=== PATIENT | male | born 1950 ===

== ENCOUNTER → 2017-12-28 12:32 | Outpatient (CLI) | payer MEDICARE, OTHER, SELFPAY ==
--- NOTE | 2017-12-28 | DI.ECHO.S_ITS ---
[place] [facility]---------+ [facility] +---------+ : : [address] : [place] [address] : : : : [id number] : : : : Phone: [phone]+ Echocardiogram Report + + :Name: KWADWO AGUAYO Study Date: 12/28/2017 Height: 73 in : :[facility] Weight: 240 lb : : Gender: Male BSA: 2.3 m2 : :: 1950 Age: 67 yrs BP: 110/62 mmHg: :Reason For Study: SOB : : Performed By: Ericka Valentine : :Referring: CAROL LUCIO : + + Interpretation Summary The left ventricle is normal in size. The ejection fraction is estimated to be 60-65%. The right ventricle is grossly normal size. The right ventricular systolic function is normal. No significant valvular pathology seen. Procedure: A two-dimensional transthoracic echocardiogram with color flow and Doppler was performed. The study quality was technically adequate. There is no prior echocardiogram noted for this patient. The patient was in normal sinus rhythm during the exam. Left Ventricle: The left ventricle is normal in size. There is normal left ventricular wall thickness. There is no thrombus. The ejection fraction is estimated to be 60-65%. There are no obvious focal wall motion abnormalities noted but poor endocardial definition reduces the sensitivity for the detection of such. Assessment of diastolic parameters indicates normal left ventricular diastolic function and normal filling pressures. Right Ventricle: The right ventricle is grossly normal size. The right ventricular systolic function is normal. Atria: The left atrial size is normal. Right atrial size is normal. The interatrial septum is intact with no evidence for an atrial septal defect. Mitral Valve: The mitral valve is normal in structure and function. There is trace mitral regurgitation. Aortic Valve: The aortic valve is trileaflet. The aortic valve opens well. There is no aortic valve stenosis. No aortic regurgitation is present. Tricuspid Valve: The tricuspid valve is normal in structure and function. Right ventricular systolic pressure is estimated to be 23 mmHg plus the clinically estimated CVP which cannot be estimated on this exam. There is trace tricuspid regurgitation. Pulmonic Valve: The pulmonic valve is not well seen, but is grossly normal. There is trace pulmonic regurgitation. Great Vessels: The aortic root is normal size. The dimensions of the ascending aorta are normal. The inferior vena cava was not visualized. Pericardium/ Pleura There is no pericardial effusion. There is no pleural effusion. MMode/2D Measurements & Calculations LVIDd: 4.5 cm Ao root diam: 3.2 cm LVIDs: 2.7 cm Aortic Jxn: 2.7 cm FS: 41.1 % asc Aorta Diam: 2.9 cm EPSS: 0.60 cm Ao Arch Diam (Prox Trans): 3.1 cm IVSd: 0.95 cm LVPWd: 0.93 cm LV guaman. diameter/BSA (cm/m^2): 1.9 LV sys. diameter/BSA (cm/m^2): 1.1 LA dimension: 4.0 cm RA long axis: 5.4 cm LA A2 area: 18.1 cm2 RA area: 17.7 cm2 LA A4 area: 19.3 cm2 RA vol: 49.1 ml LA length (vol): 5.3 cm RA : 21.1 ml/m2 LA vol: 55.5 ml RVDd major: 6.3 cm LA vol index: 23.9 ml/m2 RVD1 (basal): 3.1 cm RVD2 (mid): 3.0 cm Doppler Measurements & Calculations Ao V2 max: 123.5 cm/sec MV E max chase: 88.2 cm/sec Ao V2 mean: 85.3 cm/sec MV A max chase: 70.6 cm/sec Ao max P.1 mmHg MV E/A: 1.2 Ao mean P.3 mmHg Med Peak E' Chase: 8.1 cm/sec Ao V2 VTI: 29.3 cm E/E' med: 10.8 Lat Peak E' Chase: 9.7 cm/sec E/E' lat: 9.1 E/e' average: 10.0 MV dec time: 0.21 sec MV P1/2t: 63.9 msec TR max chase: 239.8 cm/sec MV P1/2t max chase: 88.4 cm/sec TR max P.0 mmHg MVA(P1/2t): 3.4 cm2 PA V2 max: 71.3 cm/sec PA V2 mean: 52.4 cm/sec PA mean P.2 mmHg PA Accel Time: 0.16 sec Reading Physician:NELIDA
--- NOTE | 2017-12-29 16:52 | DI.NM.S_ITS ---
DATE OF SERVICE: 12/28/2017 PROCEDURE: Pharmacologic perfusion study. INDICATIONS: Shortness of breath with underlying insulin-dependent diabetes mellitus, hypertension, hyperlipidemia, and rheumatoid arthritis. RADIOPHARMACEUTICAL: 26.3 mCi of technetium-99m Myoview IV was injected at stress, and 24.6 mCi of technetium-99m Myoview IV was injected at rest. CARDIAC STRESS: The patient initially underwent exercise perfusion study. He walked on Thaddeus protocol for 7 minutes 50 seconds; however, he felt fatigue and achieved heart rate of 113 only. Hence, converted to Lexiscan. The patient received IV Lexiscan infusion as per standard protocol under the supervision of an attending staff. Blood pressure remained stable. The patient tolerated the Lexiscan infusion. There were no significant symptoms. Baseline EKG revealed sinus rhythm. During stress, there were a lot of artifacts. In recovery, there were some nonspecific ST changes. No significant sustained arrhythmias seen. RAW DATA: There appears to be increased subdiaphragmatic activity. The patient's weight is 239 pounds. GATED STUDY: Resting LV ejection fraction and stress LV ejection fraction 74%. I don't see any obvious wall motion abnormalities. No transient ischemic dilatation. TID ratio is 0.84, which is within normal limits. Resting end- diastolic volume 97 mL. Lung/heart ratio is 0.37, which is within normal limits. MYOCARDIAL PERFUSION SCAN: Stress supine, resting supine, and stress prone images were compared to each other. Stress supine and resting supine images revealed small- to moderate-sized, [id number] decreased perfusion of inferior wall and inferoapex which significantly improved during prone images; however, prone images remained to have moderately decreased perfusion of inferoapex. I don't see any obvious reversible ischemia. CONCLUSION: 1. No obvious reversible ischemia. 2. Supine images revealed small- to moderate-sized, [id number] decreased perfusion of inferior wall and inferoapex which significantly improved during prone images. Prone images remained to have moderately decreased perfusion of inferoapex. The patient has increased subdiaphragmatic activity. The patient's weight is 239 pounds. There is a possibility of diaphragmatic tissue attenuation artifact as well as some persistent tissue attenuation artifact. Normal wall motion goes against a diagnosis of previous transmural myocardial infarction; however, one cannot rule out the possibility of nontransmural infarction of inferoapex. Overall LV function is preserved. Hence, based on above-mentioned objective findings, overall this is a low risk myocardial perfusion scan. Neelam Vail - ERIBERTO/lamine/dhruv doc#: [id number]/job#: [id number] dd: 12/29/2017 12:35:00 dt: 12/29/2017 16:37:00 DICTATING MD/COPIES TO: King Humphreys MD COPIES MNE: REBECCA
== END ==
PROVIDERS: Visit Provider Internal Medicine Cardiovascular Disease
DX: R06.02 Shortness of breath (principal); E78.5 Hyperlipidemia, unspecified; E11.9 Type 2 diabetes mellitus without complications; Z79.4 Long term (current) use of insulin; I10 Essential (primary) hypertension; M06.9 Rheumatoid arthritis, unspecified
CPT/HCPCS: 78452; 93016; 93017; 93018; 93306; A9502; J2785

== ENCOUNTER 2020-01-30 16:20 | Emergency (ER) | payer MEDICARE, OTHER, SELFPAY ==
[2020-01-30 16:30] VITALS: BP 131/60; PULSE 87; RESP 15; TEMP 36.6; O2SAT 98; BMI 30.9
[2020-01-30 17:00] VITALS: BP 111/53; PULSE 76; O2SAT 100
--- NOTE | 2020-01-30 17:28 | ED_ITS ---
HPI - Nausea/Vomiting/Diarrhea General Chief complaint: Nausea/Vomiting/Diarrhea Stated complaint: KIDNEY HEAD PAIN Time Seen by Provider: 01/30/20 16:37 Source: patient Mode of arrival: Ambulatory Limitations: no limitations History of Present Illness HPI Narrative: Patient is a 69-year-old male with history of coronary artery disease posttraumatic stress disorder headache presenting from the PCP office for increasing creatinine and persistent headache ongoing for about the last 5 days. Use actually seen and evaluated at [facility] he was diagnosed with sinusitis started on prednisone and Augmentin. His headache got worse this morning he went into the PCP who sent him here to the ER after blood work returned with a creatinine of 1.8. His baseline creatinine appears to be 1.3. He is concerned because of his headache and persistent nausea, he actually vomited once or twice today. He has multiple allergies to medications and is hesitant to take any sort of medication. The PCP stopped his Augmentin that it might be in allergy. He denies any weakness numbness tingling MD complaint: nausea Onset (ago): day(s) Related Data Allergies Allergy/AdvReac Type Severity Reaction Status Date / Time No Known Drug Allergies Allergy Verified 01/30/20 16:37 Review of Systems Review of Systems ROS Unobtainable: All systems reviewed & are unremarkable except as noted in HPI and below Constitutional Constitutional: Denies chills, Denies fever(s), Reports headache(s), Denies lethargy and Denies weakness Eyes Eyes: Denies change in vision, Denies eye discharge, Denies irritation and Denies loss of vision ENT Ears, Nose, Mouth, and Throat: Denies change in voice, Reports headache(s), Denies neck pain and Denies sore throat Cardiovascular Cardiovascular: Denies chest pain, Denies irregular heart rhythm, Denies lightheadedness, Denies palpitations, Denies dyspnea, Denies dyspnea on exertion and Denies orthopnea Respiratory Respiratory: Denies cough, Denies dyspnea, Denies dyspnea on exertion and Denies wheezing Gastrointestinal Gastrointestinal: Reports nausea Musculoskeletal Musculoskeletal: Denies neck pain Integumentary/Breasts Skin/Breast: Denies pruritus, Denies erythema, Denies rash and Denies wounds Neurologic Neurologic: Reports as per HPI, Reports headache(s), Denies loss of vision and Denies weakness Endocrine Endocrine: Denies palpitations Allergic/Immunologic Allergic/Immunologic: Denies wheezing Patient History Medical History Coronary artery disease (Acute) Diabetes (Acute) Hyperlipidemia (Acute) Post-traumatic stress disorder, chronic (Acute) Social History Smoking Status: Never smoker Smoking Status: Never smoker alcohol intake frequency: holidays/special occasions only Substance Use Type: does not use Exam Initial Vital Signs Initial Vital Signs: Vital Signs Temperature 97.9 F 01/30/20 16:30 Pulse Rate 87 01/30/20 16:30 Respiratory Rate 15 01/30/20 16:30 Blood Pressure 131/60 01/30/20 16:30 Pulse Oximetry 98 01/30/20 16:30 GENERAL: Well-appearing, well-nourished and in no acute distress. HEENT: Head atraumatic,EOMI, pupils reactive, face symmetric, moist mucous membranes, mild tenderness across frontal sinuses CARDIOVASCULAR: Regular rate and rhythm without murmurs, rubs or gallops. RESPIRATORY: Breath sounds equal bilaterally, no wheezes rales or rhonchi. ABDOMEN: Soft, nontender. Normoactive bowel sounds all 4 quadrants. No guarding or rebound. EXTREMITIES: Normal range of motion, no clubbing or edema. Neurovascularly intact NEUROLOGICAL: Alert and oriented x4.Normal gait and speech. Cranial nerves II through XII grossly intact. [employer] strength equal bilaterally no focal deficits SKIN: Warm, dry, no laceration, no petechiae, no rashes or lesions. Course Orders Ordered: ED Orders 01/30/20 17:05 Basic Metabolic Panel Stat Complete Blood Count AUTO DIFF Stat 01/30/20 17:39 CT head/brain wo con Stat Sodium Chloride (Normal Saline 0.9%) 1,000 mls @ 1,000 mls/hr IV BOLUS ONE Stop: 01/30/20 18:38 Last Admin: 01/30/20 17:59 Dose: 1,000 mls/hr Documented by: SANIYA Vital Signs Vital signs: Vital Signs - 8 hr 01/30/20 16:30 01/30/20 17:00 01/30/20 17:30 Temperature 97.9 F Pulse Rate 87 76 72 Respiratory Rate 15 Blood Pressure 131/60 111/53 L 112/59 L Pulse Oximetry 98 100 96 MDM - Nausea/Vomiting/Diarrhea Lab Data Attestation: I reviewed the patient's lab results. Result diagrams: 01/30/20 17:05 01/30/20 17:05 Labs: Lab Results 01/30/20 01/30/20 Range/Units 17:05 17:05 WBC 8.3 (4.5-11.0) X10^3/uL RBC 4.36 L (4.5-5.9) X10^6/uL Hgb 14.3 (13.5-17.5) g/dL Hct 41.2 (41-53) % MCV 94.6 (80-100) fL MCH 32.9 (26-34) PG MCHC 34.8 (30-36) % RDW 12.9 (11.6-14.8) % Plt Count 184 (150-400) X10^3/uL Neut % (Auto) 72.5 (50-75) % Lymph % (Auto) 17.7 L (25-40) % Mcleod % (Auto) 8.9 (3-14) % Eos % (Auto) 0.7 L (2-4) % Baso % (Auto) 0.2 (0-2) % Neut # (Auto) 6000 (8935-2146) /uL Lymph # (Auto) 1500 (0232-1334) /uL Mcleod # (Auto) 700 (0-900) /uL Eos # (Auto) 100 (0-450) /uL Baso # (Auto) 0 (0-100) /uL Sodium 133 L (137-145) mmol/L Potassium 4.9 (3.4-5.1) mmol/L Chloride 98 (98-107) mmol/L Carbon Dioxide 27 (22-32) mmol/L BUN 38 H (9-20) mg/dL Creatinine 1.99 H (0.66-1.25) mg/dL Estimated GFR 33.5 L (>60) mL/min BUN/Creatinine Ratio 19.1 (6-22) Glucose 104 (80-110) mg/dL Calcium 9.5 (8.4-10.2) mg/dL Imaging Data CT scan - head: Radiologist's Impression: PROCEDURE: CT HEAD/BRAIN WO CON INDICATIONS: severe headache with nausea TECHNIQUE: Noncontrast 4.5 mm thick angled axial sections acquired from the foramen magnum to the vertex, with coronal and sagittal reformats. For radiation dose reduction, the following was used: automated exposure control, adjustment of mA and/or kV according to patient size. COMPARISON: None. FINDINGS: Image quality: Excellent. CSF spaces: Basal cisterns are patent. No extra-axial fluid collections. The ventricles are symmetric in size and shape. Brain: No intracranial bleeds or masses. There is cerebral volume loss for age, with resultant ventricular and sulcal prominence. There are periventricular and deep white matter chronic small vessel ischemic changes. There is intracranial internal carotid artery atherosclerosis. Skull and face: Calvarium and visualized facial bones appear intact, without suspicious lesions. One-2 mm density or foreign body projecting in the right periorbital soft tissues image 6/2. Sinuses: Visualized sinuses and mastoids are clear. IMPRESSION: No acute intracranial process. Dictated by: Wilver Smith M.D. on 01/30/2020 at 18:09 MDM Narrative Medical decision making narrative: Creatinine now is 1.9. Unclear what is causing his worsening creatinine he is given 1 L of IV fluids. However at this time does not meet admission criteria. Recommend outpatient workup of his increasing creatinine. Avoid NSAIDs and other nephrotoxic medications. Head CT is negative he has no focal deficits. He does have a history of headaches. He actually now is feeling much better. Discharge Plan Departure Patient Disposition: Home Clinical Impression: Acute kidney injury Headache Qualifiers: Headache type: unspecified Headache chronicity pattern: acute headache Intractability: not intractable Qualified Code(s): R51 - Headache Instructions: DI for Headache, DI for Acute Kidney Injury Activity Restrictions/Additional Instructions: *You have been diagnosed with headache and acute kidney injury *What to do: be sure to stay hydrated, avoid all NSAIDs such as ibuprofen, Motrin, Aleve, naproxen etc. your PCP at the [facility] needs to follow your kidney function. *Continue to take medications as directed *Follow up with your primary care provider in 2-3 days *Return to ER if you should have worsening headache, weakness numbness tingling inability to tolerate fluids or any new, worsening or concerning symptoms
[2020-01-30 17:30] VITALS: BP 112/59; PULSE 72; O2SAT 96
--- NOTE | 2020-01-30 17:39 | DI.CT.S_ITS ---
PROCEDURE: CT HEAD/BRAIN WO CON INDICATIONS: severe headache with nausea TECHNIQUE: Noncontrast 4.5 mm thick angled axial sections acquired from the foramen magnum to the vertex, with coronal and sagittal reformats. For radiation dose reduction, the following was used: automated exposure control, adjustment of mA and/or kV according to patient size. COMPARISON: None. FINDINGS: Image quality: Excellent. CSF spaces: Basal cisterns are patent. No extra-axial fluid collections. The ventricles are symmetric in size and shape. Brain: No intracranial bleeds or masses. There is cerebral volume loss for age, with resultant ventricular and sulcal prominence. There are periventricular and deep white matter chronic small vessel ischemic changes. There is intracranial internal carotid artery atherosclerosis. Skull and face: Calvarium and visualized facial bones appear intact, without suspicious lesions. One-2 mm density or foreign body projecting in the right periorbital soft tissues image 6/2. Sinuses: Visualized sinuses and mastoids are clear. IMPRESSION: No acute intracranial process. Dictated by: Wilver Smith M.D. on 01/30/2020 at 18:09 Approved by: Wilver Smith M.D. on 01/30/2020 at 18:11
[2020-01-30 17:56] LABS: Add Manual Diff / Slide Review NO; Basophils Absolute Auto 0 /uL (0-100); Basophils Percent Auto 0.2 % (0-2); Eosinophils Absolute Auto 100 /uL (0-450); Eosinophils Percent Auto 0.7 % (2-4); Hematocrit 41.2 % (41-53); Hemoglobin 14.3 g/dL (13.5-17.5); Lymphocytes Absolute Auto 1500 /uL (1100-4500); Lymphocytes Percent Auto 17.7 % (25-40); Mean Corpuscular HGB Conc 34.8 % (30-36); Mean Corpuscular Hemoglobin 32.9 PG (26-34); Mean Corpuscular Volume 94.6 fL (80-100); Monocytes Absolute Auto 700 /uL (0-900); Monocytes Percent Auto 8.9 % (3-14); Neutrophils Absolute Auto 6000 /uL (1500-7000); Neutrophils Percent Auto 72.5 % (50-75); Platelet Count 184 X10^3/uL (150-400); Red Blood Cell Count 4.36 X10^6/uL (4.5-5.9); Red Cell Distribution Width 12.9 % (11.6-14.8); White Blood Cell Count 8.3 X10^3/uL (4.5-11.0)
[2020-01-30 17:58] LABS: BUN Creatinine Ratio 19.1 (6-22); Blood Urea Nitrogen 38 mg/dL (9-20); Calcium 9.5 mg/dL (8.4-10.2); Carbon Dioxide 27 mmol/L (22-32); Chloride 98 mmol/L (98-107); Estimated Glomerular Filt Rate 33.5 mL/min (>60); Glucose 104 mg/dL (80-110); HEMOLYSIS 23 (0-50); Potassium 4.9 mmol/L (3.4-5.1); Sodium 133 mmol/L (137-145)
[2020-01-30] MEDS: SODIUM CHLORIDE 0.9% 1,000 ML 1000 ML IV (17:59)
[2020-01-30 18:00] VITALS: BP 117/58; PULSE 71; O2SAT 98
[2020-01-30 18:30] VITALS: BP 125/58; PULSE 68; O2SAT 98
== END 2020-01-30 19:08 | disposition home or self-care (01) ==
PROVIDERS: Emergency Provider Emergency Medicine
DX: N17.9 Acute kidney failure, unspecified (principal); R51 Headache; R11.0 Nausea
CPT/HCPCS: 36415; 70450; 80048; 85025; 96360; 99283; 99284

== ENCOUNTER 2020-10-04 07:05 | Emergency (ER) | payer MEDICARE, OTHER, SELFPAY ==
[2020-10-04] VITALS (7 sets, daily range): BP systolic 149–165; BP diastolic 75–99; PULSE 79–92; RESP 17–18; TEMP 36.3; O2SAT 98; BMI 27.8
--- NOTE | 2020-10-04 07:45 | ED_ITS ---
HPI - GI Bleed General Chief complaint: Abdominal Pain Stated complaint: pain in back and belly Time Seen by Provider: 10/04/20 07:11 Source: patient Mode of arrival: Ambulatory Limitations: no limitations History of Present Illness HPI Narrative: Patient is a 70-year-old male with history of diabetes hypertension hyperlipidemia PTSD presenting today with concern for vomiting blood and abdominal pain. He says he has not actually had a bowel movement and while he was seen by the [employer] and started taking MiraLax flaxseed Dulcolax and tramadol but he says he still has not had a bowel movement. He was seen at [facility] last week where he had blood work it was recommended he have a CT scan done at that time however he needed to get home to his who had cancer. Last night he started having worsening abdominal pain any heard bowel noises. He currently no pain. He denies any chest pain palpitations shortness of breath he occasionally feels nauseous but has not been vomiting. He says that he has had multiple colonoscopies and sometimes they find nodules, which I think he probably means polyps. Pain Consistency: now resolved Severity: severe Relieving factors: none Exacerbating factors: none Related Data Previous Rx's Medication Instructions Recorded ondansetron 4 mg PO Q8H PRN #10 tab 10/04/20 Allergies Allergy/AdvReac Type Severity Reaction Status Date / Time No Known Drug Allergies Allergy Verified 01/30/20 16:37 Review of Systems Review of Systems Narrative: GENERAL: Denies chills, fatigue, malaise, fever, sweats, travel HEENT: Denies sinus pain, ear pain, sore throat, difficulty swallowing, neck pain RESPIRATORY: Denies dyspnea, cough, wheezing, hemoptysis, sputum. CARDIOVASCULAR: Denies chest pain, palpitations, orthopnea, edema GASTROINTESTINAL: See HPI : Denies dysuria, frequency, incontinence, hematuria, urinary retention, flank pain. MUSCULOSKELETAL: Denies weakness, joint pain, or bony pain SKIN: No rash, no erythema, no pruritus NEUROLOGIC: Denies weakness, dizziness, headache, numbness, change in speech, confusion PSYCHIATRIC: No concerning psychosocial issues. 12 point review of systems is negative except for those stated above and HPI Patient History Medical History (Updated 10/04/20 @ 09:43 by Radha Kenyon DO) Coronary artery disease Diabetes Hyperlipidemia Post-traumatic stress disorder, chronic Social History Smoking Status: Never smoker Smoking Status: Never smoker alcohol intake frequency: holidays/special occasions only Substance Use Type: does not use Exam Initial Vital Signs Initial Vital Signs: Vital Signs Temperature 97.4 F L 10/04/20 07:15 Pulse Rate 90 10/04/20 07:15 Respiratory Rate 17 10/04/20 07:15 Blood Pressure 149/99 H 10/04/20 07:15 Pulse Oximetry 98 10/04/20 07:15 GENERAL: Well-appearing, well-nourished and in no acute distress. HEENT: Head atraumatic,EOMI, pupils reactive, face symmetric, moist mucous me mbranes CARDIOVASCULAR: Regular rate and rhythm without murmurs, rubs or gallops. RESPIRATORY: Breath sounds equal bilaterally, no wheezes rales or rhonchi. ABDOMEN: Soft, nontender. Normoactive bowel sounds all 4 quadrants. No guarding or rebound. RECTAL: No gross blood Hemoccult-negative EXTREMITIES: Normal range of motion, no clubbing or edema. Neurovascularly intact NEUROLOGICAL: Alert and oriented x4.Normal gait and speech. Cranial nerves II through XII grossly intact. SKIN: Warm, dry, no laceration, no petechiae, no rashes or lesions. Course Orders Ordered: ED Orders 10/04/20 07:48 CT abdomen pelvis w con Stat 10/04/20 07:51 Complete Blood Count AUTO DIFF Stat Comprehensive Metabolic Panel Stat Lipase Stat Partial Thromboplastin Time Stat Prothrombin Time INR Stat Discontinued Medications Al Hydrox/Mg Hydrox/Simethicone 20 ml/ Lidocaine HCl 15 ml 0 ml PO NOW ONE Stop: 10/04/20 08:34 Last Admin: 10/04/20 08:51 Dose: 35 ml Documented by: RADHA Morphine Sulfate (Morphine 2 Mg/Ml Inj) 2 mg IV NOW ONE Stop: 10/04/20 08:24 Last Admin: 10/04/20 08:34 Dose: Not Given Documented by: RADHA Pantoprazole Sodium (Pantoprazole 40 Mg Vial) 40 mg IV NOW ONE Stop: 10/04/20 08:34 Last Admin: 10/04/20 08:51 Dose: 40 mg Documented by: RADHA Vital Signs Vital signs: Vital Signs - 8 hr 10/04/20 07:15 10/04/20 07:55 10/04/20 08:00 Temperature 97.4 F L Pulse Rate 90 91 H 88 Respiratory Rate 17 Blood Pressure 149/99 H 149/75 H Pulse Oximetry 98 98 98 10/04/20 08:30 10/04/20 09:00 10/04/20 09:30 Temperature Pulse Rate 92 H 79 82 Respiratory Rate Blood Pressure 165/75 H Pulse Oximetry 98 98 98 10/04/20 09:59 Temperature Pulse Rate 85 Respiratory Rate 18 Blood Pressure 153/82 H Pulse Oximetry 98 MDM - GI Bleed Lab Data Attestation: I reviewed the patient's lab results. Result diagrams: 10/04/20 07:51 10/04/20 07:51 Labs: Lab Results 10/04/20 10/04/20 10/04/20 Range/Units 07:51 07:51 07:51 WBC 7.1 (4.5-11.0) X10^3/uL RBC 4.55 (4.5-5.9) X10^6/uL Hgb 14.8 (13.5-17.5) g/dL Hct 43.4 (41-53) % MCV 95.3 (80-100) fL MCH 32.5 (26-34) PG MCHC 34.1 (30-36) % RDW 13.6 (11.6-14.8) % Plt Count 217 (150-400) X10^3/uL Neut % (Auto) 70.1 (50-75) % Lymph % (Auto) 20.4 L (25-40) % [place] % (Auto) 8.6 (3-14) % Eos % (Auto) 0.5 L (2-4) % Baso % (Auto) 0.4 (0-2) % Neut # (Auto) 5000 (1059-0281) /uL Lymph # (Auto) 1400 (2140-7993) /uL [place] # (Auto) 600 (0-900) /uL Eos # (Auto) 0 (0-450) /uL Baso # (Auto) 0 (0-100) /uL PT 13.0 H (10.1-12.7) SECONDS INR 1.1 (0.9-1.3) APTT 34 (26.4-36.2) SECONDS Sodium 135 L (137-145) mmol/L Potassium 4.8 (3.4-5.1) mmol/L Chloride 98 (98-107) mmol/L Carbon Dioxide 28 (22-32) mmol/L BUN 11 (9-20) mg/dL Creatinine 1.06 (0.66-1.25) mg/dL Estimated GFR > 60.0 (>60) mL/min BUN/Creatinine Ratio 10.4 (6-22) Glucose 124 H (80-110) mg/dL Calcium 10.2 (8.4-10.2) mg/dL Total Bilirubin 1.0 (0.2-1.3) mg/dL AST 35 (17-59) IU/L ALT 24 (<50) IU/L Alkaline Phosphatase 125 (38-126) U/L Total Protein 8.6 H (6.3-8.2) g/dL Albumin 4.9 (3.5-5.0) g/dL Globulin 3.7 (1.7-4.1) g/dL Albumin/Globulin Ratio 1.3 (1.0-2.8) Lipase 24 (23-300) U/L Imaging Data CT scan - abdomen/pelvis: Radiologist's Impression: PROCEDURE: CT ABDOMEN PELVIS W CON INDICATIONS: ab pain TECHNIQUE: After the administration of intravenous contrast, 5 mm thick sections acquired from the diaphragm to the symphysis. 5 mm coronal and sagittal reformats were acquired. For radiation dose reduction, the following was used: automated exposure control, adjustment of mA and/or kV according to patient size. COMPARISON: None FINDINGS: Image quality: Excellent. ABDOMEN: Lung bases: Numerous small noncalcified nodular densities are present in the extreme right lung base. A number of these are pleural-based. In light of the presence of multiple liver lesions, these are suspicious for pulmonary metastatic lesions. Heart size is normal. Solid organs: There are multiple ill-defined hypodensities in the right lobe of the liver and caudate lobe of the liver which are suspicious for metastatic disease. Reference image 15/2, where there is a 1.7 cm and a 1.3 cm hypodense lesion. Reference image 12/2 for a 1.8 cm caudate lobe lesion. Reference image 14/2 for a 1.6 cm right lobe lesion and a 1.1 cm right lobe lesion. Gallbladder is surgically absent. Biliary system is non dilated. There is a malignant low-density structure which is either exophytic off of the uncinate process of the pancreas or unrelated to the pancreas measuring 2.6 cm in diameter with ill definition of the surrounding mesenteric fat. Pancreas is otherwise unremarkable. Spleen is normal in size and enhancement. No adrenal nodules. Kidneys demonstrate normal size and enhancement, without hydronephrosis. Peritoneum and bowel: There is mild prominence of the distal antrum and pylorus of the stomach, of uncertain significance. Bowel loops demonstrate normal wall thickness and caliber. No free fluid or air. Nodes and vessels: There are aortocaval and periportal lymph nodes which are borderline and may potentially represent malignant adenopathy. Aorta and inferior vena cava are normal in size. Miscellaneous: No ventral hernias. PELVIS: Genitourinary: Bladder wall thickness is normal. Miscellaneous: Right inguinal hernia containing fat. No inguinal adenopathy. Bones: No suspicious bony lesions. No vertebral body compression fractures. IMPRESSION: 1. There is metastatic disease in the liver. 2. Numerous tiny nodular densities in the extreme right lung base likely represent metastatic disease. 3. There is a malignant structure which is either exophytic off the uncinate process of the pancreas or unrelated to the pancreas adjacent to the duodenum. 4. Borderline periportal and portacaval adenopathy. Comments: The liver lesions are in a location which may be challenging for biopsy. Consider liver ultrasound to assess suitability of these lesions for biopsy. Consider CT chest for evaluation of possible metastatic disease. The lesion described as possibly exophytic off of the uncinate process of the pancreas versus unrelated to the pancreas would not be amenable to CT-guided biopsy. Dictated by: Heladio Tolbert M.D. on 10/04/2020 at 8:03 MDM Narrative Medical decision making narrative: Discussion with patient about CT results and likely metastatic cancer possibly pancreatic cancer. At this time pain and symptoms have been ongoing for a number of weeks nothing emergent he does have good follow-up care with the [facility]. Discussed with patient and daughter importance of calling 1st thing tomorrow to get referral to Oncology. Patient's is currently being treated for cancer so they are familiar with the process. Discharge Plan Departure Patient Disposition: Home Clinical Impression: Pancreatic cancer Qualifiers: Pancreatic malignancy location: unspecified Qualified Code(s): C25.9 - Malignant neoplasm of pancreas, unspecified Instructions: DI for Liver Cancer, DI for Pancreaticobiliary Cancer Activity Restrictions/Additional Instructions: *You have been diagnosed with unfortunately likely have cancer it is unclear what type of cancer you have but there is an area on the pancreas and multiple areas on the liver *What to do: You will definitely need more testing including biopsy and more scans before more information is known *Continue to take medications as directed Tramadol as directed Zofran 4 mg every 8 hours if needed for nausea or vomiting *Follow up with your primary care provider in 2-3 days, call your primary care provider 1st thing tomorrow to schedule appointment he will need referral to Oncology as soon as possible *Return to ER if you should have increasing pain persistent vomiting fever or any new, worsening or concerning symptoms Prescriptions: New ondansetron 4 mg tablet,disintegrating 4 mg PO Q8H PRN (Reason: nausea and vomiting) Qty: 10 RF: 0 Referrals: [facility] [Provider Group]
--- NOTE | 2020-10-04 07:48 | DI.CT.S_ITS ---
PROCEDURE: CT ABDOMEN PELVIS W CON INDICATIONS: ab pain TECHNIQUE: After the administration of intravenous contrast, 5 mm thick sections acquired from the diaphragm to the symphysis. 5 mm coronal and sagittal reformats were acquired. For radiation dose reduction, the following was used: automated exposure control, adjustment of mA and/or kV according to patient size. COMPARISON: None FINDINGS: Image quality: Excellent. ABDOMEN: Lung bases: Numerous small noncalcified nodular densities are present in the extreme right lung base. A number of these are pleural-based. In light of the presence of multiple liver lesions, these are suspicious for pulmonary metastatic lesions. Heart size is normal. Solid organs: There are multiple ill-defined hypodensities in the right lobe of the liver and caudate lobe of the liver which are suspicious for metastatic disease. Reference image 15/2, where there is a 1.7 cm and a 1.3 cm hypodense lesion. Reference image 12/2 for a 1.8 cm caudate lobe lesion. Reference image 14/2 for a 1.6 cm right lobe lesion and a 1.1 cm right lobe lesion. Gallbladder is surgically absent. Biliary system is non dilated. There is a malignant low-density structure which is either exophytic off of the uncinate process of the pancreas or unrelated to the pancreas measuring 2.6 cm in diameter with ill definition of the surrounding mesenteric fat. Pancreas is otherwise unremarkable. Spleen is normal in size and enhancement. No adrenal nodules. Kidneys demonstrate normal size and enhancement, without hydronephrosis. Peritoneum and bowel: There is mild prominence of the distal antrum and pylorus of the stomach, of uncertain significance. Bowel loops demonstrate normal wall thickness and caliber. No free fluid or air. Nodes and vessels: There are aortocaval and periportal lymph nodes which are borderline and may potentially represent malignant adenopathy. Aorta and inferior vena cava are normal in size. Miscellaneous: No ventral hernias. PELVIS: Genitourinary: Bladder wall thickness is normal. Miscellaneous: Right inguinal hernia containing fat. No inguinal adenopathy. Bones: No suspicious bony lesions. No vertebral body compression fractures. IMPRESSION: 1. There is metastatic disease in the liver. 2. Numerous tiny nodular densities in the extreme right lung base likely represent metastatic disease. 3. There is a malignant structure which is either exophytic off the uncinate process of the pancreas or unrelated to the pancreas adjacent to the duodenum. 4. Borderline periportal and portacaval adenopathy. Comments: The liver lesions are in a location which may be challenging for biopsy. Consider liver ultrasound to assess suitability of these lesions for biopsy. Consider CT chest for evaluation of possible metastatic disease. The lesion described as possibly exophytic off of the uncinate process of the pancreas versus unrelated to the pancreas would not be amenable to CT-guided biopsy. Dictated by: Heladio Tolbert M.D. on 10/04/2020 at 8:03 Approved by: Heladio Tolbert M.D. on 10/04/2020 at 8:15
[2020-10-04 08:02] LABS: Add Manual Diff / Slide Review NO; Basophils Absolute Auto 0 /uL (0-100); Basophils Percent Auto 0.4 % (0-2); Eosinophils Absolute Auto 0 /uL (0-450); Eosinophils Percent Auto 0.5 % (2-4); Hematocrit 43.4 % (41-53); Hemoglobin 14.8 g/dL (13.5-17.5); Lymphocytes Absolute Auto 1400 /uL (1100-4500); Lymphocytes Percent Auto 20.4 % (25-40); Mean Corpuscular HGB Conc 34.1 % (30-36); Mean Corpuscular Hemoglobin 32.5 PG (26-34); Mean Corpuscular Volume 95.3 fL (80-100); Monocytes Absolute Auto 600 /uL (0-900); Monocytes Percent Auto 8.6 % (3-14); Neutrophils Absolute Auto 5000 /uL (1500-7000); Neutrophils Percent Auto 70.1 % (50-75); Platelet Count 217 X10^3/uL (150-400); Red Blood Cell Count 4.55 X10^6/uL (4.5-5.9); Red Cell Distribution Width 13.6 % (11.6-14.8); White Blood Cell Count 7.1 X10^3/uL (4.5-11.0)
[2020-10-04 08:08] LABS: INR 1.1 (0.9-1.3)
[2020-10-04 08:11] LABS: PTT Partial Thromboplastin Tim 34 SECONDS (26.4-36.2)
[2020-10-04 08:13] LABS: Alanine Aminotransferase 24 IU/L (<50); Albumin 4.9 g/dL (3.5-5.0); Albumin Globulin Ratio 1.3 (1.0-2.8); Alkaline Phosphatase 125 U/L (38-126); Aspartate Aminotransferase 35 IU/L (17-59); BUN Creatinine Ratio 10.4 (6-22); Blood Urea Nitrogen 11 mg/dL (9-20); Calcium 10.2 mg/dL (8.4-10.2); Carbon Dioxide 28 mmol/L (22-32); Chloride 98 mmol/L (98-107); Estimated Glomerular Filt Rate > 60.0 mL/min (>60); Globulin 3.7 g/dL (1.7-4.1); Glucose 124 mg/dL (80-110); HEMOLYSIS < 15 (0-50); Lipase 24 U/L (23-300); Potassium 4.8 mmol/L (3.4-5.1); Sodium 135 mmol/L (137-145); Total Protein 8.6 g/dL (6.3-8.2)
[2020-10-04] MEDS: ONDANSETRON 4 MG/2 ML INJ (08:27)
[2020-10-04] MEDS: MAG HYDROX/ALUMINUM/SIMETH SUS 20 ML, LIDOCAINE VISCOUS 2% 15 ML PO (08:51)
[2020-10-04] MEDS: PANTOPRAZOLE 40 MG VIAL IV (08:51)
== END 2020-10-04 10:00 | disposition home or self-care (01) ==
PROVIDERS: Emergency Provider Emergency Medicine
DX: C25.9 Malignant neoplasm of pancreas, unspecified (principal); R10.9 Unspecified abdominal pain; K92.0 Hematemesis
CPT/HCPCS: 36415; 74177; 80053; 83690; 85025; 85610; 85730; 96374; 96375; 99281; 99284; C9113; J2270; J2405; Q9967

== ENCOUNTER 2020-10-06 17:03 | Emergency (ER) | payer MEDICARE, OTHER, SELFPAY ==
[2020-10-06] VITALS (9 sets, daily range): BP systolic 145–171; BP diastolic 78–89; PULSE 77–100; RESP 16; TEMP 37.1; O2SAT 95–100; BMI 27.6
--- NOTE | 2020-10-06 17:19 | ED_ITS ---
HPI - Abdominal Pain General Chief Complaint: Nausea/Vomiting/Diarrhea Stated Complaint: VOMITING CANCER PATIENT Time Seen by Provider: 10/06/20 17:06 Source: patient and family Mode of arrival: Wheelchair Limitations: no limitations History of Present Illness HPI narrative: 70M nonsmoker with the history of recently diagnosed pancreatic cancer presents with his daughter and a chief complaint of worsening epigastric pain and multiple episodes of nausea and vomiting. He is unable to keep his medications down and become dizzy, weak and lightheaded. He has had no fever or chills. He states his pain is persistent, sharp and stabbing and a 10/10 in severity. He has poor appetite. He denies any change in medications and is in the process of being connected with medical oncology MD complaint: abdominal pain Onset (ago): hour(s) Pain Consistency: constant Location: epigastric Severity: moderate Quality: stabbing and aching Radiation: none Relieving factors: nothing Exacerbating factors: nothing Associated symptoms: nausea and vomiting Related Data Home Medications Medication Instructions Recorded Confirmed atorvastatin 10/05/20 brimonidine drp 10/05/20 carvedilol 10/05/20 divalproex 500 mg PO DAILY 10/05/20 10/05/20 doxazosin mg 10/05/20 famotidine 40 mg PO BEDTIME 10/05/20 10/05/20 finasteride mg 10/05/20 insulin aspart U-100 [Novolog unit SUBCUT 10/05/20 Flexpen U-100 Insulin] insulin glargine [Lantus Solostar SUBCUT 10/05/20 U-100 Insulin] lidocaine patch 10/05/20 lisinopril 10/05/20 olopatadine drp OPHTHALMIC (EYE) 10/05/20 pantoprazole PO 10/05/20 prazosin 5 mg PO BEDTIME 10/05/20 10/05/20 pregabalin [Lyrica] 150 mg PO BID 10/05/20 10/05/20 tramadol mg 10/05/20 travoprost [Travatan Z] drp 10/05/20 Previous Rx's Medication Instructions Recorded ondansetron 4 mg PO Q8H PRN #10 tab 10/04/20 ondansetron 4 mg PO TID-QID PRN #10 tab 10/06/20 pantoprazole [Protonix] 40 mg PO DAILY #30 tab 10/06/20 Allergies Allergy/AdvReac Type Severity Reaction Status Date / Time amoxicillin [From Augmentin] Allergy Unknown Vomiting Verified 10/05/20 17:08 aspirin Allergy Unknown Verified 10/05/20 17:08 brompheniramine Allergy Unknown Verified 10/05/20 17:08 hydroxyzine Allergy Unknown Verified 10/05/20 17:08 ibuprofen Allergy Unknown Verified 10/05/20 17:08 meperidine Allergy Unknown Verified 10/05/20 17:08 metformin Allergy Unknown Diarrhea Verified 10/05/20 17:08 morphine Allergy Unknown Verified 10/05/20 17:08 promethazine Allergy Unknown Verified 10/05/20 17:08 propoxyphene Allergy Unknown Verified 10/05/20 17:08 tuberculin, purified protein Allergy Unknown Verified 10/05/20 17:08 deriva clavulanic acid Allergy Vomiting Verified 10/05/20 17:08 [From Augmentin] egg Allergy Verified 10/05/20 17:08 acetaminophen-hydrocodone Allergy Unknown Uncoded 10/05/20 17:08 acetaminophen-propoxyphene Allergy Unknown Uncoded 10/05/20 17:08 acetaminophen/codeine/guiafenesin Allergy Unknown Uncoded 10/05/20 17:08 diphenhydramine/lidocaine/nystatin Allergy Unknown Uncoded 10/05/20 17:08 sodium biphosphate Allergy Unknown Uncoded 10/05/20 17:08 topical Allergy Unknown Anaphylaxis Uncoded 10/05/20 17:08 opiod-like analgesics Allergy Uncoded 10/05/20 17:08 Review of Systems Constitutional Constitutional: Denies chills, Reports fatigue, Denies fever(s), Denies frequent falls, Reports lethargy and Reports weakness Eyes Eyes: Denies change in vision, Denies eye discharge, Denies irritation and Denies loss of vision ENT Ears, Nose, Mouth, and Throat: Denies change in voice, Denies dizziness, Denies neck pain, Denies sore throat and Denies throat swelling Cardiovascular Cardiovascular: Denies chest pain, Denies irregular heart rhythm, Denies lightheadedness, Denies palpitations, Denies dyspnea, Denies dyspnea on exertion and Denies orthopnea Respiratory Respiratory: Denies cough, Denies dyspnea, Denies dyspnea on exertion and Denies wheezing Gastrointestinal Gastrointestinal: Reports abdominal pain, Denies change in bowel habits, Denies diarrhea, Reports nausea and Reports vomiting Musculoskeletal Musculoskeletal: Denies neck pain and Denies numbness Integumentary/Breasts Skin/Breast: Denies pruritus, Denies erythema, Denies rash and Denies wounds Neurologic Neurologic: Denies behavioral changes, Denies confusion, Denies dizziness, Denies frequent falls, Denies loss of vision, Denies numbness and Reports weakness Psychiatric Psychiatric: Denies anxiety, Denies behavioral changes, Denies confusion, Denies depression, Denies homicidal ideation and Denies suicidal ideation Endocrine Endocrine: Reports fatigue, Denies flushing and Denies palpitations Hematologic/Lymphatic Hematologic/Lymphatic: Denies easy bruising Allergic/Immunologic Allergic/Immunologic: Denies urticaria, Denies throat swelling and Denies wheezing Patient History Medical History Coronary artery disease Diabetes Hyperlipidemia Post-traumatic stress disorder, chronic Surgical History History of cholecystectomy (01/31/17) Family History Mother Diabetes mellitus Father Dementia Social History Smoking Status: Never smoker alcohol intake: never substance use type: does not use Smoking Status: Never smoker alcohol intake frequency: holidays/special occasions only Substance Use Type: does not use Exam Narrative Exam Narrative: GENERAL: [70] year old patient appears stated age. Well- nourished, well-developed patient, in mild distress. Clutching his upper abdome n HEAD: Atraumatic. Normocephalic. EYES: Pupils equal round and reactive. Extraocular motions intact. No scleral icterus. No injection or drainage. ENT: Dry mucous members Nose without bleeding, purulent drainage. Throat without erythema, tonsillar hypertrophy or exudate. Airway patent. NECK: Trachea midline. Non tender CARDIOVASCULAR: Regular rate and rhythm without murmurs, gallops, or rubs. RESPIRATORY: Clear to auscultation. Breath sounds equal bilaterally. No wheezes, rales, or rhonchi. GASTROINTESTINAL: Abdomen soft, severe epigastric pain, nondistended. EXTREMITIES: No edema or joint tenderness. BACK: Nontender without deformity or crepitance. No flank tenderness. NEURO: AOx3. SKIN: No rash or erythema of visible areas Initial Vital Signs Initial Vital Signs: Vital Signs Temperature 98.7 F 10/06/20 17:12 Pulse Rate 100 H 10/06/20 17:12 Respiratory Rate 16 10/06/20 17:12 Blood Pressure 171/89 H 10/06/20 17:12 Pulse Oximetry 97 10/06/20 17:12 Course Orders Ordered: ED Orders 10/06/20 17:23 Complete Blood Count AUTO DIFF Stat Comprehensive Metabolic Panel Stat Lipase Stat Magnesium Stat Ondansetron HCl (Ondansetron 4 Mg/2 Ml Inj) 4 mg IV Q4HR PRN PRN Reason: Nausea And Vomiting Last Admin: 10/06/20 17:34 Dose: 4 mg Documented by: SUN Discontinued Medications Dextrose (Dextrose 50 % In Water 25 Gm/50 Ml Syringe) 25 gm IV NOW ONE Stop: 10/06/20 18:14 Last Admin: 10/06/20 18:24 Dose: 12.5 gm Documented by: SUN Hydromorphone HCl (Hydromorphone 0.5 Mg Inj) 0.5 mg IV NOW ONE Stop: 10/06/20 17:12 Last Admin: 10/06/20 17:34 Dose: 0.5 mg Documented by: SUN Sodium Chloride (Normal Saline 0.9%) 1,000 mls @ 1,000 mls/hr IV BOLUS ONE Stop: 10/06/20 18:10 Last Infusion: 10/06/20 18:23 Dose: 0 mls/hr Documented by: Admin: 10/06/20 17:34 Dose: 1,000 mls/hr Documented by: SUN Ondansetron HCl (Ondansetron 4 Mg Odt Prepack) 1 bottle MISC SEEINSTR ONE Stop: 10/06/20 20:09 Pantoprazole Sodium (Pantoprazole 40 Mg Vial) 40 mg IV NOW ONE Stop: 10/06/20 18:37 Last Admin: 10/06/20 18:55 Dose: 40 mg Documented by: COLE Vital Signs Vital signs: Vital Signs - 8 hr 10/06/20 17:12 10/06/20 17:30 10/06/20 18:00 Temperature 98.7 F Pulse Rate 97 H 89 80 Respiratory Rate 16 Blood Pressure 171/89 H 145/82 H 162/78 H Pulse Oximetry 98 97 95 10/06/20 18:30 10/06/20 18:39 10/06/20 19:00 Temperature Pulse Rate 77 83 Respiratory Rate 16 Blood Pressure 154/83 H Pulse Oximetry 97 100 10/06/20 19:30 Temperature Pulse Rate 81 Respiratory Rate Blood Pressure 167/83 H Pulse Oximetry 99 MDM - Abdominal Pain Lab Data Result diagrams: 10/06/20 17:23 10/06/20 17:23 Labs: Lab Results 10/06/20 10/06/20 Range/Units 17:23 17:23 WBC 6.5 (4.5-11.0) X10^3/uL RBC 4.39 L (4.5-5.9) X10^6/uL Hgb 14.0 (13.5-17.5) g/dL Hct 41.7 (41-53) % MCV 95.0 (80-100) fL MCH 31.8 (26-34) PG MCHC 33.5 (30-36) % RDW 12.9 (11.6-14.8) % Plt Count 228 (150-400) X10^3/uL Neut % (Auto) 65.5 (50-75) % Lymph % (Auto) 22.6 L (25-40) % Sumner % (Auto) 10.9 (3-14) % Eos % (Auto) 0.6 L (2-4) % Baso % (Auto) 0.4 (0-2) % Neut # (Auto) 4200 (0668-0144) /uL Lymph # (Auto) 1500 (8456-2196) /uL Sumner # (Auto) 700 (0-900) /uL Eos # (Auto) 0 (0-450) /uL Baso # (Auto) 0 (0-100) /uL Sodium 135 L (137-145) mmol/L Potassium 4.2 (3.4-5.1) mmol/L Chloride 98 (98-107) mmol/L Carbon Dioxide 29 (22-32) mmol/L BUN 14 (9-20) mg/dL Creatinine 1.09 (0.66-1.25) mg/dL Estimated GFR > 60.0 (>60) mL/min BUN/Creatinine Ratio 12.8 (6-22) Glucose 77 L (80-110) mg/dL Calcium 10.0 (8.4-10.2) mg/dL Magnesium 2.4 H (1.6-2.3) mg/dL Total Bilirubin 0.9 (0.2-1.3) mg/dL AST 32 (17-59) IU/L ALT 23 (<50) IU/L Alkaline Phosphatase 109 (38-126) U/L Total Protein 8.0 (6.3-8.2) g/dL Albumin 4.6 (3.5-5.0) g/dL Globulin 3.4 (1.7-4.1) g/dL Albumin/Globulin Ratio 1.4 (1.0-2.8) Lipase 23 (23-300) U/L Point of care testing: Point of Care Testing Glucose POC 75 MDM Narrative Medical decision making narrative: Patient feeling much better after above stated therapies. Labs are very reassuring. Patient has good family support and close follow up established. Patient is tolerating oral hydration. His questions have been answered and he understands return precautions. Discharge Plan Departure Patient Disposition: Home Clinical Impression: Abdominal pain, epigastric Vomiting Qualifiers: Vomiting type: unspecified Vomiting Intractability: non-intractable Nausea presence: with nausea Qualified Code(s): R11.2 - Nausea with vomiting, unspecified Instructions: DI for Nausea -- Adult, DI for Vomiting -- Adult Activity Restrictions/Additional Instructions: *You have been diagnosed with [epigastric pain and vomiting which has responded well to appropriate medications. Your labs are very reassuring] *What to do: *Take medications as directed *Follow up with your primary care provider in 2-3 days, call for an appointment. Let them know you were seen in the Emergency Department and that we ask that you be seen in follow up *Return to ER if you should have any new, worsening or concerning symptoms Please consider a clear liquid diet for the next 24-48 hours and then advance to very mild and bland food beyond that. Prescriptions: New pantoprazole [Protonix] 40 mg tablet,delayed release (DR/EC) 40 mg PO DAILY Qty: 30 RF: 0 ondansetron 4 mg tablet,disintegrating 4 mg PO TID-QID PRN (Reason: nausea and vomiting) Qty: 10 RF: 0 No Action ondansetron 4 mg tablet,disintegrating 4 mg PO Q8H PRN (Reason: nausea and vomiting) Qty: 10 RF: 0 atorvastatin 40 mg tablet RF: 0 carvedilol 6.25 mg tablet RF: 0 famotidine 40 mg Tablet 40 mg PO BEDTIME RF: 0 travoprost [Travatan Z] 0.004 % drops RF: 0 tramadol 50 mg tablet RF: 0 prazosin 5 mg Capsule 5 mg PO BEDTIME RF: 0 pantoprazole 40 mg tablet,delayed release (DR/EC) PO RF: 0 olopatadine 0.1 % Drops OPHTHALMIC (EYE) RF: 0 lisinopril 10 mg tablet RF: 0 divalproex 500 mg Tablet Extended Release 24 Hr 500 mg PO DAILY RF: 0 lidocaine 5 % adhesive patch,medicated RF: 0 brimonidine 0.2 % drops RF: 0 doxazosin 4 mg tablet RF: 0 finasteride 5 mg tablet RF: 0 insulin aspart U-100 [Novolog Flexpen U-100 Insulin] 100 unit/mL (3 mL) insulin pen SUBCUT RF: 0 pregabalin [Lyrica] 150 mg Capsule 150 mg PO BID RF: 0 Lantus Solostar U-100 Insulin 100 unit/mL (3 mL) insulin pen SUBCUT RF: 0 Referrals: Vianca Cox MD [Primary Care Provider] -
[2020-10-06 17:29] LABS: Add Manual Diff / Slide Review NO; Basophils Absolute Auto 0 /uL (0-100); Basophils Percent Auto 0.4 % (0-2); Eosinophils Absolute Auto 0 /uL (0-450); Eosinophils Percent Auto 0.6 % (2-4); Hematocrit 41.7 % (41-53); Lymphocytes Absolute Auto 1500 /uL (1100-4500); Lymphocytes Percent Auto 22.6 % (25-40); Mean Corpuscular HGB Conc 33.5 % (30-36); Mean Corpuscular Hemoglobin 31.8 PG (26-34); Monocytes Absolute Auto 700 /uL (0-900); Monocytes Percent Auto 10.9 % (3-14); Neutrophils Absolute Auto 4200 /uL (1500-7000); Neutrophils Percent Auto 65.5 % (50-75); Platelet Count 228 X10^3/uL (150-400); Red Blood Cell Count 4.39 X10^6/uL (4.5-5.9); Red Cell Distribution Width 12.9 % (11.6-14.8); White Blood Cell Count 6.5 X10^3/uL (4.5-11.0)
[2020-10-06] MEDS: HYDROMORPHONE 0.5 MG INJ IV (17:34)
[2020-10-06] MEDS: SODIUM CHLORIDE 0.9% 1,000 ML 1000 ML IV (17:34)
[2020-10-06] MEDS: ONDANSETRON 4 MG/2 ML INJ IV (17:34)
[2020-10-06 17:58] LABS: Alanine Aminotransferase 23 IU/L (<50); Albumin 4.6 g/dL (3.5-5.0); Albumin Globulin Ratio 1.4 (1.0-2.8); Alkaline Phosphatase 109 U/L (38-126); Aspartate Aminotransferase 32 IU/L (17-59); BUN Creatinine Ratio 12.8 (6-22); Bilirubin Total 0.9 mg/dL (0.2-1.3); Blood Urea Nitrogen 14 mg/dL (9-20); Carbon Dioxide 29 mmol/L (22-32); Chloride 98 mmol/L (98-107); Estimated Glomerular Filt Rate > 60.0 mL/min (>60); Globulin 3.4 g/dL (1.7-4.1); Glucose 77 mg/dL (80-110); HEMOLYSIS < 15 (0-50); Lipase 23 U/L (23-300); Magnesium 2.4 mg/dL (1.6-2.3); Potassium 4.2 mmol/L (3.4-5.1); Sodium 135 mmol/L (137-145)
[2020-10-06] MEDS: DEXTROSE 50 % IN WATER 25 GM/50 ML SYRINGE IV (18:24)
[2020-10-06] MEDS: PANTOPRAZOLE 40 MG VIAL IV (18:55)
[2020-10-06] MEDS: ONDANSETRON 4 MG ODT PREPACK 1 BOTTLE MISC (20:22)
== END 2020-10-06 20:44 | disposition home or self-care (01) ==
PROVIDERS: Emergency Provider Emergency Medicine; PCP Internal Medicine
DX: R10.13 Epigastric pain (principal); R11.2 Nausea with vomiting, unspecified; R42 Dizziness and giddiness
CPT/HCPCS: 36415; 80053; 81003; 82962; 83690; 83735; 85025; 96361; 96374; 96375; 99282; 99284; C9113; J1170; J2405

== ENCOUNTER → 2020-10-07 11:49 | Outpatient (CLI) | payer MEDICARE, OTHER, SELFPAY ==
--- NOTE | 2020-10-07 11:51 | DI.US.S_ITS ---
PROCEDURE: US ABDOMEN COMPLETE INDICATIONS: PANCREATIC CANCER? LIVER AND LUNG METASTAIS TECHNIQUE: Real-time scanning was performed of the abdominal and retroperitoneal organs, with image documentation. COMPARISON: , CT, CT ABDOMEN PELVIS W CON, 10/04/2020, 8:32. [facility], RG, CT THORAX WITH CONTRAST, 10/05/2020, 10:14. FINDINGS: Liver: Liver is normal in size and homogeneous in echotexture. Specifically the hepatic mass lesions clearly visualized by CT scanning recently 10/04/20 at [facility] are not visualized by the current ultrasound. Gallbladder: Previously resected. Biliary ducts: Intrahepatic bile ducts are non-dilated. Extrahepatic bile duct caliber measures 4.2 mm. Normal is 6-7 mm or less in diameter, or 10 mm or less post-cholecystectomy. Pancreas: Poorly seen due to overlying bowel gas. Spleen: Spleen is just above the upper limits of normal in size at 13.4 cm, and homogeneous in echotexture. Kidneys: Kidneys are normal in size and echotexture. Right kidney measures 9.9 cm long; left kidney measures 13.7 cm long. No hydronephrosis or nephrolithiasis. No solid masses. There is a right kidney simple cyst measuring only 1.4 cm in maximal dimension at the middle 3rd, and a left kidney simple cyst also at the middle 3rd measuring only 1 cm maximal dimension Aorta: Visualized aorta is normal in caliber at less than 3 cm. Iliacs: Proximal common iliac arteries are normal in caliber at less than 2.5 cm. IVC: Intrahepatic inferior vena cava is patent. Miscellaneous: No free abdominal fluid. IMPRESSION: The hepatic mass lesions seen by CT scanning recently are not identifiable by ultrasound scanning. Pancreas was not visualized due to bowel gas. Pancreas had shown definitive abnormality, likely a primary malignancy, on the recent CT scanning. The liver lesions present are far posterior, and superior, and therefore would not be accurately biopsied at this time. The pancreatic mass also is far posterior and obscured by overlying vascular and bowel structures. Pancreatic biopsy utilizing trans duodenal endoscopic approach appears to provide a viable option for diagnosis. Pancreatic adenocarcinoma is the likely cause for the pancreatic mass and the liver lesions, my opinion. Specialist consultation by endoscopic psychologist personnel at [facility] appears warranted. Dictated by: Den Weller M.D. on 10/07/2020 at 12:22 Approved by: Den Weller M.D. on 10/07/2020 at 12:36
== END ==
PROVIDERS: PCP Internal Medicine; Referring Provider Internal Medicine Hematology & Oncology; Visit Provider Internal Medicine Hematology & Oncology
DX: C25.9 Malignant neoplasm of pancreas, unspecified (principal)
CPT/HCPCS: 76700

== ENCOUNTER 2020-11-05 05:04 | Emergency (ER) | payer MEDICARE, OTHER, SELFPAY ==
[2020-11-05 05:19] VITALS: BP 152/86; PULSE 99; RESP 22; TEMP 36.4; O2SAT 99; BMI 25.0
--- NOTE | 2020-11-05 05:34 | ED.NAVMDI ---
HPI - Nausea/Vomiting/Diarrhea General Chief complaint: Nausea/Vomiting/Diarrhea Stated complaint: having chemo, vomiting Time Seen by Provider: 11/05/20 05:18 Source: patient Mode of arrival: Ambulatory Limitations: no limitations History of Present Illness HPI Narrative: 70-year-old male who was recently diagnosed is with cancer and started chemotherapy today. His he had chemotherapy at about 1:00 a.m. and by 5:00 a.m. started having nausea and vomiting. He took a few doses of Zofran at home still unable to keep anything down. He denies any fevers chills shortness of breath or chest pain. He is quite upset actually because his who also was suffering from cancer diet this evening. His actually was seen in the emergency department last night and tested positive for COVID. They both had an infection of COVID in July but have tested negative since and she had a new positive test last evening. Patient denies fever chills shortness of breath just paid. He says he is here for vomiting he even vomited in the bushes on the way in to the emergency department. He denies any new abdominal pain. Pain is currently controlled with fentanyl patch. complaint: vomiting Onset (ago): hour(s) Related Data Home Medications Medication Instructions Recorded Confirmed atorvastatin 10/05/20 brimonidine drp 10/05/20 carvedilol 10/05/20 divalproex 500 mg PO DAILY 10/05/20 10/05/20 doxazosin mg 10/05/20 famotidine 40 mg PO BEDTIME 10/05/20 10/05/20 finasteride mg 10/05/20 insulin aspart U-100 [Novolog unit SUBCUT 10/05/20 Flexpen U-100 Insulin] insulin glargine [Lantus Solostar SUBCUT 10/05/20 U-100 Insulin] lidocaine patch 10/05/20 lisinopril 10/05/20 olopatadine drp OPHTHALMIC (EYE) 10/05/20 pantoprazole PO 10/05/20 prazosin 5 mg PO BEDTIME 10/05/20 10/05/20 pregabalin [Lyrica] 150 mg PO BID 10/05/20 10/05/20 tramadol mg 10/05/20 travoprost [Travatan Z] drp 10/05/20 Previous Rx's Medication Instructions Recorded ondansetron 4 mg PO Q8H PRN #10 tab 10/04/20 ondansetron 4 mg PO TID-QID PRN #10 tab 10/06/20 pantoprazole [Protonix] 40 mg PO DAILY #30 tab 10/06/20 metoclopramide HCl [Reglan] 10 mg PO Q6H PRN #10 tab 11/05/20 Allergies Allergy/AdvReac Type Severity Reaction Status Date / Time amoxicillin [From Augmentin] Allergy Unknown Vomiting Verified 10/05/20 17:08 aspirin Allergy Unknown Verified 10/05/20 17:08 brompheniramine Allergy Unknown Verified 10/05/20 17:08 hydroxyzine Allergy Unknown Verified 10/05/20 17:08 ibuprofen Allergy Unknown Verified 10/05/20 17:08 meperidine Allergy Unknown Verified 10/05/20 17:08 metformin Allergy Unknown Diarrhea Verified 10/05/20 17:08 morphine Allergy Unknown Verified 10/05/20 17:08 promethazine Allergy Unknown Verified 10/05/20 17:08 propoxyphene Allergy Unknown Verified 10/05/20 17:08 tuberculin, purified protein Allergy Unknown Verified 10/05/20 17:08 deriva clavulanic acid Allergy Vomiting Verified 10/05/20 17:08 [From Augmentin] egg Allergy Verified 10/05/20 17:08 acetaminophen-hydrocodone Allergy Unknown Uncoded 10/05/20 17:08 acetaminophen-propoxyphene Allergy Unknown Uncoded 10/05/20 17:08 acetaminophen/codeine/guiafenesin Allergy Unknown Uncoded 10/05/20 17:08 diphenhydramine/lidocaine/nystatin Allergy Unknown Uncoded 10/05/20 17:08 sodium biphosphate Allergy Unknown Uncoded 10/05/20 17:08 topical Allergy Unknown Anaphylaxis Uncoded 10/05/20 17:08 opiod-like analgesics Allergy Uncoded 10/05/20 17:08 Review of Systems Review of Systems ROS Unobtainable: All systems reviewed & are unremarkable except as noted in HPI and below Constitutional Constitutional: Denies chills, Denies fever(s), Denies lethargy and Denies weakness Cardiovascular Cardiovascular: Denies chest pain, Denies irregular heart rhythm, Denies lightheadedness, Denies palpitations, Denies dyspnea, Denies dyspnea on exertion and Denies orthopnea Respiratory Respiratory: Denies cough, Denies dyspnea, Denies dyspnea on exertion and Denies wheezing Gastrointestinal Gastrointestinal: Reports as per HPI, Reports nausea and Reports vomiting Musculoskeletal Musculoskeletal: Denies back pain and Denies myalgias Integumentary/Breasts Skin/Breast: Denies pruritus, Denies erythema, Denies rash and Denies wounds Neurologic Neurologic: Denies weakness Endocrine Endocrine: Denies palpitations Allergic/Immunologic Allergic/Immunologic: Denies wheezing Patient History Medical History Coronary artery disease Diabetes Hyperlipidemia Post-traumatic stress disorder, chronic Surgical History History of cholecystectomy (01/31/17) Family History Mother Diabetes mellitus Father Dementia Social History Smoking Status: Never smoker alcohol intake: never substance use type: does not use Smoking Status: Never smoker alcohol intake frequency: holidays/special occasions only Substance Use Type: does not use Exam Initial Vital Signs Initial Vital Signs: Vital Signs Temperature 97.5 F L 11/05/20 05:19 Pulse Rate 99 H 11/05/20 05:19 Respiratory Rate 22 11/05/20 05:19 Blood Pressure 152/86 H 11/05/20 05:19 Pulse Oximetry 99 11/05/20 05:19 GENERAL: Alert very pleasant 70-year-old male and in no acute distress. HEENT: Head atraumatic,EOMI, pupils reactive, face symmetric, moist mucous membranes CARDIOVASCULAR: Regular rate and rhythm without murmurs, rubs or gallops. RESPIRATORY: Breath sounds equal bilaterally, no wheezes rales or rhonchi. ABDOMEN: Soft, nontender. Normoactive bowel sounds all 4 quadrants. No guarding or rebound. EXTREMITIES: Normal range of motion, no clubbing or edema. Neurovascularly intact NEUROLOGICAL: Alert and oriented x4.Normal gait and speech. Cranial nerves II through XII grossly intact. SKIN: Warm, dry, no laceration, no petechiae, no rashes or lesions. Course Orders Ordered: Discontinued Medications Heparin Sodium (Porcine) (Heparin 500 Unit/5 Ml Port Flush) 500 unit IV PRN PRN PRN Reason: Flush Last Admin: 11/05/20 07:30 Dose: 500 unit Documented by: RADHA Sodium Chloride (Normal Saline 0.9%) 1,000 mls @ 1,000 mls/hr IV BOLUS ONE Stop: 11/05/20 06:17 Last Infusion: 11/05/20 06:50 Dose: 0 mls/hr Documented by: Admin: 11/05/20 05:37 Dose: 1,000 mls/hr Documented by: VIVIENNE Ondansetron HCl (Ondansetron 4 Mg/2 Ml Inj) 4 mg IV NOW ONE Stop: 11/05/20 05:19 Last Admin: 11/05/20 05:37 Dose: 4 mg Documented by: VIVIENNE Pantoprazole Sodium (Pantoprazole 40 Mg Vial) 40 mg IV NOW ONE Stop: 11/05/20 05:19 Last Admin: 11/05/20 05:37 Dose: 40 mg Documented by: VIVIENNE Vital Signs Vital signs: Vital Signs - 8 hr 11/05/20 05:19 Temperature 97.5 F L Pulse Rate 99 H Respiratory Rate 22 Blood Pressure 152/86 H Pulse Oximetry 99 MDM - Nausea/Vomiting/Diarrhea Lab Data Attestation: I reviewed the patient's lab results. Result diagrams: 11/05/20 05:35 11/05/20 05:35 Labs: Lab Results 11/05/20 11/05/20 11/05/20 Range/Units 05:35 05:35 05:35 WBC 7.5 (4.5-11.0) X10^3/uL RBC 4.19 L (4.5-5.9) X10^6/uL Hgb 13.3 L (13.5-17.5) g/dL Hct 38.8 L (41-53) % MCV 92.6 (80-100) fL MCH 31.7 (26-34) PG MCHC 34.2 (30-36) % RDW 12.9 (11.6-14.8) % Plt Count 229 (150-400) X10^3/uL Neut % (Auto) 87.4 H (50-75) % Lymph % (Auto) 6.8 L (25-40) % [place] % (Auto) 5.5 (3-14) % Eos % (Auto) 0.0 L (2-4) % Baso % (Auto) 0.3 (0-2) % Neut # (Auto) 6600 (5012-0332) /uL Lymph # (Auto) 500 L (3390-5009) /uL [place] # (Auto) 400 (0-900) /uL Eos # (Auto) 0 (0-450) /uL Baso # (Auto) 0 (0-100) /uL Sodium 133 L (137-145) mmol/L Potassium 4.3 (3.4-5.1) mmol/L Chloride 96 L (98-107) mmol/L Carbon Dioxide 24 (22-32) mmol/L BUN 15 (9-20) mg/dL Creatinine 0.81 (0.66-1.25) mg/dL Estimated GFR > 60.0 (>60) mL/min BUN/Creatinine Ratio 18.5 (6-22) Glucose 329 H (80-110) mg/dL Calcium 9.6 (8.4-10.2) mg/dL Total Bilirubin 1.1 (0.2-1.3) mg/dL AST 44 (17-59) IU/L ALT 46 (<50) IU/L Alkaline Phosphatase 214 H (38-126) U/L Total Protein 7.5 (6.3-8.2) g/dL Albumin 4.1 (3.5-5.0) g/dL Globulin 3.4 (1.7-4.1) g/dL Albumin/Globulin Ratio 1.2 (1.0-2.8) SARS-CoV-2 (PCR) Negative (Negative) MDM Narrative Medical decision making narrative: Patient is feeling much better after IV fluids and Zofran. Tolerating oral fluids. At this time he would prefer to go home with his family. Will give him Reglan to try at home if Zofran is not helping. I suspect his nausea and vomiting are all from chemotherapy. He has no abdominal pain. Discharge Plan Departure Patient Disposition: Home Clinical Impression: Nausea & vomiting Instructions: Nausea and Vomiting-Adult Activity Restrictions/Additional Instructions: 1) You have been diagnosed with your nausea and vomiting are likely secondary to chemotherapy. 2) What to do: Drink frequent but small amounts of fluids. I recommend Gatorade or a Gatorade-like product, as it has small amounts of sugar and salts that improve fluid retention. 3) Take medications as directed Reglan 10 mg every 6 hours if needed for nausea or vomiting 4) Follow up with your primary care provider in 2-3 days 5) Return to ER if you should have any new or worsening symptoms such as, unable to hold down fluids despite use of anti-nausea medications and the small volume oral rehydration strategy. Prescriptions: New metoclopramide HCl [Reglan] 10 mg tablet 10 mg PO Q6H PRN (Reason: nausea and vomiting) Qty: 10 RF: 0 No Action ondansetron 4 mg tablet,disintegrating 4 mg PO Q8H PRN (Reason: nausea and vomiting) Qty: 10 RF: 0 pantoprazole [Protonix] 40 mg tablet,delayed release (DR/EC) 40 mg PO DAILY Qty: 30 RF: 0 ondansetron 4 mg tablet,disintegrating 4 mg PO TID-QID PRN (Reason: nausea and vomiting) Qty: 10 RF: 0 atorvastatin 40 mg tablet RF: 0 carvedilol 6.25 mg tablet RF: 0 famotidine 40 mg Tablet 40 mg PO BEDTIME RF: 0 travoprost [Travatan Z] 0.004 % drops RF: 0 tramadol 50 mg tablet RF: 0 prazosin 5 mg Capsule 5 mg PO BEDTIME RF: 0 pantoprazole 40 mg tablet,delayed release (DR/EC) PO RF: 0 olopatadine 0.1 % Drops OPHTHALMIC (EYE) RF: 0 lisinopril 10 mg tablet RF: 0 divalproex 500 mg Tablet Extended Release 24 Hr 500 mg PO DAILY RF: 0 lidocaine 5 % adhesive patch,medicated RF: 0 brimonidine 0.2 % drops RF: 0 doxazosin 4 mg tablet RF: 0 finasteride 5 mg tablet RF: 0 insulin aspart U-100 [Novolog Flexpen U-100 Insulin] 100 unit/mL (3 mL) insulin pen SUBCUT RF: 0 pregabalin [Lyrica] 150 mg Capsule 150 mg PO BID RF: 0 Lantus Solostar U-100 Insulin 100 unit/mL (3 mL) insulin pen SUBCUT RF: 0 Referrals: Vianca Cox MD [Primary Care Provider] -
[2020-11-05] MEDS: LIDOCAINE 1% (PF) 2 ML (05:37)
[2020-11-05] MEDS: SODIUM CHLORIDE 0.9% 1,000 ML 1000 ML IV (05:37)
[2020-11-05] MEDS: ONDANSETRON 4 MG/2 ML INJ IV (05:37)
[2020-11-05] MEDS: PANTOPRAZOLE 40 MG VIAL IV (05:37)
[2020-11-05 05:58] LABS: Add Manual Diff / Slide Review NO; Basophils Absolute Auto 0 /uL (0-100); Basophils Percent Auto 0.3 % (0-2); Eosinophils Absolute Auto 0 /uL (0-450); Hematocrit 38.8 % (41-53); Hemoglobin 13.3 g/dL (13.5-17.5); Lymphocytes Absolute Auto 500 /uL (1100-4500); Lymphocytes Percent Auto 6.8 % (25-40); Mean Corpuscular HGB Conc 34.2 % (30-36); Mean Corpuscular Hemoglobin 31.7 PG (26-34); Mean Corpuscular Volume 92.6 fL (80-100); Monocytes Absolute Auto 400 /uL (0-900); Monocytes Percent Auto 5.5 % (3-14); Neutrophils Absolute Auto 6600 /uL (1500-7000); Neutrophils Percent Auto 87.4 % (50-75); Platelet Count 229 X10^3/uL (150-400); Red Blood Cell Count 4.19 X10^6/uL (4.5-5.9); Red Cell Distribution Width 12.9 % (11.6-14.8); White Blood Cell Count 7.5 X10^3/uL (4.5-11.0)
[2020-11-05 06:08] LABS: Alanine Aminotransferase 46 IU/L (<50); Albumin 4.1 g/dL (3.5-5.0); Albumin Globulin Ratio 1.2 (1.0-2.8); Alkaline Phosphatase 214 U/L (38-126); Aspartate Aminotransferase 44 IU/L (17-59); BUN Creatinine Ratio 18.5 (6-22); Bilirubin Total 1.1 mg/dL (0.2-1.3); Blood Urea Nitrogen 15 mg/dL (9-20); Calcium 9.6 mg/dL (8.4-10.2); Carbon Dioxide 24 mmol/L (22-32); Chloride 96 mmol/L (98-107); Estimated Glomerular Filt Rate > 60.0 mL/min (>60); Globulin 3.4 g/dL (1.7-4.1); Glucose 329 mg/dL (80-110); HEMOLYSIS < 15 (0-50); Potassium 4.3 mmol/L (3.4-5.1); Sodium 133 mmol/L (137-145); Total Protein 7.5 g/dL (6.3-8.2)
[2020-11-05 06:34] LABS: COVID19 - ADMIT (NP swab/PCR) Negative (Negative)
[2020-11-05 07:45] VITALS: BP 163/74; PULSE 81; RESP 20; O2SAT 98
== END 2020-11-05 07:49 | disposition home or self-care (01) ==
PROVIDERS: Emergency Provider Emergency Medicine; PCP Internal Medicine
DX: R11.2 Nausea with vomiting, unspecified (principal)
CPT/HCPCS: 36415; 80053; 85025; 87635; 96361; 96374; 96375; 99284; C9803; C9113; J1642; J2405

== ENCOUNTER 2020-11-06 13:50 | Inpatient (IN) | payer MEDICARE, OTHER, SELFPAY ==
[2020-11-06 14:00] VITALS: BP 158/76; PULSE 100; RESP 106; TEMP 36.7; O2SAT 99; BMI 23.7
--- NOTE | 2020-11-06 14:49 | ED.NAVMDI ---
HPI - Nausea/Vomiting/Diarrhea General Chief complaint: Nausea/Vomiting/Diarrhea Stated complaint: chemo reaction Time Seen by Provider: 11/06/20 14:39 Source: patient Mode of arrival: Wheelchair Limitations: no limitations History of Present Illness HPI Narrative: Patient is a 70-year-old male with a known history of pancreatic cancer who underwent chemotherapy approximately 2 days ago here for evaluation of nausea and vomiting. He has had nausea vomiting after chemotherapy in the past but not this bad. He was seen here in the emergency department yesterday seemed to feel better after Protonix and Zofran and fluids. His situation is also complicated by the fact that his yesterday. He tried the medicine that he was given without any improvement. Related Data Home Medications Medication Instructions Recorded Confirmed atorvastatin 10/05/20 brimonidine drp 10/05/20 carvedilol 10/05/20 divalproex 500 mg PO DAILY 10/05/20 10/05/20 doxazosin mg 10/05/20 famotidine 40 mg PO BEDTIME 10/05/20 10/05/20 finasteride mg 10/05/20 insulin aspart U-100 [Novolog unit SUBCUT 10/05/20 Flexpen U-100 Insulin] insulin glargine [Lantus Solostar SUBCUT 10/05/20 U-100 Insulin] lidocaine patch 10/05/20 lisinopril 10/05/20 olopatadine drp OPHTHALMIC (EYE) 10/05/20 pantoprazole PO 10/05/20 prazosin 5 mg PO BEDTIME 10/05/20 10/05/20 pregabalin [Lyrica] 150 mg PO BID 10/05/20 10/05/20 tramadol mg 10/05/20 travoprost [Travatan Z] drp 10/05/20 Previous Rx's Medication Instructions Recorded ondansetron 4 mg PO Q8H PRN #10 tab 10/04/20 ondansetron 4 mg PO TID-QID PRN #10 tab 10/06/20 pantoprazole [Protonix] 40 mg PO DAILY #30 tab 10/06/20 metoclopramide HCl [Reglan] 10 mg PO Q6H PRN #10 tab 11/05/20 Allergies Allergy/AdvReac Type Severity Reaction Status Date / Time aspirin Allergy Unknown Verified 11/06/20 14:02 brompheniramine Allergy Unknown Verified 11/06/20 14:02 codeine Allergy Unknown Verified 11/06/20 18:29 diphenhydramine Allergy Unknown Verified 11/06/20 18:29 guaifenesin Allergy Unknown Verified 11/06/20 18:29 hydrocodone Allergy Unknown Verified 11/06/20 18:29 hydroxyzine Allergy Unknown Verified 11/06/20 14:02 ibuprofen Allergy Unknown Verified 11/06/20 14:02 meperidine Allergy Unknown Verified 11/06/20 14:02 morphine Allergy Unknown Verified 11/06/20 14:02 nystatin Allergy Unknown Verified 11/06/20 18:29 promethazine Allergy Unknown Verified 11/06/20 14:02 propoxyphene Allergy Unknown Verified 11/06/20 14:02 tuberculin, purified protein Allergy Unknown Verified 11/06/20 14:02 deriva egg Allergy Verified 11/06/20 14:02 amoxicillin [From Augmentin] AdvReac Unknown Vomiting Verified 11/06/20 18:29 metformin AdvReac Unknown Diarrhea Verified 11/06/20 18:29 clavulanic acid AdvReac Vomiting Verified 11/06/20 18:29 [From Augmentin] Review of Systems Constitutional Constitutional: Denies chills and Reports fever(s) Cardiovascular Cardiovascular: Denies chest pain and Denies dyspnea Respiratory Respiratory: Denies dyspnea Gastrointestinal Gastrointestinal: Reports abdominal pain, Denies change in bowel habits, Reports nausea and Reports vomiting Genitourinary Genitourinary: Denies dysuria Genitourinary: Denies dysuria Musculoskeletal Musculoskeletal: Denies myalgias Integumentary/Breasts Skin/Breast: Denies rash Neurologic Neurologic: Denies behavioral changes Psychiatric Psychiatric: Reports anxiety and Denies behavioral changes Hematologic/Lymphatic On Anticoagulants: No Allergic/Immunologic Allergic/Immunologic: Denies urticaria Patient History Medical History Coronary artery disease Diabetes Hyperlipidemia Post-traumatic stress disorder, chronic Surgical History History of cholecystectomy (01/31/17) Family History Mother Diabetes mellitus Father Dementia Social History Smoking Status: Never smoker alcohol intake: never substance use type: does not use Smoking Status: Never smoker alcohol intake frequency: holidays/special occasions only Substance Use Type: does not use Exam Initial Vital Signs Initial Vital Signs: Vital Signs Temperature 98.0 F 11/06/20 14:00 Pulse Rate 100 H 11/06/20 14:00 Respiratory Rate 106 H 11/06/20 14:00 Blood Pressure 158/76 H 11/06/20 14:00 Pulse Oximetry 99 11/06/20 14:00 Const General: cooperative and comfortable Limitations: mental status not altered HENMT Head: normal to inspection and normocephalic Resp Effort & Inspection: normal respiratory effort Auscultation: clear to auscultation bilaterally Cardio Rate: regular rate Rhythm: regular rhythm GI Inspection: non-distended Palpation: soft and No tender Skin Lesions: no lesions Rashes: no rashes Neuro General: patient alert, patient awake and patient oriented x3 Cognition: normal cognition Speech: speech normal Extrem General: normal to inspection, capillary refill normal and No edema Psych Appearance: grossly normal and well kempt Course Orders Ordered: ED Orders 11/06/20 15:25 Complete Blood Count AUTO DIFF Stat Comprehensive Metabolic Panel Stat Lipase Stat 11/06/20 17:25 COVID19 - ADMIT ([employer] swab/PCR) Stat 11/06/20 17:45 UA dip and micro [Urinalysis and Microscopic] Stat Acetaminophen (Acetaminophen 325 Mg Tablet) 650 mg PO Q6HR PRN PRN Reason: Fever/Mild Pain (1-3) Dextrose (Dextrose 50 % In Water 25 Gm/50 Ml Syringe) 25 gm IV PRN PRN; Protocol PRN Reason: Hypoglycemia Sodium Chloride (Normal Saline 0.9%) 1,000 mls @ 125 mls/hr IV CONT SERGE Last Infusion: 11/06/20 18:24 Dose: 125 mls/hr Documented by: Admin: 11/06/20 17:55 Dose: 125 mls/hr Documented by: CVANCE Sodium Chloride (Normal Saline 0.9%) 1,000 mls @ 125 mls/hr IV CONT SERGE Insulin Aspart (Insulin Aspart 100 Unit/Ml Insuln Pen) 0 unit SUBCUT Q6H SEGRE; Protocol Lorazepam (Lorazepam 2 Mg/Ml Inj) 0.5 mg IV Q6HR PRN PRN Reason: Anxiety Naloxone HCl (Naloxone 0.4 Mg/Ml Vial) 0.2 mg IV Q2MIN PRN PRN Reason: Opiate Reversal Ondansetron HCl (Ondansetron 4 Mg/2 Ml Inj) 4 mg IV Q6HR PRN PRN Reason: Nausea And Vomiting Pantoprazole Sodium (Pantoprazole 40 Mg Vial) 40 mg IV DAILY SERGE Discontinued Medications Sodium Chloride (Normal Saline 0.9%) 1,000 mls @ 1,000 mls/hr IV BOLUS ONE Stop: 11/06/20 15:49 Last Infusion: 11/06/20 16:25 Dose: 1,000 mls/hr Documented by: Admin: 11/06/20 15:23 Dose: 1,000 mls/hr Documented by: CVANCE Lorazepam (Lorazepam 2 Mg/Ml Inj) 1 mg IV NOW ONE Stop: 11/06/20 16:19 Last Admin: 11/06/20 16:28 Dose: 1 mg Documented by: CVANCE Metoclopramide HCl (Metoclopramide 10 Mg/2 Ml Inj) 10 mg IV NOW ONE Stop: 11/06/20 17:16 Last Admin: 11/06/20 17:28 Dose: 10 mg Documented by: CVANCE Ondansetron HCl (Ondansetron 4 Mg/2 Ml Inj) 4 mg IV NOW ONE Stop: 11/06/20 14:51 Last Admin: 11/06/20 15:23 Dose: 4 mg Documented by: CVANCE Pantoprazole Sodium (Pantoprazole 40 Mg Vial) 40 mg IV NOW ONE Stop: 11/06/20 14:52 Last Admin: 11/06/20 15:23 Dose: 40 mg Documented by: CVANCE Vital Signs Vital signs: Vital Signs - 8 hr 11/06/20 14:00 11/06/20 15:35 11/06/20 16:30 Temperature 98.0 F Pulse Rate 100 H 104 H 111 H Respiratory Rate 106 H 12 26 H Blood Pressure 158/76 H 169/72 H 167/77 H Pulse Oximetry 99 98 94 11/06/20 17:52 Temperature 98.3 F Pulse Rate 104 H Respiratory Rate 13 Blood Pressure 159/74 H Pulse Oximetry 96 MDM - Nausea/Vomiting/Diarrhea Lab Data Attestation: I reviewed the patient's lab results. Result diagrams: 11/06/20 15:25 11/06/20 15:25 Labs: Lab Results 11/06/20 11/06/20 11/06/20 Range/Units 15:25 15:25 17:45 WBC 10.3 (4.5-11.0) X10^3/uL RBC 4.15 L (4.5-5.9) X10^6/uL Hgb 13.2 L (13.5-17.5) g/dL Hct 38.7 L (41-53) % MCV 93.2 (80-100) fL MCH 31.7 (26-34) PG MCHC 34.0 (30-36) % RDW 12.8 (11.6-14.8) % Plt Count 179 (150-400) X10^3/uL Neut % (Auto) 94.4 H (50-75) % Lymph % (Auto) 3.1 L (25-40) % [place] % (Auto) 1.9 L (3-14) % Eos % (Auto) 0.2 L (2-4) % Baso % (Auto) 0.4 (0-2) % Neut # (Auto) 9700 H (8361-1953) /uL Lymph # (Auto) 300 L (2905-6714) /uL [place] # (Auto) 200 (0-900) /uL Eos # (Auto) 0 (0-450) /uL Baso # (Auto) 0 (0-100) /uL Sodium 133 L (137-145) mmol/L Potassium 4.3 (3.4-5.1) mmol/L Chloride 97 L (98-107) mmol/L Carbon Dioxide 23 (22-32) mmol/L BUN 14 (9-20) mg/dL Creatinine 0.67 (0.66-1.25) mg/dL Estimated GFR > 60.0 (>60) mL/min BUN/Creatinine Ratio 20.9 (6-22) Glucose 386 H (80-110) mg/dL Calcium 9.4 (8.4-10.2) mg/dL Total Bilirubin 1.7 H (0.2-1.3) mg/dL AST 45 (17-59) IU/L ALT 47 (<50) IU/L Alkaline Phosphatase 190 H (38-126) U/L Total Protein 7.1 (6.3-8.2) g/dL Albumin 4.0 (3.5-5.0) g/dL Globulin 3.1 (1.7-4.1) g/dL Albumin/Globulin Ratio 1.3 (1.0-2.8) Lipase 144 (23-300) U/L Urine Color Yellow Urine Appearance Clear Urine pH 6.0 (4.5-8.0) Ur Specific [place] 1.020 (1.000-1.035) Urine Protein 1+ H (Negative) Urine Glucose (UA) 2+ H (Negative) g/dL Urine Ketones 3+ H (NEGATIVE) Urine Occult Blood Trace-lysed (Negative) Urine Nitrate Negative (Negative) Urine Bilirubin Negative (NEGATIVE) Urine Urobilinogen 1.0 (0.2) E.U./dL Ur Leukocyte Esterase Negative (NEGATIVE) Urine RBC 0-1/hpf (0-5/HPF) Urine WBC 0-1/hpf (0-5/HPF) Ur Squamous Epith Cells 0-1 /hpf (0-5/HPF) Urine Bacteria None seen (None) Ur Culture Indicated? Cult not indicated MDM Narrative Medical decision making narrative: Patient does have a relatively benign abdominal exam. Had a difficult time getting his nausea and vomiting under control here in the ER. I suspect it is because of his recent chemotherapy. His labs are relatively unremarkable. Feel we can hold on a CT scan for now. I did discuss the case with Dr. Quesada with Internal Medicine who will admit for further evaluation treatment. Discharge Plan Departure Patient Disposition: Admitted as Observation Clinical Impression: Nausea & vomiting, Pancreatic cancer Admit Date/Time: 11/06/20 17:56 Admit Provider: Ceferino Quesada
[2020-11-06] MEDS: ONDANSETRON 4 MG/2 ML INJ IV (15:23)
[2020-11-06] MEDS: PANTOPRAZOLE 40 MG VIAL IV (15:23)
[2020-11-06] MEDS: SODIUM CHLORIDE 0.9% 1,000 ML 1000 ML IV (15:23)
[2020-11-06 15:34] LABS: Add Manual Diff / Slide Review NO; Basophils Absolute Auto 0 /uL (0-100); Basophils Percent Auto 0.4 % (0-2); Eosinophils Absolute Auto 0 /uL (0-450); Eosinophils Percent Auto 0.2 % (2-4); Hematocrit 38.7 % (41-53); Hemoglobin 13.2 g/dL (13.5-17.5); Lymphocytes Absolute Auto 300 /uL (1100-4500); Lymphocytes Percent Auto 3.1 % (25-40); Mean Corpuscular Hemoglobin 31.7 PG (26-34); Mean Corpuscular Volume 93.2 fL (80-100); Monocytes Absolute Auto 200 /uL (0-900); Monocytes Percent Auto 1.9 % (3-14); Neutrophils Absolute Auto 9700 /uL (1500-7000); Neutrophils Percent Auto 94.4 % (50-75); Platelet Count 179 X10^3/uL (150-400); Red Blood Cell Count 4.15 X10^6/uL (4.5-5.9); Red Cell Distribution Width 12.8 % (11.6-14.8); White Blood Cell Count 10.3 X10^3/uL (4.5-11.0)
[2020-11-06] MEDS: LIDOCAINE 1% (PF) 2 ML (15:34)
[2020-11-06 15:35] VITALS: BP 169/72; PULSE 104; RESP 12; O2SAT 98
[2020-11-06 15:45] LABS: Alanine Aminotransferase 47 IU/L (<50); Albumin Globulin Ratio 1.3 (1.0-2.8); Alkaline Phosphatase 190 U/L (38-126); Aspartate Aminotransferase 45 IU/L (17-59); BUN Creatinine Ratio 20.9 (6-22); Bilirubin Total 1.7 mg/dL (0.2-1.3); Blood Urea Nitrogen 14 mg/dL (9-20); Calcium 9.4 mg/dL (8.4-10.2); Carbon Dioxide 23 mmol/L (22-32); Chloride 97 mmol/L (98-107); Estimated Glomerular Filt Rate > 60.0 mL/min (>60); Globulin 3.1 g/dL (1.7-4.1); Glucose 386 mg/dL (80-110); HEMOLYSIS < 15 (0-50); Lipase 144 U/L (23-300); Potassium 4.3 mmol/L (3.4-5.1); Sodium 133 mmol/L (137-145); Total Protein 7.1 g/dL (6.3-8.2)
--- NOTE | 2020-11-06 15:45 | PC.NURSE ---
Pt feeling better,nausea has improved and pain 7/10
[2020-11-06] MEDS: LORazepam 2 MG/ML INJ 1 MG IV (16:28)
[2020-11-06 16:30] VITALS: BP 167/77; PULSE 111; RESP 26; O2SAT 94
--- NOTE | 2020-11-06 16:35 | PC.NURSE ---
patient had an hour without vomiting and then started dry heaving and vomiting. Ativan 1 mg given
[2020-11-06] MEDS: METOCLOPRAMIDE 10 MG/2 ML INJ IV (17:28)
[2020-11-06 17:52] VITALS: BP 159/74; PULSE 104; RESP 13; TEMP 36.8; O2SAT 96
[2020-11-06] MEDS: SODIUM CHLORIDE 0.9% 1,000 ML 125 ML IV ×2 (17:55→19:52)
[2020-11-06 17:56] LABS: Bacteria Urine None Seen
[2020-11-06 18:01] LABS: Appearance Urine UA CLEAR; Bilirubin Urine UA NEGATIVE (NEGATIVE); Color Urine UA YELLOW; Glucose Urine UA 2+ g/dL (Negative); Ketones Urine UA 3+ (NEGATIVE); Leukocyte Esterase Urine UA NEGATIVE (NEGATIVE); Nitrite Urine UA NEGATIVE (Negative); Occult Blood Urine UA TRACE-LYSED (Negative); Protein Urine UA 1+ (Negative)
[2020-11-06 18:15] VITALS: BP 157/80; PULSE 104; RESP 17; TEMP 37.1; O2SAT 96
--- NOTE | 2020-11-06 18:18 | PM.HP.1 ---
History of Present Illness History of Present Illness Chief complaint: chemo reaction Narrative: Mr. Vail is a 70-year-old man with a past medical history of newly diagnosed presumed pancreatic cancer with metastases to the liver and kidney, diabetes, CAD, hyperlipidemia, PTSD who presents with nausea and vomiting. Patient was recently diagnosed with cancer after he began developing abdominal pain in August. He eventually had CT scan in September that showed cancer. He was started on treatment with Dr. Smith with chemotherapy 3 days ago but he is not sure of the name of. He describes having burning pain that radiates to his stomach is stomach up his chest. He was not having any diarrhea is not having any headache. He had noticed no blood in his vomit. He also of not had his within the last couple days from [place]. He actually presented to the emergency room yesterday with symptoms of nausea and vomiting but actually had improvement after being given Protonix and Zofran and was able to be discharged after tolerating diet. He presents today because his vomiting continued to get worse and he was unable to keep down any food or drink. In the emergency room workup was done he was noted to be mildly hypertensive and mildly tachycardic. His labs are notable for a slightly low hemoglobin at 13.2. His sodium was 133 chloride 97 creatinine 0.67. Glucose was 386. He was given IV fluids, Zofran, Ativan, and Reglan and continued to feel poorly. He was unable is still tolerate any liquid because of this he was admitted for symptom control. Patient History Medical History Coronary artery disease Diabetes Hyperlipidemia Post-traumatic stress disorder, chronic Surgical History History of cholecystectomy (01/31/17) Family & Social History Family History Mother Diabetes mellitus Father Dementia Safety & Behavioral: Feels Safe in Current Yes Environment Been Physically Hurt or No Threatened By a Person Tobacco & Substance use: Smoking Status Never smoker alcohol intake never alcohol intake frequency holiday/special occasion Substance Use Type does not use Meds Home Medications and Allergies Home Medications Medication Instructions Recorded Confirmed Type ondansetron 4 mg PO Q8H PRN #10 tab 10/04/20 Rx atorvastatin 10/05/20 History brimonidine drp 10/05/20 History carvedilol 10/05/20 History divalproex 500 mg PO DAILY 10/05/20 10/05/20 History doxazosin mg 10/05/20 History famotidine 40 mg PO BEDTIME 10/05/20 10/05/20 History finasteride mg 10/05/20 History insulin aspart U-100 [Novolog unit SUBCUT 10/05/20 History Flexpen U-100 Insulin] insulin glargine [Lantus Solostar SUBCUT 10/05/20 History U-100 Insulin] lidocaine patch 10/05/20 History lisinopril 10/05/20 History olopatadine drp OPHTHALMIC (EYE) 10/05/20 History pantoprazole PO 10/05/20 History prazosin 5 mg PO BEDTIME 10/05/20 10/05/20 History pregabalin [Lyrica] 150 mg PO BID 10/05/20 10/05/20 History tramadol mg 10/05/20 History travoprost [Travatan Z] drp 10/05/20 History ondansetron 4 mg PO TID-QID PRN #10 tab 10/06/20 Rx pantoprazole [Protonix] 40 mg PO DAILY #30 tab 10/06/20 Rx metoclopramide HCl [Reglan] 10 mg PO Q6H PRN #10 tab 11/05/20 Rx Allergies Allergy/AdvReac Type Severity Reaction Status Date / Time aspirin Allergy Unknown Verified 11/06/20 14:02 brompheniramine Allergy Unknown Verified 11/06/20 14:02 codeine Allergy Unknown Verified 11/06/20 18:29 diphenhydramine Allergy Unknown Verified 11/06/20 18:29 guaifenesin Allergy Unknown Verified 11/06/20 18:29 hydrocodone Allergy Unknown Verified 11/06/20 18:29 hydroxyzine Allergy Unknown Verified 11/06/20 14:02 ibuprofen Allergy Unknown Verified 11/06/20 14:02 meperidine Allergy Unknown Verified 11/06/20 14:02 morphine Allergy Unknown Verified 11/06/20 14:02 nystatin Allergy Unknown Verified 11/06/20 18:29 promethazine Allergy Unknown Verified 11/06/20 14:02 propoxyphene Allergy Unknown Verified 11/06/20 14:02 tuberculin, purified protein Allergy Unknown Verified 11/06/20 14:02 deriva egg Allergy Verified 11/06/20 14:02 amoxicillin [From Augmentin] AdvReac Unknown Vomiting Verified 11/06/20 18:29 metformin AdvReac Unknown Diarrhea Verified 11/06/20 18:29 clavulanic acid AdvReac Vomiting Verified 11/06/20 18:29 [From Augmentin] Review of Systems Review of Systems Narrative: 14 systems reviewed and negative aside what is noted in HPI Exam Vital Signs (past 8 hours): - 11/06/20 14:00 11/06/20 15:35 11/06/20 16:30 Temperature 98.0 F Pulse Rate 100 H 104 H 111 H Respiratory Rate 106 H 12 26 H Blood Pressure 158/76 H 169/72 H 167/77 H Pulse Oximetry 99 98 94 11/06/20 17:52 Temperature 98.3 F Pulse Rate 104 H Respiratory Rate 13 Blood Pressure 159/74 H Pulse Oximetry 96 Oxygen Delivery Method Room Air Narrative Exam Narrative: General: Elderly man, in mild distress from nausea HEENT: ORIN, moist mucous membranes Cardiovascular tachycardic with no murmurs Neck trachea midline, no JVD Pulmonary no wheezes rhonchi or rales Abdomen soft nontender nondistended no organomegaly, and normal bowel sounds Extremities warm well perfused no edema Skin no rashes appreciated Neuro is awake alert and oriented, is no gross neuro abnormalities Psych pleasant obviously uncomfortable from nausea Objective Labs Result Diagrams: 11/06/20 15:25 11/06/20 15:25 Labs: Laboratory Results - last 24 hr 11/06/20 11/06/20 15:25 15:25 WBC 10.3 RBC 4.15 L Hgb 13.2 L Hct 38.7 L MCV 93.2 MCH 31.7 MCHC 34.0 RDW 12.8 Plt Count 179 Neut % (Auto) 94.4 H Lymph % (Auto) 3.[address] [place] % (Auto) 1.9 L Eos % (Auto) 0.2 L Baso % (Auto) 0.4 Neut # (Auto) 9700 H Lymph # (Auto) [address] [place] # (Auto) 200 Eos # (Auto) 0 Baso # (Auto) 0 Sodium 133 L Potassium 4.3 Chloride 97 L Carbon Dioxide 23 BUN 14 Creatinine 0.67 Estimated GFR > 60.0 BUN/Creatinine Ratio 20.9 Glucose 386 H Calcium 9.4 Total Bilirubin 1.7 H AST 45 ALT 47 Alkaline Phosphatase 190 H Total Protein 7.1 Albumin 4.0 Globulin 3.1 Albumin/Globulin Ratio 1.3 Lipase 144 Assessment & Plan Assessment & Plan narrative: Was added a 70-year-old man with past medical history of recent pancreatic cancer with metastasis diagnosis status post his 1st treatment with chemo now presenting with nausea and vomiting. 1. Intractable nausea vomiting acute-patient has no concerning findings on exam of her intra-abdominal process, has no new neurologic findings, his symptoms seem consistent with post chemotherapy intolerance with nausea and vomiting, currently his electrolytes look as if he only has mild hyponatremia. Will continue to monitor his electrolytes closely. Will put him on IV fluids while he attempts to tolerate a diet. Will continue with the Zofran and IV Ativan for nausea control. 2. Pancreatic cancer with metastases-just started chemo with Dr. Smith, will need further outpatient follow up when improves as outpatient 3. Type 2 diabetes with hyperglycemia-very elevated blood sugar in the acute illness, no anion gap, will monitor glucose q6, with sliding scale while not eating well, and continue on lantus at home dose 4. CAD-stable here, no symptoms, will continue his home medications when he can tolerate PO 5. PTSD-stable, chronic, hold oral medications for now and restart when tolerating diet 6. Glaucoma - reorder drops when dose reconciled 7. Hypertension - reorder lisinopril when can take oral medications DVT ppx: lovenox IVF: 125 cc/hr Diet: as tolerated Code status: DNR, proxy is dell Casillas MIPS - Admit I confirm the patient?s Advance Care Plan is present, Code status is documented, Surrogate decision maker is in patient?s record [If Yes, STOP here]: Yes
[2020-11-06 18:30] LABS: Culture Indicated Urine Cult Not Indicated; RBC Urine 0-1/HPF (0-5/HPF); Squamous Epithelial Cell Urine 0-1 /HPF (0-5/HPF); WBC Urine 0-1/HPF (0-5/HPF)
[2020-11-06 18:42] LABS: COVID19 - ADMIT (NP swab/PCR) POSITIVE (Negative)
[2020-11-06 19:19] VITALS: BMI 23.7
[2020-11-06] MEDS: INSULIN ASPART 100 UNIT/ML INSULN PEN SUBCUT (19:46)
--- NOTE | 2020-11-06 21:57 | PC.NURSE ---
Addendum entered by Rubi Lopez R.N. 11/06/20 22:00: Plate Worker Helper Valentina, has notifed pt's next of kin, hospitalist and E.R. staff of positive covid test result. Original Note: 1814 Pt to room 222 from E.R. masked and able to move self in room from stretcher to bed. Remains masked awaiting covid 19 test result. Per E.R. report, pt recently tested negative. Staff settle pt in room and result comes back as positive. Droplet precautions observed with this telegraphic typewriter installer donning N95, simple mask and face shield in addition to gown and gloves. Pt reports has been fully vaccinated and tested negative for covid twice recently. Room air 98%. Clear lungs throughout. Pt has hiccups which pt reports has had since chemo. Reports nausea resolved and denies any other pain other than discomfort associated with hiccups. Pt was instructed to call for staff assistance when needing/desiring out of bed as pt received a great deal of medications in E.R. per report. Urinal provided. Blood sugar 330 and insulin administered as ordered. Pt provided with sugar free jello and ice water. IV fluids infusing without difficulty to portacath left chest.
[2020-11-07] VITALS: BP 131/65; PULSE 102; RESP 16; TEMP 36.4; O2SAT 96
[2020-11-07] MEDS: INSULIN ASPART 100 UNIT/ML INSULN PEN SUBCUT ×4 (02:11→21:08)
[2020-11-07] MEDS: polyethylene glycoL 3350 17 GM POWD.PACK PO (02:24)
[2020-11-07] MEDS: BISACODYL 10 MG SUPP PR (02:24)
[2020-11-07] MEDS: SODIUM CHLORIDE 0.9% 1,000 ML 125 ML IV ×3 (02:51→17:59)
--- NOTE | 2020-11-07 02:54 | PC.NURSE ---
C/O abdominal discomfort & constipation. Dulcolax suppository admin. & Miralax, noted hard stool in the rectal vault. Did not C/O nausea & no vomiting noted. CBG 289, Insulin Aspart 5 units of coverage admin, Will cont. POC & monitor.
[2020-11-07 05:00] VITALS: BP 151/74; PULSE 96; RESP 18; TEMP 36.3; O2SAT 99
[2020-11-07] MEDS: LORazepam 2 MG/ML INJ 0.5 MG IV ×3 (05:19→22:32)
[2020-11-07 05:59] LABS: Hematocrit 34.8 % (41-53); Hemoglobin 11.7 g/dL (13.5-17.5); Mean Corpuscular HGB Conc 33.7 % (30-36); Mean Corpuscular Hemoglobin 31.2 PG (26-34); Mean Corpuscular Volume 92.6 fL (80-100); Platelet Count 169 X10^3/uL (150-400); Red Blood Cell Count 3.76 X10^6/uL (4.5-5.9); Red Cell Distribution Width 12.7 % (11.6-14.8); White Blood Cell Count 10.2 X10^3/uL (4.5-11.0)
[2020-11-07 06:03] LABS: Add Manual Diff / Slide Review YES
[2020-11-07 06:04] LABS: BUN Creatinine Ratio 20.7 (6-22); Blood Urea Nitrogen 12 mg/dL (9-20); Calcium 8.4 mg/dL (8.4-10.2); Carbon Dioxide 25 mmol/L (22-32); Chloride 100 mmol/L (98-107); Estimated Glomerular Filt Rate > 60.0 mL/min (>60); Glucose 256 mg/dL (80-110); HEMOLYSIS < 15 (0-50); Magnesium 1.8 mg/dL (1.6-2.3); Phosphorous 2.1 mg/dL (2.3-3.7); Potassium 3.8 mmol/L (3.4-5.1); Sodium 133 mmol/L (137-145)
--- NOTE | 2020-11-07 06:28 | PC.NURSE ---
Pt. reported having nausea & vomiting, emesis 150cc per BANKING ATTORNEY reports. Declined Zofran states Zofran does not work. Medicated with 0.5 mg. of Ativan IVP. Did not C/O abdominal discomfort, but no bowel movement after Miralax & Dulcolax supp. admin. Will monitor.
[2020-11-07 06:58] LABS: Neutrophils Absolute Manual 9792 /uL (3000-5900); Total Cells Counted 100
[2020-11-07 06:59] LABS: RBC Morphology Normal Morphology
--- NOTE | 2020-11-07 07:35 | DI.US.S_ITS ---
PROCEDURE: US ABDOMEN LIMITED INDICATIONS: ABNORMAL LFTS TECHNIQUE: Real-time focused scanning was performed of the abdomen, with image documentation. COMPARISON: [facility], CT, CT ABDOMEN PELVIS W CON, 10/04/2020, 8:32. Outside Film, CT, CT CHEST WITHOUT CONTRAST, 10/05/2020, 10:14. [facility], US, US ABDOMEN COMPLETE, 10/07/2020, 11:56. FINDINGS: The liver demonstrates normal size. The liver demonstrates generalized mildly increased echogenicity. This decreases ultrasound sensitivity for detection of hepatic masses. However, there are several irregular mass is seen, which measure up to 2.2 cm and up to 4.9 cm on these images. The main portal vein demonstrates normal size and demonstrates normal appearing, hepatopetal flow. The gallbladder has been removed. There is no biliary dilatation for a post cholecystectomy patient, the common bile duct measures 8 mm. The pancreas is not well seen. A right-sided pleural effusion can be seen. IMPRESSION: Liver lesions are seen, which are suspicious for metastatic disease, particularly given the recent CT appearance. The pancreas is not well seen on this study. Small right-sided pleural effusion noted. Status post cholecystectomy, without biliary dilatation. Dictated by: Yariel Rascon M.D. on 11/07/2020 at 10:52 Approved by: Yariel Rascon M.D. on 11/07/2020 at 10:54
--- NOTE | 2020-11-07 07:36 | DI.RAD.S_ITS ---
PROCEDURE: XR CHEST 1V INDICATIONS: covid+ TECHNIQUE: One view of the chest was acquired. COMPARISON: [facility], CR, CHEST 2VW, 10/01/2013, 10:45. Outside Film, CT, CT CHEST WITHOUT CONTRAST, 10/05/2020, 10:14. FINDINGS: Surgical changes and devices: There is a left-sided chest port, with the tip overlying the inferior aspect of the superior vena cava. Cholecystectomy clips are seen. Lungs and pleura: Minimal patchy infiltrates are seen (right worse than left), which are consistent with the given history. No pleural effusions or pneumothorax. Mediastinum: Mediastinal contours appear normal. Heart size is normal. Bones and chest wall: No suspicious bony lesions. Age-appropriate bony degenerative changes are seen. Overlying soft tissues appear unremarkable. IMPRESSION: Patchy bilateral interstitial infiltrates are seen, which are consistent with the given clinical history of COVID pneumonia. Dictated by: Yariel Rascon M.D. on 11/07/2020 at 7:50 Approved by: Yariel Rascon M.D. on 11/07/2020 at 7:52
[2020-11-07] MEDS: PANTOPRAZOLE 40 MG VIAL IV (08:48)
[2020-11-07 09:00] VITALS: BP 154/82; PULSE 87; RESP 18; TEMP 36.5; O2SAT 99
[2020-11-07] MEDS: METOCLOPRAMIDE 10 MG/2 ML INJ 5 MG IV ×3 (10:20→22:32)
--- NOTE | 2020-11-07 11:13 | CM.DANOTE ---
DCP Note: Patient is 70 yo male with Medicare and for Life insurance. Patient present at hospital due to Chemo reaction. Patient is Covid positive as of 11/06/20. Per RN, patient has 10 children and just a few days ago and patient would like to be home. Patient's son Chele is proxy and is informed that patient is at hospital. DESIZING MACHINE OFFBEARER did not meet with patient at bedside due to positive COVID diagnosis. Plan: DESIZING MACHINE OFFBEARER will follow with further assessment for d/c plan. MONICA Thomas Discharge Planning/Care Management Advanced directive, confirm from FAMILY Start: 11/06/20 19:34 Freq: Q24H Status: Active Protocol: Document 11/07/20 00:00 MP (Rec: 11/07/20 00:44 MP [id number]) Advance Directive, confirm on record Time 00:00 Person contacted Pt. Copy received No CM Discharge Assessment Start: 11/07/20 11:09 Freq: Status: Active Protocol: Document 11/07/20 11:09 LN (Rec: 11/07/20 11:13 LN [id number]) Discharge Planning Assessment Assigned Leadership Development Instructor MONICA Contreras Advance Directives? Yes History Provided By Patient Has Patient been admitted in last 30 No days? Prior Living Arrangements House Household Members none Type of transporation used prior to Drives own vehicle admit Independent with ADL's Yes Is patient alert and oriented? Yes Please Provide Date Initial DC 11/07/20 Assessment Was Performed
--- NOTE | 2020-11-07 11:18 | PC.NURSE ---
Attempted to reconcile patient's home medications this morning, but he states he is not feeling well enough to talk about his medication. Will continue to follow.
[2020-11-07] MEDS: ENOXAPARIN 40 MG/0.4 ML SYRINGE SUBCUT (12:22)
[2020-11-07] MEDS: ONDANSETRON 4 MG/2 ML INJ IV ×2 (12:23→18:26)
[2020-11-07 12:52] VITALS: BP 154/72; PULSE 93; RESP 16; TEMP 36.6; O2SAT 96
--- NOTE | 2020-11-07 13:23 | P.PN_ITS ---
Subjective Subjective Interval history: He does not feel improved and still can not tolerate diet. He has developed intractable hiccups. COVID+ yesterday. No cough or shortness of breath. Exam Vital Signs (past 8 hours): - 11/07/20 09:00 11/07/20 12:52 Temperature 97.9 F Pulse Rate 87 93 H Respiratory Rate 18 16 Blood Pressure 154/82 H 154/72 H Pulse Oximetry 99 96 Oxygen Delivery Method Room Air Oxygen Flow Rate 0 Narrative Exam Narrative: General: Elderly man, hiccuping HEENT: PERRL, moist mucous membranes Cardiovascular tachycardic with no murmurs Neck trachea midline, no JVD Pulmonary no wheezes rhonchi or rales Abdomen soft nontender nondistended no organomegaly, and normal bowel sounds Extremities warm well perfused no edema Skin no rashes appreciated Neuro is awake alert and oriented, no gross neuro abnormalities Psych pleasant obviously uncomfortable from hiccups Objective Labs Result Diagrams: 11/07/20 05:45 11/07/20 05:45 Labs: Laboratory Results - last 24 hr 11/06/20 11/06/20 11/06/20 15:25 15:25 17:25 WBC 10.3 RBC 4.15 L Hgb 13.2 L Hct 38.7 L MCV 93.2 MCH 31.7 MCHC 34.0 RDW 12.8 Plt Count 179 Neut % (Auto) 94.4 H Lymph % (Auto) 3.1 L [place] % (Auto) 1.9 L Eos % (Auto) 0.2 L Baso % (Auto) 0.4 Neut # (Auto) 9700 H Lymph # (Auto) 300 L [place] # (Auto) 200 Eos # (Auto) 0 Baso # (Auto) 0 Total Counted Seg Neutrophils % Band Neutrophils % Lymphocytes % (Manual) Monocytes % (Manual) Eosinophils % (Manual) Neutrophils # (Manual) RBC Morphology Sodium 133 L Potassium 4.3 Chloride 97 L Carbon Dioxide 23 BUN 14 Creatinine 0.67 Estimated GFR > 60.0 BUN/Creatinine Ratio 20.9 Glucose 386 H Calcium 9.4 Phosphorus Magnesium Total Bilirubin 1.7 H AST 45 ALT 47 Alkaline Phosphatase 190 H Total Protein 7.1 Albumin 4.0 Globulin 3.1 Albumin/Globulin Ratio 1.3 Lipase 144 Urine Color Urine Appearance Urine pH Ur Specific [place] Urine Protein Urine Glucose (UA) Urine Ketones Urine Occult Blood Urine Nitrate Urine Bilirubin Urine Urobilinogen Ur Leukocyte Esterase Urine RBC Urine WBC Ur Squamous Epith Cells Urine Bacteria Ur Culture Indicated? SARS-CoV-2 (PCR) Positive H 11/06/20 11/07/20 11/07/20 17:45 05:45 05:45 WBC 10.2 RBC 3.76 L Hgb 11.7 L Hct 34.8 L MCV 92.6 MCH 31.2 MCHC 33.7 RDW 12.7 Plt Count 169 Neut % (Auto) Not Reportable Lymph % (Auto) Not Reportable [place] % (Auto) Not Reportable Eos % (Auto) Not Reportable Baso % (Auto) Not Reportable Neut # (Auto) Lymph # (Auto) Not Reportable [place] # (Auto) Not Reportable Eos # (Auto) Baso # (Auto) Not Reportable Total Counted 100 Seg Neutrophils % 67.0 Band Neutrophils % 29.0 H Lymphocytes % (Manual) 2.0 L Monocytes % (Manual) 1.0 L Eosinophils % (Manual) 1.0 L Neutrophils # (Manual) 9792 H RBC Morphology Normal morphology Sodium 133 L Potassium 3.8 Chloride 100 Carbon Dioxide 25 BUN 12 Creatinine 0.58 L Estimated GFR > 60.0 BUN/Creatinine Ratio 20.7 Glucose 256 H D Calcium 8.4 Phosphorus 2.1 L Magnesium 1.8 Total Bilirubin AST ALT Alkaline Phosphatase Total Protein Albumin Globulin Albumin/Globulin Ratio Lipase Urine Color Yellow Urine Appearance Clear Urine pH 6.0 Ur Specific [place] 1.020 Urine Protein 1+ H Urine Glucose (UA) 2+ H Urine Ketones 3+ H Urine Occult Blood Trace-lysed Urine Nitrate Negative Urine Bilirubin Negative Urine Urobilinogen 1.0 Ur Leukocyte Esterase Negative Urine RBC 0-1/hpf Urine WBC 0-1/hpf Ur Squamous Epith Cells 0-1 /hpf Urine Bacteria None seen Ur Culture Indicated? Cult not indicated SARS-CoV-2 (PCR) [facility] Medical History Coronary artery disease Diabetes Hyperlipidemia Post-traumatic stress disorder, chronic Surgical History History of cholecystectomy (01/31/17) Family History Mother Diabetes mellitus Father Dementia Social History household members: none Smoking Status: Never smoker alcohol intake: never substance use type: does not use Assessment & Plan Assessment & Plan narrative: 70-year-old man with past medical history of recent pancreatic cancer with metastasis diagnosis status post his 1st treatment with chemo now presenting with nausea and vomiting. 1. Intractable nausea vomiting acute-patient has no concerning findings on exam of an intra-abdominal process. Abdominal ultrasound shows known liver lesions. Has no new neurologic findings, his symptoms seem consistent with post chemotherapy intolerance with nausea and vomiting. Will continue to monitor his electrolytes closely. Will put him on IV fluids while he attempts to tolerate a diet. Will continue with the Zofran and IV Ativan for nausea control. 2. Hiccups, intractable - possibly related to chemotherapy, in addition may be caused by his pancreatic cancer. Low likelihood for central cause given no neurologic changes. Will order IV reglan for now, but if can tolerate oral will switch to PO baclofen. 3. Pancreatic cancer with metastases-just started chemo with Dr. Smith, will need further outpatient follow up when improves as outpatient 4. Type 2 diabetes with hyperglycemia-very elevated blood sugar in the acute illness, no anion gap, will monitor glucose q6, with sliding scale while not eating well, and continue on lantus at half home dose of 30U daily 5. CAD-stable here, no symptoms, will continue his home medications when he can tolerate PO 6. PTSD-stable, chronic, hold oral medications for now and restart when tolerating diet 7. Glaucoma - reorder drops when dose reconciled 8. Hypertension - reorder lisinopril when can take oral medications DVT ppx: lovenox IVF: 125 cc/hr Diet: as tolerated Code status: DNR, proxy is dell Casillas VTE Deep Vein Thrombosis/Pulmonary Embolism Present on Admission: No
[2020-11-07 16:00] VITALS: BP 154/72; PULSE 94; RESP 18; TEMP 36.8; O2SAT 96
--- NOTE | 2020-11-07 17:11 | PC.NURSE ---
Addendum entered by Rubi Lopez R.N. 11/07/20 23:05: Pt reports able to sleep for a few hours. This television script writer has not heard any retching since last entry. Pt with hiccups. Administered reglan and ativan as per emar. Addendum entered by Rubi Lopez R.N. 11/07/20 21:34: Pt denies abdominal pain stating, just a little sore. Offered analgesia to pt to treat this complaint and pt declines. States attempts to drink water and immediately vomits. Emesis is bileous. Refuses scd's. Child, Chele, has delivered pt's laptop and director title to hospital and this television script writer took into room and is charging for pt's spouse's service tomorrow. Will continue to administer anti-emetics as scheduled. Addendum entered by Rubi Lopez R.N. 11/07/20 19:12: Pt taken to CT scanner as per urgent order. Covid-19 precautions and isolation protocols observed. Pt tolerated this procedure well. Hiccups have ceased and pt now returned to room and resting quietly in bed. IV fluids resumed. Blood sugar checked prior to transport @ 1830 for 236. Addendum entered by Rubi Lopez R.N. 11/07/20 18:11: Pt now lying on left side in bed moaning. Hiccups continue. Aromatherapy packet provided for pt to inhale. Pt does report small stool and void in bathroom which pt did not keep. Inquired of pt if experiencing pain. Pt admits to abdominal pain 8/10 sharp in nature. Hospitalist, Dr. Amaya. informed. Pt then sits up at side of bed to vomit. Addendum entered by Rubi Lopez R.N. 11/07/20 17:43: Pt awake lying in bed awake with hiccups. Inquired of pt if nausea improved and pt denies. Now sitting up at bed retching. Hospitalist, Dr. Quijano, was informed. Pt now ambulatory independently into bathroom. Dr. Amaya suggests trial of aromatherapy with alcohol pad/[employer]as[employer]ase. This was provided to pt. Original Note: Pt with audible retching outside of room. Emesis present in emesis bag upon entering pt's room. Medicated pt with ativan as per emar and after discussion with hospitalist, Dr. Quijano, pt also medicated with reglan. Family members drop off pt's glasses and phone director title and these were provided to pt. Pt denies abdominal pain, but admits to burning sensation and places hand from stomach to throat. Pt reports apple juice was vomited right after drinking. Provided pt with ice chips and oral care products. Bowel tones are rare and pt denies abdominal pain. SCD's off at this time. Pt is able to move self and position self independently in bed.
--- NOTE | 2020-11-07 18:15 | DI.CT.S_ITS ---
PROCEDURE: CT HEAD/BRAIN WO CON INDICATIONS: Brain mets? TECHNIQUE: Noncontrast 4.5 mm thick angled axial sections acquired from the foramen magnum to the vertex, with coronal and sagittal reformats. For radiation dose reduction, the following was used: automated exposure control, adjustment of mA and/or kV according to patient size. COMPARISON: [facility], CR, XR CHEST 1V, 11/07/2020, 8:16. FINDINGS: Image quality: Excellent. CSF spaces: Basal cisterns are patent. No extra-axial fluid collections. Ventricles are normal in size and shape. Brain: No midline shift. No intracranial masses or hemorrhage. [place]-white matter interface is normal. Skull and face: Calvarium and visualized facial bones are intact, without suspicious lesions. Sinuses: Visualized sinuses and mastoids are predominantly clear. IMPRESSION: No acute intracranial finding demonstrated. MRI with contrast is more sensitive for small intracranial metastases . CT is insensitive for leptomeningeal metastatic disease. Dictated by: Jace Posey M.D. on 11/07/2020 at 19:09 Approved by: Jace Posey M.D. on 11/07/2020 at 19:10
--- NOTE | 2020-11-07 18:15 | DI.CT.S_ITS ---
PROCEDURE: CT ABDOMEN PELVIS W CON INDICATIONS: Abdominal pain, vomiting, pancreatic/liver cancer TECHNIQUE: After the administration of intravenous contrast, 5 mm thick sections acquired from the diaphragm to the symphysis. 5 mm coronal and sagittal reformats were acquired. For radiation dose reduction, the following was used: automated exposure control, adjustment of mA and/or kV according to patient size. COMPARISON: [facility], CT, CT ABDOMEN PELVIS W CON, 10/04/2020, 8:32. Outside Film, CT, CT CHEST WITHOUT CONTRAST, 10/05/2020, 10:14. FINDINGS: New right pleural effusion. There are several new hypodense and heterogeneously enhancing liver lesions, consistent with metastases. The largest of these measures approximately 2.8 centimeters in the posterior right hepatic lobe (series 3, image 16). Hypoenhancing mass in the pancreatic head, neck, and proximal body has increased in size. This currently measures approximately 4.4 centimeters compared with approximately 2.4 centimeters on the prior study. The immediately adjacent duodenum is inseparable from the lesion and may be involved. There is no abnormal dilatation of the more proximal duodenum or the stomach. Remainder of the bowel is within normal limits. Several regional retroperitoneal lymph nodes have increased in size since the prior study, consistent with metastatic disease. Most notably medial to the right kidney on series 3, image 31 there is a lymph node measuring 1.1 centimeters maximum axial dimension which previously measured 0.9 centimeters. The spleen, kidneys, and adrenal glands demonstrate no acute finding or evidence of discrete mass. Nonaneurysmal abdominal aorta. Aortic atherosclerosis. No free pelvic fluid or pelvic mass. No threshold enlarged pelvic or inguinal lymph node. Prostatomegaly. Urinary bladder unremarkable. No acute or suspicious osseous lesion. IMPRESSION: Findings consistent with disease progression. Increased size of primary pancreatic mass. Several new hypodense liver lesions consistent with metastatic disease. Increased size of multiple retroperitoneal lymph nodes, presumably representing metastatic disease also. New right pleural effusion, potentially malignant although this is not definitive. Dictated by: Jace Posey M.D. on 11/07/2020 at 19:12 Approved by: Jace Posey M.D. on 11/07/2020 at 19:18
[2020-11-07 20:25] VITALS: BP 175/83; PULSE 97; RESP 18; TEMP 37.2; O2SAT 97
[2020-11-07] MEDS: INSULIN GLARGINE 100 UNIT/ML 3ML PEN 30 UNIT SUBCUT (21:09)
[2020-11-08 00:32] VITALS: BP 154/76; PULSE 104; RESP 23; TEMP 36.7; O2SAT 97
[2020-11-08] MEDS: ONDANSETRON 4 MG/2 ML INJ IV ×2 (02:36→15:05)
[2020-11-08] MEDS: SODIUM CHLORIDE 0.9% 1,000 ML 125 ML IV ×2 (02:36→11:56)
[2020-11-08 03:11] VITALS: BP 148/78; PULSE 99; RESP 22; TEMP 36.8; O2SAT 97
--- NOTE | 2020-11-08 06:09 | PC.NURSE ---
Pt. C/O burning sensation in his stomach YOLETTE Crenshaw notified order to administer Pepcid. Awaiting verification with night Pharmacist.
[2020-11-08] MEDS: METOCLOPRAMIDE 10 MG/2 ML INJ 5 MG IV (06:14)
[2020-11-08] MEDS: LORazepam 2 MG/ML INJ 0.5 MG IV ×2 (06:15→18:22)
[2020-11-08] MEDS: FAMOTIDINE 20 MG/50 ML PIGGYBACK 200 MG IV (06:20)
[2020-11-08 06:39] LABS: Add Manual Diff / Slide Review NO; Basophils Absolute Auto 0 /uL (0-100); Basophils Percent Auto 0.2 % (0-2); Eosinophils Absolute Auto 100 /uL (0-450); Eosinophils Percent Auto 1.5 % (2-4); Hematocrit 33.1 % (41-53); Hemoglobin 11.3 g/dL (13.5-17.5); Lymphocytes Absolute Auto 900 /uL (1100-4500); Lymphocytes Percent Auto 11.6 % (25-40); Mean Corpuscular HGB Conc 34.1 % (30-36); Mean Corpuscular Hemoglobin 31.4 PG (26-34); Monocytes Absolute Auto 100 /uL (0-900); Monocytes Percent Auto 1.2 % (3-14); Neutrophils Absolute Auto 6300 /uL (1500-7000); Neutrophils Percent Auto 85.5 % (50-75); Platelet Count 171 X10^3/uL (150-400); Red Blood Cell Count 3.59 X10^6/uL (4.5-5.9); Red Cell Distribution Width 12.8 % (11.6-14.8); White Blood Cell Count 7.4 X10^3/uL (4.5-11.0)
[2020-11-08 06:47] LABS: Alanine Aminotransferase 40 IU/L (<50); Albumin Globulin Ratio 1.1 (1.0-2.8); Alkaline Phosphatase 139 U/L (38-126); Aspartate Aminotransferase 35 IU/L (17-59); BUN Creatinine Ratio 15.8 (6-22); Bilirubin Total 0.8 mg/dL (0.2-1.3); Bilirubin Unconjugated 0.6 mg/dL (0.0-1.1); Blood Urea Nitrogen 9 mg/dL (9-20); Calcium 8.4 mg/dL (8.4-10.2); Carbon Dioxide 28 mmol/L (22-32); Chloride 102 mmol/L (98-107); Estimated Glomerular Filt Rate > 60.0 mL/min (>60); Globulin 2.8 g/dL (1.7-4.1); Glucose 181 mg/dL (80-110); HEMOLYSIS < 15 (0-50); Potassium 3.5 mmol/L (3.4-5.1); Sodium 134 mmol/L (137-145); Total Protein 5.8 g/dL (6.3-8.2)
[2020-11-08 08:30] VITALS: PULSE 89; RESP 16; O2SAT 95
[2020-11-08 09:00] VITALS: BP 154/74; PULSE 90; RESP 16; TEMP 36.8; O2SAT 96
[2020-11-08] MEDS: BACLOFEN 10 MG TABLET 5 MG PO ×2 (09:45→14:58)
[2020-11-08] MEDS: ENOXAPARIN 40 MG/0.4 ML SYRINGE SUBCUT (09:45)
[2020-11-08] MEDS: PANTOPRAZOLE 40 MG VIAL IV (09:45)
[2020-11-08] MEDS: INSULIN ASPART 100 UNIT/ML INSULN PEN SUBCUT ×2 (09:46→15:04)
[2020-11-08 11:00] VITALS: BP 157/79; PULSE 86; RESP 15; TEMP 36.9; O2SAT 96
--- NOTE | 2020-11-08 14:34 | CM.DPC ---
DCP Cont: Per MD, pt continues to have N/V and difficulty with keeping orals down but otherwise respirations have been stable and pt hopeful to d/c home this evening to receive support from his large family regarding his spouse's /viewing today and MD anticipates pt may be stable enough to d/c home tonight. Per RN, pt continues to rest and have some retching still but making some progress. Due to COVID + restrictions and pt feeling so ill SW did not enter pt's room or attempt to call him yet on his phone. Pt has large supportive local family who are updated and aware of pt's status. Plan: SW to follow closely tomorrow to confirm if pt was able to stabilize enough to d/c home tonight or if remains admitted and then further d/c planning to continue. MONICA Rodriguez
--- NOTE | 2020-11-08 16:39 | PC.NURSE ---
shift summary: patient states he is feeling a little better today. Had episode of emesis earlier in the morning, then states he is keeping most of what he is taking in and some of it is coming up. Attempted some breakfast and sipping on water and juice throughout the day. No further vomiting on this shift noted. Patient was able to rest for awhile, he is thankful for care, but states he is wanting to get home today. IV fluids infusing as ordered to his left chest port, tolerating well. Urinal at bedside, although patient prefers to get up and use the rest room, denies any difficulty with ambulation. Denies shortness of breath, and pain today, states hiccups improved after new medication started today. Call light within reach. Patient currently watching his 's viewing online for her religious services.
[2020-11-08 17:00] VITALS: BP 151/58; PULSE 84; RESP 17; TEMP 36.6; O2SAT 97
--- NOTE | 2020-11-08 19:03 | PC.NURSE ---
Addendum entered by Rubi Lopez R.N. 11/08/20 19:48: Pt's son's x 2 including son, Chele, arrive @ emergency room entrance to transport pt to home. Discharge instructions in written and verbal format were provided to these two men while pt was assisted into vehicle. Pt is generally weak and has been medicated with lorazepam earlier. Prescription for baclofen to be transferred to [facility] per family request and hospitalist, Dr. Quijano, was informed of this desire. Pt left the hospital awake, alert, able to speak for self and express own wishes and desires. Pt was escorted to vehicle via wheelchair with belongings intact by this technical publications writer. Instructed pt's sons to bring pt back to hospital for worsening symptoms. Both parties verbalized understanding and agreement. Covid-19 precautions discussed with family members. Pt left hospital wearing simple masks x 2. Original Note: Pt was given privacy and assistance as needed to stream spouse's service this afternoon. Pt calls staff after dinner tray delivered and reports is vomiting. This technical publications writer entered pt's room and pt is lying in bed c/o mid abdominal pain and crying. I miss my , I miss my , I miss my . This technical publications writer offered reassurance and a listening ear. Pt states repeatedly wants to go home and attend spouse's burial tomorrow. Administered ativan as per emar to treat pt's c/o nausea, emesis and emotional distress. This was discussed with pt prior to administering. Dr. Amaya (in-house hospitalist) was informed of this conversation and in to see patient. Pt was educated on the contagious element of covid upon discharge home with family by . MD agrees to discharge pt and pt's daughter was phoned to notify of discharge. Left chest portacath de-accessed and folded 2 x 2 with tegaderm placed over site. POST OFFICE CLERK in pt's room to gather pt's belongings.
--- NOTE | 2020-11-08 23:41 | P.DS_ITS ---
History of Present Illness History of Present Illness Chief complaint: chemo reaction Narrative: Mr. Vail is a 70-year-old man with a past medical history of newly diagnosed presumed pancreatic cancer with metastases to the liver and kidney, diabetes, CAD, hyperlipidemia, PTSD who presents with nausea and vomiting. Patient was recently diagnosed with cancer after he began developing abdominal pain in August. He eventually had CT scan in September that showed cancer. He was started on treatment with Dr. Smith with chemotherapy 3 days ago but he is not sure of the name of. He describes having burning pain that radiates to his stomach is stomach up his chest. He was not having any diarrhea is not having any headache. He had noticed no blood in his vomit. He also of not had his within the last couple days from [employer]. He actually presented to the emergency room yesterday with symptoms of nausea and vomiting but actually had improvement after being given Protonix and Zofran and was able to be discharged after tolerating diet. He presents today because his vomiting continued to get worse and he was unable to keep down any food or drink. In the emergency room workup was done he was noted to be mildly hypertensive and mildly tachycardic. His labs are notable for a slightly low hemoglobin at 13.2. His sodium was 133 chloride 97 creatinine 0.67. Glucose was 386. He was given IV fluids, Zofran, Ativan, and Reglan and continued to feel poorly. He was unable is still tolerate any liquid because of this he was admitted for symptom control. Discharge Providers Provider Date of admission: 11/07/20 14:42 Discharge Date: 11/08/20 Primary care physician: Vianca Cox MD Consults: 11/06/20 19:33 Consult to Dietitian, Adult Routine Comment: Reason For Exam: pt is receiving chemo and has had 40 lb weight los Discharge provider: Ceferino Quesada MD Summary Hospital Course Discharge Diagnosis: 1. Nausea and vomiting 2. Hiccups 3. Pancreatic cancer with metastases 4. Type 2 DM with hyperglycemia on insulin 5. CAD 6. PTSD 7. Glaucoma 8. Hypertension 9. COVID+ nasal swab Hospital Course: Mr. Vail was admitted for nausea and vomiting and hiccups that were difficult to control in the hospital. He had recently been started on chemo for his cancer. He was given zofran, reglan, ativan, PPI, and H2 blockers. He tried smelling EtOH swabs. He had some improvement in his symptoms. He was noted to be COVID positive despite previously having COVID and also having his vaccination. He had no respiratory symptoms and did not need any pharmacologic therapy for COVID. For his nausea and vomiting he did get a CT of his abdomen/pelvis and CT head. They did not show any acute cause, obstructing mass, or intracranial proces. Unfortunately, his only a few days earlier . On day of discharge he was requesting discharge to go to her . He was recommended to isolate as best as possible. He was given strict return precautions. His etiology of nausea is likely chemotherapy, but unusual COVID manifestations, and psychological distress were also considered. Discharge time 35 minutes Status at Discharge Cognitive/behavioral status at discharge: oriented Functional status at discharge: independent ambulation Overall status at discharge: patient is progressing back to baseline Exam Vital Signs (past 8 hours): - 11/08/20 17:00 Temperature 97.8 F Pulse Rate 84 Respiratory Rate 17 Blood Pressure 151/58 H Pulse Oximetry 97 Oxygen Delivery Method Room Air Oxygen Flow Rate 0 Narrative Exam Narrative: General: Elderly man, hiccuping HEENT: PERRL, moist mucous membranes Cardiovascular regular with no murmurs Neck trachea midline, no JVD Pulmonary no wheezes rhonchi or rales Abdomen soft nontender nondistended no organomegaly, and normal bowel sounds Extremities warm well perfused no edema Skin no rashes appreciated Neuro is awake alert and oriented, no gross neuro abnormalities Psych pleasant but nauseous Objective Labs Result Diagrams: 11/08/20 06:10 11/08/20 06:10 Labs: Laboratory Results - last 24 hr 11/08/20 11/08/20 06:10 06:10 WBC 7.4 RBC 3.59 L Hgb 11.3 L Hct 33.1 L MCV 92.0 MCH 31.4 MCHC 34.1 RDW 12.8 Plt Count 171 Neut % (Auto) 85.5 H Lymph % (Auto) 11.6 L [place] % (Auto) 1.2 L Eos % (Auto) 1.5 L Baso % (Auto) 0.2 Neut # (Auto) 6300 Lymph # (Auto) 900 L [place] # (Auto) 100 Eos # (Auto) 100 Baso # (Auto) 0 Sodium 134 L Potassium 3.5 Chloride 102 Carbon Dioxide 28 BUN 9 Creatinine 0.57 L Estimated GFR > 60.0 BUN/Creatinine Ratio 15.8 Glucose 181 H Calcium 8.4 Total Bilirubin 0.8 Conjugated Bilirubin 0.0 Unconjugated Bilirubin 0.6 AST 35 ALT 40 Alkaline Phosphatase 139 H Total Protein 5.8 L Albumin 3.0 L Globulin 2.8 Albumin/Globulin Ratio 1.1 [facility] Medical History Coronary artery disease Diabetes Hyperlipidemia Post-traumatic stress disorder, chronic Surgical History History of cholecystectomy (01/31/17) Family History Mother Diabetes mellitus Father Dementia Social History household members: none Smoking Status: Never smoker alcohol intake: never substance use type: does not use Discharge Plan Discharge Plan Patient Disposition: Home Provider Discharge Comment: Mr. Vail was admitted with significant nausea, vomiting, and hiccups. He was recently started on chemotherapy for his cancer. Other considerations for vomiting were done and he had a head CT with no masses, abdominal CT that showed no significant change in his cancer. He was given multiple medications to help control his nausea and vomiting and hiccups but he responded slowly. On day of discharge he was feeling somewhat better and able to keep down some food and drink and was requesting to go home. He was also diagnosed with COVID here. He did not have any breathing difficulties and did not need any medication for this. He should continue to remain isolated as best as possible for 2 weeks while he is improving. Discharge orders & Medications Prescriptions: New baclofen 10 mg Tablet 5 mg PO TID PRN (Reason: Hiccups) Qty: 10 RF: 0 Continued pantoprazole [Protonix] 40 mg tablet,delayed release (DR/EC) 40 mg PO DAILY Qty: 30 RF: 0 ondansetron 4 mg tablet,disintegrating 4 mg PO TID-QID PRN (Reason: nausea and vomiting) Qty: 10 RF: 0 atorvastatin 40 mg tablet 40 mg PO DAILY RF: 0 carvedilol 6.25 mg tablet 6.25 mg RF: 0 famotidine 40 mg Tablet 40 mg PO BEDTIME RF: 0 travoprost [Travatan Z] 0.004 % drops RF: 0 tramadol 50 mg tablet RF: 0 prazosin 5 mg Capsule 5 mg PO BEDTIME RF: 0 olopatadine 0.1 % Drops OPHTHALMIC (EYE) RF: 0 lisinopril 10 mg tablet RF: 0 divalproex 500 mg Tablet Extended Release 24 Hr 500 mg PO DAILY RF: 0 brimonidine 0.2 % drops RF: 0 doxazosin 4 mg tablet RF: 0 finasteride 5 mg tablet RF: 0 insulin aspart U-100 [Novolog Flexpen U-100 Insulin] 100 unit/mL (3 mL) insulin pen See Rx Instructions .ROUTE .COMPLEX RF: 0 pregabalin [Lyrica] 150 mg Capsule 150 mg PO BID RF: 0 Lantus Solostar U-100 Insulin 100 unit/mL (3 mL) insulin pen 30 unit SUBCUT BID RF: 0 metoclopramide HCl [Reglan] 10 mg tablet 10 mg PO Q6H PRN (Reason: nausea and vomiting) Qty: 10 RF: 0 Discontinued ondansetron 4 mg tablet,disintegrating 4 mg PO Q8H PRN (Reason: nausea and vomiting) Qty: 10 RF: 0 pantoprazole 40 mg tablet,delayed release (DR/EC) PO RF: 0 Follow up/Referrals: Vianca Cox MD [Primary Care Provider] - Visit Report/Discharge Packet Instructions: DI for COVID-19 (Suspected or Confirmed ) Discharge Data Primary Care Provider: Vianca Cox Quality VTE Deep Vein Thrombosis/Pulmonary Embolism Present on Admission: No
== END 2020-11-08 19:54 | disposition home or self-care (01) | DRG 391 ==
LOC: ED 17:30 → AC 17:57
PROVIDERS: Admitting Provider Internal Medicine; Emergency Provider Emergency Medicine; PCP Internal Medicine; Referring Provider Emergency Medicine; Visit Provider Internal Medicine
DX: R11.2 Nausea with vomiting, unspecified (principal); U07.1 COVID-19; C25.9 Malignant neoplasm of pancreas, unspecified; C78.7 Secondary malignant neoplasm of liver and intrahepatic bile duct; C79.00 Secondary malignant neoplasm of unspecified kidney and renal pelvis; T45.1X5A Adverse effect of antineoplastic and immunosuppressive drugs, initial encounter; E11.65 Type 2 diabetes mellitus with hyperglycemia; Z79.4 Long term (current) use of insulin; E78.5 Hyperlipidemia, unspecified; I25.10 Atherosclerotic heart disease of native coronary artery without angina pectoris; F43.10 Post-traumatic stress disorder, unspecified; I10 Essential (primary) hypertension; R06.6 Hiccough; H40.9 Unspecified glaucoma; Z86.16 Personal history of COVID-19; Z66 Do not resuscitate
CPT/HCPCS: 36415; 36591; 70450; 71045; 74177; 76705; 80048; 80053; 80076; 81001; 82962; 83690; 83735; 84100; 85007; 85025; 87040; 87635; 96361; 96374; 96375; 99284; C9803; G0378; C9113; J1642; J1650; J2060; J2405; J2765; Q9967

== ENCOUNTER 2020-11-30 02:32 | Inpatient (IN) | payer MEDICARE, OTHER, SELFPAY ==
[2020-11-30] VITALS (18 sets, daily range): BP systolic 110–157; BP diastolic 57–72; PULSE 85–113; RESP 14–23; TEMP 36.3–38; O2SAT 91–99; BMI 24.4; BMI 24.7
--- NOTE | 2020-11-30 | DI.RAD.S_ITS ---
PROCEDURE: XR CHEST 1V INDICATIONS: POST THORACENTISIS TECHNIQUE: One view of the chest was acquired. COMPARISON: [facility], CR, XR CHEST 1V, 11/30/2020, 3:48. FINDINGS: Surgical changes and devices: Left chest port with the tip projecting in the upper SVC. Lungs and pleura: No pneumothorax. Residual moderate right pleural effusion with adjacent atelectasis. Mediastinum: Mediastinal contours appear normal. Heart size is normal. Bones and chest wall: No suspicious bony lesions. Overlying soft tissues appear unremarkable. IMPRESSION: No pneumothorax, status post thoracentesis. Residual moderate right pleural effusion with adjacent atelectasis. Dictated by: Wilver Smith M.D. on 11/30/2020 at 14:10 Approved by: Wilver Smith M.D. on 11/30/2020 at 14:11
--- NOTE | 2020-11-30 02:42 | ED_ITS ---
HPI - Abdominal Pain General Chief Complaint: Abdominal Pain Stated Complaint: stomach is burning up on chemo Time Seen by Provider: 11/30/20 02:35 Source: patient Mode of arrival: Ambulatory Limitations: no limitations History of Present Illness HPI narrative: 70-year-old male with history of pancreatic cancer with metastases to the liver and kidneys well as coronary artery disease, PTSD, diabetes on chemotherapy presents with a chief complaint of burning in what he describes as his food to over the course of the past 24 hours. He denies any obvious provocation or palliation and states that it extends from the bottom of his neck to the top of his abdomen. He denies any shortness of breath, fever or shaking chills. He states his last chemotherapy was 6 days ago. He states he has had some nausea but denies any active vomiting. He denies any dietary or medication change otherwise. He was most recently admitted into the hospital on November 06 for persistent nausea and vomiting and was COVID positive at that time. MD complaint: abdominal pain Onset (ago): hour(s) Pain Consistency: constant Location: epigastric Severity: moderate Quality: cramping and aching Radiation: epigastric Relieving factors: nothing Exacerbating factors: nothing Associated symptoms: nausea Related Data Home Medications Medication Instructions Recorded Confirmed Lantus Solostar U-100 Insulin 30 unit SUBCUT BID 10/05/20 11/30/20 brimonidine 1 drp OPHTHALMIC (EYE) DAILY 10/05/20 11/30/20 carvedilol 6.25 mg PO DAILY 10/05/20 11/30/20 divalproex 500 mg PO DAILY 10/05/20 11/30/20 doxazosin 4 mg PO DAILY 10/05/20 11/30/20 famotidine 40 mg PO BEDTIME 10/05/20 11/30/20 finasteride 5 mg PO DAILY 10/05/20 11/30/20 insulin aspart U-100 [Novolog See Rx Instructions .ROUTE .COMPLEX 10/05/20 11/30/20 Flexpen U-100 Insulin] lisinopril 10 mg PO DAILY 10/05/20 11/30/20 olopatadine 1 drp OPHTHALMIC (EYE) DAILY 10/05/20 11/30/20 prazosin 5 mg PO BEDTIME 10/05/20 11/30/20 pregabalin [Lyrica] 150 mg PO BID 10/05/20 11/30/20 travoprost [Travatan Z] 1 drp EYE-BOTH DAILY 10/05/20 11/30/20 atorvastatin 40 mg PO DAILY 11/07/20 11/30/20 fentanyl 1 patch TRANSDERMAL Q72H 11/30/20 11/30/20 Previous Rx's Medication Instructions Recorded ondansetron 4 mg PO TID-QID PRN #10 tab 10/06/20 pantoprazole [Protonix] 40 mg PO DAILY #30 tab 10/06/20 metoclopramide HCl [Reglan] 10 mg PO Q6H PRN #10 tab 11/05/20 baclofen 5 mg PO TID PRN #10 tab 11/08/20 Allergies Allergy/AdvReac Type Severity Reaction Status Date / Time aspirin Allergy Unknown Verified 11/06/20 14:02 brompheniramine Allergy Unknown Verified 11/06/20 14:02 codeine Allergy Unknown Verified 11/06/20 18:29 diphenhydramine Allergy Unknown Verified 11/06/20 18:29 guaifenesin Allergy Unknown Verified 11/06/20 18:29 hydrocodone Allergy Unknown Verified 11/06/20 18:29 hydroxyzine Allergy Unknown Verified 11/06/20 14:02 ibuprofen Allergy Unknown Verified 11/06/20 14:02 meperidine Allergy Unknown Verified 11/06/20 14:02 morphine Allergy Unknown Verified 11/06/20 14:02 nystatin Allergy Unknown Verified 11/06/20 18:29 promethazine Allergy Unknown Verified 11/06/20 14:02 propoxyphene Allergy Unknown Verified 11/06/20 14:02 tuberculin, purified protein Allergy Unknown Verified 11/06/20 14:02 deriva egg Allergy Verified 11/06/20 14:02 amoxicillin [From Augmentin] AdvReac Unknown Vomiting Verified 11/06/20 18:29 metformin AdvReac Unknown Diarrhea Verified 11/06/20 18:29 clavulanic acid AdvReac Vomiting Verified 11/06/20 18:29 [From Augmentin] Review of Systems Constitutional Constitutional: Denies chills, Denies fatigue, Denies fever(s), Denies frequent falls, Denies lethargy and Denies weakness Eyes Eyes: Denies change in vision, Denies eye discharge, Denies irritation and Denies loss of vision ENT Ears, Nose, Mouth, and Throat: Denies change in voice, Denies dizziness, Denies neck pain, Denies sore throat and Denies throat swelling Cardiovascular Cardiovascular: Denies chest pain, Denies irregular heart rhythm, Denies li ghtheadedness, Denies palpitations, Denies dyspnea, Denies dyspnea on exertion and Denies orthopnea Respiratory Respiratory: Denies cough, Denies dyspnea, Denies dyspnea on exertion and Denies wheezing Gastrointestinal Gastrointestinal: Reports abdominal pain, Denies change in bowel habits, Denies diarrhea, Reports nausea and Denies vomiting Musculoskeletal Musculoskeletal: Denies neck pain and Denies numbness Integumentary/Breasts Skin/Breast: Denies pruritus, Denies erythema, Denies rash and Denies wounds Neurologic Neurologic: Denies behavioral changes, Denies confusion, Denies dizziness, Denies frequent falls, Denies loss of vision, Denies numbness and Denies weakness Psychiatric Psychiatric: Denies anxiety, Denies behavioral changes, Denies confusion, Denies depression, Denies homicidal ideation and Denies suicidal ideation Endocrine Endocrine: Denies fatigue, Denies flushing and Denies palpitations Hematologic/Lymphatic Hematologic/Lymphatic: Denies easy bruising Allergic/Immunologic Allergic/Immunologic: Denies urticaria, Denies throat swelling and Denies wheezing Patient History Medical History Coronary artery disease Diabetes Hyperlipidemia Post-traumatic stress disorder, chronic Surgical History History of cholecystectomy (01/31/17) Family History Mother Diabetes mellitus Father Dementia Social History household members: children Smoking Status: Never smoker alcohol intake: never substance use type: does not use Smoking Status: Never smoker alcohol intake frequency: holidays/special occasions only Substance Use Type: does not use Exam Narrative Exam Narrative: GENERAL: [70] year old patient appears stated age. Well- nourished, well-developed patient, in mild distress. HEAD: Atraumatic. Normocephalic. EYES: Pupils equal round and reactive. Extraocular motions intact. No scleral icterus. No injection or drainage. ENT: Dry mucous membranes Nose without bleeding, purulent drainage. Throat without erythema, tonsillar hypertrophy or exudate. Airway patent. NECK: Trachea midline. Non tender CARDIOVASCULAR: Tachycardic but regular rhythm without murmurs, gallops, or rubs. RESPIRATORY: Decreased breath sounds in R base. No wheezes, rales, or rhonchi. GASTROINTESTINAL: Abdomen soft, epigastric pain, nondistended. EXTREMITIES: No edema or joint tenderness. BACK: Nontender without deformity or crepitance. No flank tenderness. NEURO: AOx3. SKIN: No rash or erythema of visible areas Initial Vital Signs Initial Vital Signs: Vital Signs Temperature 100.4 F H 11/30/20 02:45 Pulse Rate 113 H 11/30/20 02:45 Respiratory Rate 22 11/30/20 02:45 Blood Pressure 126/68 11/30/20 02:45 Pulse Oximetry 97 11/30/20 02:45 Course Orders Ordered: Acetaminophen (Acetaminophen 325 Mg Tablet) 650 mg PO Q6HR PRN PRN Reason: Fever/Mild Pain (1-3) Atorvastatin Calcium (Atorvastatin 20 Mg Tablet) 40 mg PO DAILY [facility] Last Admin: 11/30/20 09:02 Dose: Not Given Documented by: VICKEY Baclofen (Baclofen 10 Mg Tablet) 5 mg PO TID PRN PRN Reason: Hiccups Dextrose (Dextrose 50 % In Water 25 Gm/50 Ml Syringe) 25 gm IV PRN PRN PRN Reason: Hypoglycemia Divalproex Sodium (Divalproex Er 250 Mg Tab) 500 mg PO DAILY [facility] Last Admin: 11/30/20 11:16 Dose: Not Given Documented by: VICKEY Enoxaparin Sodium (Enoxaparin 40 Mg/0.4 Ml Syringe) 40 mg 0.5 mg/kg (40 mg) KYEES BCUT DAILY [facility] Last Admin: 11/30/20 11:16 Dose: Not Given Documented by: VICKEY Famotidine (Famotidine 20 Mg Tablet) 40 mg PO BEDTIME [facility] Last Admin: 11/30/20 21:34 Dose: 40 mg Documented by: LIV Fentanyl (Fentanyl 25 Mcg/Patch) 25 mcg TOP Q72H [facility] Last Admin: 11/30/20 12:03 Dose: 25 mcg Documented by: VICKEY Fentanyl (Fentanyl 12 Mcg/Patch) 12 mcg TOP Q72H [facility] Last Admin: 11/30/20 12:03 Dose: 12 mcg Documented by: VICKEY Sodium Chloride (Normal Saline 0.9%) 1,000 mls @ 75 mls/hr IV CONT [facility] Last Admin: 11/30/20 11:21 Dose: 75 mls/hr Documented by: Admin: 11/30/20 09:01 Dose: Not Given Documented by: VICKEY Levofloxacin (Levaquin) 750 mg in 150 mls @ 100 mls/hr IV Q24H [facility] Chlorpromazine HCl 25 mg/ (Sodium Chloride) 501 mls @ 1,002 mls/hr IV Q8HR PRN PRN Reason: Hiccups Last Infusion: 12/01/20 00:28 Dose: 0 mls/hr Documented by: LUIS MANUEL Admin: 11/30/20 23:37 Dose: 1,002 mls/hr Documented by: LUIS MANUEL Infusion: 11/30/20 22:27 Dose: 0 mls/hr Documented by: Admin: 11/30/20 16:07 Dose: 1,002 mls/hr Documented by: LIV Ibuprofen (Ibuprofen 600 Mg Tablet) 600 mg PO Q6HR PRN PRN Reason: Fever/Mild Pain (1-3) Insulin Glargine (Insulin Glargine 100 Unit/Ml 3ml Pen) 30 unit SUBCUT BID [facility] Last Admin: 11/30/20 21:38 Dose: 30 unit Documented by: LIV Cosigned by: BONI Admin: 11/30/20 09:38 Dose: 30 unit Documented by: VICKEY Cosigned by: MYRANDA Insulin Human Lispro (Insulin Lispro 100 Unit/Ml 3ml Vial) 0 unit SUBCUT ACHS [facility]; Protocol Last Admin: 11/30/20 21:40 Dose: 2 unit Documented by: LIV Cosigned by: BONI Admin: 11/30/20 17:21 Dose: Not Given Documented by: Admin: 11/30/20 12:24 Dose: 5 unit Documented by: MONET Cosigned by: VICKEY Admin: 11/30/20 08:50 Dose: Not Given Documented by: VICKEY Lisinopril (Lisinopril 10 Mg Tablet) 10 mg PO DAILY [facility] Last Admin: 11/30/20 09:16 Dose: Not Given Documented by: VICKEY Metoclopramide HCl (Metoclopramide 10 Mg/2 Ml Inj) 10 mg IV Q8HR PRN PRN Reason: Nausea And Vomiting Last Admin: 11/30/20 21:34 Dose: 10 mg Documented by: Admin: 11/30/20 12:46 Dose: 10 mg Documented by: VICKEY Morphine Sulfate (Morphine 4 Mg/Ml Inj) 4 mg IV Q4HR PRN PRN Reason: Pain, Severe (7-10) Last Admin: 11/30/20 09:05 Dose: 4 mg Documented by: VICKEY Naloxone HCl (Naloxone 0.4 Mg/Ml Vial) 0.2 mg IV Q2MIN PRN PRN Reason: Opiate Reversal Ondansetron HCl (Ondansetron 4 Mg/2 Ml Inj) 4 mg IV Q4HR PRN PRN Reason: Nausea And Vomiting Last Admin: 11/30/20 22:33 Dose: 4 mg Documented by: Admin: 11/30/20 15:23 Dose: 4 mg Documented by: LIV Pantoprazole Sodium (Pantoprazole Dr 40 Mg Tablet) 40 mg PO 0700 [facility] Last Admin: 11/30/20 08:02 Dose: Not Given Documented by: VICKEY Prazosin HCl (Prazosin Hcl 5 Mg Capsule) 5 mg PO BEDTIME [facility] Last Admin: 11/30/20 21:47 Dose: Not Given Documented by: LIV Pregabalin (Pregabalin 75 Mg Capsule) 150 mg PO BID [facility] Last Admin: 11/30/20 21:33 Dose: 150 mg Documented by: Admin: 11/30/20 11:16 Dose: Not Given Documented by: VICKEY Sodium Chloride (Sodium Chloride 0.9% Flush) 10 ml IV PRN PRN PRN Reason: Flush Sodium Chloride (Sodium Chloride 0.9% Flush) 10 ml IV BID [facility] Last Admin: 11/30/20 11:21 Dose: 10 ml Documented by: Admin: 11/30/20 09:05 Dose: 10 ml Documented by: VICKEY Discontinued Medications Al Hydrox/Mg Hydrox/Simethicone 20 ml/ Lidocaine HCl 15 ml 0 ml PO NOW ONE Stop: 11/30/20 03:04 Last Admin: 11/30/20 03:40 Dose: 20 ml Documented by: JASMINA Sodium Chloride (Normal Saline 0.9%) 1,000 mls @ 1,000 mls/hr IV BOLUS ONE Stop: 11/30/20 04:02 Last Admin: 11/30/20 06:25 Dose: Not Given Documented by: JASMINA Sodium Chloride (Normal Saline 0.9%) 2,449.41 mls @ 816.47 mls/hr 30 ml/kg infuse over 3 hr (2449.41 ml) IV NOW ONE Stop: 11/30/20 06:34 Last Infusion: 11/30/20 07:18 Dose: 0 mls/hr Documented by: Admin: 11/30/20 03:40 Dose: 816.47 mls/hr Documented by: JASMINA Levofloxacin (Levaquin) 750 mg in 150 mls @ 100 mls/hr IV NOW ONE Stop: 11/30/20 05:07 Last Infusion: 11/30/20 06:25 Dose: 0 mls/hr Documented by: Admin: 11/30/20 03:42 Dose: 100 mls/hr Documented by: JASMINA Insulin Glargine (Insulin Glargine 100 Unit/Ml 3ml Pen) 1 unit SUBCUT 2100 SERGE Lorazepam (Lorazepam 2 Mg/Ml Inj) 0.5 mg IV NOW ONE Stop: 11/30/20 07:11 Last Admin: 11/30/20 07:20 Dose: 0.5 mg Documented by: SANIYA Metoclopramide HCl (Metoclopramide Hcl 10 Mg Tablet) 10 mg PO Q6H PRN PRN Reason: nausea and vomiting Ondansetron HCl (Ondansetron 4 Mg/2 Ml Inj) 4 mg IV Q8HR PRN PRN Reason: Nausea And Vomiting Last Admin: 11/30/20 09:05 Dose: 4 mg Documented by: VICKEY Pantoprazole Sodium (Pantoprazole 40 Mg Vial) 40 mg IV NOW ONE Stop: 11/30/20 03:04 Last Admin: 11/30/20 03:41 Dose: 40 mg Documented by: JASMINA Reevaluation(s) Reevaluation #1: Patient demonstrates significant improvement in symptoms after the GI cocktail and Protonix. multiple attempts at second blood culture by multiple nurses and phlebotomy including peripheral site and port. Eventually we decided it was more important to administer ABX 0430 = patient continues to feel much better Consultations Consultation #1: call to hospitalist, requests transfer for likely bronch and need for pulmonary call to [facility]/onc for Dr. Oneal. Recommends transfer to [facility] if possible. No specific requests for other work up. [phone] call to [facility]. No available beds, they are boarding 8 [phone] call to [facility]. No beds. Recommend call back at [phone]. No need to send face sheet yet [phone] call to [facility]. Vital Signs Vital signs: Vital Signs - 8 hr 11/30/20 02:45 11/30/20 03:48 11/30/20 04:00 Temperature 100.4 F H Pulse Rate 113 H 104 H 100 H Respiratory Rate 22 17 Blood Pressure 126/68 122/72 Pulse Oximetry 97 96 95 11/30/20 04:02 11/30/20 04:29 11/30/20 04:30 Temperature 99.1 F Pulse Rate 99 H 96 H Respiratory Rate Blood Pressure 128/65 128/65 Pulse Oximetry 97 95 11/30/20 05:00 11/30/20 05:17 11/30/20 05:30 Temperature Pulse Rate 90 101 H 90 Respiratory Rate 18 Blood Pressure 157/67 H 117/58 L Pulse Oximetry 96 97 98 11/30/20 06:00 Temperature Pulse Rate 85 Respiratory Rate 18 Blood Pressure 125/58 L Pulse Oximetry 98 MDM - Abdominal Pain Lab Data Result diagrams: 11/30/20 03:18 11/30/20 03:18 Labs: Lab Results 11/30/20 11/30/20 11/30/20 Range/Units 03:18 03:18 03:18 WBC 1.5 L* (4.5-11.0) X10^3/uL RBC 3.34 L (4.5-5.9) X10^6/uL Hgb 10.5 L (13.5-17.5) g/dL Hct 30.6 L (41-53) % MCV 91.6 (80-100) fL MCH 31.4 (26-34) PG MCHC 34.3 (30-36) % RDW 13.2 (11.6-14.8) % Plt Count 114 L (150-400) X10^3/uL Neut % (Auto) Not Reportable Lymph % (Auto) Not Reportable Roberts % (Auto) Not Reportable Eos % (Auto) Not Reportable Baso % (Auto) Not Reportable Lymph # (Auto) Not Reportable Roberts # (Auto) Not Reportable Baso # (Auto) Not Reportable Total Counted 100 Seg Neutrophils % 66.0 (38-70) % Band Neutrophils % 1.0 L (3-7) % Lymphocytes % (Manual) 23.0 L (25-45) % Monocytes % (Manual) 7.0 (2-11) % Eosinophils % (Manual) 3.0 (2-4) % Neutrophils # (Manual) 1005 L (4617-5846) /uL RBC Morphology Normal morphology PT (10.1-12.7) SECONDS INR (0.9-1.3) Sodium 126 L (137-145) mmol/L Potassium 3.9 (3.4-5.1) mmol/L Chloride 88 L (98-107) mmol/L Carbon Dioxide 31 (22-32) mmol/L BUN 10 (9-20) mg/dL Creatinine 0.85 (0.66-1.25) mg/dL Estimated GFR > 60.0 (>60) mL/min BUN/Creatinine Ratio 11.8 (6-22) Glucose 367 H (80-110) mg/dL Lactate 1.4 (0.7-2.1) mmol/L Calcium 8.5 (8.4-10.2) mg/dL Phosphorus (2.3-3.7) mg/dL Total Bilirubin 1.0 (0.2-1.3) mg/dL AST 54 (17-59) IU/L ALT 70 H (<50) IU/L Alkaline Phosphatase 443 H (38-126) U/L Total Protein 6.1 L (6.3-8.2) g/dL Albumin 3.0 L (3.5-5.0) g/dL Globulin 3.1 (1.7-4.1) g/dL Albumin/Globulin Ratio 1.0 (1.0-2.8) Procalcitonin (<0.5) ng/mL SARS-CoV-2 (PCR) (Negative) 11/30/20 11/30/20 11/30/20 Range/Units 03:18 03:18 03:18 WBC (4.5-11.0) X10^3/uL RBC (4.5-5.9) X10^6/uL Hgb (13.5-17.5) g/dL Hct (41-53) % MCV (80-100) fL MCH (26-34) PG MCHC (30-36) % RDW (11.6-14.8) % Plt Count (150-400) X10^3/uL Neut % (Auto) Lymph % (Auto) Roberts % (Auto) Eos % (Auto) Baso % (Auto) Lymph # (Auto) Roberts # (Auto) Baso # (Auto) Total Counted Seg Neutrophils % (38-70) % Band Neutrophils % (3-7) % Lymphocytes % (Manual) (25-45) % Monocytes % (Manual) (2-11) % Eosinophils % (Manual) (2-4) % Neutrophils # (Manual) (8332-0904) /uL RBC Morphology PT 15.8 H (10.1-12.7) SECONDS INR 1.4 H (0.9-1.3) Sodium 127 L (137-145) mmol/L Potassium 4.0 (3.4-5.1) mmol/L Chloride 88 L (98-107) mmol/L Carbon Dioxide 30 (22-32) mmol/L BUN 10 (9-20) mg/dL Creatinine 0.81 (0.66-1.25) mg/dL Estimated GFR > 60.0 (>60) mL/min BUN/Creatinine Ratio 12.3 (6-22) Glucose 365 H (80-110) mg/dL Lactate (0.7-2.1) mmol/L Calcium 8.4 (8.4-10.2) mg/dL Phosphorus 2.5 (2.3-3.7) mg/dL Total Bilirubin (0.2-1.3) mg/dL AST (17-59) IU/L ALT (<50) IU/L Alkaline Phosphatase (38-126) U/L Total Protein (6.3-8.2) g/dL Albumin 2.9 L (3.5-5.0) g/dL Globulin (1.7-4.1) g/dL Albumin/Globulin Ratio (1.0-2.8) Procalcitonin 0.45 (<0.5) ng/mL SARS-CoV-2 (PCR) (Negative) 11/30/20 Range/Units 03:51 WBC (4.5-11.0) X10^3/uL RBC (4.5-5.9) X10^6/uL Hgb (13.5-17.5) g/dL Hct (41-53) % MCV (80-100) fL MCH (26-34) PG MCHC (30-36) % RDW (11.6-14.8) % Plt Count (150-400) X10^3/uL Neut % (Auto) Lymph % (Auto) Roberts % (Auto) Eos % (Auto) Baso % (Auto) Lymph # (Auto) Roberts # (Auto) Baso # (Auto) Total Counted Seg Neutrophils % (38-70) % Band Neutrophils % (3-7) % Lymphocytes % (Manual) (25-45) % Monocytes % (Manual) (2-11) % Eosinophils % (Manual) (2-4) % Neutrophils # (Manual) (0935-1812) /uL RBC Morphology PT (10.1-12.7) SECONDS INR (0.9-1.3) Sodium (137-145) mmol/L Potassium (3.4-5.1) mmol/L Chloride (98-107) mmol/L Carbon Dioxide (22-32) mmol/L BUN (9-20) mg/dL Creatinine (0.66-1.25) mg/dL Estimated GFR (>60) mL/min BUN/Creatinine Ratio (6-22) Glucose (80-110) mg/dL Lactate (0.7-2.1) mmol/L Calcium (8.4-10.2) mg/dL Phosphorus (2.3-3.7) mg/dL Total Bilirubin (0.2-1.3) mg/dL AST (17-59) IU/L ALT (<50) IU/L Alkaline Phosphatase (38-126) U/L Total Protein (6.3-8.2) g/dL Albumin (3.5-5.0) g/dL Globulin (1.7-4.1) g/dL Albumin/Globulin Ratio (1.0-2.8) Procalcitonin (<0.5) ng/mL SARS-CoV-2 (PCR) Negative (Negative) Imaging Data Chest x-ray: Attestation: I personally reviewed and interpreted this imaging study as follows: Radiologist's Impression: large R pleural effusion with underlying consolidation, paucity of lung marking within aerated portion of R lower lobe raising the question of cavitary lesion CT scan - chest: Radiologist's Impression: Chart Viewer Diagnostics DATE TYPE STATUS REF RANGE/AUTHOR Hx 11/30/20 07:53 SmithWilver 11/30/20 04:25 Wilver Smith 11/30/20 03:35 Akila Ortiz 11/30/20 00:00 LuisWilver 11/07/20 18:15 Jace Posey 11/07/20 18:15 Jace Posey 11/07/20 07:36 TarahYariel pearson 11/07/20 07:35 TarahYariel [place] 10/07/20 11:51 Den Weller 10/05/20 00:00 CT CHEST W/CONTRAST [facility] 10/04/20 07:48 Heladio Tolbert 01/30/20 17:39 Wilver Smith 12/29/17 16:52 Paliwal,Vidhmaldonado 12/29/17 12:35 Paliwal,Vidhu 12/28/17 00:00 PetrVidhu Neelam Vail 70, M0 [address] [facility] [place], AC 223 -1 182.88cm 83kg BMI: 24.8kg/m? Search Chart No Data to Display Total Vomiting Diarrhea Vomiting ONSET 01/31/17 11/30/20 23:54 Neelam Vail 70 M [address] [id number] Scan ReportSigned Patient: Yared,Neelam DMR#: [id number]: 1950cct:[id number]/Sex: 70 / MDate of Service: 11/30/20Lo: [id number] Number: [id number] Procedure: CT chest abd pel w con Ordering Provider: Rafa Neumann D.O. PROCEDURE: CT CHEST ABD PEL W CON INDICATIONS: neutropenic, sepsis, large right pleural effusion TECHNIQUE: After the administration of oral and intravenous contrast, 5 mm thick sections acquired from the lung apices to the symphysis. 5 mm coronal and sagittal reformats were performed, with additional 7 mm coronal MIP reformats through the lungs. For radiation dose reduction, the following was used: automated exposure control, adjustment of mA and/or kV according to patient size. COMPARISON: None. FINDINGS: Exam degraded by severe motion artifact. CHEST: Lungs: No left lung consolidation however sub 5 mm pulmonary nodule seen in the left upper lobe measuring 3 mm, for example image 29/3. Please see the montage image for detailed locations and image/series numbers. Pleura: Large right pleural effusion with adjacent atelectasis. Focal masslike consolidation involving the infrahilar right lung measuring approximately 5 x 4 cm, possibly atelectasis versus true mass. No pneumothorax. Heart: Heart size is normal. No pericardial effusion. Chest nodes: Normal. Thyroid gland: Negative Aorta: Normal. Pulmonary arteries: Normal. Esophagus: Normal. Left chest port ABDOMEN: Liver: Numerous ill-defined hypodense lesions seen throughout the left and right hepatic lobes measuring up to 2.4 x 1.8 cm in the right lobe on image 57/2. Gallbladder: Absent Bile ducts: Normal. Pancreas: Atrophic. There is a ill-defined mass within the body of the pancreas which is ill-defined and not well seen due to motion artifact however measures approximately 2.3 x 1.9 cm. Superior mesenteric artery appears grossly patent. The main portal vein and confluence appears grossly patent. Spleen: Normal. Adrenals: Normal. Kidneys: Normal. Stomach: Normal. Bowel: Normal. Normal appendix. Other: No free fluid or air. Abdominal nodes: There are mildly enlarged pericaval and peripancreatic lymph nodes. For example in the briseida hepatis, 1.1 x 1.6 cm lymph node is seen on image 59/2. Aorta and IVC: Normal in size. Ventral wall: Fat containing periumbilical hernia. PELVIS: Bladder: Normal. Inguinal: No hernia. Pelvic nodes: Normal. Bones: No suspicious bony lesions. No vertebral body compression fractures. IMPRESSION: Large right pleural effusion with adjacent atelectasis. 4-5 cm masslike consolidation involving the lower right mediastinum, technically indeterminate. This raises the possibility of a focal mass. Small left upper lobe pulmonary nodules, less than 5 mm. These are technically indeterminate although warrant continued observation on subsequent studies to exclude early metastatic disease. Ill-defined mass within the body of the pancreas, highly suspicious for pancreatic neoplasm. Mildly enlarged pericaval and peripancreatic lymph nodes suspicious for early metastatic involvement Findings concordant with preliminary study interpretation. Additional chronic/incidental findings as above. Dictated by: Wilver Smith M.D. on 11/30/2020 at 8:05 Approved by: Wilver Smith M.D. on 11/30/2020 at 8:33 Discharge Plan Departure Patient Disposition: Admitted As Inpatient Clinical Impression: Fever and neutropenia, Pleural effusion on right Sepsis Qualifiers: Sepsis type: sepsis due to unspecified organism Sepsis acute organ dysfunction status: without acute organ dysfunction Qualified Code(s): A41.9 - Sepsis, unspecified organism Admit Date/Time: 11/30/20 06:18 Admit Provider: Vero Smith
--- NOTE | 2020-11-30 03:35 | DI.RAD.S_ITS ---
PROCEDURE: XR CHEST 1V INDICATIONS: sepsis TECHNIQUE: One view of the chest was acquired. COMPARISON: [facility], CT, CT CHEST ABD PEL W CON, 11/30/2020, 4:44. [facility], CR, XR CHEST 1V, 11/07/2020, 8:16. FINDINGS: Surgical changes and devices: Left chest wall Port-A-Cath. Lungs and pleura: Large right-sided pleural fluid collection. Consolidation noted in the right lung which could represent compressive atelectasis versus pneumonia. Possible cavitary lesion versus summation artifact noted in the right lung base. Mediastinum: Mediastinal contours appear normal. Heart size is normal. Bones and chest wall: No suspicious bony lesions. Overlying soft tissues appear unremarkable. IMPRESSION: 1. Large right-sided pleural effusion. 2. Patchy consolidation in the right lung base which likely represents compressive atelectasis, however pneumonia can not be differentiated by imaging alone. 3. Right lung cavitary lesion versus summation artifact. Dictated by: Akila Ortiz MD, PhD on 11/30/2020 at 9:57 Approved by: Akila Ortiz MD, PhD on 11/30/2020 at 9:59
[2020-11-30 03:36] LABS: Hematocrit 30.6 % (41-53); Hemoglobin 10.5 g/dL (13.5-17.5); Mean Corpuscular HGB Conc 34.3 % (30-36); Mean Corpuscular Hemoglobin 31.4 PG (26-34); Mean Corpuscular Volume 91.6 fL (80-100); Platelet Count 114 X10^3/uL (150-400); Red Blood Cell Count 3.34 X10^6/uL (4.5-5.9); Red Cell Distribution Width 13.2 % (11.6-14.8)
[2020-11-30 03:39] LABS: Add Manual Diff / Slide Review YES; White Blood Cell Count 1.5 X10^3/uL (4.5-11.0)
[2020-11-30] MEDS: MAG HYDROX/ALUMINUM/SIMETH SUS 20 ML, LIDOCAINE VISCOUS 2% 15 ML PO (03:40)
[2020-11-30] MEDS: SODIUM CHLORIDE 0.9% 2,449.41 ML 816.47 ML IV (03:40)
[2020-11-30] MEDS: PANTOPRAZOLE 40 MG VIAL IV (03:41)
[2020-11-30] MEDS: levoFLOXacin 750 MG/150 ML PIGGYBACK 100 MG IV (03:42)
[2020-11-30 03:43] LABS: Alanine Aminotransferase 70 IU/L (<50); Alkaline Phosphatase 443 U/L (38-126); Aspartate Aminotransferase 54 IU/L (17-59); BUN Creatinine Ratio 11.8 (6-22); Blood Urea Nitrogen 10 mg/dL (9-20); Calcium 8.5 mg/dL (8.4-10.2); Carbon Dioxide 31 mmol/L (22-32); Chloride 88 mmol/L (98-107); Estimated Glomerular Filt Rate > 60.0 mL/min (>60); Globulin 3.1 g/dL (1.7-4.1); Glucose 367 mg/dL (80-110); HEMOLYSIS < 15 (0-50); Potassium 3.9 mmol/L (3.4-5.1); Sodium 126 mmol/L (137-145); Total Protein 6.1 g/dL (6.3-8.2)
[2020-11-30 03:52] LABS: Lactate (Lactic Acid) 1.4 mmol/L (0.7-2.1)
[2020-11-30 04:14] LABS: COVID19 -Nasal RAPID Negative (Negative)
--- NOTE | 2020-11-30 04:25 | DI.CT.S_ITS ---
PROCEDURE: CT CHEST ABD PEL W CON INDICATIONS: neutropenic, sepsis, large right pleural effusion TECHNIQUE: After the administration of oral and intravenous contrast, 5 mm thick sections acquired from the lung apices to the symphysis. 5 mm coronal and sagittal reformats were performed, with additional 7 mm coronal MIP reformats through the lungs. For radiation dose reduction, the following was used: automated exposure control, adjustment of mA and/or kV according to patient size. COMPARISON: None. FINDINGS: Exam degraded by severe motion artifact. CHEST: Lungs: No left lung consolidation however sub 5 mm pulmonary nodule seen in the left upper lobe measuring 3 mm, for example image 29/3. Please see the montage image for detailed locations and image/series numbers. Pleura: Large right pleural effusion with adjacent atelectasis. Focal masslike consolidation involving the infrahilar right lung measuring approximately 5 x 4 cm, possibly atelectasis versus true mass. No pneumothorax. Heart: Heart size is normal. No pericardial effusion. Chest nodes: Normal. Thyroid gland: Negative Aorta: Normal. Pulmonary arteries: Normal. Esophagus: Normal. Left chest port ABDOMEN: Liver: Numerous ill-defined hypodense lesions seen throughout the left and right hepatic lobes measuring up to 2.4 x 1.8 cm in the right lobe on image 57/2. Gallbladder: Absent Bile ducts: Normal. Pancreas: Atrophic. There is a ill-defined mass within the body of the pancreas which is ill-defined and not well seen due to motion artifact however measures approximately 2.3 x 1.9 cm. Superior mesenteric artery appears grossly patent. The main portal vein and confluence appears grossly patent. Spleen: Normal. Adrenals: Normal. Kidneys: Normal. Stomach: Normal. Bowel: Normal. Normal appendix. Other: No free fluid or air. Abdominal nodes: There are mildly enlarged pericaval and peripancreatic lymph nodes. For example in the briseida hepatis, 1.1 x 1.6 cm lymph node is seen on image 59/2. Aorta and IVC: Normal in size. Ventral wall: Fat containing periumbilical hernia. PELVIS: Bladder: Normal. Inguinal: No hernia. Pelvic nodes: Normal. Bones: No suspicious bony lesions. No vertebral body compression fractures. IMPRESSION: Large right pleural effusion with adjacent atelectasis. 4-5 cm masslike consolidation involving the lower right mediastinum, technically indeterminate. This raises the possibility of a focal mass. Small left upper lobe pulmonary nodules, less than 5 mm. These are technically indeterminate although warrant continued observation on subsequent studies to exclude early metastatic disease. Ill-defined mass within the body of the pancreas, highly suspicious for pancreatic neoplasm. Mildly enlarged pericaval and peripancreatic lymph nodes suspicious for early metastatic involvement Findings concordant with preliminary study interpretation. Additional chronic/incidental findings as above. Dictated by: Wilver Smith M.D. on 11/30/2020 at 8:05 Approved by: Wilver Smith M.D. on 11/30/2020 at 8:33
[2020-11-30 04:28] LABS: Neutrophils Absolute Manual 1005 /uL (3000-5900); RBC Morphology Normal Morphology; Total Cells Counted 100
--- NOTE | 2020-11-30 07:05 | P.HP_ITS ---
History of Present Illness History of Present Illness Date Patient Seen: 11/30/20 Time Patient Seen: 06:30 Chief complaint: stomach is burning up/on chemo Narrative: Neelam Vail is a 70-year-old man with a past medical history of newly diagnosed pancreatic cancer with metastases to the liver and kidney, insulin dependent diabetes, CAD, hyperlipidemia, PTSD who presents with fever and shortness of breath, and hiccups. Patient was recently diagnosed with cancer after he began developing abdominal pain in August. He eventually had CT scan in September that showed cancer. He was started on treatment with Dr. Oneal with chemotherapy 3 days ago but he is not sure of the name of. It is difficult for him to talk as he gets very winded and anxious. He stated that the symptoms started this morning after he had completed his 2nd chemotherapy session. He found himself very winded and asked his son to hit him in the middle of the back to help dislodge what sounded to be mucus. He states that it helped. He states when he gets short of breath he starts hiccuping uncontrollably. Patient was previously admitted and discharged November 06 through the for a new diagnosis of COVID-19 pneumonia and a similar presentation of shortness of breath. He is now being admitted to this facility. There was initial concern on x-ray that he might have a cavitation in his right middle lobe and that he be transferred to a facility that had a training program manager that could possibly drain the pleural effusion. With confirmatory CT, they did not feel he had a cavitation and just described the finding as being a large pleural effusion. It was decided that the patient could be managed here and would benefit due to his oncologist likely being able to see him as well. In the ED the patient it is CT of the chest indicated a ?large right pleural effusion with underlying right middle and lower lobe consolidation, likely related to compressive atelectasis with no evidence of a cavitary lesion. Also noted a probable lower right mediastinal mass but could be an ?on aerated portion of the lung?. Does suggest presence of a true mass in this area. Also noted a small left upper lobe pulmonary nodule. Patient initially presented with the temperature of 100.4? and currently it is 99.1, blood pressure 125/58, heart rate 85, respiratory rate of 18, oxygen saturation of 90% on 2 L, he weighs 81.6 kg with a BMI of 23.7. His WBC is significantly low at 1.5 with his last normal WBC on discharge on November 08. He is mildly anemic with a hemoglobin of 10.5 and hematocrit of 30.6, platelet count 114, he has 1% bands, and he is neutropenic. His sodium was 126, potassium 3.9, chloride 88, bicarb 31, BUN 10, creatinine 0.85, with a GFR greater than 60, glucose is 367, normal lactate, liver enzymes are elevated with an ALT of 70 alk-phos, alk-phos 443, AST is normal. COVID-19 PCR is negative. Patient was started on Levaquin 750 mg IV. Patient History Medical History Coronary artery disease Diabetes Hyperlipidemia Post-traumatic stress disorder, chronic Surgical History History of cholecystectomy (01/31/17) Family & Social History Family History Mother Diabetes mellitus Father Dementia Social History: household members none Safety & Behavioral: Feels Safe in Current Yes Environment Tobacco & Substance use: Smoking Status Never smoker alcohol intake never alcohol intake frequency holiday/special occasion Substance Use Type does not use Meds Home Medications and Allergies Home Medications Medication Instructions Recorded Confirmed Type Lantus Solostar U-100 Insulin 30 unit SUBCUT BID 10/05/20 11/07/20 History brimonidine drp 10/05/20 History carvedilol 6.25 mg 10/05/20 History divalproex 500 mg PO DAILY 10/05/20 10/05/20 History doxazosin mg 10/05/20 History famotidine 40 mg PO BEDTIME 10/05/20 10/05/20 History finasteride mg 10/05/20 History insulin aspart U-100 [Novolog See Rx Instructions .ROUTE .COMPLEX 10/05/20 11/07/20 History Flexpen U-100 Insulin] lisinopril 10/05/20 History olopatadine drp OPHTHALMIC (EYE) 10/05/20 History prazosin 5 mg PO BEDTIME 10/05/20 10/05/20 History pregabalin [Lyrica] 150 mg PO BID 10/05/20 10/05/20 History tramadol mg 10/05/20 History travoprost [Travatan Z] drp 10/05/20 History ondansetron 4 mg PO TID-QID PRN #10 tab 10/06/20 Rx pantoprazole [Protonix] 40 mg PO DAILY #30 tab 10/06/20 Rx metoclopramide HCl [Reglan] 10 mg PO Q6H PRN #10 tab 11/05/20 Rx atorvastatin 40 mg PO DAILY 11/07/20 11/07/20 History baclofen 5 mg PO TID PRN #10 tab 11/08/20 Rx Allergies Allergy/AdvReac Type Severity Reaction Status Date / Time aspirin Allergy Unknown Verified 11/06/20 14:02 brompheniramine Allergy Unknown Verified 11/06/20 14:02 codeine Allergy Unknown Verified 11/06/20 18:29 diphenhydramine Allergy Unknown Verified 11/06/20 18:29 guaifenesin Allergy Unknown Verified 11/06/20 18:29 hydrocodone Allergy Unknown Verified 11/06/20 18:29 hydroxyzine Allergy Unknown Verified 11/06/20 14:02 ibuprofen Allergy Unknown Verified 11/06/20 14:02 meperidine Allergy Unknown Verified 11/06/20 14:02 morphine Allergy Unknown Verified 11/06/20 14:02 nystatin Allergy Unknown Verified 11/06/20 18:29 promethazine Allergy Unknown Verified 11/06/20 14:02 propoxyphene Allergy Unknown Verified 11/06/20 14:02 tuberculin, purified protein Allergy Unknown Verified 11/06/20 14:02 deriva egg Allergy Verified 11/06/20 14:02 amoxicillin [From Augmentin] AdvReac Unknown Vomiting Verified 11/06/20 18:29 metformin AdvReac Unknown Diarrhea Verified 11/06/20 18:29 clavulanic acid AdvReac Vomiting Verified 11/06/20 18:29 [From Augmentin] Review of Systems Review of Systems Narrative: Unable to conduct a review of systems the patient due to dyspnea when speaking and general anxiety about his dyspnea. Exam Vital Signs (past 8 hours): - 11/30/20 02:45 11/30/20 03:48 11/30/20 04:00 Temperature 100.4 F H Pulse Rate 113 H 104 H 100 H Respiratory Rate 22 17 Blood Pressure 126/68 122/72 Pulse Oximetry 97 96 95 11/30/20 04:02 11/30/20 04:29 11/30/20 04:30 Temperature 99.1 F Pulse Rate 99 H 96 H Respiratory Rate Blood Pressure 128/65 128/65 Pulse Oximetry 97 95 11/30/20 05:00 11/30/20 05:17 11/30/20 05:30 Temperature Pulse Rate 90 101 H 90 Respiratory Rate 18 Blood Pressure 157/67 H 117/58 L Pulse Oximetry 96 97 98 11/30/20 06:00 Temperature Pulse Rate 85 Respiratory Rate 18 Blood Pressure 125/58 L Pulse Oximetry 98 Oxygen Delivery Method Room Air Narrative Exam Narrative: Gen: Alert, oriented, ill appearing 70 y.o. male, mildly distressed HEENT: normocephalic, atraumatic, conjunctiva clear, sclera non-icteric, oral mucosa pink and moist Neck: supple, full ROM, no JVD, trachea is midline Resp: Diminished lung sounds on the right, wheezes on the left, non-labored breathing as long as he is not speaking CV: RRR, no murmur or rubs Abd: soft, generalized tenderness, normoactive BTs Skin: no lesions or rashes, dry and intact Neuro: Alert and oriented X 4 w/no focal deficits. Speech clear and coherent. Extremities: moves all 4 extremities, is ambulatory, negative Jaime?s sign Psyche: anxious. Objective Labs Result Diagrams: 11/30/20 03:18 11/30/20 03:18 Labs: Laboratory Results - last 24 hr 11/30/20 11/30/20 11/30/20 03:18 03:18 03:18 WBC 1.5 L* RBC 3.34 L Hgb 10.5 L Hct 30.6 L MCV 91.6 MCH 31.4 MCHC 34.3 RDW 13.2 Plt Count 114 L Neut % (Auto) Not Reportable Lymph % (Auto) Not Reportable [place] % (Auto) Not Reportable Eos % (Auto) Not Reportable Baso % (Auto) Not Reportable Lymph # (Auto) Not Reportable [place] # (Auto) Not Reportable Baso # (Auto) Not Reportable Total Counted 100 Seg Neutrophils % 66.0 Band Neutrophils % 1.0 L Lymphocytes % (Manual) 23.0 L Monocytes % (Manual) 7.0 Eosinophils % (Manual) 3.0 Neutrophils # (Manual) 1005 L RBC Morphology Normal morphology Sodium 126 L Potassium 3.9 Chloride 88 L Carbon Dioxide 31 BUN 10 Creatinine 0.85 Estimated GFR > 60.0 BUN/Creatinine Ratio 11.8 Glucose 367 H Lactate 1.4 Calcium 8.5 Total Bilirubin 1.0 AST 54 ALT 70 H Alkaline Phosphatase 443 H Total Protein 6.1 L Albumin 3.0 L Globulin 3.1 Albumin/Globulin Ratio 1.0 SARS-CoV-2 (PCR) 11/30/20 03:51 WBC RBC Hgb Hct MCV MCH MCHC RDW Plt Count Neut % (Auto) Lymph % (Auto) [place] % (Auto) Eos % (Auto) Baso % (Auto) Lymph # (Auto) [place] # (Auto) Baso # (Auto) Total Counted Seg Neutrophils % Band Neutrophils % Lymphocytes % (Manual) Monocytes % (Manual) Eosinophils % (Manual) Neutrophils # (Manual) RBC Morphology Sodium Potassium Chloride Carbon Dioxide BUN Creatinine Estimated GFR BUN/Creatinine Ratio Glucose Lactate Calcium Total Bilirubin AST ALT Alkaline Phosphatase Total Protein Albumin Globulin Albumin/Globulin Ratio SARS-CoV-2 (PCR) Negative Assessment & Plan Assessment & Plan narrative: Neelam Vail will be admitted to the inpatient service for neutropenic fever a nd further evaluation of a right middle lobe pleural effusion. Neutropenic fever, acute and present on admission - Control fever with alternating doses of tylenol and ibuprofen Large right middle lobe pleural effusion, acute and present on admission - Question whether pneumonia or mass - Procalcitonin pending - Possible aspiration pending PT/INR Recent diagnosis of pancreatic cancer - Patient completed second cycle of chemotherapy, medication is not known - Will consult w/his oncologist, Dr. Oneal Insulin dependent diabetes , chronic and poorly controlled - Glucoses appear to be in the high 200s to low 300s, A1c is pending - Lantus 30 units bid and is written for low dose correctional scale, Pharmacy to check his prandial doses Essential hypertension - Takes carvedilol, and lisinopril, pharmacy is checking on his doses VTE prophylaxis: Wells risk score: 5.5 Enoxaparin 40 mg subQ daily Consults: Dr. Oneal, Oncology, consult and involvement is appreciated. Patient is admitted under inpatient status with expected length of stay greater than 2 midnights due to severity of presenting symptoms, risk of adverse event, and complexity of treatment plan. FEN: NS at 100, npo, BMP and magnesium in the am. Dispo: Unknown at this time Code Status: Full code as discussed with patient COVID-19 COVID-19 status: Negative Result date/Date tested (Pos, Neg/Pending): 11/30/20 Scores Wells' Criteria for PE Clinical signs and symptoms of DVT: Yes PE is #1 Dx or equally likely: No Heart rate > 100: Yes Immobilization at least 3 days or surg in previous 4 weeks: No History of PE or DVT: No Hemoptysis: No Malignancy w/Treatment within 6 months or palliative: Yes Wells' PE Score total: 5.5 Quality MIPS - Admit I confirm the patient?s Advance Care Plan is present, Code status is documented, Surrogate decision maker is in patient?s record [If Yes, STOP here]: Yes
[2020-11-30] MEDS: LORazepam 2 MG/ML INJ 0.5 MG IV (07:20)
[2020-11-30 07:28] LABS: Albumin 2.9 g/dL (3.5-5.0); BUN Creatinine Ratio 12.3 (6-22); Blood Urea Nitrogen 10 mg/dL (9-20); Calcium 8.4 mg/dL (8.4-10.2); Carbon Dioxide 30 mmol/L (22-32); Chloride 88 mmol/L (98-107); Estimated Glomerular Filt Rate > 60.0 mL/min (>60); Glucose 365 mg/dL (80-110); HEMOLYSIS < 15 (0-50); Phosphorous 2.5 mg/dL (2.3-3.7); Sodium 127 mmol/L (137-145)
--- NOTE | 2020-11-30 07:53 | DI.US.S_ITS ---
PROCEDURE: US THORACENTESIS INDICATIONS: RIGHT PLEURAL EFFUSION TECHNIQUE: The indications, alternatives, benefits, risks, and complications of the procedure were explained to the patient. Written informed consent was obtained and placed in the chart. The chest was examined sonographically, and an appropriate site was chosen for thoracentesis. The skin was prepared and draped in the usual sterile fashion, and 1% lidocaine was infiltrated from the skin down through the pleural surface. A 19-gauge catheter-covered needle was then introduced into the pleural space, the catheter was advanced and the needle was withdrawn, and thereafter pleural fluid was aspirated. The catheter was then removed and a dressing was applied. COMPARISON: None. FINDINGS: Access site: Right hemithorax. Needle: One-Step centesis catheter with introducer needle. Fluid volume and description: 1620 cc of serosanguineous fluid Fluid sent for diagnostic testing: As requested Medications: 1% lidocaine for local anaesthesia. Complications: None; post-procedural chest radiograph is pending to assess for pneumothorax. IMPRESSION: Successful ultrasound-guided thoracentesis. Dictated by: Wilver Smith M.D. on 11/30/2020 at 14:47 Approved by: Wilver Smith M.D. on 11/30/2020 at 14:48
--- NOTE | 2020-11-30 07:57 | PATH_ITS ---
Note [facility] Accession Number: [id number] TESTS RESULT FLAG UNITS REF RANGE LAB Clinician Provided Cytology Information No. of containers..01 Other (Miscellaneous) 01 PLEURAL FLUID DIAGNOSIS: 01 PLEURAL FLUID NEGATIVE FOR MALIGNANT CELLS. THIS INTERPRETATION INCLUDES EVALUATION OF A CELL BLOCK. Pathologist ICD10: 01 J90 Veena Stewart MD, Pathologist NPI- [id number] Mark Murguia, Aircraft Skin Burnisher ([facility]) 01 70 CC, RED, CLOUDY RECEIVED: FRESH IN ORANGE CAP CONTAINER. /[facility] 12/01/2020 1012 Local FLAG LEGEND: L-Low Normal,H-High Normal,LL-Alert Low,HH-Alert High <-Panic Low,>-Panic High,A-Abnormal,AA-Critical Abnormal Performed at: 01 =Z [facility] [address] [place] [address] [address], [place] [address] Sheng Bowers MD, Performed at: 01 [facility] [address], [place], [place] [id number] MD Sheng Bowers MD Phone: [phone]
[2020-11-30 08:00] LABS: INR 1.4 (0.9-1.3); Prothrombin Time 15.8 SECONDS (10.1-12.7)
[2020-11-30 08:18] LABS: Procalcitonin 0.45 ng/mL (<0.5)
[2020-11-30 08:34] LABS: Hemoglobin A1C% w Est Avg Glu 7.5 % (4.0-6.0)
[2020-11-30] MEDS: SODIUM CHLORIDE 0.9% FLUSH 10 ML IV ×2 (09:05→11:21)
[2020-11-30] MEDS: MORPHINE 4 MG/ML INJ IV (09:05)
[2020-11-30] MEDS: ONDANSETRON 4 MG/2 ML INJ IV ×3 (09:05→22:33)
--- NOTE | 2020-11-30 09:30 | PC.NURSE ---
Patient alert,oriented c/o upper abdominal pain and nausea, given 4mg IVP Morphine and 4mg IVP zofran. Patient reports shortness of breath at rest, 2L O2 sats 97%. LS clear on left and absent on right posterior. Patient oriented to room and call light, son Chele at bedside.
[2020-11-30 09:37] LABS: Adenovirus Not Detected (Not Detect); B. parapertussis Not Detected (Not Detecte); Bordetella pertussis Not Detected (Not Detecte); Chlamydophila pneumoniae Not Detected (Not Detect); Coronavirus 229E Not Detected (Not Detect); Coronavirus HKU1 Not Detected (Not Detect); Coronavirus NL 63 Not Detected (Not Detect); Coronavirus OC43 Not Detected (Not Detect); Human Metapneumovirus Not Detected (Not Detect); Human Rhinovirus/Enterovirus Not Detected (Not Detect); Influenza A Not Detected (Not Detect); Influenza B Not Detected (Not Detect); Mycoplasma pneumoniae Not Detected (Not Detect); Parainfluenza Virus 1 Not Detected (Not Detect); Parainfluenza Virus 2 Not Detected (Not Detect); Parainfluenza Virus 3 Not Detected (Not Detect); Parainfluenza Virus 4 Not Detected (Not Detect); Respiratory Syncytial Virus Not Detected (Not Detect); SARS- CoV-2 Not Detected (Not Detecte)
[2020-11-30] MEDS: INSULIN GLARGINE 100 UNIT/ML 3ML PEN 30 UNIT SUBCUT ×2 (09:38→21:38)
[2020-11-30] MEDS: SODIUM CHLORIDE 0.9% 1,000 ML 75 ML IV (11:21)
[2020-11-30] MEDS: fentaNYL 25 MCG/PATCH TOP (12:03)
[2020-11-30] MEDS: fentaNYL 12 MCG/PATCH TOP (12:03)
[2020-11-30] MEDS: INSULIN LISPRO 100 UNIT/ML 3ML VIAL SUBCUT ×2 (12:24→21:40)
[2020-11-30] MEDS: METOCLOPRAMIDE 10 MG/2 ML INJ IV ×2 (12:46→21:34)
[2020-11-30 15:05] LABS: pH Body Fluid 7.5 pH
[2020-11-30 15:09] LABS: Cholesterol Body Fluid 81 mg/dL
[2020-11-30 15:10] LABS: Glucose Body Fluid 319 mg/dL; LDH Body Fluid 730 U/L; Total Protein Body Fluid 3.7 g/dL
[2020-11-30 15:15] LABS: Body Fluid Red Blood Cells 63178 /uL; Body Fluid Tot Nucleated Cells 377 /uL
[2020-11-30 15:40] LABS: Body Fluid Appearance CLOUDY; Body Fluid Clotted? NO CLOTS PRESENT; Body Fluid Color RED; Mononuclear WBC Body Fluid 76 %; Polynuclear WBC Body Fluid 24 %
[2020-11-30 15:41] LABS: Eosinophils Body Fluid 0 %; Other Cells Body Fluid 0 %
[2020-11-30] MEDS: chlorproMAZINE 25 MG in SODIUM CHLORIDE 0.9% 500 ML 1002 ML IV ×2 (16:07→23:37)
[2020-11-30] MEDS: PREGABALIN 75 MG CAPSULE 150 MG PO (21:33)
[2020-11-30] MEDS: FAMOTIDINE 20 MG TABLET 40 MG PO (21:34)
[2020-12-01] VITALS (12 sets, daily range): BP systolic 82–124; BP diastolic 47–65; PULSE 62–105; RESP 16–20; TEMP 35.9–36.6; O2SAT 94–100
--- NOTE | 2020-12-01 00:32 | PC.NURSE ---
Addendum entered by Marla Hua R.N. 12/01/20 05:35: 0530 - Patient bladder scan showed 412, patient has no urge to urinate at this time, hospitalist notified, will continue to monitor for now, patient knows to call for assistance, bed alarm on. Addendum entered by Marla Hua R.N. 12/01/20 03:31: 0315 - Attempted to get patient up to use restroom, patient felt dizzy while sitting in bed, blood pressure obtained and 80/50, glucose was also checked, 131, patient was assisted back to bed, MD called to bedside to evaluate patient. While patient was laying down blood pressure improved. MD ordered orthostatic vitals and an EKG because patients HR appeared afib on tele monitor. During orthostatics patient had a drop in BP and HR from laying down to sitting up and he felt dizzy so we did not attempt to stand patient. Bed alarm placed on patient, made aware to call if he needs assistance and educated not to get up without staff. MD made aware of vitals and EKG. Original Note: 0020 - Patients HR up to 120s sinus tach, patient not having any symptoms, resting in bed. MD notified of change in HR.
[2020-12-01] MEDS: SODIUM CHLORIDE 0.9% 1,000 ML 75 ML IV (03:40)
--- NOTE | 2020-12-01 03:48 | PM.EVENT ---
Event Note Date Patient Seen: 12/01/20 Time Patient Seen: 04:00 Event Note: Patient was reported to me to be confused with a low blood pressure. Was also reported to be atrial fibrillation. EKG was done indicated NSR. Patient is orthostatic with his systolic dropping to the high 80s standing up and complaining of dizziness, laying down, bp is in the low 100s. He is alert and oriented, no complaints of chest pain or shortness of breath. I have stopped the IV chlorpromazine as this may be contributing. Bed alarm placed on the patient and he was instructed to use the call button if he needed to get out of bed. His heart rate remains in the 110-115 and he is ordered for a 500 ml/bolus.
[2020-12-01] MEDS: SODIUM CHLORIDE 0.9% 500 ML 1000 ML IV (03:56)
[2020-12-01 05:40] LABS: Hematocrit 25.5 % (41-53); Hemoglobin 8.7 g/dL (13.5-17.5); Mean Corpuscular Hemoglobin 31.1 PG (26-34); Mean Corpuscular Volume 91.5 fL (80-100); Platelet Count 83 X10^3/uL (150-400); Red Blood Cell Count 2.79 X10^6/uL (4.5-5.9)
[2020-12-01 05:41] LABS: BUN Creatinine Ratio 9.4 (6-22); Blood Urea Nitrogen 6 mg/dL (9-20); Calcium 7.6 mg/dL (8.4-10.2); Carbon Dioxide 31 mmol/L (22-32); Chloride 100 mmol/L (98-107); Estimated Glomerular Filt Rate > 60.0 mL/min (>60); Glucose 105 mg/dL (80-110); HEMOLYSIS < 15 (0-50); Magnesium 2.2 mg/dL (1.6-2.3); Sodium 133 mmol/L (137-145)
[2020-12-01] MEDS: levoFLOXacin 750 MG/150 ML PIGGYBACK 100 MG IV (05:41)
[2020-12-01 05:43] LABS: Add Manual Diff / Slide Review YES
[2020-12-01 05:44] LABS: White Blood Cell Count 1.9 X10^3/uL (4.5-11.0)
[2020-12-01 05:58] LABS: Procalcitonin 0.28 ng/mL (<0.5)
[2020-12-01 06:19] LABS: Neutrophils Absolute Manual 1311 /uL (3000-5900); Nucleated Red Blood Cells 1 #/Diff; Total Cells Counted 100
[2020-12-01 06:21] LABS: Platelet Estimate Decreased on smear; RBC Morphology Normal Morphology
[2020-12-01] MEDS: PREGABALIN 75 MG CAPSULE 150 MG PO ×2 (09:06→21:46)
[2020-12-01] MEDS: DIVALPROEX ER 250 MG TAB 500 MG PO (09:07)
[2020-12-01] MEDS: lisinopriL 10 MG TABLET PO (09:07)
[2020-12-01] MEDS: ATORVASTATIN 20 MG TABLET 40 MG PO (09:07)
[2020-12-01] MEDS: INSULIN GLARGINE 100 UNIT/ML 3ML PEN 30 UNIT SUBCUT ×2 (09:08→21:50)
[2020-12-01] MEDS: POTASSIUM CHLORIDE 20 MEQ TAB 40 MEQ PO ×2 (09:08→18:05)
[2020-12-01] MEDS: SODIUM CHLORIDE 0.9% FLUSH 10 ML IV (09:09)
[2020-12-01] MEDS: PANTOPRAZOLE DR 40 MG TABLET PO (09:10)
--- NOTE | 2020-12-01 12:45 | PC.NURSE ---
Day shift: Orthostatics performed by CRESCENCIO Rice this afternoon and Pt did well until the standing part and passed out briefly. Dr Tam informed. Per MD Pt will not d/c today. Pt's Son Chele said that his father has not been eating much for the last month. Pt's BP WNL when supine. Call light in reach. Pt has been sleeping today. Ate approx 25% of breakfast and has not eaten any of his lunch. Lunch insulin not given.
[2020-12-01] MEDS: LACTATED RINGERS 500 ML 1000 ML IV (13:07)
--- NOTE | 2020-12-01 13:36 | P.PN_ITS ---
Subjective Subjective Date Patient Seen: 12/01/20 Interval history: Patient is a 70-year-old male with a history of metastatic pancreatic cancer admitted to the hospital for shortness of breath. He was found to have a large right pleural effusion. 1.6 L of fluid was tapped. The patient was also noted to be hypotensive in dizzy last evening. He was noted to be hypotensive today as well. His systolic blood pressure dropped from 120-80 systolic. Patient has no shortness of breath. He has no complaints of pain. Exam Vital Signs (past 8 hours): - 12/01/20 07:30 12/01/20 09:15 12/01/20 09:21 Temperature 96.7 F L Pulse Rate 85 Pulse Rate [Orthostatic Lying] Pulse Rate [Orthostatic Sitting] Pulse Rate [Orthostatic Standing] Respiratory Rate 16 Blood Pressure 104/54 L Blood Pressure [Orthostatic Lying] Blood Pressure [Orthostatic Sitting] Blood Pressure [Orthostatic Standing] Pulse Oximetry 100 98 95 12/01/20 12:04 12/01/20 12:42 Temperature 96.9 F L Pulse Rate 94 H Pulse Rate [Orthostatic Lying] 96 H Pulse Rate [Orthostatic Sitting] 93 H Pulse Rate [Orthostatic Standing] 105 H Respiratory Rate 18 Blood Pressure 93/60 Blood Pressure [Orthostatic Lying] 124/65 Blood Pressure [Orthostatic Sitting] 97/56 L Blood Pressure [Orthostatic Standing] 87/49 L Pulse Oximetry 94 Oxygen Delivery Method Room Air Oxygen Flow Rate 0 Narrative Exam Narrative: Pleasant male lying in bed in no obvious distress Lungs: Decreased breath sounds on the right, with occasional crackles, left lung is clear Cardiac exam: Regular rate and rhythm normal S1-S2 Abdomen soft nontender nondistended Extremities: No edema Objective Labs Result Diagrams: 12/01/20 05:15 12/01/20 05:15 Labs: Laboratory Results - last 24 hr 11/30/20 11/30/20 12/01/20 14:23 14:23 05:15 WBC 1.9 L* RBC 2.79 L Hgb 8.7 L Hct 25.5 L MCV 91.5 MCH 31.1 MCHC 34.0 RDW 13.0 Plt Count 83 L Neut % (Auto) Not Reportable Lymph % (Auto) Not Reportable [place] % (Auto) Not Reportable Eos % (Auto) Not Reportable Baso % (Auto) Not Reportable Lymph # (Auto) Not Reportable [place] # (Auto) Not Reportable Baso # (Auto) Not Reportable Total Counted 100 Seg Neutrophils % 69.0 Lymphocytes % (Manual) 28.0 Atypical Lymphs % 1.0 H Monocytes % (Manual) 1.0 L Eosinophils % (Manual) 1.0 L Neutrophils # (Manual) 1311 L Nucleated RBCs 1 H Platelet Estimate Decreased on smear RBC Morphology Normal morphology Sodium Potassium Chloride Carbon Dioxide BUN Creatinine Estimated GFR BUN/Creatinine Ratio Glucose Calcium Magnesium Procalcitonin Fluid Color Red Fluid Appearance Cloudy Fluid pH 7.5 Fluid RBC 08893 Fld Tot Nucleated Cell 377 Fluid Polynuclear WBCs 24 Fluid Mononuclear WBCs 76 Fluid Eosinophils 0 Fluid Other Cells 0 Body Fluid Clot No clots present Fluid Glucose 319 Fluid Total Protein 3.7 Fluid LDH 730 Fluid Cholesterol 81 12/01/20 12/01/20 05:15 05:15 WBC RBC Hgb Hct MCV MCH MCHC RDW Plt Count Neut % (Auto) Lymph % (Auto) [place] % (Auto) Eos % (Auto) Baso % (Auto) Lymph # (Auto) [place] # (Auto) Baso # (Auto) Total Counted Seg Neutrophils % Lymphocytes % (Manual) Atypical Lymphs % Monocytes % (Manual) Eosinophils % (Manual) Neutrophils # (Manual) Nucleated RBCs Platelet Estimate RBC Morphology Sodium 133 L Potassium 3.0 L Chloride 100 Carbon Dioxide 31 BUN 6 L Creatinine 0.64 L Estimated GFR > 60.0 BUN/Creatinine Ratio 9.4 Glucose 105 D Calcium 7.6 L Magnesium 2.2 Procalcitonin 0.28 Fluid Color Fluid Appearance Fluid pH Fluid RBC Fld Tot Nucleated Cell Fluid Polynuclear WBCs Fluid Mononuclear WBCs Fluid Eosinophils Fluid Other Cells Body Fluid Clot Fluid Glucose Fluid Total Protein Fluid LDH Fluid Cholesterol [facility] Medical History Coronary artery disease Diabetes Hyperlipidemia Post-traumatic stress disorder, chronic Surgical History History of cholecystectomy (01/31/17) Family History Mother Diabetes mellitus Father Dementia Social History household members: children and none Smoking Status: Never smoker alcohol intake: never substance use type: does not use Assessment & Plan Assessment & Plan narrative: Neelam Vail will be admitted to the inpatient service for neutropenic fever and further evaluation of a right middle lobe pleural effusion. Neutropenic fever, acute and present on admission - Control fever with alternating doses of tylenol and ibuprofen -continue levofloxacin Large right middle lobe pleural effusion, acute and present on admission - Question whether pneumonia or mass - Procalcitonin pending - Possible aspiration pending PT/INR -patient is status post thoracentesis, 1.6 L of fluid has been removed Recent diagnosis of pancreatic cancer - Patient completed second cycle of chemotherapy, medication is not known - Will consult w/his oncologist, Dr. Oneal Insulin dependent diabetes , chronic and poorly controlled - Glucoses appear to be in the high 200s to low 300s, A1c is pending - Lantus 30 units bid and is written for low dose correctional scale, Pharmacy to check his prandial doses Essential hypertension -patient is currently orthostatic, and nearly fainting when standing -will discontinue all antihypertensive, and recheck orthostatic vital signs Home when no longer dizzy and orthostatic Quality VTE Deep Vein Thrombosis/Pulmonary Embolism Present on Admission: No
[2020-12-01] MEDS: LACTATED RINGERS 1,000 ML 150 ML IV ×2 (15:48→22:59)
--- NOTE | 2020-12-01 16:19 | PC.NURSE ---
Addendum entered by Maureen Morales R.N. 12/01/20 19:29: Pt got up to the bathroom in hurry, saying he was having diarrhea. while he was on the toilet he denied any dizzines. he then got up to go back to bed and started to feeling dizziness. one PRINT BINDING AND FINISHING WORKER was present. pt's legs started to gave out and I assisted him down to the floor to a sitting position then layed him on the floor. provider was notified and she came to check him. pt back to bed. vitals were taken. fentanyl patchx2 removed per order. Original Note: A&Ox4. drowsy. cpox 98%. orthostatic BP laying and sitting taken and reported to provider. when pt was sitting BP 87/53 HR 81 and reports the room is spinning. layed pt back in bed. unable to take standing due to dizziness.
--- NOTE | 2020-12-01 16:36 | CM.DANOTE ---
DCP ASSESSMENT: Patient is a 70 year-old male admitted for a neutropenic fever and further evaluation of a right middle lobe pleural effusion. PCP is Vianca Cox. Primary payer is Medicare and [employer]. Prior to meeting with patient this date spoke with Eri nancie [employer] sales account representative . She confirmed patient has an out of pocket [facility] participation amount of $3,867.50 per month to help supplement the 115 hours a month of in home care he is approved for. CHEMICAL ENGRAVER Student met with patient and son Chele at bedside this date. Chele also called patients daughter KEN Michael , with patients permission. Provided education regarding social work and role in D/C planning. Per son and patient he is requiring assistance with ADL?s, ambulation and transportation. He owns, DME to include a ramp to enter home. Daughter and son both confirmed patient does not have enough money to support self-pay caregivers or the participation amount at this time. They also, expressed they are against hospice and/or patient going to a chcf facility. Current Supports: Per patient he is seen by [facility] palliative care once per week. His son is currently staying with his father and daughter will be coming in the next week to stay with her father. Patient does have ramps, FWW and other household DME. Son and daughter will provide care for father at home until other long-term arrangements can be made. Provided family and patient information regarding home health all were in agreement for home health. Called and faxed clinical to [facility] . [id number] was signed and recommended: physical therapy, occupational therapy, nursing, home health aide and medical language specialist. Called and informed [facility] patient will not be D/C today 12/01/20 as previously thought. Per patient and daughter patient is 100% services connected. Provided general information about [place] resources and encouraged family to call the [place] patient advocate at , as the [facility] might be able to support the patient. Resources provided: [facility] brochure, [place] contact numbers and Important Message from Medicare. PLAN: Anticipate D/C home when medically stable with family support and home health care. Team to continue to follow. Discharge Planning/Care Management Advanced directive, confirm from FAMILY Start: 11/30/20 08:39 Freq: Q24H Status: Active Protocol: Document 11/30/20 08:46 SFP (Rec: 11/30/20 08:46 SFP [id number]) Advance Directive, confirm on record Time 08:46 Person contacted Miguel Copy received No Document 12/01/20 09:28 YAD (Rec: 12/01/20 09:35 YAD [id number]) Advance Directive, confirm on record Time 08:46 Person contacted Katrinason Copy received No Time 09:35 Person contacted Pt Copy received No CM Discharge Assessment Start: 12/01/20 11:41 Freq: Status: Active Protocol: Document 12/01/20 11:41 AL (Rec: 12/01/20 11:49 AL [id number]) Discharge Planning Assessment Assigned Galley Hand MONICA Sanderson Student DPOA/Assigned Designee Name Fernanda Garcia Daughter Contact Information Tremayne Cortés Advance Directives? Yes History Provided By Patient,Family Member,Medical Record Has Patient been admitted in last 30 Yes days? Comment Five admissions in the last two months: 10/04, 10/06, 11/05, & 11/30 Prior Living Arrangements House Comment Home with son Chele at this time. Daughter Fernanda will be here in x1 week Household Members children,none Comment Children are with father temporarily Type of transporation used prior to Relies on Others admit Comment Currently his son Chele is providing transportation Independent with ADL's No Is patient alert and oriented? Yes Needs Assistance With Bathing,Meal Prep,Toileting, Managing Medications,Home Chores / Shopping Caregiver for Another No DME Already Rented / Owned FWW / Walker,Bedside Commode Comment Has a ramp and grab bars in home Name of Agency [facility] Contact Phone [phone] Clinicals Faxed No Hours / Month 115 approved Comment Patient is approved for 115 hours per month with a [facility] participation amount of $3,867 .50 (patients amount he needs to contribute to care) Per Eri MUNGUIA welder explosion. Patient/Family Preference Home with Home Health Comment Will schedule [facility] Home Health: OT, PT, Home Health aide and charhouse worker Barriers to Discharge No Discharge Plan Home Community Services Home Health Aid Transportation Arrangement Son will provide transportation Referrals Initiated Home Health Additional Comment Will set-up [facility] If patient plan is home with home health Yes : Has signed face to face form been completed? Whiteboard Updated in Patient Room with Yes name and ext. # of Galley Hand Review Status In Process
--- NOTE | 2020-12-01 17:30 | P.EN_ITS ---
Event Note Date Patient Seen: 12/01/20 Event Note: Patient was going to the bathroom when he felt lightheaded and n early passed out. He was lying down on the ground. Patient was tachycardic with heart rate of 120. Blood pressure was 125/70. He continues to be markedly orthostatic when going from sitting to standing. His blood pressure medications have been discontinued. Patient is somewhat lethargic. His fentanyl patches will be removed as well. Patient will receive stat labs to include a CBC CMP lactate and procalcitonin. In addition he will be given IV hydration. Serum cortisol a.m. level will be obtained to rule out adrenal insufficiency. Patient continues to be markedly orthostatic. Will continue to investigate the etiology continue IV hydration and continue antibiotics for now. Blood cultures time to have been obtain.
[2020-12-01] MEDS: INSULIN LISPRO 100 UNIT/ML 3ML VIAL SUBCUT ×2 (18:05→21:54)
--- NOTE | 2020-12-01 18:15 | DIET.PN ---
Dietary Progress Note Assessment: 70y M c past medical history of newly diagnosed pancreatic cancer with metastases to the liver and kidney, insulin dependent diabetes, CAD, hyperlipidemia, PTSD who presents with fever and shortness of breath, and hiccups. Pt referred to nutrition for significant weight loss. Per chart review, patient was recently diagnosed with cancer after he began developing abdominal pain in August. He eventually had CT scan in September that showed cancer. Pt sitting up in bed eating dinner when RD visited. Pt enjoying mashed potatoes and turkey. Pt had 1.6L fluid removed from lung during this hospital stay and reports his appetite has increased significantly since this procedure. Pt most easily tolerates fresh fruit. Please note, pt has 6 pack of apple juice in room, correlate intake to any jumps in BG during hospital stay as pt is on Carb Controlled diet from kitchen. Pt interested in smoothie supplement though he is neutropenic and gets heartburn from yogurt. HT: 182.8cm WT: 83kg UBW:96kg BMI:24.8 Labs:WBC 1.9 L, hgb 8.7 L, K+ 3.0 L, alk phos 443 H Nutrition Diagnosis: Severe Acute Protein Calorie Malnutrition r/t recent dx metastatic pancreatic cancer c mets and reduced appetite aeb 13% unintentional weight loss in 2 mo (severe), pt reports SOB significantly reduced his appetite to ~25% usual intake for the past week. Interventions: 1. Discussed reduced appetite correlating to pleural effusion and increased appetite c fluid removal. 2. To address PCM, encouraged pt to consume meals as tolerated and recc smoothie to include ONS [place] to support pts protein needs mixed with frozen berries and banana. Diet Order:CCD EER:2400 kcal (30kcal/kg per PCM), 105g PRO (1.2g/kg per PCM) Monitoring/Evaluations: ONS tolerance, associated labs
[2020-12-01 18:23] LABS: HEMOLYSIS < 15 (0-50); Potassium 3.7 mmol/L (3.4-5.1)
[2020-12-01 18:26] LABS: Alanine Aminotransferase 40 IU/L (<50); Albumin 2.5 g/dL (3.5-5.0); Alkaline Phosphatase 365 U/L (38-126); Aspartate Aminotransferase 36 IU/L (17-59); BUN Creatinine Ratio 8.1 (6-22); Bilirubin Total 0.8 mg/dL (0.2-1.3); Blood Urea Nitrogen 6 mg/dL (9-20); Calcium 8.2 mg/dL (8.4-10.2); Carbon Dioxide 27 mmol/L (22-32); Chloride 98 mmol/L (98-107); Estimated Glomerular Filt Rate > 60.0 mL/min (>60); Globulin 2.6 g/dL (1.7-4.1); Glucose 173 mg/dL (80-110); Sodium 132 mmol/L (137-145); Total Protein 5.1 g/dL (6.3-8.2)
[2020-12-01 18:32] LABS: Add Manual Diff / Slide Review NO; Basophils Absolute Auto 0 /uL (0-100); Basophils Percent Auto 0.4 % (0-2); Eosinophils Absolute Auto 0 /uL (0-450); Eosinophils Percent Auto 1.1 % (2-4); Hemoglobin 9.9 g/dL (13.5-17.5); Lymphocytes Absolute Auto 500 /uL (1100-4500); Lymphocytes Percent Auto 21.4 % (25-40); Mean Corpuscular HGB Conc 34.1 % (30-36); Mean Corpuscular Hemoglobin 31.3 PG (26-34); Mean Corpuscular Volume 91.8 fL (80-100); Monocytes Absolute Auto 100 /uL (0-900); Monocytes Percent Auto 4.4 % (3-14); Neutrophils Absolute Auto 1800 /uL (1500-7000); Neutrophils Percent Auto 72.7 % (50-75); Platelet Count 91 X10^3/uL (150-400); Red Blood Cell Count 3.15 X10^6/uL (4.5-5.9); Red Cell Distribution Width 13.5 % (11.6-14.8); White Blood Cell Count 2.5 X10^3/uL (4.5-11.0)
--- NOTE | 2020-12-01 18:36 | DI.RAD.S_ITS ---
PROCEDURE: XR CHEST 1V INDICATIONS: f/u pleural effusion TECHNIQUE: One view of the chest was acquired. COMPARISON: [facility], CR, XR CHEST 1V, 11/30/2020, 13:54. FINDINGS: Surgical changes and devices: Left chest wall Port-A-Cath tip is in SVC.. Lungs and pleura: Partially loculated small to moderate right pleural effusion is again seen, slightly decreased in size compared to previous study. Left lung is clear. No gross pneumothorax. Mediastinum: Mediastinal contours appear normal. Heart size is normal. Bones and chest wall: No suspicious bony lesions. Overlying soft tissues appear unremarkable. IMPRESSION: Persistent small to moderate partially loculated right pleural effusion slightly decreased compared to previous day. No gross pneumothorax. Left lung is clear. Dictated by: Jeb New M.D. on 12/01/2020 at 19:02 Approved by: Jeb New M.D. on 12/01/2020 at 19:03
[2020-12-01 18:39] LABS: Lactate (Lactic Acid) 1.9 mmol/L (0.7-2.1)
[2020-12-01 18:42] LABS: Procalcitonin 0.22 ng/mL (<0.5)
[2020-12-01 21:16] LABS: NT-proBNP (BNP-Adult 18+) 312 pg/mL (<125)
[2020-12-01] MEDS: FAMOTIDINE 20 MG TABLET 40 MG PO (21:46)
[2020-12-02] VITALS (10 sets, daily range): BP systolic 83–131; BP diastolic 43–77; PULSE 89–130; RESP 15–20; TEMP 36.1–36.6; O2SAT 91–99
[2020-12-02] MEDS: SODIUM CHLORIDE 0.9% 500 ML 1000 ML IV (05:07)
[2020-12-02 05:14] LABS: Add Manual Diff / Slide Review NO; Basophils Absolute Auto 0 /uL (0-100); Basophils Percent Auto 0.2 % (0-2); Eosinophils Absolute Auto 0 /uL (0-450); Eosinophils Percent Auto 0.9 % (2-4); Hematocrit 25.4 % (41-53); Hemoglobin 8.6 g/dL (13.5-17.5); Lymphocytes Absolute Auto 900 /uL (1100-4500); Lymphocytes Percent Auto 22.5 % (25-40); Mean Corpuscular HGB Conc 34.1 % (30-36); Mean Corpuscular Hemoglobin 31.3 PG (26-34); Mean Corpuscular Volume 91.6 fL (80-100); Monocytes Absolute Auto 300 /uL (0-900); Monocytes Percent Auto 7.8 % (3-14); Neutrophils Absolute Auto 2600 /uL (1500-7000); Neutrophils Percent Auto 68.6 % (50-75); Platelet Count 87 X10^3/uL (150-400); Red Blood Cell Count 2.77 X10^6/uL (4.5-5.9); White Blood Cell Count 3.8 X10^3/uL (4.5-11.0)
[2020-12-02 05:24] LABS: BUN Creatinine Ratio 6.5 (6-22); Blood Urea Nitrogen 5 mg/dL (9-20); Calcium 8.1 mg/dL (8.4-10.2); Carbon Dioxide 27 mmol/L (22-32); Chloride 102 mmol/L (98-107); Estimated Glomerular Filt Rate > 60.0 mL/min (>60); Glucose 64 mg/dL (80-110); HEMOLYSIS 22 (0-50); Potassium 3.6 mmol/L (3.4-5.1); Sodium 133 mmol/L (137-145)
[2020-12-02] MEDS: levoFLOXacin 750 MG/150 ML PIGGYBACK 100 MG IV (05:53)
[2020-12-02] MEDS: PANTOPRAZOLE DR 40 MG TABLET PO (06:56)
[2020-12-02 07:10] LABS: Cortisol AM (Before 10AM) 12.2 ug/dL (4.46-22.7)
[2020-12-02] MEDS: ATORVASTATIN 20 MG TABLET 40 MG PO (08:41)
[2020-12-02] MEDS: POTASSIUM CHLORIDE 20 MEQ TAB 40 MEQ PO ×2 (08:43→17:03)
[2020-12-02] MEDS: PREGABALIN 75 MG CAPSULE 150 MG PO ×2 (08:43→20:43)
[2020-12-02] MEDS: ENOXAPARIN 40 MG/0.4 ML SYRINGE SUBCUT (08:47)
[2020-12-02] MEDS: INSULIN GLARGINE 100 UNIT/ML 3ML PEN 30 UNIT SUBCUT ×2 (09:09→20:36)
[2020-12-02] MEDS: SODIUM CHLORIDE 0.9% FLUSH 10 ML IV ×2 (09:17→20:43)
[2020-12-02] MEDS: LACTATED RINGERS 1,000 ML 150 ML IV (09:23)
[2020-12-02] MEDS: DIVALPROEX ER 250 MG TAB 500 MG PO (10:50)
[2020-12-02] MEDS: COSYNTROPIN 0.25 MG VIAL IV (11:38)
[2020-12-02] MEDS: INSULIN LISPRO 100 UNIT/ML 3ML VIAL SUBCUT ×3 (11:42→20:37)
[2020-12-02 12:28] LABS: Cortisol Basline for Stim. 16.1 ug/dL
[2020-12-02 13:12] LABS: Cortisol 30 MIN Post Stim. 20.2 ug/dL
[2020-12-02 13:40] LABS: Cortisol 60 MIN Post Stim. 23.2 ug/dL
[2020-12-02] MEDS: HYDROCORTISONE 100 MG/2 ML VIAL IV ×2 (15:29→20:47)
--- NOTE | 2020-12-02 15:32 | PC.NURSE ---
Patient vital signs stable for shift, SBP above 100 except for orthostatic vitals. Updated son Chele via phone at 0940, son at bedside for a few hours during the day. Patient drowsy but alert during the day. Good appetite and up for meals at edge of bed with no sycopal episodes. Took orthostatic vital signs at 1055: standing 83/43, HR 116 sitting 105/61, HR 99 laying down 111/62, HR 92 PT did have some urinary retention, with the first bladder scan at 1020 showing 315mls and the second at 1230 showing over 500mls urine retained. Straight catheterization performed by nursing students with the supervision and assistance of their instructor and staff. 500Mls of urine drained.
--- NOTE | 2020-12-02 15:48 | P.PN_ITS ---
Subjective Subjective Date Patient Seen: 12/02/20 Interval history: The patient is a 70-year-old male with a history of metastatic pancreatic cancer, he is status post thoracentesis of a large Right pleural effusion. Patient has had significant improvement in breathing. However he continues to have marked orthostatic hypotension when standing. His blood pressure will drop from a systolic of 120 to a systolic of 87. He has been nursing the patient has received extensive IV hydration. That he continues to have significant drop in blood pressure. He is awake and alert today. All blood pressure medications have been discontinued his fentanyl patches have been removed. The patient denies any pain at this time. Exam Vital Signs (past 8 hours): - 12/02/20 08:00 12/02/20 10:52 12/02/20 12:00 Temperature 97.0 F L 97.0 F L Pulse Rate 89 92 H Pulse Rate [Orthostatic Lying] 92 H Pulse Rate [Orthostatic Sitting] 99 H Pulse Rate [Orthostatic Standing] 116 H Respiratory Rate 16 15 Blood Pressure 111/61 100/53 L Blood Pressure [Orthostatic Lying] 110/62 Blood Pressure [Orthostatic Sitting] 105/61 Blood Pressure [Orthostatic Standing] 83/43 L Pulse Oximetry 98 97 Oxygen Delivery Method Room Air Oxygen Flow Rate 0 Narrative Exam Narrative: Pleasant elderly male lying in bed in no obvious distress Lungs: Decreased breath sounds on the right, occasional scattered crackles on the right, clear to auscultation on the left Cardiac exam: Regular rate and rhythm normal S1-S2 Abdomen: Soft nontender nondistended Extremities no edema Objective Labs Result Diagrams: 12/02/20 04:51 12/02/20 04:51 Labs: Laboratory Results - last 24 hr 12/01/20 12/01/20 12/01/20 17:10 18:17 18:17 WBC 2.5 L RBC 3.15 L Hgb 9.9 L Hct 29.0 L MCV 91.8 MCH 31.3 MCHC 34.1 RDW 13.5 Plt Count 91 L Neut % (Auto) 72.7 Lymph % (Auto) 21.4 L [place] % (Auto) 4.4 Eos % (Auto) 1.1 L Baso % (Auto) 0.4 Neut # (Auto) 1800 Lymph # (Auto) 500 L [place] # (Auto) 100 Eos # (Auto) 0 Baso # (Auto) 0 Sodium 132 L Potassium 3.7 Chloride 98 Carbon Dioxide 27 BUN 6 L Creatinine 0.74 Estimated GFR > 60.0 BUN/Creatinine Ratio 8.1 Glucose 173 H Lactate 1.9 Calcium 8.2 L Total Bilirubin 0.8 AST 36 ALT 40 Alkaline Phosphatase 365 H NT-Pro-B Natriuret Pep Total Protein 5.1 L Albumin 2.5 L Globulin 2.6 Albumin/Globulin Ratio 1.0 Procalcitonin 0.22 Cortisol Response Cortisol AM Sample 12/01/20 12/02/20 12/02/20 18:17 04:51 04:51 WBC 3.8 L D RBC 2.77 L Hgb 8.6 L Hct 25.4 L MCV 91.6 MCH 31.3 MCHC 34.1 RDW 13.0 Plt Count 87 L Neut % (Auto) 68.6 Lymph % (Auto) 22.5 L [place] % (Auto) 7.8 Eos % (Auto) 0.9 L Baso % (Auto) 0.2 Neut # (Auto) 2600 Lymph # (Auto) 900 L [place] # (Auto) 300 Eos # (Auto) 0 Baso # (Auto) 0 Sodium Potassium Chloride Carbon Dioxide BUN Creatinine Estimated GFR BUN/Creatinine Ratio Glucose Lactate Calcium Total Bilirubin AST ALT Alkaline Phosphatase NT-Pro-B Natriuret Pep 312 H Total Protein Albumin Globulin Albumin/Globulin Ratio Procalcitonin Cortisol Response Cortisol AM Sample 12.2 12/02/20 12/02/20 04:51 10:59 WBC RBC Hgb Hct MCV MCH MCHC RDW Plt Count Neut % (Auto) Lymph % (Auto) [place] % (Auto) Eos % (Auto) Baso % (Auto) Neut # (Auto) Lymph # (Auto) [place] # (Auto) Eos # (Auto) Baso # (Auto) Sodium 133 L Potassium 3.6 Chloride 102 Carbon Dioxide 27 BUN 5 L Creatinine 0.77 Estimated GFR > 60.0 BUN/Creatinine Ratio 6.5 Glucose 64 L D Lactate Calcium 8.1 L Total Bilirubin AST ALT Alkaline Phosphatase NT-Pro-B Natriuret Pep Total Protein Albumin Globulin Albumin/Globulin Ratio Procalcitonin Cortisol Response Cortisol AM Sample [facility] Medical History Coronary artery disease Diabetes Hyperlipidemia Post-traumatic stress disorder, chronic Surgical History History of cholecystectomy (01/31/17) Family History Mother Diabetes mellitus Father Dementia Social History household members: children and none Smoking Status: Never smoker alcohol intake: never substance use type: does not use Assessment & Plan Assessment & Plan narrative: 1. Persistent orthostatic hypotension, -patient continues to have marked drop in blood pressure when standing -he is markedly symptomatic -baseline cortisol level is 12.2 patient had a Cortrosyn stem test today earlier. Baseline at that time cortisol level was 16.2, 30 minutes post infusion 20.2, 60 minutes 23.2 -this indicates mild adrenal insufficiency -patient was started on hydrocortisone 100 mg q.6 -IV fluids discontinued -will recheck orthostatic vitals tomorrow -consider adding midodrine the patient remains markedly hypotensive when standing 2. Large right pleural effusion, present on admission -status post thoracentesis could 1.6 L of fluid removed 3. Metastatic pancreatic cancer -oncology following 4. Type 2 diabetes -continue basal bolus insulin 5. History of hypertension -given marked orthostasis her medications have been discontinued 6. Severe protein calorie malnutrition -patient has lost 40 lb over the past few months -he had evidence of marked dehydration -patient continues to be significantly weak related to his significant weigh t, as well. Home when the patient is no longer orthostatic Quality VTE Deep Vein Thrombosis/Pulmonary Embolism Present on Admission: No
[2020-12-02] MEDS: FAMOTIDINE 20 MG TABLET 40 MG PO (20:43)
--- NOTE | 2020-12-02 23:45 | PC.NURSE ---
pt refusing to use the bsc. pt went to the bathroom [id number]. pt denied any dizziness at that time.
[2020-12-03] VITALS: BP 113/63; PULSE 101; RESP 16; TEMP 36.4; O2SAT 96
[2020-12-03] MEDS: HYDROCORTISONE 100 MG/2 ML VIAL IV ×2 (02:35→10:41)
[2020-12-03] MEDS: SODIUM CHLORIDE 0.9% FLUSH 10 ML IV ×3 (02:35→10:42)
[2020-12-03 05:00] VITALS: BP 108/61; PULSE 100; RESP 18; TEMP 36.4; O2SAT 97
[2020-12-03] MEDS: levoFLOXacin 750 MG/150 ML PIGGYBACK 100 MG IV (05:10)
[2020-12-03] MEDS: PANTOPRAZOLE DR 40 MG TABLET PO (06:23)
[2020-12-03] MEDS: INSULIN LISPRO 100 UNIT/ML 3ML VIAL SUBCUT ×3 (06:50→12:36)
[2020-12-03 08:00] VITALS: BP 133/77; PULSE 102; RESP 18; TEMP 36.2; O2SAT 99
[2020-12-03 08:29] VITALS: BP 109/60; BP 122/72; BP 137/72; PULSE 100; PULSE 112; PULSE 98
--- NOTE | 2020-12-03 08:36 | PM.DS.1 ---
History of Present Illness History of Present Illness Date Patient Seen: 12/03/20 Chief complaint: stomach is burning up/on chemo Narrative: Neelam Vail is a 70-year-old man with a past medical history of newly diagnosed pancreatic cancer with metastases to the liver and kidney, insulin dependent diabetes, CAD, hyperlipidemia, PTSD who presents with fever and shortness of breath, and hiccups. Patient was recently diagnosed with cancer after he began developing abdominal pain in August. He eventually had CT scan in September that showed cancer. He was started on treatment with Dr. Oneal with chemotherapy 3 days ago but he is not sure of the name of. It is difficult for him to talk as he gets very winded and anxious. He stated that the symptoms started this morning after he had completed his 2nd chemotherapy session. He found himself very winded and asked his son to hit him in the middle of the back to help dislodge what sounded to be mucus. He states that it helped. He states when he gets short of breath he starts hiccuping uncontrollably. Patient was previously admitted and discharged November 06 through the for a new diagnosis of COVID-19 pneumonia and a similar presentation of shortness of breath. He is now being admitted to this facility. There was initial concern on x-ray that he might have a cavitation in his right middle lobe and that he be transferred to a facility that had a communications attendant that could possibly drain the pleural effusion. With confirmatory CT, they did not feel he had a cavitation and just described the finding as being a large pleural effusion. It was decided that the patient could be managed here and would benefit due to his oncologist likely being able to see him as well. In the ED the patient it is CT of the chest indicated a ?large right pleural effusion with underlying right middle and lower lobe consolidation, likely related to compressive atelectasis with no evidence of a cavitary lesion. Also noted a probable lower right mediastinal mass but could be an ?on aerated portion of the lung?. Does suggest presence of a true mass in this area. Also noted a small left upper lobe pulmonary nodule. Patient initially presented with the temperature of 100.4? and currently it is 99.1, blood pressure 125/58, heart rate 85, respiratory rate of 18, oxygen saturation of 90% on 2 L, he weighs 81.6 kg with a BMI of 23.7. His WBC is significantly low at 1.5 with his last normal WBC on discharge on November 08. He is mildly anemic with a hemoglobin of 10.5 and hematocrit of 30.6, platelet count 114, he has 1% bands, and he is neutropenic. His sodium was 126, potassium 3.9, chloride 88, bicarb 31, BUN 10, creatinine 0.85, with a GFR greater than 60, glucose is 367, normal lactate, liver enzymes are elevated with an ALT of 70 alk-phos, alk-phos 443, AST is normal. COVID-19 PCR is negative. Patient was started on Levaquin 750 mg IV. Discharge Providers Provider Date of admission: 11/30/20 06:18 Discharge Date: 12/03/20 Primary care physician: Vianca Cox MD Consults: 11/30/20 06:53 Consult to Physician Routine Comment: Consulting Provider: Aiden Oneal Reason for consultation: Neutropenic fever, right middle lung pleural effusion Has provider been notified: No 11/30/20 06:58 Consult to Respiratory Therapy Evaluate & Treat Comment: Physician Instructions: Evaluate and treat 11/30/20 08:38 Consult to Dietitian, Adult Routine Comment: Reason For Exam: pancreatic cancer, significant weight loss 12/01/20 11:23 Consult to [employer]CH[employer]ISE [employer]ER - [employer] Routine Comment: 12/01/20 11:55 Consult to Home Health Routine Comment: DX: Malignant Pleural Effusion Reason For Exam: 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 Right Pleural Effusion, s/p Thoracentesis, associated with acute hypoxic respiratory failure, patient's O2 sat was 90% on 2 L at admission 2. Pancytopenia, secondary to recent chemotherapy 3. Pancreatic Carcinoma 4. Othostatic hypotension 5. Probable adrenal insufficiency 6. Severe Acute Protein Calorie Malnutrition 7.Near Syncope secondary to orthorstatic hypotension 8.Type 2 Diabetes Mellitus 9. Hyperlipidemia 10.Coronary Artery Disease Hospital Course: The patient was admitted to the hospital for severe shortness of breath. CT scanning of the abdomen chest and pelvis revealed a large right pleural effusion. Patient underwent thoracentesis and had 1.6 L of fluid removed. Patient was febrile on admission. He had had had hiccups as well as nausea, the patient was treated with empiric antibiotics for presumed aspiration pneumonia. He was neutropenic and wbc improved. Patient remained on antibiotics. His procalcitonin was normal at 0.22 The patient was found to be markedly orthostatic. When he stood the following day he nearly passed out. His blood pressure dropped from 120 systolic lying to 80 systolic standing. The patient was tachycardic, dizzy, and highly symptomatic. Patient was given several L of IV hydration. His usual blood pressure medications were discontinued. His fentanyl patches were discontinued. The patient remained hypotensive when standing and symptomatic. A cosyntropin stimulation test was obtain. His baseline cortisol level was 16.2. Cortisol level at 30 minutes was 20.1, and 60 minutes was 23.1. Was started on IV hydrocortisone. The following day he had no further orthostasis. Patient was awake and alert. His appetite improved he had no more dizzy episodes. The patient was found to be pancytopenic on admission. His white count reached a carmine of 1.5 this slowly improved to 3.8. As the patient was febrile on admission he was treated with levofloxacin. He will continue a 7 day course of antibiotics. At this time the patient is No longer short of breath. He had no complaints of pain.. He was deemed appropriate for discharge home Status at Discharge Cognitive/behavioral status at discharge: oriented Functional status at discharge: independent ambulation Overall status at discharge: patient is back to baseline Time Spent with Patient Time spent: Less than 30 minutes Exam Vital Signs (past 8 hours): - 12/03/20 05:00 12/03/20 08:00 12/03/20 08:29 Temperature 97.6 F 97.2 F L Pulse Rate 100 H 102 H Pulse Rate [Orthostatic Lying] 98 H Pulse Rate [Orthostatic Sitting] 100 H Pulse Rate [Orthostatic Standing] 112 H Respiratory Rate 18 18 Blood Pressure 108/61 133/77 Blood Pressure [Orthostatic Lying] 137/72 Blood Pressure [Orthostatic Sitting] 122/72 Blood Pressure [Orthostatic Standing] 109/60 Pulse Oximetry 97 99 Oxygen Delivery Method Room Air Oxygen Flow Rate 0 Narrative Exam Narrative: Pleasant gentleman resting comfortably in no obvious distress Lungs: Decreased breath sounds in the right base, left lung is clear Cardiac exam: Regular rate and rhythm normal S1-S2 with a 2/6 systolic ejection murmur Abdomen: Soft non tender nondistended Extremities: No edema Objective Labs Result Diagrams: 12/02/20 04:51 12/02/20 04:51 Labs: Laboratory Results - last 24 hr 12/02/20 10:59 Cortisol Response [facility] Medical History Coronary artery disease Diabetes Hyperlipidemia Post-traumatic stress disorder, chronic Surgical History History of cholecystectomy (01/31/17) Family History Mother Diabetes mellitus Father Dementia Social History household members: children and none Smoking Status: Never smoker alcohol intake: never substance use type: does not use Discharge Assessment & Plan Assessment and Plan Assessment: 1. Acute hypoxic respiratory failure 2. Large right pleural effusion, status post thoracentesis 3. Pancytopenia secondary to chemotherapy 4. Pancreatic Cancer 5. Orthostatic hypotension 6. Near-syncope 7. Probable adrenal insufficiency 8. Type 2 diabetes 9. Severe protein calorie malnutrition 10. Hyperlipidemia 11. Probable Aspiration Pneumonia Discharge Plan Discharge Plan Patient Disposition: Home Discharge orders & Medications Prescriptions: New levofloxacin 750 mg tablet 750 mg PO DAILY Qty: 5 RF: 0 Continued pantoprazole [Protonix] 40 mg tablet,delayed release (DR/EC) 40 mg PO DAILY Qty: 30 RF: 0 ondansetron 4 mg tablet,disintegrating 4 mg PO TID-QID PRN (Reason: nausea and vomiting) Qty: 10 RF: 0 atorvastatin 40 mg tablet 40 mg PO DAILY RF: 0 baclofen 10 mg Tablet 5 mg PO TID PRN (Reason: Hiccups) Qty: 10 RF: 0 fentanyl 37.5 mcg/hour Patch 72 Hour 1 patch TRANSDERMAL Q72H RF: 0 carvedilol 6.25 mg tablet 6.25 mg PO DAILY RF: 0 famotidine 40 mg Tablet 40 mg PO BEDTIME RF: 0 travoprost [Travatan Z] 0.004 % drops 1 drp EYE-BOTH DAILY RF: 0 prazosin 5 mg Capsule 5 mg PO BEDTIME RF: 0 olopatadine 0.1 % Drops 1 drp OPHTHALMIC (EYE) DAILY RF: 0 lisinopril 10 mg tablet 10 mg PO DAILY RF: 0 divalproex 500 mg Tablet Extended Release 24 Hr 500 mg PO DAILY RF: 0 brimonidine 0.2 % drops 1 drp ophthalmic (eye) DAILY RF: 0 doxazosin 4 mg tablet 4 mg PO DAILY RF: 0 finasteride 5 mg tablet 5 mg PO DAILY RF: 0 insulin aspart U-100 [Novolog Flexpen U-100 Insulin] 100 unit/mL (3 mL) insulin pen See Rx Instructions .ROUTE .COMPLEX RF: 0 pregabalin [Lyrica] 150 mg Capsule 150 mg PO BID RF: 0 Lantus Solostar U-100 Insulin 100 unit/mL (3 mL) insulin pen 30 unit SUBCUT BID RF: 0 metoclopramide HCl [Reglan] 10 mg tablet 10 mg PO Q6H PRN (Reason: nausea and vomiting) Qty: 10 RF: 0 Follow up/Referrals: Vianca Cox MD [Primary Care Provider] - Discharge Health Status Multidrug resistant organism: No MDRO Diet/Activity/Treatments Diet: Diet as Tolerated Skin/Wound/Dressing Care Report to your healthcare provider any signs of infection, such as:: chills, fever Discharge Data Primary Care Provider: Vianca Cox Quality VTE Deep Vein Thrombosis/Pulmonary Embolism Present on Admission: No
[2020-12-03] MEDS: POTASSIUM CHLORIDE 20 MEQ TAB 40 MEQ PO (09:49)
[2020-12-03] MEDS: DIVALPROEX ER 250 MG TAB 500 MG PO (09:50)
[2020-12-03] MEDS: ATORVASTATIN 20 MG TABLET 40 MG PO (09:50)
[2020-12-03] MEDS: PREGABALIN 75 MG CAPSULE 150 MG PO (09:51)
[2020-12-03] MEDS: INSULIN GLARGINE 100 UNIT/ML 3ML PEN 30 UNIT SUBCUT (09:56)
--- NOTE | 2020-12-03 13:44 | PC.NURSE ---
Patient and son educated about new medications, medications that were discontinued, diet, exercise, follow up with primary care doctor, s/s of stroke, when to seek emergency medical treatment. Patient and son verbalized understanding of all discharge teaching. Medications were e-sent to [facility] in [place]. Patient left facility with all belongings to private vehicle w/ son via wheelchair.
--- NOTE | 2020-12-03 14:47 | CM.DPNOTE ---
DC Note According to Dr Tam, patient wants to return home today. Cleared by therapy, indp. in room, awaiting a ride from his family. Left msgs earlier today for both dtr Ferannda and son Chele. Placed call to [facility] to update that patient DC home today and faxed DC Summary. Also returned call to [facility], alerting her that patient was returning home today. According to Eri, patient has declined [facility] in home care d/t high participation cost required. Plan: Home w/family and [facility] JW
--- NOTE | 2020-12-04 12:27 | PC.NURSE ---
Per Dr Tam, called patients two discharge rx of Levaquin and Prednisone called in to [facility], message left on patients son cell phone.
== END 2020-12-03 13:48 | disposition home health service (06) | DRG 186 ==
LOC: ED 04:30 → AC 06:19
PROVIDERS: Internal Medicine; Admitting Provider Nurse Practitioner Family; Emergency Provider Emergency Medicine; PCP Internal Medicine; Referring Provider Emergency Medicine; Visit Provider Nurse Practitioner Family
DX: J90 Pleural effusion, not elsewhere classified (principal); E43 Unspecified severe protein-calorie malnutrition; J69.0 Pneumonitis due to inhalation of food and vomit; C25.9 Malignant neoplasm of pancreas, unspecified; E27.40 Unspecified adrenocortical insufficiency; D61.818 Other pancytopenia; D70.9 Neutropenia, unspecified; Z86.16 Personal history of COVID-19; I95.1 Orthostatic hypotension; I48.91 Unspecified atrial fibrillation; Z68.25 Body mass index [BMI] 25.0-25.9, adult; E11.9 Type 2 diabetes mellitus without complications; Z79.4 Long term (current) use of insulin; I25.10 Atherosclerotic heart disease of native coronary artery without angina pectoris; Z20.822 Contact with and (suspected) exposure to COVID-19; I10 Essential (primary) hypertension
CPT/HCPCS: 32555; 36415; 71045; 71260; 74177; 80048; 80053; 80069; 82465; 82533; 82945; 82962; 83036; 83605; 83615; 83735; 83880; 83986; 84145; 84157; 85007; 85025; 85610; 87040; 87070; 87075; 87205; 87633; 87635; 89051; 93005; 94760; 94762; 96361; 96365; 96366; 96375; 99285; C9803; A9270; C9113; J0834; J1650; J1720; J1815; J1956; J2060; J2270; J2405; J2765; J3230; Q9967

== ENCOUNTER 2020-12-05 01:18 | Observation (INO) | payer MEDICARE, OTHER, SELFPAY ==
[2020-11-30 08:33] VITALS: BMI 24.7
--- NOTE | 2020-12-05 01:33 | ED_ITS ---
HPI - SOB/Dyspnea General Chief Complaint: Shortness of Breath/Dyspnea Stated Complaint: hard to breath, chills Time Seen by Provider: 12/05/20 01:32 Source: patient Mode of arrival: Ambulatory Limitations: no limitations History of Present Illness HPI Narrative: The patient was diagnosed with metastatic pancreatic cancer earlier this year. He is under the care of Oncology, Dr Oneal. He has received 2 cycles of his prescribed chemotherapy. It is noted he was positive for COVID about 1 month ago. He was admitted to this facility 11/30/2020 with dyspnea, neutropenia, and a large right pleural effusion. CT suggested a right pleural mass. There is also atelectasis, and the effusion. Thoracentesis was perfor med. He was discharged less than 2 days ago. He returns tonight with recurrence of dyspnea. He does not have a productive cough, he denies fever. He has no chest pain. He also has abdominal discomfort. He has nausea but no vomiting. His fluid intake is normal. He has no peripheral edema. From prior records it is recognized he has metastatic lesions to the liver and kidneys. He has a prior history of hyperlipidemia, diabetes and coronary artery disease. Related Data Home Medications Medication Instructions Recorded Confirmed Lantus Solostar U-100 Insulin 30 unit SUBCUT BID 10/05/20 11/30/20 brimonidine 1 drp OPHTHALMIC (EYE) DAILY 10/05/20 11/30/20 divalproex 500 mg PO DAILY 10/05/20 11/30/20 doxazosin 4 mg PO DAILY 10/05/20 11/30/20 famotidine 40 mg PO BEDTIME 10/05/20 11/30/20 finasteride 5 mg PO DAILY 10/05/20 11/30/20 insulin aspart U-100 [Novolog See Rx Instructions .ROUTE .COMPLEX 10/05/20 11/30/20 Flexpen U-100 Insulin] olopatadine 1 drp OPHTHALMIC (EYE) DAILY 10/05/20 11/30/20 pregabalin [Lyrica] 150 mg PO BID 10/05/20 11/30/20 travoprost [Travatan Z] 1 drp EYE-BOTH DAILY 10/05/20 11/30/20 atorvastatin 40 mg PO DAILY 11/07/20 11/30/20 Previous Rx's Medication Instructions Recorded ondansetron 4 mg PO TID-QID PRN #10 tab 10/06/20 pantoprazole [Protonix] 40 mg PO DAILY #30 tab 10/06/20 metoclopramide HCl [Reglan] 10 mg PO Q6H PRN #10 tab 11/05/20 baclofen 5 mg PO TID PRN #10 tab 11/08/20 levofloxacin 750 mg PO DAILY #5 tab 12/01/20 prednisone 20 mg PO DAILY #30 tab 12/03/20 Allergies Allergy/AdvReac Type Severity Reaction Status Date / Time aspirin Allergy Unknown Verified 12/05/20 01:36 brompheniramine Allergy Unknown Verified 12/05/20 01:36 codeine Allergy Unknown Verified 12/05/20 01:36 diphenhydramine Allergy Unknown Verified 12/05/20 01:36 guaifenesin Allergy Unknown Verified 12/05/20 01:36 hydrocodone Allergy Unknown Verified 12/05/20 01:36 hydroxyzine Allergy Unknown Verified 12/05/20 01:36 ibuprofen Allergy Unknown Verified 12/05/20 01:36 meperidine Allergy Unknown Verified 12/05/20 01:36 morphine Allergy Unknown Verified 12/05/20 01:36 nystatin Allergy Unknown Verified 12/05/20 01:36 promethazine Allergy Unknown Verified 12/05/20 01:36 propoxyphene Allergy Unknown Verified 12/05/20 01:36 tuberculin, purified protein Allergy Unknown Verified 12/05/20 01:36 deriva egg Allergy Verified 12/05/20 01:36 amoxicillin [From Augmentin] AdvReac Unknown Vomiting Verified 12/05/20 01:36 metformin AdvReac Unknown Diarrhea Verified 12/05/20 01:36 clavulanic acid AdvReac Vomiting Verified 12/05/20 01:36 [From Augmentin] Review of Systems Constitutional Constitutional: Denies chills and Denies fever(s) Comments: Dyspnea. Eyes Comments: No eye complaints. ENT Ears, Nose, Mouth, and Throat: Denies dizziness and Denies sore throat Cardiovascular Cardiovascular: Denies chest pain and Denies pedal edema Respiratory Respiratory: Reports as per HPI Gastrointestinal Gastrointestinal: Reports as per HPI Genitourinary Genitourinary: Denies dysuria Genitourinary: Denies dysuria Musculoskeletal Musculoskeletal: Denies arthralgias, Denies back pain and Denies numbness Integumentary/Breasts Skin/Breast: Denies pruritus and Denies rash Neurologic Neurologic: Denies confusion, Denies dizziness and Denies numbness Psychiatric Psychiatric: Denies anxiety and Denies confusion Patient History Medical History (Updated 12/05/20 @ 06:01 by Randolph Reyes MD) Coronary artery disease Diabetes Hyperlipidemia Malignant neoplasm metastatic to pancreas Post-traumatic stress disorder, chronic Surgical History History of cholecystectomy (01/31/17) Family History Mother Diabetes mellitus Father Dementia Social History household members: children and none Smoking Status: Never smoker alcohol intake: never substance use type: does not use Smoking Status: Never smoker alcohol intake frequency: holidays/special occasions only Substance Use Type: does not use Exam Initial Vital Signs Initial Vital Signs: Vital Signs Temperature 98.3 F 12/05/20 01:37 Pulse Rate 111 H 12/05/20 01:37 Respiratory Rate 26 H 12/05/20 01:37 Blood Pressure 102/60 12/05/20 01:37 Pulse Oximetry 98 12/05/20 01:37 Const General: cooperative, comfortable, No in distress and No anxious HENMT Head: normocephalic and atraumatic Mouth: oral mucosae normal Throat: posterior oropharynx normal Eyes General: appearance normal, both eyes and all related structures Eyelids: eyelids normal Conjunctivae: conjunctivae normal Sclera: sclerae normal Pupils: PERRL EOM: EOM intact bilaterally Neck Neck: No JVD Resp Other: Decreased breath sounds, right base. Cardio Rate: regular rate Rhythm: regular rhythm Heart Sounds: S1 normal, S2 normal, no click, no gallops, no murmurs and no rubs Pulses: normal peripheral pulses GI Other: [id number] epigastric tenderness. No peritoneal signs. Normal bowel sounds. Skin General: no rashes or lesions noted Neuro General: patient alert, patient oriented x3, gait normal and no focal motor deficits Speech: speech normal Extrem General: no pedal edema and no calf tenderness Psych Appearance: well kempt Mental Status: mental status grossly normal Attitude: cooperative Thought Content: normal and suicidality Judgment: judgment good Course Course Course Narrative: The patient was started on Levaquin after her by the lactic acid level came back at 2.2. He has noted his WBC count is now normal at 9, previously he had neutropenia 2.2. He has had multiple recent hospitalizations. Vancomycin was also given for potential hospital-acquired pneumonia. He is afebrile. His heart rate and blood pressure are normal/stable. A repeat lactic acid level is unchanged 2.2. Chest x-ray shows an increase in the previously known right pleural effusion. CT of chest was repeated, based upon elevated D- dimer. The effusion atelectasis are again identified. There is suspected right middle lobe mass once again identified. I discussed the case with hospitalist, YOLETTE Smith. I did not give a full 30 milliliter/kilogram saline bolus due to his existing effusion and elevated BNP. He is normotensive. My concern is the full fluid bolus may worsen the situation. The right middle lobe lung mass needs to be is discussed with oncology. If he has a metastatic lesion in his lung, the medical records I reviewed indicated was identified in the recent to hospital visits here. Management of the pleural effusion should be discussed. Given the right lung mass, I hesitate to do thoracentesis myself and defer to radiology. Radiology will be available at a.m. this morning, that conversation will be left to the hospitalist. He was admitted for ongoing care, at this facility at least for now. Orders Ordered: ED Orders 12/05/20 01:38 Consult to Respiratory Therapy Evaluate & Treat EKG-12 Lead Stat 12/05/20 01:39 XR chest 1V Stat 12/05/20 02:15 Complete Blood Count AUTO DIFF Stat Comprehensive Metabolic Panel Stat D Dimer Stat Lactate (Lactic Acid) Stat Magnesium Stat NT-proBNP (BNP-Adult 18+) Stat Procalcitonin Stat Troponin & CK Cardiac Panel Stat 12/05/20 03:32 Blood Culture Stat 12/05/20 03:35 CT angio chest PE protocol Stat 12/05/20 04:30 COVID19 - ADMIT (COMMUNICATIONS SUPERINTENDENT swab/PCR) Stat Vancomycin HCl (Vancomycin) 1,250 mg in 250 mls @ 250 mls/hr IV NOW ONE Stop: 12/05/20 06:23 Discontinued Medications Albuterol/Ipratropium (Albuterol/Ipratropium 3 Ml Ampul) 3 ml INH NOW ONE Stop: 12/05/20 01:39 Last Admin: 12/05/20 01:56 Dose: 3 ml Documented by: BFOX Levofloxacin (Levaquin) 750 mg in 150 mls @ 100 mls/hr IV NOW ONE Stop: 12/05/20 05:04 Last Admin: 12/05/20 03:43 Dose: 100 mls/hr Documented by: [email or web address] Lidocaine HCl (Lidocaine 1% 20 Ml) 1 ml SUBCUT NOW ONE Stop: 12/05/20 01:51 Last Admin: 12/05/20 03:03 Dose: Not Given Documented by: [email or web address] Lidocaine HCl (Lidocaine 1% (Pf)) 2 ml SUBCUT NOW ONE Stop: 12/05/20 01:54 Last Admin: 12/05/20 02:16 Dose: 1 ml Documented by: [email or web address] Methylprednisolone (Methylprednisolone 125 Mg/2 Ml Vial) 125 mg IV NOW ONE Stop: 12/05/20 01:39 Last Admin: 12/05/20 02:16 Dose: 125 mg Documented by: [email or web address] Vital Signs Vital signs: Vital Signs - 8 hr 12/05/20 01:37 12/05/20 02:02 Temperature 98.3 F Pulse Rate 111 H 106 H Respiratory Rate 26 H 20 Blood Pressure 102/60 Pulse Oximetry 98 97 MDM - SOB/Dyspnea Lab Data Result diagrams: 12/05/20 02:15 12/05/20 02:15 Labs: Lab Results 12/05/20 12/05/20 12/05/20 Range/Units 02:15 02:15 02:15 WBC (4.5-11.0) X10^3/uL RBC (4.5-5.9) X10^6/uL Hgb (13.5-17.5) g/dL Hct (41-53) % MCV (80-100) fL MCH (26-34) PG MCHC (30-36) % RDW (11.6-14.8) % Plt Count (150-400) X10^3/uL Neut % (Auto) Lymph % (Auto) [place] % (Auto) Eos % (Auto) Baso % (Auto) Lymph # (Auto) [place] # (Auto) Baso # (Auto) Total Counted Seg Neutrophils % (38-70) % Band Neutrophils % (3-7) % Lymphocytes % (Manual) (25-45) % Monocytes % (Manual) (2-11) % Metamyelocytes % (-0) % Myelocytes % (-0) % Neutrophils # (Manual) (8816-4973) /uL Nucleated RBCs ( - 0) #/Diff RBC Morphology D-Dimer 4319 H (<230) ng/mL Sodium (137-145) mmol/L Potassium (3.4-5.1) mmol/L Chloride (98-107) mmol/L Carbon Dioxide (22-32) mmol/L BUN (9-20) mg/dL Creatinine (0.66-1.25) mg/dL Estimated GFR (>60) mL/min BUN/Creatinine Ratio (6-22) Glucose (80-110) mg/dL Lactate 2.2 H (0.7-2.1) mmol/L Calcium (8.4-10.2) mg/dL Magnesium 1.8 (1.6-2.3) mg/dL Total Bilirubin (0.2-1.3) mg/dL AST (17-59) IU/L ALT (<50) IU/L Alkaline Phosphatase (38-126) U/L Total Creatine Kinase 91 (55-170) U/L CK-MB (CK-2) TNP CK-MB (CK-2) Rel Index TNP Troponin I < 0.012 (0.01-0.034) ng/mL NT-Pro-B Natriuret Pep 673 H (<125) pg/mL Total Protein (6.3-8.2) g/dL Albumin (3.5-5.0) g/dL Globulin (1.7-4.1) g/dL Albumin/Globulin Ratio (1.0-2.8) Procalcitonin 0.15 (<0.5) ng/mL 12/05/20 12/05/20 12/05/20 Range/Units 02:15 02:15 04:40 WBC 9.0 (4.5-11.0) X10^3/uL RBC 2.98 L (4.5-5.9) X10^6/uL Hgb 9.2 L (13.5-17.5) g/dL Hct 27.6 L (41-53) % MCV 92.8 (80-100) fL MCH 31.0 (26-34) PG MCHC 33.4 (30-36) % RDW 13.9 (11.6-14.8) % Plt Count 201 (150-400) X10^3/uL Neut % (Auto) Not Reportable Lymph % (Auto) Not Reportable [place] % (Auto) Not Reportable Eos % (Auto) Not Reportable Baso % (Auto) Not Reportable Lymph # (Auto) Not Reportable [place] # (Auto) Not Reportable Baso # (Auto) Not Reportable Total Counted 100 Seg Neutrophils % 67.0 (38-70) % Band Neutrophils % 6.0 (3-7) % Lymphocytes % (Manual) 13.0 L (25-45) % Monocytes % (Manual) 9.0 (2-11) % Metamyelocytes % 2.0 H (-0) % Myelocytes % 3.0 H (-0) % Neutrophils # (Manual) 6570 H (8461-8782) /uL Nucleated RBCs 6 H ( - 0) #/Diff RBC Morphology Normal morphology D-Dimer (<230) ng/mL Sodium 134 L (137-145) mmol/L Potassium 4.5 (3.4-5.1) mmol/L Chloride 104 (98-107) mmol/L Carbon Dioxide 25 (22-32) mmol/L BUN 14 (9-20) mg/dL Creatinine 0.78 (0.66-1.25) mg/dL Estimated GFR > 60.0 (>60) mL/min BUN/Creatinine Ratio 17.9 (6-22) Glucose 172 H D (80-110) mg/dL Lactate 2.2 H (0.7-2.1) mmol/L Calcium 8.5 (8.4-10.2) mg/dL Magnesium (1.6-2.3) mg/dL Total Bilirubin 1.0 (0.2-1.3) mg/dL AST 78 H (17-59) IU/L ALT 71 H (<50) IU/L Alkaline Phosphatase 313 H (38-126) U/L Total Creatine Kinase (55-170) U/L CK-MB (CK-2) CK-MB (CK-2) Rel Index Troponin I (0.01-0.034) ng/mL NT-Pro-B Natriuret Pep (<125) pg/mL Total Protein 5.3 L (6.3-8.2) g/dL Albumin 2.6 L (3.5-5.0) g/dL Globulin 2.7 (1.7-4.1) g/dL Albumin/Globulin Ratio 1.0 (1.0-2.8) Procalcitonin (<0.5) ng/mL Imaging Data Chest x-ray: Radiologist's Impression: right pleural effusion. CTA chest: Radiologist's Impression: Suspect right middle lobe mass. Evaluations complicated by adjacent effusion and atelectasis. Large right pleural effusion. No PE identified. Liver metastatic lesions. ECG Data Attestation: I personally reviewed and interpreted this ECG as follows: (EKG: Sinus tachycardia rate 104 beats per minute. Left axis deviation. Normal int ervals. No ectopy. No acute ST T wave changes.) Critical Care Time Critical Care Time Critical Care Time: Yes Total Critical Care Time: 60 Attestation: Critical care time included the initial evaluation of patient, review of extensive records. Time included review of Radiology, EKG, and lab data. Multiple clinical decisions have been made. Case was discussed with the admitting hospitalist in detail. Discharge Plan Departure Patient Disposition: Admitted As Inpatient Clinical Impression: Malignant neoplasm metastatic to pancreas, Diabetes, Sepsis, Pleural effusion o n right, Mass of middle lobe of right lung, Pneumonia Admit Date/Time: 12/05/20 05:39 Admit Provider: Vero Smith
[2020-12-05 01:37] VITALS: BP 102/60; PULSE 111; RESP 26; TEMP 36.8; O2SAT 98; BMI 25.1
--- NOTE | 2020-12-05 01:39 | DI.RAD.S_ITS ---
PROCEDURE: XR CHEST 1V INDICATIONS: dyspnea TECHNIQUE: One view of the chest was acquired. COMPARISON: [facility], CR, XR CHEST 1V, 11/30/2020, 3:48. [facility], CT, CT ANGIO CHEST PE PROTOCOL, 12/05/2020, 3:48. [facility], CR, XR CH. EST 1V, 11/30/2020, 13:54[facility], CR, XR CHEST 1V, 12/01/2020, 18:46. FINDINGS: Surgical changes and devices: There is a stable left-sided chest port. Lungs and pleura: A moderate to large right-sided pleural effusion is seen, which has increased in size compared to the prior examination. No pneumothorax is seen. The left lung appears clear. Mediastinum: Cardiac and mediastinal silhouettes are partially obscured, yet are regarded to be stable. Bones and chest wall: Age-appropriate bony degenerative changes are seen. No suspicious bony lesions. Overlying soft tissues appear unremarkable. IMPRESSION: Moderate to large right-sided pleural effusion, which has increased in size compared to the prior plain film. Note: No significant discrepancy from the preliminary report. Dictated by: Yariel Rascon M.D. on 12/05/2020 at 8:27 Approved by: Yariel Rascon M.D. on 12/05/2020 at 8:29
[2020-12-05] MEDS: ALBUTEROL/IPRATROPIUM 3 ML AMPUL INH (01:56)
[2020-12-05 02:02] VITALS: PULSE 106; RESP 20; O2SAT 97
[2020-12-05] MEDS: LIDOCAINE 1% (PF) 2 ML SUBCUT (02:16)
[2020-12-05] MEDS: methylPREDNISolone 125 MG/2 ML VIAL IV (02:16)
[2020-12-05 02:39] LABS: Lactate (Lactic Acid) 2.2 mmol/L (0.7-2.1)
[2020-12-05 02:40] LABS: Alanine Aminotransferase 71 IU/L (<50); Albumin 2.6 g/dL (3.5-5.0); Alkaline Phosphatase 313 U/L (38-126); Aspartate Aminotransferase 78 IU/L (17-59); BUN Creatinine Ratio 17.9 (6-22); Blood Urea Nitrogen 14 mg/dL (9-20); Calcium 8.5 mg/dL (8.4-10.2); Carbon Dioxide 25 mmol/L (22-32); Chloride 104 mmol/L (98-107); Estimated Glomerular Filt Rate > 60.0 mL/min (>60); Globulin 2.7 g/dL (1.7-4.1); Glucose 172 mg/dL (80-110); HEMOLYSIS < 15 (0-50); Potassium 4.5 mmol/L (3.4-5.1); Sodium 134 mmol/L (137-145); Total Protein 5.3 g/dL (6.3-8.2)
[2020-12-05 02:41] LABS: Creatine Kinase 91 U/L (55-170); Hematocrit 27.6 % (41-53); Hemoglobin 9.2 g/dL (13.5-17.5); Magnesium 1.8 mg/dL (1.6-2.3); Mean Corpuscular HGB Conc 33.4 % (30-36); Mean Corpuscular Volume 92.8 fL (80-100); Platelet Count 201 X10^3/uL (150-400); Red Blood Cell Count 2.98 X10^6/uL (4.5-5.9); Red Cell Distribution Width 13.9 % (11.6-14.8)
[2020-12-05 02:42] LABS: Add Manual Diff / Slide Review YES
[2020-12-05 02:45] LABS: D Dimer 4319 ng/mL (<230)
[2020-12-05 02:52] LABS: NT-proBNP (BNP-Adult 18+) 673 pg/mL (<125); Troponin I < 0.012 ng/mL (0.01-0.034)
[2020-12-05 02:57] LABS: Procalcitonin 0.15 ng/mL (<0.5)
--- NOTE | 2020-12-05 03:35 | DI.CT.S_ITS ---
PROCEDURE: CT ANGIO CHEST PE PROTOCOL INDICATIONS: Dyspnea. Elevated D-dimer. TECHNIQUE: After the administration of intravenous contrast, 2 mm thick sections acquired from the pulmonary apices to the posterior costophrenic angles. 3-dimensional maximum intensity projection (MIP) coronal and sagittal reformats were then acquired through the thorax. For radiation dose reduction, the following was used: automated exposure control, adjustment of mA and/or kV according to patient size. COMPARISON: [facility], CT, CT CHEST ABD PEL W CON, 11/30/2020, 4:44. [facility], CR, XR CHEST 1V, 11/30/2020, 13:54. [facility], CR, XR CHEST 1V, 12/01/2020, 18:46. [facility], CR, XR CHEST 1V, 12/05/2020, 1:44. Outside Film, CT, CT CHEST WITHOUT CONTRAST, 10/05/2020, 10:14. FINDINGS: Image quality: Excellent. Pulmonary arteries: Pulmonary arteries are normal in size, and demonstrate no intraluminal filling defects to suggest central pulmonary embolism. Lungs and pleura: There is a moderate to large right-sided pleural effusion. Overlying consolidative change is seen, which is attributed to atelectasis. There is a suspected right middle lobe mass that measures approximately 5 x 3.5 cm. No left-sided pleural effusion is seen. There is no pneumothorax. The central airways are patent. Mediastinum: Heart size is normal, without pericardial effusion. Ltta-[id number] coronary artery calcification is seen. No mediastinal or hilar adenopathy. Thoracic aorta is normal in caliber and enhancement. Esophagus is normal in caliber, without hiatal hernia. Bones and chest wall: No suspicious bony lesions. There is a left-sided chest port seen, with the tip within the inferior aspect of the superior vena cava. Ribs and thoracic spine appear intact throughout. Thyroid gland demonstrates no significant abnormality. No axillary or supraclavicular adenopathy. Abdomen: Poorly defined low-density lesions can be seen within the liver, although most prominently within the right posterior superior liver dome (segment 8). A mass is again seen within the anterior body of the pancreas, measuring at least 2.5 cm. Enlarged briseida hepatis lymph nodes are also again seen. There is a small amount of ascites seen within the upper abdomen. IMPRESSION: Negative for pulmonary embolism. There is a moderate to large right-sided pleural effusion, with overlying atelectasis. A suspected right middle lobe mass is again seen, yet not well defined. Pancreatic body mass, which is suspicious for primary neoplasm. Liver lesions are again seen, which are suspicious for metastatic disease. Enlarged briseida hepatis lymph nodes are again seen, which are also suspicious for metastatic disease. Small amount of ascites seen. Incidental note is made of: Left-sided chest port Anwa-[id number] coronary artery calcification Note: No significant discrepancy from the preliminary report. Dictated by: Yariel Rascon M.D. on 12/05/2020 at 8:31 Approved by: Yariel Rascon M.D. on 12/05/2020 at 8:39
[2020-12-05] MEDS: levoFLOXacin 750 MG/150 ML PIGGYBACK 100 MG IV (03:43)
[2020-12-05 03:57] LABS: Neutrophils Absolute Manual 6570 /uL (3000-5900); Total Cells Counted 100
[2020-12-05 03:58] LABS: Nucleated Red Blood Cells 6 #/Diff; RBC Morphology Normal Morphology
[2020-12-05 04:29] LABS: Reflexed Lactate in 2 Hours Y
[2020-12-05 05:01] LABS: Lactate 2HR (Lactic Acid Rflx) 2.2 mmol/L (0.7-2.1)
[2020-12-05 05:41] LABS: COVID19 - ADMIT (NP swab/PCR) Negative (Negative)
[2020-12-05] MEDS: VANCOMYCIN 1,250 MG/250 ML PIGGYBACK 250 MG IV (05:44)
[2020-12-05 06:00] VITALS: BP 134/77; PULSE 94; RESP 16; O2SAT 99
--- NOTE | 2020-12-05 07:26 | PM.HP.1 ---
History of Present Illness History of Present Illness Date Patient Seen: 12/05/20 Time Patient Seen: 07:26 Chief complaint: hard to breath, chills Narrative: Neelam Vail is a 70-year-old man with a past medical history of newly diagnosed pancreatic cancer with metastases to the liver and kidney, insulin dependent diabetes, CAD, hyperlipidemia, PTSD who presents with fever and shortness of breath, and hiccups. Patient was recently diagnosed with cancer after he began developing abdominal pain in August. He eventually had CT scan in September that showed cancer. He was started on treatment with Dr. Oneal with chemotherapy 3 days ago but he is not sure of the name of. It is difficult for him to talk as he gets very winded and anxious. He stated that the symptoms started this morning after he had completed his 2nd chemotherapy session. He found himself very winded and asked his son to hit him in the middle of the back to help dislodge what sounded to be mucus. He states that it helped. He states when he gets short of breath he starts hiccuping uncontrollably. He was discharged on December 03, then represented to the Emergency Department the evening of the with unresolving hiccups and shortness of breath. Patient was previously admitted and discharged November 06 through the for a new diagnosis of COVID-19 pneumonia and a similar presentation of shortness of breath. He is now being admitted to this facility. There was initial concern on x-ray that he might have a cavitation in his right middle lobe and that he be transferred to a facility that had a cobol application developer that could possibly drain the pleural effusion. With confirmatory CT, they did not feel he had a cavitation and just described the finding as being a large pleural effusion. It was decided that the patient could be managed here and would benefit due to his oncologist likely being able to see him as well. In the ED the patient it is CT of the chest indicated a ?large right pleural effusion with underlying right middle and lower lobe consolidation, likely related to compressive atelectasis with no evidence of a cavitary lesion. Also noted a probable lower right mediastinal mass but could be an ?on aerated portion of the lung?. Does suggest presence of a true mass in this area. Also noted a small left upper lobe pulmonary nodule. Patient initially presented with the temperature of 100.4? and currently it is 99.1, blood pressure 125/58, heart rate 85, respiratory rate of 18, oxygen saturation of 90% on 2 L, he weighs 81.6 kg with a BMI of 23.7. His WBC is significantly low at 1.5 with his last normal WBC on discharge on November 08. He is mildly anemic with a hemoglobin of 10.5 and hematocrit of 30.6, platelet count 114, he has 1% bands, and he is neutropenic. His sodium was 126, potassium 3.9, chloride 88, bicarb 31, BUN 10, creatinine 0.85, with a GFR greater than 60, glucose is 367, normal lactate, liver enzymes are elevated with an ALT of 70 alk-phos, alk-phos 443, AST is normal. COVID-19 PCR is negative. Patient was started on Levaquin 750 mg IV. Repeat imaging showed a reaccumulation of the right middle lobe effusion as well as a suspected right middle lobe mass. Patient History Medical History Coronary artery disease Diabetes Hyperlipidemia Malignant neoplasm metastatic to pancreas Post-traumatic stress disorder, chronic Surgical History History of cholecystectomy (01/31/17) Family & Social History Family History Mother Diabetes mellitus Father Dementia Social History: household members children,none Safety & Behavioral: Feels Safe in Current Yes Environment Been Physically Hurt or No Threatened By a Person Tobacco & Substance use: Smoking Status Never smoker alcohol intake never alcohol intake frequency holiday/special occasion Substance Use Type does not use Meds Home Medications and Allergies Home Medications Medication Instructions Recorded Confirmed Type Lantus Solostar U-100 Insulin 30 unit SUBCUT BID 10/05/20 11/30/20 History brimonidine 1 drp OPHTHALMIC (EYE) DAILY 10/05/20 11/30/20 History divalproex 500 mg PO DAILY 10/05/20 11/30/20 History doxazosin 4 mg PO DAILY 10/05/20 11/30/20 History famotidine 40 mg PO BEDTIME 10/05/20 11/30/20 History finasteride 5 mg PO DAILY 10/05/20 11/30/20 History insulin aspart U-100 [Novolog See Rx Instructions .ROUTE .COMPLEX 10/05/20 11/30/20 History Flexpen U-100 Insulin] olopatadine 1 drp OPHTHALMIC (EYE) DAILY 10/05/20 11/30/20 History pregabalin [Lyrica] 150 mg PO BID 10/05/20 11/30/20 History travoprost [Travatan Z] 1 drp EYE-BOTH DAILY 10/05/20 11/30/20 History ondansetron 4 mg PO TID-QID PRN #10 tab 10/06/20 11/30/20 Rx pantoprazole [Protonix] 40 mg PO DAILY #30 tab 10/06/20 11/30/20 Rx metoclopramide HCl [Reglan] 10 mg PO Q6H PRN #10 tab 11/05/20 11/30/20 Rx atorvastatin 40 mg PO DAILY 11/07/20 11/30/20 History baclofen 5 mg PO TID PRN #10 tab 11/08/20 11/30/20 Rx levofloxacin 750 mg PO DAILY #5 tab 12/01/20 Rx prednisone 20 mg PO DAILY #30 tab 12/03/20 Rx Allergies Allergy/AdvReac Type Severity Reaction Status Date / Time aspirin Allergy Unknown Verified 12/05/20 01:36 brompheniramine Allergy Unknown Verified 12/05/20 01:36 codeine Allergy Unknown Verified 12/05/20 01:36 diphenhydramine Allergy Unknown Verified 12/05/20 01:36 guaifenesin Allergy Unknown Verified 12/05/20 01:36 hydrocodone Allergy Unknown Verified 12/05/20 01:36 hydroxyzine Allergy Unknown Verified 12/05/20 01:36 ibuprofen Allergy Unknown Verified 12/05/20 01:36 meperidine Allergy Unknown Verified 12/05/20 01:36 morphine Allergy Unknown Verified 12/05/20 01:36 nystatin Allergy Unknown Verified 12/05/20 01:36 promethazine Allergy Unknown Verified 12/05/20 01:36 propoxyphene Allergy Unknown Verified 12/05/20 01:36 tuberculin, purified protein Allergy Unknown Verified 12/05/20 01:36 deriva egg Allergy Verified 12/05/20 01:36 amoxicillin [From Augmentin] AdvReac Unknown Vomiting Verified 12/05/20 01:36 metformin AdvReac Unknown Diarrhea Verified 12/05/20 01:36 clavulanic acid AdvReac Vomiting Verified 12/05/20 01:36 [From Augmentin] Review of Systems Review of Systems ROS: Yes All systems reviewed with the patient and are negative except as otherwise documented Exam Vital Signs (past 8 hours): - 12/05/20 01:37 12/05/20 02:02 12/05/20 06:00 Temperature 98.3 F Pulse Rate 111 H 106 H 94 H Respiratory Rate 26 H 20 16 Blood Pressure 102/60 134/77 Pulse Oximetry 98 97 99 Oxygen Delivery Method Room Air Narrative Exam Narrative: Gen: Alert, oriented, well-developed 70 y.o. [place] male, appears fatigued HEENT: normocephalic, atraumatic, conjunctiva clear, sclera non-icteric, oral mucosa pink and moist Neck: supple, full ROM, no JVD, trachea is midline Resp: Diminished lung sounds right side, non-labored breathing CV: RRR, no murmur or rubs Abd: soft, non-tender, normoactive BTs Skin: no lesions or rashes, dry and intact Neuro: Alert and oriented X 4 w/no focal deficits. Speech clear and coherent. Extremities: moves all 4 extremities, is ambulatory, negative Jaime?s sign Psyche: normal mood and affect Objective Labs Result Diagrams: 12/05/20 02:15 12/05/20 02:15 Labs: Laboratory Results - last 24 hr 12/05/20 12/05/20 12/05/20 02:15 02:15 02:15 WBC RBC Hgb Hct MCV MCH MCHC RDW Plt Count Neut % (Auto) Lymph % (Auto) [place] % (Auto) Eos % (Auto) Baso % (Auto) Lymph # (Auto) [place] # (Auto) Baso # (Auto) Total Counted Seg Neutrophils % Band Neutrophils % Lymphocytes % (Manual) Monocytes % (Manual) Metamyelocytes % Myelocytes % Neutrophils # (Manual) Nucleated RBCs RBC Morphology D-Dimer 4319 H Sodium Potassium Chloride Carbon Dioxide BUN Creatinine Estimated GFR BUN/Creatinine Ratio Glucose Lactate 2.2 H Calcium Magnesium 1.8 Total Bilirubin AST ALT Alkaline Phosphatase Total Creatine Kinase 91 CK-MB (CK-2) TNP CK-MB (CK-2) Rel Index TNP Troponin I < 0.012 NT-Pro-B Natriuret Pep 673 H Total Protein Albumin Globulin Albumin/Globulin Ratio Procalcitonin 0.15 SARS-CoV-2 (PCR) 12/05/20 12/05/20 12/05/20 02:15 02:15 04:30 WBC 9.0 RBC 2.98 L Hgb 9.2 L Hct 27.6 L MCV 92.8 MCH 31.0 MCHC 33.4 RDW 13.9 Plt Count 201 Neut % (Auto) Not Reportable Lymph % (Auto) Not Reportable [place] % (Auto) Not Reportable Eos % (Auto) Not Reportable Baso % (Auto) Not Reportable Lymph # (Auto) Not Reportable [place] # (Auto) Not Reportable Baso # (Auto) Not Reportable Total Counted 100 Seg Neutrophils % 67.0 Band Neutrophils % 6.0 Lymphocytes % (Manual) 13.0 L Monocytes % (Manual) 9.0 Metamyelocytes % 2.0 H Myelocytes % 3.0 H Neutrophils # (Manual) 6570 H Nucleated RBCs 6 H RBC Morphology Normal morphology D-Dimer Sodium 134 L Potassium 4.5 Chloride 104 Carbon Dioxide 25 BUN 14 Creatinine 0.78 Estimated GFR > 60.0 BUN/Creatinine Ratio 17.9 Glucose 172 H D Lactate Calcium 8.5 Magnesium Total Bilirubin 1.0 AST 78 H ALT 71 H Alkaline Phosphatase 313 H Total Creatine Kinase CK-MB (CK-2) CK-MB (CK-2) Rel Index Troponin I NT-Pro-B Natriuret Pep Total Protein 5.3 L Albumin 2.6 L Globulin 2.7 Albumin/Globulin Ratio 1.0 Procalcitonin SARS-CoV-2 (PCR) Negative 12/05/20 04:40 WBC RBC Hgb Hct MCV MCH MCHC RDW Plt Count Neut % (Auto) Lymph % (Auto) [place] % (Auto) Eos % (Auto) Baso % (Auto) Lymph # (Auto) [place] # (Auto) Baso # (Auto) Total Counted Seg Neutrophils % Band Neutrophils % Lymphocytes % (Manual) Monocytes % (Manual) Metamyelocytes % Myelocytes % Neutrophils # (Manual) Nucleated RBCs RBC Morphology D-Dimer Sodium Potassium Chloride Carbon Dioxide BUN Creatinine Estimated GFR BUN/Creatinine Ratio Glucose Lactate 2.2 H Calcium Magnesium Total Bilirubin AST ALT Alkaline Phosphatase Total Creatine Kinase CK-MB (CK-2) CK-MB (CK-2) Rel Index Troponin I NT-Pro-B Natriuret Pep Total Protein Albumin Globulin Albumin/Globulin Ratio Procalcitonin SARS-CoV-2 (PCR) Assessment & Plan Assessment & Plan narrative: Neelam Vail will be admitted to the ICU service for a re-accumulation of a right middle lobe pleural effusion and suspected mass. I have placed into the ICU due to his high risk of developing hypoxia and orthostatic hypotension. Large right middle lobe pleural effusion, re-accumulated and present on admission - Question whether pneumonia or mass - Plan for transfer to [facility] to have a pleurex drain place Recent diagnosis of pancreatic cancer - Patient completed second cycle of chemotherapy, medication is not known - Dr. Oneal is his oncologist and patient usually sees him at their [facility] offices Insulin dependent diabetes , chronic and poorly controlled - Lantus 30 units bid has been decreased to 15 units this morning due a blood sugar of 172 and is written for low dose correctional scale Essential hypertension - Takes carvedilol, and lisinopril Neutropenic fever, resolved VTE prophylaxis: Wells risk score: 5.5 Bilateral SCDs, pharmacological VTE prophylaxis held due to pending procedure Consults: Dr. Oneal, Oncology, consult and involvement is appreciated. Patient is admitted under inpatient status with expected length of stay greater than 2 midnights due to severity of presenting symptoms, risk of adverse event, and complexity of treatment plan. FEN: NS at 100, npo, BMP and magnesium in the am. Dispo: Unknown at this time Code Status: Full code as discussed with patient COVID-19 status: Negative Result date/Date tested (Pos, Neg/Pending): 12/05/20 Scores Wells' Criteria for PE Clinical signs and symptoms of DVT: Yes PE is #1 Dx or equally likely: No Heart rate > 100: Yes Immobilization at least 3 days or surg in previous 4 weeks: No History of PE or DVT: No Hemoptysis: No Malignancy w/Treatment within 6 months or palliative: Yes Wells' PE Score total: 5.5 COVID-19 COVID-19 status: Negative Result date/Date tested (Pos, Neg/Pending): 12/05/20 Quality MIPS - Admit I confirm the patient?s Advance Care Plan is present, Code status is documented, Surrogate decision maker is in patient?s record [If Yes, STOP here]: Yes
[2020-12-05 08:09] VITALS: BP 127/77; PULSE 93; RESP 26; TEMP 36.8; O2SAT 97
[2020-12-05] MEDS: INSULIN LISPRO 100 UNIT/ML 3ML VIAL SUBCUT ×2 (08:20→11:44)
[2020-12-05] MEDS: INSULIN GLARGINE 100 UNIT/ML 3ML PEN 15 UNIT SUBCUT (08:22)
[2020-12-05] MEDS: OLOPATADINE 0.1% OPHTH DROPS 5 ML 1 DROPS EYE-BOTH (08:23)
[2020-12-05] MEDS: BRIMONIDINE 0.2% OPHTH 5 ML 1 DROPS EYE-BOTH (08:27)
[2020-12-05] MEDS: ACETAMINOPHEN 325 MG TABLET 650 MG PO (08:27)
[2020-12-05] MEDS: PREGABALIN 75 MG CAPSULE 150 MG PO (08:28)
[2020-12-05] MEDS: ATORVASTATIN 20 MG TABLET 40 MG PO (08:29)
[2020-12-05 08:34] VITALS: BP 127/77
[2020-12-05] MEDS: DIVALPROEX ER 250 MG TAB 500 MG PO (08:34)
[2020-12-05] MEDS: BACLOFEN 10 MG TABLET 5 MG PO (08:34)
[2020-12-05] MEDS: DOXAZOSIN 4 MG TABLET PO (08:34)
[2020-12-05] MEDS: FINASTERIDE 5 MG TABLET PO (08:36)
[2020-12-05 09:22] VITALS: BMI 25.1
--- NOTE | 2020-12-05 11:08 | DI.RAD.S_ITS ---
PROCEDURE: XR CHEST 1V INDICATIONS: s/p thoracentesis eval for pneumothorax TECHNIQUE: One view of the chest was acquired. COMPARISON: [facility], CT, CT ANGIO CHEST PE PROTOCOL, 12/05/2020, 3:48. [facility], CR, XR CHEST 1V, 12/01/2020, 18:46. [facility], CR, XR CHEST 1V, 11/30/2020, 13:54. [facility], CR, XR CHEST 1V, 12/05/2020, 1:44. FINDINGS: Surgical changes and devices: There is a stable left-sided chest port. Lungs and pleura: A small right-sided pleural effusion is seen, which has decreased in size compared to the prior examination. No post thoracentesis pneumothorax is seen. Mediastinum: Mediastinal contours appear normal. Heart size is normal. Bones and chest wall: No suspicious bony lesions. Overlying soft tissues appear unremarkable. IMPRESSION: No post thoracentesis pneumothorax. Decreased size of the right-sided pleural effusion. Dictated by: Yariel Rascon M.D. on 12/05/2020 at 10:33 Approved by: Yariel Rascon M.D. on 12/05/2020 at 10:34
--- NOTE | 2020-12-05 11:08 | PM.PROC.1 ---
Procedures Date/Time Date of procedure: 12/05/20 Time of procedure: 11:08 General Procedure description: PROCEDURE: Right Therapeutic Thoracentesis. INDICATION: Recurrent R pleural effusion with symptoms PERFORMING PHYSICIAN: Richard Yan DO CONSENT: Consent was obtained from the patient prior to the procedure. Indications, risks, and benefits were explained at length. PROCEDURE SUMMARY: A time out was performed and the chest x-ray was reviewed, the appropriate side was confirmed. The patient was prepped and draped in a sterile manner using chlorhexidine scrub after the appropriate level was percussed and confirmed by ultrasound. 1% lidocaine was used to anesthesize the skin, subcutaneous tissue, superior aspect of the rib periosteum and parietal pleura. Site was very close to previous location. 16 g catheter was then placed along the superior aspect of the rib. Suction was required for fluid removal ultimately. Red tinged fluid was removed, approximately 1700 mL. The catheter was then removed. No immediate complications were noted during the procedure. A post-procedure chest x-ray is pending at the time of this note. The fluid will be sent for additional pathology. Estimated blood loss is 0 mL. Complications: none
[2020-12-05 11:41] VITALS: BP 114/58; PULSE 100; RESP 20; TEMP 36.2; O2SAT 97
--- NOTE | 2020-12-05 13:54 | CM.DANOTE ---
Addendum entered by MONICA Rodriguez 12/05/20 15:29: ADD: Patient was able to d/c home via family this afternoon and SW faxed [facility] the d/c summary to review and since pt is OBS Status no Resume orders needed. BF Original Note: Patient is a 70 year old male who was READMIT on 12/05/20 today for SOB/Chills. Pt has [facility] and [employer] for insurance and his PCP is Vianca Cox and Oncologist is Aiden Oneal. EMR was reviewed. Per MD, pt with newly dx pancreatic CA with mets to liver and kidney and likely lung mass now too. Pt admitted for right lobe plural effusion and suspected mass. Per MD, pt to have excess fluid drained today and then can likely d/c home with Resume [facility] and family assist and outpt followup with [employer]. No PT/OT orders needed at this time. Per RN, pt successfully had significant amount of fluid drained off and pt feeling much better and agreeable with d/c home with family. Pt was admitted back in November 06- for COVID pneumonia and discharged home with family support and then readmit December 03 for SOB and pt and family members declined Hospice or SNF and adamant that they want to care for pt at home. Pt's spouse recently after dilan COVID and pt's many adult children (10 adult children, most of them local) have been very supportive and involved. Pt started on chemo [address] [facility] with Dr. Oneal. Family members confirmed during pt's last admission that they had applied for NILDA and pt qualified but the cost was too high for NILDA to be initiated and they declined NILDA services. [facility] and were going to contact [facility] services to determine if any other supports could be put in place like CG in the home for additional assist. SW called [facility] and confirmed they just opened pt to service yesterday MonDecember 04 and SW updated them that pt OBS Status and likely will d/c home this evening and therefore [facility] does not need any Resume Orders at d/c and they will follow up with pt and family tomorrow. Plan: SW to follow closely for likely pt d/c home via family POV tonight and Resume [facility] RN/PT/OT/BLAISE/MONICA and ongoing Oncology for Chemo and outpt Pulmonology. MONICA Rodriguez Discharge Planning/Care Management CM Discharge Assessment Start: 12/05/20 13:50 Freq: Status: Active Protocol: Document 12/05/20 13:50 BF (Rec: 12/05/20 13:54 BF [id number]) Discharge Planning Assessment Assigned Pick Up Driver MONICA Spann DPOA/Assigned Designee Name Dtragini Michael Contact Information [phone] Advance Directives? Yes Advance Directives on File No History Provided By Patient,Family Member,Medical Record Has Patient been admitted in last 30 Yes days? Prior Living Arrangements House Household Members family,children Type of transporation used prior to Relies on Others admit Independent with ADL's No Is patient alert and oriented? Yes Needs Assistance With Meal Prep,Toileting,Managing Medications,Home Chores / Shopping Caregiver for Another No Community Services used prior to Physical Therapy,Home Health admission: Aid,Home Health Nurse,Social Work Comment Just opened to [facility] RN/PT/OT /GRADUATE ASSISTANT ATHLETIC TRAINER/MONICA Comment Has a ramp and grab bars in home Patient/Family Preference Home with Home Health Barriers to Discharge No Discharge Plan Home with Home Health Community Services Physical Therapy,Occupational Therapy,Home Health Aid,Home Health Nurse,Social Work Transportation Arrangement Son will provide transportation Referrals Initiated Home Health Additional Comment Resume [facility] Review Status In Process Please Provide Date Initial DC 12/05/20 Assessment Was Performed Next Review Type Continued Stay Review
--- NOTE | 2020-12-05 14:08 | PM.DS.1 ---
History of Present Illness History of Present Illness Date Patient Seen: 12/05/20 Time Patient Seen: 14:08 Chief complaint: hard to breath, chills Narrative: YOLETTE Fuller: Neelam Vail is a 70-year-old man with a past medical history of newly diagnosed pancreatic cancer with metastases to the liver and kidney, insulin dependent diabetes, CAD, hyperlipidemia, PTSD who presents with fever and shortness of breath, and hiccups. Patient was recently diagnosed with cancer after he began developing abdominal pain in August. He eventually had CT scan in September that showed cancer. He was started on treatment with Dr. Oneal with chemotherapy 3 days ago but he is not sure of the name of. It is difficult for him to talk as he gets very winded and anxious. He stated that the symptoms started this morning after he had completed his 2nd chemotherapy session. He found himself very winded and asked his son to hit him in the middle of the back to help dislodge what sounded to be mucus. He states that it helped. He states when he gets short of breath he starts hiccuping uncontrollably. He was discharged on December 03, then represented to the Emergency Department the evening of the with unresolving hiccups and shortness of breath. Patient was previously admitted and discharged November 06 through the for a new diagnosis of COVID-19 pneumonia and a similar presentation of shortness of breath. He is now being admitted to this facility. There was initial concern on x-ray that he might have a cavitation in his right middle lobe and that he be transferred to a facility that had a resident care coordinator that could possibly drain the pleural effusion. With confirmatory CT, they did not feel he had a cavitation and just described the finding as being a large pleural effusion. It was decided that the patient could be managed here and would benefit due to his oncologist likely being able to see him as well. In the ED the patient it is CT of the chest indicated a ?large right pleural effusion with underlying right middle and lower lobe consolidation, likely related to compressive atelectasis with no evidence of a cavitary lesion. Also noted a probable lower right mediastinal mass but could be an ?on aerated portion of the lung?. Does suggest presence of a true mass in this area. Also noted a small left upper lobe pulmonary nodule. Patient initially presented with the temperature of 100.4? and currently it is 99.1, blood pressure 125/58, heart rate 85, respiratory rate of 18, oxygen saturation of 90% on 2 L, he weighs 81.6 kg with a BMI of 23.7. His WBC is significantly low at 1.5 with his last normal WBC on discharge on November 08. He is mildly anemic with a hemoglobin of 10.5 and hematocrit of 30.6, platelet count 114, he has 1% bands, and he is neutropenic. His sodium was 126, potassium 3.9, chloride 88, bicarb 31, BUN 10, creatinine 0.85, with a GFR greater than 60, glucose is 367, normal lactate, liver enzymes are elevated with an ALT of 70 alk-phos, alk-phos 443, AST is normal. COVID-19 PCR is negative. Patient was started on Levaquin 750 mg IV. Repeat imaging showed a reaccumulation of the right middle lobe effusion as well as a suspected right middle lobe mass. Discharge Providers Provider Date of admission: 12/05/20 05:39 Discharge Date: 12/05/20 Primary care physician: Vianca Cox MD Consults: 12/05/20 01:38 Consult to Respiratory Therapy Evaluate & Treat Comment: Physician Instructions: Evaluate and treat 12/05/20 05:51 Consult to Physician Routine Comment: Consulting Provider: Aiden Oneal Reason for consultation: Recurrent RML effusion, mass Has provider been notified: No Discharge provider: Richard Yan DO Summary Hospital Course Discharge Diagnosis: 1. Right Pleural Effusion, s/p Thoracentesis 2. Pancreatic Adenocarcinoma, likely metastatic 3. Probable adrenal insufficiency 4. Severe Acute Protein Calorie Malnutrition 5.Type 2 Diabetes Mellitus 6. Hyperlipidemia 7.Coronary Artery Disease Hospital Course: This is a 70-year-old male with a past medical history of metastatic pancreatic adenocarcinoma, who was recently admitted for a new right-sided pleural effusion and presented to the emergency room shortly after discharge with again symptomatic right pleural effusion. Patient was not hypoxic during the course of his hospital stay but he had subjective shortness of breath. Given quick recurrence and likely malignant source, I did discuss his management with Dr. aj, resident care coordinator at [facility]. She did not recommend inpatient placement of a PleurX catheter currently given that his 1st cytology results were negative. She recommended repeating the thoracentesis, sending a 2nd cytology, and plans on calling the patient for a outpatient follow-up visit with Pulmonary Clinic on Monday or Monday, 12/07 or 12/08 for possible repeat thoracentesis or placement of a PleurX catheter. Patient underwent therapeutic thoracentesis with this provider, removing approximately 1.7 L and marked improvement in his symptoms. fluid was again sent for cytology. Repeat chest x-ray after thoracentesis showed improvement in the pleural effusion and no pneumothorax. He was monitored for approximately 4 hours after thoracentesis, and then discharged home. Exam Vital Signs (past 8 hours): - 12/05/20 08:09 12/05/20 08:34 12/05/20 11:41 Temperature 98.2 F 97.2 F L Pulse Rate 93 H 100 H Respiratory Rate 26 H 20 Blood Pressure 127/77 127/77 114/58 L Pulse Oximetry 97 97 Oxygen Delivery Method Room Air Narrative Exam Narrative: Gen: Alert, oriented, well-developed 70 y.o. [place] male, appears fatigued HEENT: normocephalic, atraumatic, conjunctiva clear, sclera non-icteric, oral mucosa pink and moist Neck: supple, full ROM, no JVD, trachea is midline Resp: Diminished lung sounds right side though improved after thoracentesis, non-labored breathing CV: RRR, no murmur or rubs Abd: soft, non-tender, normoactive BTs Skin: no lesions or rashes, dry and intact Neuro: Alert and oriented X 4 w/no focal deficits. Speech clear and coherent. Extremities: moves all 4 extremities, is ambulatory, negative Jaime?s sign Psyche: normal mood and affect Objective Labs Result Diagrams: 12/05/20 02:15 12/05/20 02:15 Labs: Laboratory Results - last 24 hr 12/05/20 12/05/20 12/05/20 02:15 02:15 02:15 WBC RBC Hgb Hct MCV MCH MCHC RDW Plt Count Neut % (Auto) Lymph % (Auto) Roosevelt % (Auto) Eos % (Auto) Baso % (Auto) Lymph # (Auto) Roosevelt # (Auto) Baso # (Auto) Total Counted Seg Neutrophils % Band Neutrophils % Lymphocytes % (Manual) Monocytes % (Manual) Metamyelocytes % Myelocytes % Neutrophils # (Manual) Nucleated RBCs RBC Morphology D-Dimer 4319 H Sodium Potassium Chloride Carbon Dioxide BUN Creatinine Estimated GFR BUN/Creatinine Ratio Glucose Lactate 2.2 H Calcium Magnesium 1.8 Total Bilirubin AST ALT Alkaline Phosphatase Total Creatine Kinase 91 CK-MB (CK-2) TNP CK-MB (CK-2) Rel Index TNP Troponin I < 0.012 NT-Pro-B Natriuret Pep 673 H Total Protein Albumin Globulin Albumin/Globulin Ratio Procalcitonin 0.15 Nasal Screen MRSA (PCR) SARS-CoV-2 (PCR) 12/05/20 12/05/20 12/05/20 02:15 02:15 04:30 WBC 9.0 RBC 2.98 L Hgb 9.2 L Hct 27.6 L MCV 92.8 MCH 31.0 MCHC 33.4 RDW 13.9 Plt Count 201 Neut % (Auto) Not Reportable Lymph % (Auto) Not Reportable Roosevelt % (Auto) Not Reportable Eos % (Auto) Not Reportable Baso % (Auto) Not Reportable Lymph # (Auto) Not Reportable Roosevelt # (Auto) Not Reportable Baso # (Auto) Not Reportable Total Counted 100 Seg Neutrophils % 67.0 Band Neutrophils % 6.0 Lymphocytes % (Manual) 13.0 L Monocytes % (Manual) 9.0 Metamyelocytes % 2.0 H Myelocytes % 3.0 H Neutrophils # (Manual) 6570 H Nucleated RBCs 6 H RBC Morphology Normal morphology D-Dimer Sodium 134 L Potassium 4.5 Chloride 104 Carbon Dioxide 25 BUN 14 Creatinine 0.78 Estimated GFR > 60.0 BUN/Creatinine Ratio 17.9 Glucose 172 H D Lactate Calcium 8.5 Magnesium Total Bilirubin 1.0 AST 78 H ALT 71 H Alkaline Phosphatase 313 H Total Creatine Kinase CK-MB (CK-2) CK-MB (CK-2) Rel Index Troponin I NT-Pro-B Natriuret Pep Total Protein 5.3 L Albumin 2.6 L Globulin 2.7 Albumin/Globulin Ratio 1.0 Procalcitonin Nasal Screen MRSA (PCR) SARS-CoV-2 (PCR) Negative 12/05/20 12/05/20 04:40 06:54 WBC RBC Hgb Hct MCV MCH MCHC RDW Plt Count Neut % (Auto) Lymph % (Auto) Roosevelt % (Auto) Eos % (Auto) Baso % (Auto) Lymph # (Auto) Roosevelt # (Auto) Baso # (Auto) Total Counted Seg Neutrophils % Band Neutrophils % Lymphocytes % (Manual) Monocytes % (Manual) Metamyelocytes % Myelocytes % Neutrophils # (Manual) Nucleated RBCs RBC Morphology D-Dimer Sodium Potassium Chloride Carbon Dioxide BUN Creatinine Estimated GFR BUN/Creatinine Ratio Glucose Lactate 2.2 H Calcium Magnesium Total Bilirubin AST ALT Alkaline Phosphatase Total Creatine Kinase CK-MB (CK-2) CK-MB (CK-2) Rel Index Troponin I NT-Pro-B Natriuret Pep Total Protein Albumin Globulin Albumin/Globulin Ratio Procalcitonin Nasal Screen MRSA (PCR) Negative for mrsa SARS-CoV-2 (PCR) [facility] Medical History Coronary artery disease Diabetes Hyperlipidemia Malignant neoplasm metastatic to pancreas Post-traumatic stress disorder, chronic Surgical History History of cholecystectomy (01/31/17) Family History Mother Diabetes mellitus Father Dementia Social History household members: family and children Smoking Status: Never smoker alcohol intake: never substance use type: does not use Discharge Plan Discharge Plan Patient Disposition: Home Provider Discharge Comment: You were admitted to the hospital with a recurrent R pleural effusion (fluid on your lung) which was drained. 1.7 L of fluid was removed with improvement in symptoms. If symptoms return you may need another drainage, no not hesitate to return to the ER for this. Currently planned for follow up with [facility] pulmonary clinic early next week, instructions below. [facility]: [phone]. Please call Monday afternoon if you have not received a call with follow up. Say Dr. Aj was called on Monday and was going to try to get you seen in clinic on Monday or Monday for evaluation. Discharge orders & Medications Prescriptions: Continued pantoprazole [Protonix] 40 mg tablet,delayed release (DR/EC) 40 mg PO DAILY Qty: 30 RF: 0 ondansetron 4 mg tablet,disintegrating 4 mg PO TID-QID PRN (Reason: nausea and vomiting) Qty: 10 RF: 0 atorvastatin 40 mg tablet 40 mg PO DAILY RF: 0 baclofen 10 mg Tablet 5 mg PO TID PRN (Reason: Hiccups) Qty: 10 RF: 0 levofloxacin 750 mg tablet 750 mg PO DAILY Qty: 5 RF: 0 prednisone 20 mg tablet 20 mg PO DAILY Qty: 30 RF: 0 famotidine 40 mg Tablet 40 mg PO BEDTIME RF: 0 travoprost [Travatan Z] 0.004 % drops 1 drp EYE-BOTH DAILY RF: 0 olopatadine 0.1 % Drops 1 drp OPHTHALMIC (EYE) DAILY RF: 0 divalproex 500 mg Tablet Extended Release 24 Hr 500 mg PO DAILY RF: 0 brimonidine 0.2 % drops 1 drp ophthalmic (eye) DAILY RF: 0 doxazosin 4 mg tablet 4 mg PO DAILY RF: 0 finasteride 5 mg tablet 5 mg PO DAILY RF: 0 insulin aspart U-100 [Novolog Flexpen U-100 Insulin] 100 unit/mL (3 mL) insulin pen See Rx Instructions .ROUTE .COMPLEX RF: 0 pregabalin [Lyrica] 150 mg Capsule 150 mg PO BID RF: 0 Lantus Solostar U-100 Insulin 100 unit/mL (3 mL) insulin pen 30 unit SUBCUT BID RF: 0 metoclopramide HCl [Reglan] 10 mg tablet 10 mg PO Q6H PRN (Reason: nausea and vomiting) Qty: 10 RF: 0 Follow up/Referrals: Vianca Cox MD [Primary Care Provider] - Diet/Activity/Treatments Diet: Diet as Tolerated Activity: As tolerated Discharge Data Primary Care Provider: Vianca Cox Attending Provider: Vero Smith
--- NOTE | 2020-12-05 14:45 | PC.NURSE ---
PT ADMITTED JUST PRIOR TO DAYSHIFT- HE RECENTLY HAD BEEN DISCHARGED FROM HOSPITAL FOLLOWING TX FOR INCREASING DYSPNEA, AGIAN THIS ISTHE DIAGNOSIS IN THE SETTING OF METASTATIC CANCER. DR NICHOLE PERFORMED THORACENTESIS AT BEDSIDE REMOVING 1700 MLS FROM RIGHT LUNG WITH CYTOLOGY ORDERED.AND SPEC SENT. PT TOLERATED WELL AND IS LESS TACHYCARDIA, AND INCREASES EASE OF BREATHING- DISCHARGED TO HOME AT THIS TIME WITH FOLLOW UP PLANS TO BE SEEN IN [facility] AT FIRST OF WEEK
== END 2020-12-05 15:20 | disposition home or self-care (01) ==
LOC: ED 01:32 → ICU 06:01 → AC 12-06 10:23
PROVIDERS: Admitting Provider Nurse Practitioner Family; Emergency Provider Emergency Medicine; PCP Internal Medicine; Referring Provider Emergency Medicine; Visit Provider Nurse Practitioner Family
DX: J90 Pleural effusion, not elsewhere classified (principal); C25.9 Malignant neoplasm of pancreas, unspecified; K86.81 Exocrine pancreatic insufficiency; E11.9 Type 2 diabetes mellitus without complications; Z79.4 Long term (current) use of insulin; Z86.16 Personal history of COVID-19; E43 Unspecified severe protein-calorie malnutrition; Z68.23 Body mass index [BMI] 23.0-23.9, adult; E78.5 Hyperlipidemia, unspecified; I25.10 Atherosclerotic heart disease of native coronary artery without angina pectoris; Z20.822 Contact with and (suspected) exposure to COVID-19
CPT/HCPCS: 36415; 36591; 71045; 71275; 80053; 82550; 82962; 83605; 83735; 83880; 84145; 84484; 85007; 85025; 85379; 87040; 87635; 87797; 93005; 94640; 96365; 96366; 96367; 96372; 99285; 99291; C9803; G0378; J1642; J1815; J1956; J2930; Q9967

== ENCOUNTER 2020-12-08 07:38 | Emergency (ER) | payer MEDICARE, OTHER, SELFPAY ==
--- NOTE | 2020-12-08 07:45 | ED_ITS ---
HPI - Nausea/Vomiting/Diarrhea General Chief complaint: Abdominal Pain Stated complaint: diarrhea, vomiting Time Seen by Provider: 12/08/20 07:41 Source: patient Mode of arrival: Wheelchair Limitations: no limitations History of Present Illness HPI Narrative: 70-year-old male with history of pancreatic cancer with m etastases to the liver and kidneys well as coronary artery disease, PTSD, diabetes on chemotherapy presents with persistent nausea, vomiting and diarrhea since last night. He feels a bit weak and lightheaded but denies any dizziness. He has had no fever or chills. He denies any chest pain, shortness of breath or cough. He denies abdominal pain. He denies any difficulty with urination. His most recent visit was a few days ago when he was admitted and had a thoracentesis. MD complaint: nausea, vomiting and diarrhea Onset (ago): hour(s) Description of Vomiting: food contents Description of Diarrhea: watery Associated Abdominal Pain: No Severity: moderate Relieving factors: none Exacerbating factors: none Associated symptoms: loss of appetite Related Data Home Medications Medication Instructions Recorded Confirmed Lantus Solostar U-100 Insulin 30 unit SUBCUT BID 10/05/20 12/05/20 brimonidine 1 drp OPHTHALMIC (EYE) DAILY 10/05/20 12/05/20 divalproex 500 mg PO DAILY 10/05/20 12/05/20 doxazosin 4 mg PO DAILY 10/05/20 12/05/20 famotidine 40 mg PO BEDTIME 10/05/20 12/05/20 finasteride 5 mg PO DAILY 10/05/20 12/05/20 insulin aspart U-100 [Novolog See Rx Instructions .ROUTE .COMPLEX 10/05/20 12/05/20 Flexpen U-100 Insulin] olopatadine 1 drp OPHTHALMIC (EYE) DAILY 10/05/20 12/05/20 pregabalin [Lyrica] 150 mg PO BID 10/05/20 12/05/20 travoprost [Travatan Z] 1 drp EYE-BOTH DAILY 10/05/20 12/05/20 atorvastatin 40 mg PO DAILY 11/07/20 12/05/20 Previous Rx's Medication Instructions Recorded ondansetron 4 mg PO TID-QID PRN #10 tab 10/06/20 pantoprazole [Protonix] 40 mg PO DAILY #30 tab 10/06/20 metoclopramide HCl [Reglan] 10 mg PO Q6H PRN #10 tab 11/05/20 baclofen 5 mg PO TID PRN #10 tab 11/08/20 levofloxacin 750 mg PO DAILY #5 tab 12/01/20 prednisone 20 mg PO DAILY #30 tab 12/03/20 Allergies Allergy/AdvReac Type Severity Reaction Status Date / Time aspirin Allergy Unknown Verified 12/05/20 01:36 brompheniramine Allergy Unknown Verified 12/05/20 01:36 codeine Allergy Unknown Verified 12/05/20 01:36 diphenhydramine Allergy Unknown Verified 12/05/20 01:36 guaifenesin Allergy Unknown Verified 12/05/20 01:36 hydrocodone Allergy Unknown Verified 12/05/20 01:36 hydroxyzine Allergy Unknown Verified 12/05/20 01:36 ibuprofen Allergy Unknown Verified 12/05/20 01:36 meperidine Allergy Unknown Verified 12/05/20 01:36 morphine Allergy Unknown Verified 12/05/20 01:36 nystatin Allergy Unknown Verified 12/05/20 01:36 promethazine Allergy Unknown Verified 12/05/20 01:36 propoxyphene Allergy Unknown Verified 12/05/20 01:36 tuberculin, purified protein Allergy Unknown Verified 12/05/20 01:36 deriva egg Allergy Verified 12/05/20 01:36 amoxicillin [From Augmentin] AdvReac Unknown Vomiting Verified 12/05/20 01:36 metformin AdvReac Unknown Diarrhea Verified 12/05/20 01:36 clavulanic acid AdvReac Vomiting Verified 12/05/20 01:36 [From Augmentin] Review of Systems Constitutional Constitutional: Denies chills, Denies fatigue, Denies fever(s), Denies frequent falls, Denies lethargy and Denies weakness Eyes Eyes: Denies change in vision, Denies eye discharge, Denies irritation and Denies loss of vision ENT Ears, Nose, Mouth, and Throat: Denies change in voice, Denies dizziness, Denies neck pain, Denies sore throat and Denies throat swelling Cardiovascular Cardiovascular: Denies chest pain, Denies irregular heart rhythm, Denies lightheadedness, Denies palpitations, Denies dyspnea, Denies dyspnea on exertion and Denies orthopnea Respiratory Respiratory: Denies cough, Denies dyspnea, Denies dyspnea on exertion and Denies wheezing Gastrointestinal Gastrointestinal: Denies abdominal pain, Denies change in bowel habits, Reports diarrhea, Reports nausea and Reports vomiting Musculoskeletal Musculoskeletal: Denies neck pain and Denies numbness Integumentary/Breasts Skin/Breast: Denies pruritus, Denies erythema, Denies rash and Denies wounds Neurologic Neurologic: Denies behavioral changes, Denies confusion, Denies dizziness, Denies frequent falls, Denies loss of vision, Denies numbness and Denies weakness Psychiatric Psychiatric: Denies anxiety, Denies behavioral changes, Denies confusion, Denies depression, Denies homicidal ideation and Denies suicidal ideation Endocrine Endocrine: Denies fatigue, Denies flushing and Denies palpitations Hematologic/Lymphatic Hematologic/Lymphatic: Denies easy bruising Allergic/Immunologic Allergic/Immunologic: Denies urticaria, Denies throat swelling and Denies wheezing Patient History Medical History Coronary artery disease Diabetes Hyperlipidemia Malignant neoplasm metastatic to pancreas Post-traumatic stress disorder, chronic Surgical History History of cholecystectomy (01/31/17) Family History Mother Diabetes mellitus Father Dementia Social History household members: family and children Smoking Status: Never smoker alcohol intake: never substance use type: does not use Smoking Status: Never smoker alcohol intake frequency: holidays/special occasions only Substance Use Type: does not use Exam Narrative Exam Narrative: GENERAL: [70] year old patient appears stated age. Well- nourished, well-developed patient, in mild distress. HEAD: Atraumatic. Normocephalic. EYES: Pupils equal round and reactive. Extraocular motions intact. No scleral icterus. No injection or drainage. ENT: Dry mucous membranes, Nose without bleeding, purulent drainage. Throat without erythema, tonsillar hypertrophy or exudate. Airway patent. NECK: Trachea midline. Non tender CARDIOVASCULAR: Regular rate and rhythm without murmurs, gallops, or rubs. Port in place. RESPIRATORY: No respiratory distress, no crackles, rales or rhonchi, slight decreased sounds in right base GASTROINTESTINAL: Abdomen soft, non-tender, nondistended. EXTREMITIES: No edema or joint tenderness. BACK: Nontender without deformity or crepitance. No flank tenderness. NEURO: AOx3. SKIN: Poor skin turgor No rash or erythema of visible areas Initial Vital Signs Initial Vital Signs: Vital Signs Pulse Rate 107 H 12/08/20 07:46 Pulse Oximetry 98 12/08/20 07:46 Course Course Course Narrative: Patient feeling tremendous relief after above-stated therapies, requesting discharge. We did discuss whether not it repeat chest x- ray will be beneficial and the patient states he has having no trouble breathing, no chest pain and does not want another chest x-ray at this point time. He is reliable. Return precautions have been given, questions answered to his apparent satisfaction Orders Ordered: ED Orders 12/08/20 08:45 Complete Blood Count AUTO DIFF Stat Comprehensive Metabolic Panel Stat Heparin Sodium (Porcine) (Heparin 500 Unit/5 Ml Port Flush) 500 unit IV PRN PRN PRN Reason: Flush Last Admin: 12/08/20 10:04 Dose: 500 unit Documented by: Discontinued Medications Sodium Chloride (Normal Saline 0.9%) 1,000 mls @ 1,000 mls/hr IV BOLUS ONE Stop: 12/08/20 09:07 Last Admin: 12/08/20 09:02 Dose: 1,000 mls/hr Documented by: CTRANUSHKA Vital Signs Vital signs: Vital Signs - 8 hr 12/08/20 07:46 12/08/20 07:48 12/08/20 07:49 Temperature 98 F Pulse Rate 107 H 101 H 100 H Respiratory Rate 17 22 Blood Pressure 124/72 124/72 Pulse Oximetry 98 98 98 12/08/20 08:00 12/08/20 10:01 Temperature Pulse Rate 98 H 88 Respiratory Rate 14 12 Blood Pressure 112/59 L 127/63 Pulse Oximetry 96 99 MDM - Nausea/Vomiting/Diarrhea Lab Data Result diagrams: 12/08/20 08:45 12/08/20 08:45 Labs: Lab Results 12/08/20 12/08/20 Range/Units 08:45 08:45 WBC 6.3 (4.5-11.0) X10^3/uL RBC 2.49 L (4.5-5.9) X10^6/uL Hgb 8.0 L (13.5-17.5) g/dL Hct 23.8 L (41-53) % MCV 95.2 (80-100) fL MCH 32.0 (26-34) PG MCHC 33.6 (30-36) % RDW 15.6 H (11.6-14.8) % Plt Count 260 (150-400) X10^3/uL Neut % (Auto) 75.5 H (50-75) % Lymph % (Auto) 11.8 L (25-40) % Mccracken % (Auto) 12.2 (3-14) % Eos % (Auto) 0.3 L (2-4) % Baso % (Auto) 0.2 (0-2) % Neut # (Auto) 4800 (6255-7558) /uL Lymph # (Auto) 700 L (5268-6650) /uL M[place]racken # (Auto) 800 (0-900) /uL Eos # (Auto) 0 (0-450) /uL Baso # (Auto) 0 (0-100) /uL Sodium 135 L (137-145) mmol/L Potassium 3.5 (3.4-5.1) mmol/L Chloride 104 (98-107) mmol/L Carbon Dioxide 29 (22-32) mmol/L BUN 11 (9-20) mg/dL Creatinine 0.72 (0.66-1.25) mg/dL Estimated GFR > 60.0 (>60) mL/min BUN/Creatinine Ratio 15.3 (6-22) Glucose 77 L (80-110) mg/dL Calcium 7.9 L (8.4-10.2) mg/dL Total Bilirubin 0.9 (0.2-1.3) mg/dL AST 55 (17-59) IU/L ALT 66 H (<50) IU/L Alkaline Phosphatase 277 H (38-126) U/L Total Protein 4.8 L (6.3-8.2) g/dL Albumin 2.3 L (3.5-5.0) g/dL Globulin 2.5 (1.7-4.1) g/dL Albumin/Globulin Ratio 0.9 L (1.0-2.8) Discharge Plan Departure Patient Disposition: Home Clinical Impression: Vomiting Qualifiers: Vomiting type: unspecified Vomiting Intractability: non-intractable Nausea presence: with nausea Qualified Code(s): R11.2 - Nausea with vomiting, unspecified Diarrhea Qualifiers: Diarrhea type: unspecified type Qualified Code(s): R19.7 - Diarrhea, unspecified Instructions: DI for Vomiting -- Adult Activity Restrictions/Additional Instructions: *You have been diagnosed with [nausea, vomiting and diarrhea. Your symptoms were greatly improved here with typical therapies, labs are very reassuring.] *What to do: *Please continue to take your regular medications as directed. [ ] New medication prescriptions sent to your pharmacy: [ ] [ ] New medication written as a paper prescription [x] No new medications given *Please follow up with your primary care provider in 2-3 days, call for an appointment. Let them know you were seen in the Emergency Department and that we ask that you be seen in follow up. We will electronically transmit a record of today's note if your PCP is in our system *If you do not have a primary care provider please contact the [facility] Resource line at [phone]. They will ask some questions about your medical history and help get you set up with a doctor in the community. *Return to Emergency Department if you should have any new, worsening or concerning symptoms, such as [fever greater than 101 F, shaking chills, worsening pain, persistent vomiting or other bothersome symptoms] Prescriptions: No Action pantoprazole [Protonix] 40 mg tablet,delayed release (DR/EC) 40 mg PO DAILY Qty: 30 RF: 0 ondansetron 4 mg tablet,disintegrating 4 mg PO TID-QID PRN (Reason: nausea and vomiting) Qty: 10 RF: 0 atorvastatin 40 mg tablet 40 mg PO DAILY RF: 0 baclofen 10 mg Tablet 5 mg PO TID PRN (Reason: Hiccups) Qty: 10 RF: 0 levofloxacin 750 mg tablet 750 mg PO DAILY Qty: 5 RF: 0 prednisone 20 mg tablet 20 mg PO DAILY Qty: 30 RF: 0 famotidine 40 mg Tablet 40 mg PO BEDTIME RF: 0 travoprost [Travatan Z] 0.004 % drops 1 drp EYE-BOTH DAILY RF: 0 olopatadine 0.1 % Drops 1 drp OPHTHALMIC (EYE) DAILY RF: 0 divalproex 500 mg Tablet Extended Release 24 Hr 500 mg PO DAILY RF: 0 brimonidine 0.2 % drops 1 drp ophthalmic (eye) DAILY RF: 0 doxazosin 4 mg tablet 4 mg PO DAILY RF: 0 finasteride 5 mg tablet 5 mg PO DAILY RF: 0 insulin aspart U-100 [Novolog Flexpen U-100 Insulin] 100 unit/mL (3 mL) insulin pen See Rx Instructions .ROUTE .COMPLEX RF: 0 pregabalin [Lyrica] 150 mg Capsule 150 mg PO BID RF: 0 Lantus Solostar U-100 Insulin 100 unit/mL (3 mL) insulin pen 30 unit SUBCUT BID RF: 0 metoclopramide HCl [Reglan] 10 mg tablet 10 mg PO Q6H PRN (Reason: nausea and vomiting) Qty: 10 RF: 0 Referrals: Vianca Cox MD [Primary Care Provider] -
[2020-12-08 07:46] VITALS: PULSE 107; O2SAT 98
[2020-12-08 07:48] VITALS: BP 124/72; PULSE 101; RESP 17; O2SAT 98
[2020-12-08 07:49] VITALS: BP 124/72; PULSE 100; RESP 22; TEMP 36.6; O2SAT 98; BMI 22.4
[2020-12-08 08:00] VITALS: BP 112/59; PULSE 98; RESP 14; O2SAT 96
[2020-12-08 08:53] LABS: Add Manual Diff / Slide Review NO; Basophils Absolute Auto 0 /uL (0-100); Basophils Percent Auto 0.2 % (0-2); Eosinophils Absolute Auto 0 /uL (0-450); Eosinophils Percent Auto 0.3 % (2-4); Hematocrit 23.8 % (41-53); Lymphocytes Absolute Auto 700 /uL (1100-4500); Lymphocytes Percent Auto 11.8 % (25-40); Mean Corpuscular HGB Conc 33.6 % (30-36); Mean Corpuscular Volume 95.2 fL (80-100); Monocytes Absolute Auto 800 /uL (0-900); Monocytes Percent Auto 12.2 % (3-14); Neutrophils Absolute Auto 4800 /uL (1500-7000); Neutrophils Percent Auto 75.5 % (50-75); Platelet Count 260 X10^3/uL (150-400); Red Blood Cell Count 2.49 X10^6/uL (4.5-5.9); Red Cell Distribution Width 15.6 % (11.6-14.8); White Blood Cell Count 6.3 X10^3/uL (4.5-11.0)
[2020-12-08 09:02] LABS: Alanine Aminotransferase 66 IU/L (<50); Albumin 2.3 g/dL (3.5-5.0); Albumin Globulin Ratio 0.9 (1.0-2.8); Alkaline Phosphatase 277 U/L (38-126); Aspartate Aminotransferase 55 IU/L (17-59); BUN Creatinine Ratio 15.3 (6-22); Bilirubin Total 0.9 mg/dL (0.2-1.3); Blood Urea Nitrogen 11 mg/dL (9-20); Calcium 7.9 mg/dL (8.4-10.2); Carbon Dioxide 29 mmol/L (22-32); Chloride 104 mmol/L (98-107); Estimated Glomerular Filt Rate > 60.0 mL/min (>60); Globulin 2.5 g/dL (1.7-4.1); Glucose 77 mg/dL (80-110); HEMOLYSIS < 15 (0-50); Potassium 3.5 mmol/L (3.4-5.1); Sodium 135 mmol/L (137-145); Total Protein 4.8 g/dL (6.3-8.2)
[2020-12-08] MEDS: SODIUM CHLORIDE 0.9% 1,000 ML 1000 ML IV (09:02)
[2020-12-08 10:01] VITALS: BP 127/63; PULSE 88; RESP 12; O2SAT 99
== END 2020-12-08 10:10 | disposition home or self-care (01) ==
PROVIDERS: Emergency Provider Emergency Medicine; PCP Internal Medicine
DX: R11.2 Nausea with vomiting, unspecified (principal); R19.7 Diarrhea, unspecified
CPT/HCPCS: 36415; 80053; 85025; 96360; 99284; J1642

== ENCOUNTER 2020-12-11 16:05 | Inpatient (IN) | payer MEDICARE, OTHER, SELFPAY ==
[2020-12-11] VITALS (7 sets, daily range): BP systolic 121–144; BP diastolic 58–67; PULSE 100–126; RESP 16–21; TEMP 36.4–36.8; O2SAT 96–100; BMI 25.6; BMI 25.0
--- NOTE | 2020-12-11 16:36 | PC.NURSE ---
Son states pt was taking to [facility] this morning by EMS with low blood sugar. Was DC's a few hours later. Pt and son were taking a drive when son states pt started acting erratic and having SOB. Pt arrived to triage with erratic behavior and inappropriate comments. Asking RN to sit on his lap and yelling do you want me to kick your ass im [employer]. H/o pancreatic CA and last chemo 12/09. Port in [place]. Noted to have insulin pump needle on back of arm and additional RN called to help obtain blood glucose which was noted to be <22. Pt assisted to stretcher and IV placed and 25g 50% Dextrose given. Son at bedside. Within 5-7 minutes pt calm and cooperative, AAOx3. Given OJ to drink and tolerated well. BS to be rechecked Q30. Awaiting ready room on stretcher outside triage area.
[2020-12-11] MEDS: DEXTROSE 50 % IN WATER 25 GM/50 ML SYRINGE IV (16:40)
--- NOTE | 2020-12-11 16:56 | PC.NURSE ---
Glucose noted to be 148 after amp D50 and 4oz OJ with sugar added. Placed in rm 4. Report to HAYDER Nye. Pt more calm and cooperative at this time.
[2020-12-11] MEDS: DEXTROSE 10 % IN WATER 1,000 ML 125 ML IV (17:06)
[2020-12-11 17:21] LABS: Add Manual Diff / Slide Review NO; Basophils Absolute Auto 0 /uL (0-100); Basophils Percent Auto 0.1 % (0-2); Eosinophils Absolute Auto 0 /uL (0-450); Lymphocytes Absolute Auto 100 /uL (1100-4500); Lymphocytes Percent Auto 1.1 % (25-40); Monocytes Absolute Auto 100 /uL (0-900)
[2020-12-11 17:26] LABS: Estimated Glomerular Filt Rate > 60.0 mL/min (>60); HEMOLYSIS < 15 (0-50)
[2020-12-11 17:28] LABS: Mean Corpuscular HGB Conc 33.7 % (30-36); Mean Corpuscular Hemoglobin 32.2 PG (26-34); Mean Corpuscular Volume 95.4 fL (80-100); Monocytes Percent Auto 1.4 % (3-14); Neutrophils Absolute Auto 7800 /uL (1500-7000); Neutrophils Percent Auto 97.4 % (50-75); Platelet Count 224 X10^3/uL (150-400); Red Cell Distribution Width 17.3 % (11.6-14.8)
[2020-12-11 17:37] LABS: Troponin I < 0.012 ng/mL (0.01-0.034)
--- NOTE | 2020-12-11 17:45 | ED.GENADULT ---
HPI - General Adult General Chief complaint: Diabetic Problem Stated complaint: trouble breathing Time Seen by Provider: 12/11/20 16:44 Source: patient and family (Son) Mode of arrival: Ambulatory Limitations: no limitations History of Present Illness HPI narrative: Patient is a 70-year-old male with a history of insulin-dependent diabetes and hypertension. Also has a history of pancreatic cancer. Last chemo performed 11/25/2020. Was seen this morning at an outside facility after being taking there by EMS for evaluation of confusion and diaphoresis. According to the note from that visit the patient was found to be hypoglycemic. He was given D50 by EMS prior to arrival to that hospital visit. He was evaluated and subsequently discharged home. Reported by the patient's son that they were taking a drive when the patient again started to act very sporadic and confused. He was brought to this emergency department. He was found to be hypoglycemic upon arrival. Was given 25 g of glucose and subsequently started on a glucose drip. At the time of my evaluation patient states that he feels much better. He states that he did take his long-acting insulin last night but has not taken any of his short-acting insulin today because of the events from this morning. It is not a torres blood sugars low. At the time of my evaluation has relatively no complaints. He states that his shortness of breath is at baseline. He has a known pleural effusion that is scheduled to be drained at the beginning and next week as an outpatient. Related Data Home Medications Medication Instructions Recorded Confirmed Lantus Solostar U-100 Insulin 30 unit SUBCUT BID 10/05/20 12/11/20 brimonidine 1 drp OPHTHALMIC (EYE) DAILY 10/05/20 12/11/20 divalproex 500 mg PO DAILY 10/05/20 12/11/20 doxazosin 4 mg PO DAILY 10/05/20 12/11/20 famotidine 40 mg PO BEDTIME 10/05/20 12/11/20 finasteride 5 mg PO DAILY 10/05/20 12/11/20 insulin aspart U-100 [Novolog See Rx Instructions .ROUTE .COMPLEX 10/05/20 12/11/20 Flexpen U-100 Insulin] olopatadine 1 drp OPHTHALMIC (EYE) DAILY 10/05/20 12/11/20 pregabalin [Lyrica] 150 mg PO BID 10/05/20 12/11/20 travoprost [Travatan Z] 1 drp EYE-BOTH DAILY 10/05/20 12/11/20 atorvastatin 40 mg PO DAILY 11/07/20 12/11/20 Previous Rx's Medication Instructions Recorded ondansetron 4 mg PO TID-QID PRN #10 tab 10/06/20 pantoprazole [Protonix] 40 mg PO DAILY #30 tab 10/06/20 metoclopramide HCl [Reglan] 10 mg PO Q6H PRN #10 tab 11/05/20 baclofen 5 mg PO TID PRN #10 tab 11/08/20 levofloxacin 750 mg PO DAILY #5 tab 12/01/20 prednisone 20 mg PO DAILY #30 tab 12/03/20 Allergies Allergy/AdvReac Type Severity Reaction Status Date / Time aspirin Allergy Unknown Verified 12/05/20 01:36 brompheniramine Allergy Unknown Verified 12/05/20 01:36 codeine Allergy Unknown Verified 12/05/20 01:36 diphenhydramine Allergy Unknown Verified 12/05/20 01:36 guaifenesin Allergy Unknown Verified 12/05/20 01:36 hydrocodone Allergy Unknown Verified 12/05/20 01:36 hydroxyzine Allergy Unknown Verified 12/05/20 01:36 ibuprofen Allergy Unknown Verified 12/05/20 01:36 meperidine Allergy Unknown Verified 12/05/20 01:36 morphine Allergy Unknown Verified 12/05/20 01:36 nystatin Allergy Unknown Verified 12/05/20 01:36 promethazine Allergy Unknown Verified 12/05/20 01:36 propoxyphene Allergy Unknown Verified 12/05/20 01:36 tuberculin, purified protein Allergy Unknown Verified 12/05/20 01:36 deriva egg Allergy Verified 12/05/20 01:36 amoxicillin [From Augmentin] AdvReac Unknown Vomiting Verified 12/05/20 01:36 metformin AdvReac Unknown Diarrhea Verified 12/05/20 01:36 clavulanic acid AdvReac Vomiting Verified 12/05/20 01:36 [From Augmentin] Review of Systems Constitutional Constitutional: Denies headache(s) Eyes Eyes: Denies change in vision ENT Ears, Nose, Mouth, and Throat: Denies headache(s) Cardiovascular Cardiovascular: Denies chest pain and Reports dyspnea (Baseline for him) Respiratory Respiratory: Reports dyspnea (Baseline for him) Gastrointestinal Gastrointestinal: Denies abdominal pain, Denies melena, Denies hematochezia and Denies hematemesis Genitourinary Genitourinary: Denies dysuria Genitourinary: Denies dysuria Musculoskeletal Musculoskeletal: Reports system reviewed and no additional complaints, except as documented Integumentary/Breasts Skin/Breast: Reports system reviewed and no additional complaints, except as documented Neurologic Neurologic: Reports confusion (Upon arrival but this has resolved) and Denies headache(s) Psychiatric Psychiatric: Reports confusion (Upon arrival but this has resolved) Endocrine Endocrine: Reports system reviewed and no additional complaints, except as documented Hematologic/Lymphatic On Anticoagulants: No Allergic/Immunologic Allergic/Immunologic: Reports system reviewed and no additional complaints, except as documented Patient History Medical History Coronary artery disease Diabetes Hyperlipidemia Malignant neoplasm metastatic to pancreas Post-traumatic stress disorder, chronic Surgical History History of cholecystectomy (01/31/17) Family History Mother Diabetes mellitus Father Dementia Social History household members: family and children Smoking Status: Never smoker alcohol intake: never substance use type: does not use Smoking Status: Never smoker alcohol intake frequency: holidays/special occasions only Substance Use Type: does not use Exam Initial Vital Signs Initial Vital Signs: Vital Signs Temperature 97.6 F 12/11/20 16:17 Pulse Rate 126 H 12/11/20 16:17 Respiratory Rate 16 12/11/20 16:17 Blood Pressure 121/58 L 12/11/20 16:17 Pulse Oximetry 98 12/11/20 16:17 Const General: cooperative and comfortable Limitations: mental status not altered HENMT Head: normal to inspection and normocephalic Eyes General: appearance normal, both eyes and all related structures Resp Effort & Inspection: normal respiratory effort Auscultation: clear to auscultation bilaterally Cardio Rate: tachycardic Rhythm: regular rhythm GI Inspection: non-distended Palpation: soft and No firm Skin Lesions: no lesions Rashes: no rashes Neuro General: patient alert, patient awake and patient oriented x3 Cognition: normal cognition Speech: speech normal Extrem General: normal to inspection and capillary refill normal Psych Appearance: grossly normal and well kempt Scores GCS [place] coma scale eye opening: Spontaneous [place] coma scale verbal response: Orientated [place] coma scale motor response: Obey commands [place] coma scale total score: 15 Course Orders Ordered: ED Orders 12/11/20 16:48 Complete Blood Count AUTO DIFF Stat Comprehensive Metabolic Panel Stat Troponin & CK Cardiac Panel Stat 12/11/20 16:59 EKG-12 Lead Stat 12/11/20 17:46 XR chest 1V Stat 12/11/20 17:50 Type and Screen Stat Acetaminophen (Acetaminophen 325 Mg Tablet) 650 mg PO Q6HR PRN PRN Reason: Fever/Mild Pain (1-3) Last Admin: 12/11/20 21:11 Dose: 650 mg Documented by: EVIE Atorvastatin Calcium (Atorvastatin 20 Mg Tablet) 40 mg PO DAILY [facility] Divalproex Sodium (Divalproex Er 250 Mg Tab) 500 mg PO DAILY [facility] Enoxaparin Sodium (Enoxaparin 40 Mg/0.4 Ml Syringe) 40 mg SUBCUT DAILY [facility] Finasteride (Finasteride 5 Mg Tablet) 5 mg PO DAILY [facility] Heparin Sodium (Porcine) (Heparin 500 Unit/5 Ml [place] Flush) 500 unit IV PRN PRN PRN Reason: Flush Levofloxacin (Levaquin) 750 mg in 150 mls @ 100 mls/hr IV Q24H [facility] Last Infusion: 12/11/20 22:06 Dose: 0 mls/hr Documented by: Admin: 12/11/20 20:29 Dose: 100 mls/hr Documented by: EVIE Dextrose (D10w) 1,000 mls @ 75 mls/hr IV CONT [facility] Last Admin: 12/12/20 00:20 Dose: 75 mls/hr Documented by: PEE Naloxone HCl (Naloxone 0.4 Mg/Ml Vial) 0.2 mg IV Q2MIN PRN PRN Reason: Opiate Reversal Ondansetron HCl (Ondansetron 4 Mg/2 Ml Inj) 4 mg IV Q8HR PRN PRN Reason: Nausea And Vomiting Last Admin: 12/11/20 19:09 Dose: 4 mg Documented by: EVIE Prednisone (Prednisone 20 Mg Tablet) 20 mg PO DAILY [facility] Sodium Chloride (Sodium Chloride 0.9% Flush) 10 ml IV PRN PRN PRN Reason: Flush Discontinued Medications Dextrose (Dextrose 50 % In Water 25 Gm/50 Ml Syringe) 25 gm IV NOW ONE Stop: 12/11/20 16:47 Last Admin: 12/11/20 16:40 Dose: 25 gm Documented by: SUN Dextrose (D10w) 1,000 mls @ 125 mls/hr IV CONT [facility] Last Infusion: 12/11/20 18:32 Dose: 125 mls/hr Documented by: Admin: 12/11/20 17:06 Dose: 125 mls/hr Documented by: MICHELLE Dextrose (Dextrose 5% Water) 1,000 mls @ 50 mls/hr IV CONT SERGE Last Admin: 12/11/20 19:41 Dose: 50 mls/hr Documented by: EVIE Vital Signs Vital signs: Vital Signs - 8 hr 12/11/20 17:30 Pulse Rate 100 H Respiratory Rate 18 Blood Pressure 133/63 Pulse Oximetry 100 Medical Decision Making Medical Records Medical records reviewed: Yes I reviewed the patient's medical records. Lab Data Lab results reviewed: Yes I reviewed the patient's lab results. Result diagrams: 12/11/20 16:48 12/11/20 16:48 Labs: Lab Results 12/11/20 12/11/20 12/11/20 Range/Units 16:48 16:48 17:50 WBC 9.8 (4.5-11.0) X10^3/uL RBC 2.70 L (4.5-5.9) X10^6/uL Hgb 8.5 L (13.5-17.5) g/dL Hct 25.7 L (41-53) % MCV 95.4 (80-100) fL MCH 32.2 (26-34) PG MCHC 33.7 (30-36) % RDW 17.3 H (11.6-14.8) % Plt Count 224 (150-400) X10^3/uL Neut % (Auto) 97.4 H (50-75) % Lymph % (Auto) 1.1 L (25-40) % [place] % (Auto) 1.4 L (3-14) % Eos % (Auto) 0.0 L (2-4) % Baso % (Auto) 0.1 (0-2) % Neut # (Auto) 7800 H (7534-6017) /uL Lymph # (Auto) 100 L (2221-9234) /uL [place] # (Auto) 100 (0-900) /uL Eos # (Auto) 0 (0-450) /uL Baso # (Auto) 0 (0-100) /uL Sodium 133 L (137-145) mmol/L Potassium 4.0 (3.4-5.1) mmol/L Chloride 102 (98-107) mmol/L Carbon Dioxide 25 (22-32) mmol/L BUN 10 (9-20) mg/dL Creatinine 0.55 L (0.66-1.25) mg/dL Estimated GFR > 60.0 (>60) mL/min BUN/Creatinine Ratio 18.2 (6-22) Glucose 86 (80-110) mg/dL Calcium 7.9 L (8.4-10.2) mg/dL Total Bilirubin 1.3 (0.2-1.3) mg/dL AST 74 H (17-59) IU/L ALT 60 H (<50) IU/L Alkaline Phosphatase 283 H (38-126) U/L Total Creatine Kinase 118 (55-170) U/L CK-MB (CK-2) 1.64 (<2.37) ng/mL CK-MB (CK-2) Rel Index 1.4 L (1.5-5.0) % Troponin I < 0.012 (0.01-0.034) ng/mL Total Protein 5.5 L (6.3-8.2) g/dL Albumin 2.7 L (3.5-5.0) g/dL Globulin 2.8 (1.7-4.1) g/dL Albumin/Globulin Ratio 1.0 (1.0-2.8) Blood Type B Positive Antibody Screen Negative Point of Care Testing Glucose POC 130 Point of care testing: Point of Care Testing Glucose POC 130 Imaging Data Chest x-ray: Radiologist's Impression: [address] [id number] ReportSigned Patient: Neelam Vail DMR#: [id number]: 1Acct:[id number]/Sex: 70 / MDate of Service: 12/11/20Loc: [id number] Number: [id number] Procedure: XR chest 1V Ordering Provider: Imtiaz Marie D.O. PROCEDURE: XR CHEST 1V INDICATIONS: SOB TECHNIQUE: One view of the chest was acquired. COMPARISON: [facility], , XR CHEST 1V, 12/05/2020, 11:11. FINDINGS: Surgical changes and devices: Left chest wall port is present. Lungs and pleura: The right lung demonstrates a moderate-sized pleural effusion with fluid in the horizontal fissure. There is a right lower lobe/infrahilar consolidation which is new compared to the prior study consistent with pneumonia or atelectasis. The left lung is clear. There is no pneumothorax. Mediastinum: Mediastinal contours appear normal. Heart size is normal. Bones and chest wall: No suspicious bony lesions. Overlying soft tissues appear unremarkable. IMPRESSION: 1. Right pleural effusion. 2. Right lower lobe/infrahilar consolidation, worse compared to the prior study on 12/05/2020 consistent with pneumonia and/or atelectasis. Dictated by: Wolfgang Johnson M.D. on 12/11/2020 at 18:30 Approved by: Wolfgang Johnson M.D. on 12/11/2020 at 18:33 [facility] Narrative Medical decision making narrative: Blood sugar was low upon arrival but this improved after interventions here in the emergency department. This did seem to resolve his issues with confusion that he presented with. By the time I evaluated the patient he was not confused and was alert oriented x3. Initial blood work resulted showed a hemoglobin is 6.4 with hematocrit of 19. This was down from blood draw earlier today where he had a hemoglobin of 8.1 and hematocrit of 25.3. Was also found to be hypocalcemic. Decisions were made based off of these lab reports that the patient needed to be admitted to the hospital for continued evaluation of his worsening anemia and also his continued hypoglycemic episodes. While in the process of being admitted to the hospital it was found that potentially this initial blood draw showing the low hemoglobin and hematocrit was not correct. Unsure of the exact reason for this however the lab corrected it does show hemoglobin of 8.5 and hematocrit of 25.7 which is very similar to the H&H from earlier today. Despite this he has had 2 episodes of hypoglycemia today without any reports of him taking the short-acting insulin and also stating that he is eating and drinking like normal. We will continue to admit the patient for the persistent hypoglycemic episodes. He does have a right-sided pleural effusion which she knows about. He is not in respiratory distress. He is not hypoxic. Discharge Plan Departure Patient Disposition: Admitted As Inpatient Clinical Impression: Hypoglycemia, Pancreatic cancer, Anemia, Hypocalcemia Admit Date/Time: 12/11/20 17:54 Admit Provider: Ceferino Quesada
[2020-12-11 18:11] LABS: White Blood Cell Count 9.8 X10^3/uL (4.5-11.0)
[2020-12-11 18:12] LABS: Hematocrit 25.7 % (41-53); Hemoglobin 8.5 g/dL (13.5-17.5)
[2020-12-11 18:52] LABS: Creatine Kinase 118 U/L (55-170)
[2020-12-11 18:53] LABS: CKMB % Relative Index 1.4 % (1.5-5.0); Creatine Kinase MB 1.64 ng/mL (<2.37); Sodium 133 mmol/L (137-145)
[2020-12-11 18:54] LABS: Carbon Dioxide 25 mmol/L (22-32); Chloride 102 mmol/L (98-107)
[2020-12-11 18:55] LABS: Blood Urea Nitrogen 10 mg/dL (9-20)
[2020-12-11 18:58] LABS: BUN Creatinine Ratio 18.2 (6-22)
[2020-12-11 18:59] LABS: Glucose 86 mg/dL (80-110)
[2020-12-11 19:01] LABS: Calcium 7.9 mg/dL (8.4-10.2)
[2020-12-11 19:02] LABS: Aspartate Aminotransferase 74 IU/L (17-59); Bilirubin Total 1.3 mg/dL (0.2-1.3)
[2020-12-11 19:03] LABS: Alanine Aminotransferase 60 IU/L (<50); Alkaline Phosphatase 283 U/L (38-126); Total Protein 5.5 g/dL (6.3-8.2)
[2020-12-11 19:04] LABS: Albumin 2.7 g/dL (3.5-5.0); Globulin 2.8 g/dL (1.7-4.1)
[2020-12-11] MEDS: ONDANSETRON 4 MG/2 ML INJ IV (19:09)
[2020-12-11] MEDS: DEXTROSE 5% WATER 1,000 ML 50 ML IV (19:41)
[2020-12-11 19:51] LABS: COVID19 - ADMIT (NP swab/PCR) Negative (Negative)
--- NOTE | 2020-12-11 20:08 | P.HP_ITS ---
History of Present Illness History of Present Illness Date Patient Seen: 12/11/20 Time Patient Seen: 18:23 Chief complaint: trouble breathing Narrative: Mr. Vail is a 70M PMH of pancreatic cancer with mets to liver and kidney last chemo on 12/09, Type 2 DM on insulin, CAD who presents with shortness of breath and altered mental status. He earlier went to [facility] ER for similar symptoms and was found to be hypoglycemic in the 20s. He was given sugar and his symptoms improved and his blood sugar improved and he was discharged. Apparently he then went home and returned with similar symptoms. Patient states he only felt short of breath when he was hypoglycemic. He does take insulin at home. He says he last took insulin yesterday and did not take any today. Apparently he told the ER physician he took insulin earlier today. And per nursing staff note patient had insulin needle in his arm, so it is unclear if he got insulin today. He was confused after being discharged from [facility], EMS was called and found his blood sugar to be in the 20s. In the ER, workup was done. Vitals were notable for mild tachycardia and otherwise normal. Labs were notable for WBC of 9.8 with 97% PMNs. For his hypoglycemia he got d50 and was started on a d10 drip. Of note patient has had thoracentesis in the past for pleural effusion for shortness of breath. Per previous notes no malignant cells have been found, and he is planned for another thoracentesis at [facility] early this next week. After getting glucose patient denies shortness of breath and states he feels back to normal. Chest xray was done that did show a moderate right pleural effusion and right lower lobe consolidation worse than compared with 12/05, consistent with possible pneumonia. He was given antibiotics and admitted for further treatment. Of note last two admissions patient was noted to have orthostatic hypotension, he was diagnosed with probable adrenal insufficiency, and last discharge last week was given prednisone 20mg daily script for 30 days. This is presumed for adrenal insufficiency though note does not say that. Patient History Medical History Coronary artery disease Diabetes Hyperlipidemia Malignant neoplasm metastatic to pancreas Post-traumatic stress disorder, chronic Surgical History History of cholecystectomy (01/31/17) Family & Social History Family History Mother Diabetes mellitus Father Dementia Social History: household members family,children Prior Living Arrangements House Safety & Behavioral: Feels Safe in Current Yes Environment Been Physically Hurt or No Threatened By a Person Suicidal Ideation Description None Tobacco & Substance use: Smoking Status Never smoker alcohol intake never alcohol intake frequency holiday/special occasion Substance Use Type does not use Meds Home Medications and Allergies Home Medications Medication Instructions Recorded Confirmed Type Lantus Solostar U-100 Insulin 30 unit SUBCUT BID 10/05/20 12/05/20 History brimonidine 1 drp OPHTHALMIC (EYE) DAILY 10/05/20 12/05/20 History divalproex 500 mg PO DAILY 10/05/20 12/05/20 History doxazosin 4 mg PO DAILY 10/05/20 12/05/20 History famotidine 40 mg PO BEDTIME 10/05/20 12/05/20 History finasteride 5 mg PO DAILY 10/05/20 12/05/20 History insulin aspart U-100 [Novolog See Rx Instructions .ROUTE .COMPLEX 10/05/20 12/05/20 History Flexpen U-100 Insulin] olopatadine 1 drp OPHTHALMIC (EYE) DAILY 10/05/20 12/05/20 History pregabalin [Lyrica] 150 mg PO BID 10/05/20 12/05/20 History travoprost [Travatan Z] 1 drp EYE-BOTH DAILY 10/05/20 12/05/20 History ondansetron 4 mg PO TID-QID PRN #10 tab 10/06/20 12/05/20 Rx pantoprazole [Protonix] 40 mg PO DAILY #30 tab 10/06/20 12/05/20 Rx metoclopramide HCl [Reglan] 10 mg PO Q6H PRN #10 tab 11/05/20 12/05/20 Rx atorvastatin 40 mg PO DAILY 11/07/20 12/05/20 History baclofen 5 mg PO TID PRN #10 tab 11/08/20 12/05/20 Rx levofloxacin 750 mg PO DAILY #5 tab 12/01/20 12/05/20 Rx prednisone 20 mg PO DAILY #30 tab 12/03/20 12/05/20 Rx Allergies Allergy/AdvReac Type Severity Reaction Status Date / Time aspirin Allergy Unknown Verified 12/05/20 01:36 brompheniramine Allergy Unknown Verified 12/05/20 01:36 codeine Allergy Unknown Verified 12/05/20 01:36 diphenhydramine Allergy Unknown Verified 12/05/20 01:36 guaifenesin Allergy Unknown Verified 12/05/20 01:36 hydrocodone Allergy Unknown Verified 12/05/20 01:36 hydroxyzine Allergy Unknown Verified 12/05/20 01:36 ibuprofen Allergy Unknown Verified 12/05/20 01:36 meperidine Allergy Unknown Verified 12/05/20 01:36 morphine Allergy Unknown Verified 12/05/20 01:36 nystatin Allergy Unknown Verified 12/05/20 01:36 promethazine Allergy Unknown Verified 12/05/20 01:36 propoxyphene Allergy Unknown Verified 12/05/20 01:36 tuberculin, purified protein Allergy Unknown Verified 12/05/20 01:36 deriva egg Allergy Verified 12/05/20 01:36 amoxicillin [From Augmentin] AdvReac Unknown Vomiting Verified 12/05/20 01:36 metformin AdvReac Unknown Diarrhea Verified 12/05/20 01:36 clavulanic acid AdvReac Vomiting Verified 12/05/20 01:36 [From Augmentin] Review of Systems Review of Systems Narrative: 14 systems reviewed and negative aside from what is noted in HPI. Exam Vital Signs (past 8 hours): - 12/11/20 16:17 12/11/20 16:57 12/11/20 17:00 Temperature 97.6 F Pulse Rate 126 H 106 H 105 H Respiratory Rate 16 20 Blood Pressure 121/58 L 126/63 124/61 Pulse Oximetry 98 96 97 12/11/20 17:30 12/11/20 18:00 12/11/20 19:06 Temperature Pulse Rate 100 H 101 H Respiratory Rate 18 21 Blood Pressure 133/63 133/63 Pulse Oximetry 100 98 98 12/11/20 19:27 Temperature 98.3 F Pulse Rate 104 H Respiratory Rate 16 Blood Pressure 144/67 H Pulse Oximetry 97 Oxygen Delivery Method Room Air Oxygen Flow Rate 0 Narrative Exam Narrative: GEN: no acute distress HEENT: PERRL, moist mucous membranes NECK: no JVD, trachea midline CHEST: port in place appears clean dry at insertion site CV: regular rate and rhythm with no murmurs PULM: decreased breath sounds on right base, coarse breath sounds throughout right lung ABD: soft, nontender, nondistended, no organomegaly EXT: warm and well perfused with no edema NEURO: AAOx3, moving all extremities SKIN: no rashes noted Objective Labs Result Diagrams: 12/11/20 16:48 12/11/20 16:48 Labs: Laboratory Results - last 24 hr 12/11/20 12/11/20 12/11/20 16:48 16:48 17:50 WBC 9.8 RBC 2.70 L Hgb 8.5 L Hct 25.7 L MCV 95.4 MCH 32.2 MCHC 33.7 RDW 17.3 H Plt Count 224 Neut % (Auto) 97.4 H Lymph % (Auto) 1.1 L [place] % (Auto) 1.4 L Eos % (Auto) 0.0 L Baso % (Auto) 0.1 Neut # (Auto) 7800 H Lymph # (Auto) 100 L [place] # (Auto) 100 Eos # (Auto) 0 Baso # (Auto) 0 Sodium 133 L Potassium 4.0 Chloride 102 Carbon Dioxide 25 BUN 10 Creatinine 0.55 L Estimated GFR > 60.0 BUN/Creatinine Ratio 18.2 Glucose 86 Calcium 7.9 L Total Bilirubin 1.3 AST 74 H ALT 60 H Alkaline Phosphatase 283 H Total Creatine Kinase 118 CK-MB (CK-2) 1.64 CK-MB (CK-2) Rel Index 1.4 L Troponin I < 0.012 Total Protein 5.5 L Albumin 2.7 L Globulin 2.8 Albumin/Globulin Ratio 1.0 SARS-CoV-2 (PCR) Blood Type B Positive Antibody Screen Negative 12/11/20 18:18 WBC RBC Hgb Hct MCV MCH MCHC RDW Plt Count Neut % (Auto) Lymph % (Auto) [place] % (Auto) Eos % (Auto) Baso % (Auto) Neut # (Auto) Lymph # (Auto) [place] # (Auto) Eos # (Auto) Baso # (Auto) Sodium Potassium Chloride Carbon Dioxide BUN Creatinine Estimated GFR BUN/Creatinine Ratio Glucose Calcium Total Bilirubin AST ALT Alkaline Phosphatase Total Creatine Kinase CK-MB (CK-2) CK-MB (CK-2) Rel Index Troponin I Total Protein Albumin Globulin Albumin/Globulin Ratio SARS-CoV-2 (PCR) Negative Blood Type Antibody Screen Assessment & Plan Assessment & Plan narrative: Mr. Hastings is a 70M with PMH pancreatic cancer, Type 2 Diabetes on insulin, CAD, PTSD who presents with altered mental status and shortness of breath found to have hypoglycemia and probable pneumonia. 1. Hypoglycemia in type 2 diabetes on insulin -etiology is unclear, but most likely is secondary to insulin use -patient told ER he did use insulin today, needle found in patient, told me he did not -if he did use his lantus incorrectly, would benefit from overnight monitoring to make sure glucose remains stable -glucose stabilized after d50, and then d10 gtt, will order for d5 -monitor glucose for further decrease 2. Shortness of breath, acute from probable pneumonia -labs show left shift with 97% PMNs, possibly indicating infection, with chest xray showing increased consolidation from prior -has begun to improve already in improvement in glucose -not needing any oxygen -started IV levofloxacin -pleural effusion is moderate, and already has plan for thoracentesis this coming week 3. Per previous notes probable adrenal insufficiency -presumed this is why he was prescribed prednisone -will continue for now at prednisone 20mg daily 4. Pancreatic cancer, likely metastatic -will need to follow up with Dr. Smith as outpatient for further chemo recommendations 5. CAD with HTN -asymptomatic -await medication reconciliation for ordering doses IVF: none DVT ppx: lovenox Diet: Diabetic Code: DNR, proxy is son Chele Casillas [facility] - Admit I confirm the patient?s Advance Care Plan is present, Code status is documented, Surrogate decision maker is in patient?s record [If Yes, STOP here]: Yes
[2020-12-11] MEDS: levoFLOXacin 750 MG/150 ML PIGGYBACK 100 MG IV (20:29)
[2020-12-11] MEDS: ACETAMINOPHEN 325 MG TABLET 650 MG PO (21:11)
[2020-12-12] VITALS (12 sets, daily range): BP systolic 110–126; BP diastolic 56–71; PULSE 91–108; RESP 10–37; TEMP 35.9–36.8; O2SAT 96–100
[2020-12-12] MEDS: DEXTROSE 10 % IN WATER 1,000 ML 75 ML IV (00:20)
[2020-12-12 06:25] LABS: BUN Creatinine Ratio 10.7 (6-22); Blood Urea Nitrogen 6 mg/dL (9-20); Calcium 7.6 mg/dL (8.4-10.2); Carbon Dioxide 28 mmol/L (22-32); Chloride 103 mmol/L (98-107); Estimated Glomerular Filt Rate > 60.0 mL/min (>60); Glucose 103 mg/dL (80-110); HEMOLYSIS < 15 (0-50); Potassium 3.8 mmol/L (3.4-5.1); Sodium 133 mmol/L (137-145)
[2020-12-12 06:35] LABS: Add Manual Diff / Slide Review NO; Basophils Absolute Auto 0 /uL (0-100); Eosinophils Absolute Auto 0 /uL (0-450); Eosinophils Percent Auto 0.1 % (2-4); Hemoglobin 7.2 g/dL (13.5-17.5); Lymphocytes Absolute Auto 300 /uL (1100-4500); Lymphocytes Percent Auto 5.2 % (25-40); Mean Corpuscular HGB Conc 33.1 % (30-36); Mean Corpuscular Hemoglobin 31.4 PG (26-34); Mean Corpuscular Volume 95.1 fL (80-100); Monocytes Absolute Auto 100 /uL (0-900); Neutrophils Absolute Auto 6300 /uL (1500-7000); Neutrophils Percent Auto 93.7 % (50-75); Platelet Count 257 X10^3/uL (150-400); Red Cell Distribution Width 16.7 % (11.6-14.8); White Blood Cell Count 6.7 X10^3/uL (4.5-11.0)
[2020-12-12 06:37] LABS: Hematocrit 21.9 % (41-53)
[2020-12-12 07:25] LABS: Cortisol AM (Before 10AM) 15.9 ug/dL (4.46-22.7)
[2020-12-12] MEDS: SODIUM CHLORIDE 0.9% FLUSH 10 ML IV ×2 (08:27→19:28)
[2020-12-12] MEDS: ONDANSETRON 4 MG/2 ML INJ IV (08:27)
[2020-12-12] MEDS: DIVALPROEX ER 250 MG TAB 500 MG PO (09:12)
[2020-12-12] MEDS: predniSONE 20 MG TABLET PO (09:12)
[2020-12-12] MEDS: ATORVASTATIN 20 MG TABLET 40 MG PO (09:12)
[2020-12-12] MEDS: DEXTROSE 5% WATER 1,000 ML 75 ML IV (09:13)
[2020-12-12] MEDS: ENOXAPARIN 40 MG/0.4 ML SYRINGE SUBCUT (09:13)
[2020-12-12] MEDS: FINASTERIDE 5 MG TABLET PO (09:13)
--- NOTE | 2020-12-12 09:33 | P.PN_ITS ---
Subjective Subjective Date Patient Seen: 12/12/20 Time Patient Seen: 11:27 Interval history: His hemoglobin has dropped from 8.5 down to 7.2. The BMP is normal with a calcium that has dropped from 7.9 down to 7.6. AST is 74 and ALT is 60. His alkaline phosphatase is rising up to 283. The albumin has risen from 2.3 up to 2.7. He continues to have severe nausea related to his pancreatic cancer. He is already on metoclopramide at home. Overnight the D10 had to be resumed as the blood sugars were dropping into the 60s on the D5 infusion. This morning blood sugar is 131. He is eating but continues to be quite nauseated. He tells me that he lives with his son in [place]. He is scheduled to have a right-sided pleural effusion thoracentesis PleurX catheter put in by Interventional Radiology on Monday in [place]. Exam Vital Signs (past 8 hours): - 12/12/20 04:30 12/12/20 04:48 12/12/20 07:40 Temperature 97.2 F L 96.7 F L Pulse Rate 92 H 91 H 93 H Respiratory Rate 37 H 10 L 20 Blood Pressure 124/60 Pulse Oximetry 97 98 98 12/12/20 07:59 Temperature Pulse Rate Respiratory Rate Blood Pressure Pulse Oximetry 96 Oxygen Delivery Method Room Air Oxygen Flow Rate 0 Narrative Exam Narrative: He is alert and oriented x3. There is no apparent distress. Heart is regular rate and rhythm without murmur Lungs are clear to auscultation bilaterally Extremities have no ankle edema Abdomen is soft, bowel sounds positive, nontender, no organomegaly. Objective Labs Result Diagrams: 12/12/20 06:05 12/12/20 06:05 Labs: Laboratory Results - last 24 hr 12/11/20 12/11/20 12/11/20 16:48 16:48 17:50 WBC 9.8 RBC 2.70 L Hgb 8.5 L Hct 25.7 L MCV 95.4 MCH 32.2 MCHC 33.7 RDW 17.3 H Plt Count 224 Neut % (Auto) 97.4 H Lymph % (Auto) 1.1 L Mcpherson % (Auto) 1.4 L Eos % (Auto) 0.0 L Baso % (Auto) 0.1 Neut # (Auto) 7800 H Lymph # (Auto) 100 L Mcpherson # (Auto) 100 Eos # (Auto) 0 Baso # (Auto) 0 Sodium 133 L Potassium 4.0 Chloride 102 Carbon Dioxide 25 BUN 10 Creatinine 0.55 L Estimated GFR > 60.0 BUN/Creatinine Ratio 18.2 Glucose 86 Calcium 7.9 L Total Bilirubin 1.3 AST 74 H ALT 60 H Alkaline Phosphatase 283 H Total Creatine Kinase 118 CK-MB (CK-2) 1.64 CK-MB (CK-2) Rel Index 1.4 L Troponin I < 0.012 Total Protein 5.5 L Albumin 2.7 L Globulin 2.8 Albumin/Globulin Ratio 1.0 Cortisol AM Sample Nasal Screen MRSA (PCR) SARS-CoV-2 (PCR) Blood Type B Positive Antibody Screen Negative 12/11/20 12/11/20 12/12/20 18:18 19:06 06:05 WBC RBC Hgb Hct MCV MCH MCHC RDW Plt Count Neut % (Auto) Lymph % (Auto) Mcpherson % (Auto) Eos % (Auto) Baso % (Auto) Neut # (Auto) Lymph # (Auto) Mcpherson # (Auto) Eos # (Auto) Baso # (Auto) Sodium 133 L Potassium 3.8 Chloride 103 Carbon Dioxide 28 BUN 6 L Creatinine 0.56 L Estimated GFR > 60.0 BUN/Creatinine Ratio 10.7 Glucose 103 Calcium 7.6 L Total Bilirubin AST ALT Alkaline Phosphatase Total Creatine Kinase CK-MB (CK-2) CK-MB (CK-2) Rel Index Troponin I Total Protein Albumin Globulin Albumin/Globulin Ratio Cortisol AM Sample Nasal Screen MRSA (PCR) Negative for mrsa SARS-CoV-2 (PCR) Negative Blood Type Antibody Screen 12/12/20 12/12/20 06:05 06:05 WBC 6.7 RBC 2.30 L Hgb 7.2 L Hct 21.9 L MCV 95.1 MCH 31.4 MCHC 33.1 RDW 16.7 H Plt Count 257 Neut % (Auto) 93.7 H Lymph % (Auto) 5.2 L Mcpherson % (Auto) 1.0 L Eos % (Auto) 0.1 L Baso % (Auto) 0.0 Neut # (Auto) 6300 Lymph # (Auto) 300 L Mcpherson # (Auto) 100 Eos # (Auto) 0 Baso # (Auto) 0 Sodium Potassium Chloride Carbon Dioxide BUN Creatinine Estimated GFR BUN/Creatinine Ratio Glucose Calcium Total Bilirubin AST ALT Alkaline Phosphatase Total Creatine Kinase CK-MB (CK-2) CK-MB (CK-2) Rel Index Troponin I Total Protein Albumin Globulin Albumin/Globulin Ratio Cortisol AM Sample 15.9 Nasal Screen MRSA (PCR) SARS-CoV-2 (PCR) Blood Type Antibody Screen [facility] Medical History Coronary artery disease Diabetes Hyperlipidemia Malignant neoplasm metastatic to pancreas Post-traumatic stress disorder, chronic Surgical History History of cholecystectomy (01/31/17) Family History Mother Diabetes mellitus Father Dementia Social History household members: family and children Smoking Status: Never smoker alcohol intake: never substance use type: does not use Assessment & Plan Assessment & Plan narrative: Mr. Hastings is a 70 y.o. male with PMH of pancreatic cancer, Type 2 Diabetes on insulin, CAD, PTSD who presented with altered mental status and shortness of breath found to have hypoglycemia and probable pneumonia. 1. Hypoglycemia in type 2 diabetes on insulin -etiology is unclear, but most likely is secondary to insulin use -patient told ER he did use insulin today, needle found in patient, told me he did not -if he did use his lantus incorrectly, would benefit from overnight monitoring to make sure glucose remains stable -glucose stabilized after d50, and then d10 gtt, then tried D5 overnight but had to be resumed on D10. -retrial D5 again today -monitor glucose for further decrease 2. Shortness of breath, acute from probable pneumonia -labs show left shift with 97% PMNs, possibly indicating infection, with chest xray showing increased consolidation from prior -has begun to improve already with improvement in glucose -not needing any oxygen -started IV levofloxacin -right sided pleural effusion is moderate, and already has plan for thoracentesis this coming week 3. Per previous notes probable adrenal insufficiency -presumed this is why he was prescribed prednisone -will continue for now at prednisone 20mg daily 4. Pancreatic cancer, likely metastatic -will need to follow up with Dr. Smith as outpatient for further chemo recommendations -Anemic with hgb of 7.2, may need transfusion, follow daily 5. CAD with HTN -asymptomatic -await medication reconciliation for ordering doses IVF: none DVT ppx: lovenox Diet: Diabetic Code: DNR, proxy is son Chele
[2020-12-12] MEDS: LORazepam 2 MG/ML INJ 0.5 MG IV ×3 (09:41→20:33)
--- NOTE | 2020-12-12 09:46 | PC.NURSE ---
Addendum entered by Wilver Brown R.N. 12/12/20 13:11: Pt's daughter, Fernanda, called. Verbal consent was given by pt to give information over the phone. Fernanda is concerned that pt may need to have a thoracentesis. She would like the hospitalist to evaluate the need for procedure prior to pt being discharge. Reassured daughter that pt was not short of breath and is not requiring oxygen at this time. Her main concern is that his upcoming appt is a consultation with no planned intervention and that he may need to have this procedure soon since he coughed 2 days ago. Reported family concerns to Dr. Cabral who states he call daughter and address concerns. Addendum entered by Wilver Brown R.N. 12/12/20 11:28: Pt awoke, retching and had small amount of emesis and continued nausea. States he feels terrible. Not time for any add'l PRNs. Notified Dr. Cabral. Orders received. Pt was noted to be sleeping when this RN went in to administer reglan. Will re assess when pt wakes up. Addendum entered by Wilver Brown R.N. 12/12/20 10:27: Post ativan administration, pt is noted to be resting comfortably with eyes closed, RR even/unlabored 16 SPO2 99% RA HR 92 SR. Original Note: After eating breakfast, pt c/o nausea. States It feels like I swallowed rocks. Administered PRN zofran with good effect and pt reported being ready to take AM meds. Post med administration, pt requesting emesis bag. Vomited small amount of bile with continued c/o nausea. Spoke with hospitalist via phone. Reported emesis x1 with continued nausea. Orders received and implemented.
[2020-12-12] MEDS: METOCLOPRAMIDE 10 MG/2 ML INJ IV (12:21)
--- NOTE | 2020-12-12 13:24 | DI.US.S_ITS ---
PROCEDURE: US CHEST COMPARISON: [facility], CR, XR CHEST 1V, 12/12/2020, 15:26. INDICATIONS: Place flora on chest for bedside Thoracentesis - [place] FINDINGS/IMPRESSION: There is a moderate to large simple appearing pleural effusion. The adjacent lung is atelectatic. Dictated by: Fer Wadsworth D.O. on 12/12/2020 at 14:55 Approved by: Fer Wadsworth D.O. on 12/12/2020 at 15:01
--- NOTE | 2020-12-12 14:00 | CM.IDA ---
Initial DCP Assessment Note Patient is a 70 yo male, resident of [place]. Presents w/family d/t altered mental status and SOB. PMH of pancreatic cancer that has metastasized, Type 2 Diabetes on insulin, CAD, PTSD who presented with altered mental status and shortness of breath found to have hypoglycemia and probable pneumonia. PCP is Vianca Cox. Primary payer is Medicare and [employer]. Patient has had 4 ER visits and 4 admissions in the last 3 months. Attempted initial assessment at bedside today and patient very sick. Patient's dtr Fernanda currently speaking w/Dr Cabral re: patient's medical status and requesting a thoracentesis while patient admitted. Following DCP assessment completed 12.05.20 by MONICA Malin remains valid: Pt was admitted back in November 06- for COVID pneumonia and discharged home with family support and then readmit December 03 for SOB and pt and family members declined Hospice or SNF and adamant that they want to care for pt at home. Pt's spouse recently after dilan COVID and pt's many adult children (10 adult children, most of them local) have been very supportive and involved. Pt started on chemo 3 days ago at the [facility] with Dr. Oneal. Family members confirmed during pt's last admission that they had applied for NILDA and pt qualified but the cost was too high for NILDA to be initiated and they declined NILDA services. [facility] and were going to contact [facility] services to determine if any other supports could be put in place like CG in the home for additional assist. SW called [facility] and confirmed they just opened pt to service yesterday MonDecember 04 and SW updated them that pt OBS Status and likely will d/c home this evening and therefore [facility] does not need any Resume Orders at d/c and they will follow up with pt and family tomorrow. Plan: SW to follow closely for likely pt d/c home via family POV tonight and Resume [facility] RN/PT/OT/STAMPING PRESS OPERATOR/PRECISION LENS GRINDER and ongoing Oncology for Chemo and outpt Pulmonology. Patient expected to DC back home w/family support and resumption of HH services through [facility], w/close outpatient follow up w/Oncology. Notes from Oncology SWer Lisa Peace-Laws indicate ongoing support/resources have been offered to patient and family. [employer] team will follow closely for support and DCP coordination as medical POC unfolds MONICA Castorena
--- NOTE | 2020-12-12 15:22 | DI.RAD.S_ITS ---
PROCEDURE: XR CHEST 1V INDICATIONS: Thoracentesis TECHNIQUE: One view of the chest was acquired. COMPARISON: [facility], CR, XR CHEST 1V, 12/11/2020, 18:11. FINDINGS: Surgical changes and devices: Overlying EKG wires. Access left chest wall port a catheter with the tip overlying the expected location of the superior vena cava. Lungs and pleura: Interval decrease in size of right-sided pleural effusion. Canal small in appearance. Opacity within the right mid lung likely represents resolving atelectasis. There is linear densities at the left lung base likely representing atelectasis. Developing consolidation/completely excluded. There is no pneumothorax. Mediastinum: Mediastinal contours appear normal. Heart size is normal. Bones and chest wall: No suspicious bony lesions. Overlying soft tissues appear unremarkable. IMPRESSION: Interval decrease in size of now small right-sided pleural effusion. No pneumothorax. Densities within the right mid lung and left lung base likely represent atelectasis. Consolidation not excluded. Dictated by: Fer Wadsworth D.O. on 12/12/2020 at 14:35 Approved by: Fer Wadsworth D.O. on 12/12/2020 at 14:37
--- NOTE | 2020-12-12 15:24 | PM.PROC.1 ---
Procedures Date/Time Date of procedure: 12/12/20 Time of procedure: 15:24 General Procedure description: Procedure description: PROCEDURE: Right Therapeutic Thoracentesis. INDICATION: Recurrent R pleural effusion with symptoms PERFORMING PHYSICIAN: Fran Cabral MD CONSENT: Consent was obtained from the patient prior to the procedure. Indications, risks, and benefits were explained at length. PROCEDURE SUMMARY: A time out was performed and the chest x-ray was reviewed, the appropriate side was confirmed. The patient was prepped and draped in a sterile manner using chlorhexidine scrub after the appropriate level was percussed and confirmed by ultrasound. 1% lidocaine was used to anesthesize the skin, subcutaneous tissue, superior aspect of the rib periosteum and parietal pleura. Site was very close to previous location. 16 g catheter was then placed along the superior aspect of the rib. Suction was required for fluid removal ultimately. Red tinged fluid was removed, approximately 2400 mL. The catheter was then removed. No immediate complications were noted during the procedure. A post-procedure chest x-ray is pending at the time of this note. The fluid will be discarded. Estimated blood loss is 0 mL. Complications: none
[2020-12-12] MEDS: SODIUM CHLORIDE 0.9% 1,000 ML 60 ML IV (17:17)
[2020-12-12] MEDS: levoFLOXacin 750 MG/150 ML PIGGYBACK 100 MG IV (19:45)
[2020-12-12] MEDS: INSULIN LISPRO 100 UNIT/ML 3ML VIAL SUBCUT (20:26)
--- NOTE | 2020-12-12 22:42 | PC.NURSE ---
Shift Note: Thoracentesis done per Dr. Cabral, 2400cc reddish fluid obtained. Pt tolerated procedure well, CXR done and pt resting comfortably. Blood Glucose increased to 282 @ 1630, MD notified and IV changed to NS @ 60cc/hr - BG @ 2030 355, again notified, sliding scale ordered. Medicated for nausea with Ativan x2 this shift. Denies pain. Breath sounds clear, slightly diminished posteriorly.
[2020-12-13] VITALS (14 sets, daily range): BP systolic 110–127; BP diastolic 58–63; PULSE 89–101; RESP 16–23; TEMP 36.1–36.8; O2SAT 97–99
[2020-12-13 06:45] LABS: Alanine Aminotransferase 51 IU/L (<50); Albumin 2.2 g/dL (3.5-5.0); Albumin Globulin Ratio 0.9 (1.0-2.8); Alkaline Phosphatase 232 U/L (38-126); Aspartate Aminotransferase 57 IU/L (17-59); BUN Creatinine Ratio 11.5 (6-22); Bilirubin Total 0.8 mg/dL (0.2-1.3); Blood Urea Nitrogen 7 mg/dL (9-20); Calcium 7.8 mg/dL (8.4-10.2); Carbon Dioxide 27 mmol/L (22-32); Chloride 105 mmol/L (98-107); Estimated Glomerular Filt Rate > 60.0 mL/min (>60); Globulin 2.5 g/dL (1.7-4.1); Glucose 115 mg/dL (80-110); HEMOLYSIS < 15 (0-50); Sodium 133 mmol/L (137-145); Total Protein 4.7 g/dL (6.3-8.2)
[2020-12-13 06:50] LABS: Add Manual Diff / Slide Review NO; Basophils Absolute Auto 0 /uL (0-100); Basophils Percent Auto 0.2 % (0-2); Eosinophils Absolute Auto 0 /uL (0-450); Eosinophils Percent Auto 0.1 % (2-4); Lymphocytes Absolute Auto 400 /uL (1100-4500); Lymphocytes Percent Auto 10.2 % (25-40); Mean Corpuscular HGB Conc 32.9 % (30-36); Mean Corpuscular Hemoglobin 31.3 PG (26-34); Mean Corpuscular Volume 95.1 fL (80-100); Monocytes Absolute Auto 0 /uL (0-900); Monocytes Percent Auto 1.2 % (3-14); Neutrophils Absolute Auto 3400 /uL (1500-7000); Neutrophils Percent Auto 88.3 % (50-75); Platelet Count 254 X10^3/uL (150-400); Red Cell Distribution Width 17.3 % (11.6-14.8); White Blood Cell Count 3.8 X10^3/uL (4.5-11.0)
[2020-12-13 06:51] LABS: Hemoglobin 6.6 g/dL (13.5-17.5)
--- NOTE | 2020-12-13 06:52 | PC.NURSE ---
Informed YOLETTE Mcmanus of pt's. H&H result this am of .01/17, no new orders received.
--- NOTE | 2020-12-13 07:27 | PM.PN.1 ---
Subjective Subjective Date Patient Seen: 12/13/20 Exam Vital Signs (past 8 hours): - 12/13/20 00:00 12/13/20 00:08 12/13/20 04:00 Temperature 97.4 F L 97.9 F Pulse Rate 101 H 90 Respiratory Rate 23 20 Blood Pressure 113/60 122/59 L Pulse Oximetry 98 98 97 12/13/20 04:44 Temperature Pulse Rate Respiratory Rate Blood Pressure Pulse Oximetry 97 Oxygen Delivery Method Room Air Oxygen Flow Rate 0 Narrative Exam Narrative: He is alert and oriented x3. No apparent distress Heart is regular rate and rhythm without murmur Lungs are clear to auscultation bilaterally Abdomen is soft, bowel sounds positive, nontender, no organomegaly Extremities have no ankle edema Objective Labs Result Diagrams: 12/13/20 06:20 12/13/20 06:20 Labs: Laboratory Results - last 24 hr 12/11/20 12/12/20 12/13/20 17:50 06:05 06:20 WBC 3.8 L RBC 2.10 L Hgb 6.6 L* Hct 20.0 L* MCV 95.1 MCH 31.3 MCHC 32.9 RDW 17.3 H Plt Count 254 Neut % (Auto) 88.3 H Lymph % (Auto) 10.2 L Angelina % (Auto) 1.2 L Eos % (Auto) 0.1 L Baso % (Auto) 0.2 Neut # (Auto) 3400 Lymph # (Auto) 400 L Angelina # (Auto) 0 Eos # (Auto) 0 Baso # (Auto) 0 Sodium Potassium Chloride Carbon Dioxide BUN Creatinine Estimated GFR BUN/Creatinine Ratio Glucose Calcium Total Bilirubin AST ALT Alkaline Phosphatase Total Protein Albumin Globulin Albumin/Globulin Ratio Cortisol AM Sample 15.9 Blood Type B Positive Antibody Screen Negative Crossmatch See Detail 12/13/20 06:20 WBC RBC Hgb Hct MCV MCH MCHC RDW Plt Count Neut % (Auto) Lymph % (Auto) Angelina % (Auto) Eos % (Auto) Baso % (Auto) Neut # (Auto) Lymph # (Auto) Angelina # (Auto) Eos # (Auto) Baso # (Auto) Sodium 133 L Potassium 4.0 Chloride 105 Carbon Dioxide 27 BUN 7 L Creatinine 0.61 L Estimated GFR > 60.0 BUN/Creatinine Ratio 11.5 Glucose 115 H Calcium 7.8 L Total Bilirubin 0.8 AST 57 ALT 51 H Alkaline Phosphatase 232 H Total Protein 4.7 L Albumin 2.2 L Globulin 2.5 Albumin/Globulin Ratio 0.9 L Cortisol AM Sample Blood Type Antibody Screen Crossmatch [facility] Medical History Coronary artery disease Diabetes Hyperlipidemia Malignant neoplasm metastatic to pancreas Post-traumatic stress disorder, chronic Surgical History History of cholecystectomy (01/31/17) Family History Mother Diabetes mellitus Father Dementia Social History household members: family and children Smoking Status: Never smoker alcohol intake: never substance use type: does not use Assessment & Plan Assessment & Plan narrative: Mr. Hastings is a 70 y.o. male with PMH of pancreatic cancer, Type 2 Diabetes on insulin, CAD, PTSD who presented with altered mental status and shortness of breath found to have hypoglycemia and probable pneumonia. 1. Hypoglycemia in type 2 diabetes on insulin -etiology is unclear, but most likely is secondary to insulin use -patient told ER he did use insulin today, needle found in patient, told me he did not -if he did use his lantus incorrectly, would benefit from overnight monitoring to make sure glucose remains stable -glucose stabilized after d50, and then d10 gtt, then tried D5 overnight but had to be resumed on D10. -retrial D5 again today -monitor glucose for further decrease 2. Shortness of breath, acute from probable pneumonia -labs show left shift with 97% PMNs, possibly indicating infection, with chest xray showing increased consolidation from prior -has begun to improve already with improvement in glucose -not needing any oxygen -started IV levofloxacin -right sided pleural effusion is moderate, and already has plan for thoracentesis this coming week 3. Per previous notes probable adrenal insufficiency -presumed this is why he was prescribed prednisone -will continue for now at prednisone 20mg daily 4. Pancreatic cancer, likely metastatic -will need to follow up with Dr. Smith as outpatient for further chemo recommendations -Anemic with hgb of 7.2, may need transfusion, follow daily 5. CAD with HTN -asymptomatic -await medication reconciliation for ordering doses IVF: none DVT ppx: lovenox Diet: Diabetic Code: DNR, proxy is son Chele and daughter Fernanda
[2020-12-13] MEDS: INSULIN LISPRO 100 UNIT/ML 3ML VIAL SUBCUT ×2 (08:29→11:44)
[2020-12-13] MEDS: ATORVASTATIN 20 MG TABLET 40 MG PO (08:30)
[2020-12-13] MEDS: predniSONE 20 MG TABLET PO (08:30)
[2020-12-13] MEDS: ENOXAPARIN 40 MG/0.4 ML SYRINGE SUBCUT (08:30)
[2020-12-13] MEDS: FINASTERIDE 5 MG TABLET PO (08:31)
[2020-12-13] MEDS: DIVALPROEX ER 250 MG TAB 500 MG PO (08:31)
[2020-12-13] MEDS: SODIUM CHLORIDE 0.9% FLUSH 10 ML IV ×2 (11:00→14:55)
[2020-12-13 12:29] LABS: Ionized Calcium 4.5 mg/dL (4.5-5.6)
[2020-12-13 14:57] LABS: Hematocrit 28.2 % (41-53); Hemoglobin 9.5 g/dL (13.5-17.5)
--- NOTE | 2020-12-13 15:24 | P.DS_ITS ---
History of Present Illness History of Present Illness Date Patient Seen: 12/13/20 Chief complaint: trouble breathing Narrative: Mr. Vail is a 70M PMH of pancreatic cancer with mets to liver and kidney last chemo on 12/09, Type 2 DM on insulin, CAD who presents with shortness of breath a nd altered mental status. He earlier went to [facility] ER for similar symptoms and was found to be hypoglycemic in the 20s. He was given sugar and his symptoms improved and his blood sugar improved and he was discharged. Apparently he then went home and returned with similar symptoms. Patient states he only felt short of breath when he was hypoglycemic. He does take insulin at home. He says he last took insulin yesterday and did not take any today. Apparently he told the ER physician he took insulin earlier today. And per nursing staff note patient had insulin needle in his arm, so it is unclear if he got insulin today. He was confused after being discharged from [facility], EMS was called and found his blood sugar to be in the 20s. In the ER, workup was done. Vitals were notable for mild tachycardia and otherwise normal. Labs were notable for WBC of 9.8 with 97% PMNs. For his hypoglycemia he got d50 and was started on a d10 drip. Of note patient has had thoracentesis in the past for pleural effusion for shortness of breath. Per previous notes no malignant cells have been found, and he is planned for another thoracentesis at [facility] early this next week. After getting glucose pat ient denies shortness of breath and states he feels back to normal. Chest xray was done that did show a moderate right pleural effusion and right lower lobe consolidation worse than compared with 12/05, consistent with possible pneumonia. He was given antibiotics and admitted for further treatment. Of note last two admissions patient was noted to have orthostatic hypotension, he was diagnosed with probable adrenal insufficiency, and last discharge last week was given prednisone 20mg daily script for 30 days. This is presumed for adrenal insufficiency though note does not say that. Discharge Providers Provider Date of admission: 12/11/20 17:54 Discharge Date: 12/13/20 Primary care physician: Vianca Cox MD Consults: 12/13/20 11:51 Consult to Home Health Routine Comment: DX: SOB Reason For Exam: Resume Home Health from [facility]. Discharge provider: Azul Cabral MD Summary Hospital Course Discharge Diagnosis: Mr. Hastings is a 70 y.o. male with PMH of pancreatic cancer, Type 2 Diabetes on insulin, CAD, PTSD who presented with altered mental status and shortness of breath found to have hypoglycemia and probable pneumonia. 1. Hypoglycemia in type 2 diabetes on insulin 2. Shortness of breath/right pleural effusion recurrent 3. Per previous notes probable adrenal insufficiency 4. Pancreatic cancer, likely metastatic, with anemia requiring transfusion 5. CAD with HTN Hospital Course: Mr. Hastings is a 70 y.o. male with PMH of pancreatic cancer, Type 2 Diabetes on insulin, CAD, PTSD who presented with altered mental status and shortness of breath found to have hypoglycemia and probable pneumonia. He was treated with D10 and then D5 infusion and finally for the last 36 hours without needing IV dextrose to maintain his blood sugars. The Lantus has not been resumed while inpatient but on discharge will be decreased to 10 units t wice a day. His blood sugars have been quite high as would be expected. He is also on prednisone. His daughter requested that he receive another thoracentesis and that was done successfully with pink tinged fluid of 2400 mL from the right lung yesterday. The follow-up chest x-ray showed improvement and no pneumothorax. His hemoglobin this morning dropped down to 6.6 and so he was transfused 2 units of packed blood red cells with a hemoglobin rising back up to 9.5. I spoke with his daughter yesterday and again today. She is quite focused on having him ?fight the cancer, having just lost her mother recently. The patient is less aggressive treatment inclined and seems to be somewhat pa ssive/accepting of the progression of his metastatic apparent pancreatic cancer. We do not have much in the way of records of his current oncology status. I did speak with Dr. Diaz who will try to facilitate an earlier appointment with Dr. Oneal to assess his current status as soon as this week if possible. He does have a Interventional Radiology appointment tomorrow that we have been focused on getting him to so that he can talk about getting a PleurX catheter and perhaps not have to do these weekly large fluid removals with repeat thoracentesis. 1. Hypoglycemia in type 2 diabetes on insulin -etiology is unclear, but most likely is secondary to insulin use, will decrease Lantus to 10 units twice a day -patient told ER he did use insulin today, needle found in patient -see above summary 2. Shortness of breath, recurrent right pleural effusion -labs show left shift with 97% PMNs, possibly indicating infection, with chest xray showing increased consolidation from prior -no evidence of pneumonia as far as symptoms once the 2400 mL from the pleural effusion was drained so the levofloxacin will be stopped -right sided pleural effusion will be treated with PleurX catheter soon pres umably 3. Per previous notes probable adrenal insufficiency - prednisone 20mg daily 4. Pancreatic cancer, likely metastatic -he seems to have no pain but did have recurrent vomiting requiring multiple different medication interventions. Lorazepam seems to be the most effective. -will need to follow up with Dr. Smith as outpatient for further chemo recommendations, discussed with Oncology on-call, Dr. Diaz who will message Dr. Oneal's staff to arrange appointment sooner -Anemic with hemoglobin that eventually dropped to 6.6, was given 2 units packed blood red cells on 12/13, with subsequent hemoglobin of 9.5 and will follow-up with Oncology this week. 5. CAD with HTN Code: DNR, proxy is son Chele and daughter Fernanda Exam Vital Signs (past 8 hours): - 12/13/20 08:00 12/13/20 08:23 12/13/20 08:40 Temperature 97.1 F L 98 F 97.6 F Pulse Rate 92 H 96 H 96 H Respiratory Rate 23 18 18 Blood Pressure 127/62 123/59 L 114/58 L Pulse Oximetry 98 12/13/20 11:00 12/13/20 11:05 12/13/20 11:35 Temperature 98 F 98 F Pulse Rate 89 93 H Respiratory Rate 16 18 Blood Pressure 110/60 123/63 Pulse Oximetry 98 12/13/20 11:54 12/13/20 14:15 12/13/20 15:00 Temperature 98.1 F 98.2 F Pulse Rate 91 H 94 H Respiratory Rate 16 17 Blood Pressure 113/61 110/59 L Pulse Oximetry 98 Oxygen Delivery Method Room Air Oxygen Flow Rate 0 Narrative Exam Narrative: He is alert and oriented x3. He is in no apparent distress. Heart is regular rate and rhythm without murmur Lungs are clear to auscultation bilaterally Extremities have no ankle edema Objective Labs Result Diagrams: 12/13/20 14:54 12/13/20 06:20 Labs: Laboratory Results - last 24 hr 12/11/20 12/11/20 12/13/20 16:25 17:50 06:20 WBC 3.8 L RBC 2.10 L Hgb 6.6 L* Hct 20.0 L* MCV 95.1 MCH 31.3 MCHC 32.9 RDW 17.3 H Plt Count 254 Neut % (Auto) 88.3 H Lymph % (Auto) 10.2 L [place] % (Auto) 1.2 L Eos % (Auto) 0.1 L Baso % (Auto) 0.2 Neut # (Auto) 3400 Lymph # (Auto) 400 L [place] # (Auto) 0 Eos # (Auto) 0 Baso # (Auto) 0 Sodium Potassium Chloride Carbon Dioxide BUN Creatinine Estimated GFR BUN/Creatinine Ratio Glucose Calcium Ionized Calcium Abi 4.5 Total Bilirubin AST ALT Alkaline Phosphatase Total Protein Albumin Globulin Albumin/Globulin Ratio Blood Type B Positive Antibody Screen Negative Crossmatch See Detail 12/13/20 12/13/20 06:20 14:54 WBC RBC Hgb 9.5 L Hct 28.2 L MCV MCH MCHC RDW Plt Count Neut % (Auto) Lymph % (Auto) [place] % (Auto) Eos % (Auto) Baso % (Auto) Neut # (Auto) Lymph # (Auto) [place] # (Auto) Eos # (Auto) Baso # (Auto) Sodium 133 L Potassium 4.0 Chloride 105 Carbon Dioxide 27 BUN 7 L Creatinine 0.61 L Estimated GFR > 60.0 BUN/Creatinine Ratio 11.5 Glucose 115 H Calcium 7.8 L Ionized Calcium Abi Total Bilirubin 0.8 AST 57 ALT 51 H Alkaline Phosphatase 232 H Total Protein 4.7 L Albumin 2.2 L Globulin 2.5 Albumin/Globulin Ratio 0.9 L Blood Type Antibody Screen Crossmatch [facility] Medical History Coronary artery disease Diabetes Hyperlipidemia Malignant neoplasm metastatic to pancreas Post-traumatic stress disorder, chronic Surgical History History of cholecystectomy (01/31/17) Family History Mother Diabetes mellitus Father Dementia Social History household members: family and children Smoking Status: Never smoker alcohol intake: never substance use type: does not use Discharge Plan Discharge Plan Patient Disposition: Home Provider Discharge Comment: Dr. Oneal's office will call you to make an appointment for this week. This was arranged in a phone call to Dr. Diaz. Discharge orders & Medications Prescriptions: New Lantus Solostar U-100 Insulin 100 unit/mL (3 mL) insulin pen 10 unit SUBCUT BID Qty: 15 RF: 0 Continued pantoprazole [Protonix] 40 mg tablet,delayed release (DR/EC) 40 mg PO DAILY Qty: 30 RF: 0 ondansetron 4 mg tablet,disintegrating 4 mg PO TID-QID PRN (Reason: nausea and vomiting) Qty: 10 RF: 0 atorvastatin 40 mg tablet 40 mg PO DAILY RF: 0 baclofen 10 mg Tablet 5 mg PO TID PRN (Reason: Hiccups) Qty: 10 RF: 0 prednisone 20 mg tablet 20 mg PO DAILY Qty: 30 RF: 0 famotidine 40 mg Tablet 40 mg PO BEDTIME RF: 0 travoprost [Travatan Z] 0.004 % drops 1 drp EYE-BOTH DAILY RF: 0 olopatadine 0.1 % Drops 1 drp OPHTHALMIC (EYE) DAILY RF: 0 divalproex 500 mg Tablet Extended Release 24 Hr 500 mg PO DAILY RF: 0 brimonidine 0.2 % drops 1 drp ophthalmic (eye) DAILY RF: 0 doxazosin 4 mg tablet 4 mg PO DAILY RF: 0 finasteride 5 mg tablet 5 mg PO DAILY RF: 0 pregabalin [Lyrica] 150 mg Capsule 150 mg PO BID RF: 0 metoclopramide HCl [Reglan] 10 mg tablet 10 mg PO Q6H PRN (Reason: nausea and vomiting) Qty: 10 RF: 0 Discontinued levofloxacin 750 mg tablet 750 mg PO DAILY Qty: 5 RF: 0 insulin aspart U-100 [Novolog Flexpen U-100 Insulin] 100 unit/mL (3 mL) insulin pen See Rx Instructions .ROUTE .COMPLEX RF: 0 Lantus Solostar U-100 Insulin 100 unit/mL (3 mL) insulin pen 30 unit SUBCUT BID RF: 0 Follow up/Referrals: Vianca Cox MD [Primary Care Provider] - Discharge Data Primary Care Provider: Vianca Cox
--- NOTE | 2020-12-13 16:33 | CM.DPC ---
DCP Continued: INFORMATION SECURITY OFFICER Student met with patient twice today at bedside he was alert and oriented both times. He expressed it is his time to let his children Chele and Fernanda to make decisions for him on his behalf regarding care and decisions around palliative and hospice care. Patient enquired about differences between palliative and hospice services provided education regarding differences he expressed understanding and stated he would speak with his children about both and reiterated that at this time he will defer to his children to make decisions. Educated patient about some resources which, might be available for him via his [facility] benefits e.g. caregivers, and DME. Provided patient with main [facility] number to call and schedule a PCP appointment as he reported he has an [facility] P[facility] with [facility]. Spoke with son Chele was aware of his father?s 1000am appointment tomorrow for a consult to place a catheter he expressed he was thinking about canceling the appointment. Encouraged him to keep appointment for his father as long as D/C was going to be today. Once D/C was confirmed with Dr. Cabral called and left message for Chele that an evening D/C is planned. Spoke with daughter Fernanda twice this date. During the initial call she expressed concern about the care her father is receiving and requested to speak with a ?chief door fitter? of the hospital. Provide her with Ban Rowell?s phone number . Fernanda was concerned and asked questions about why her father did not have thoracentesis on his last admission. She also, expressed a lack of communication between the hospital and Dr. Smith?s office as a concern. Consulted with Dr. Cabral this morning relayed daughters concerns. Later he confirmed speaking with daughter. Dr. Cabral expressed the plan moving forward was to continue with planned evening D/C (unless there is something concerning with lab results). He also stated he was going to try and have an appointment scheduled for patient with Dr. Smith for the following week. Re-established care with [facility], called and left a message for Mariam and faxed F2F and order. Provided patient with Important Medicare Message and [employer]. PLAN: Anticipate D/C this afternoon. Team to closely follow. MONICA Tyson MSW Student
--- NOTE | 2020-12-13 16:58 | PC.NURSE ---
Neelam is discharged to home with son Chele. PIV d/c'd and Port deaccessed and heparinized per protocol. d/c instructions are reviewed and questions answered. Neelam is escorted to private car via w/c to ride home with Chele.
== END 2020-12-13 17:00 | disposition home health service (06) | DRG 638 ==
LOC: ED 17:46 → AC 17:55 → ICU 18:13
PROVIDERS: Emergency Medicine; Family Medicine; Nurse Practitioner Family; Admitting Provider Internal Medicine; Emergency Provider Emergency Medicine; PCP Internal Medicine; Referring Provider Emergency Medicine; Visit Provider Internal Medicine
DX: E11.649 Type 2 diabetes mellitus with hypoglycemia without coma (principal); J90 Pleural effusion, not elsewhere classified; C25.9 Malignant neoplasm of pancreas, unspecified; C78.7 Secondary malignant neoplasm of liver and intrahepatic bile duct; C79.00 Secondary malignant neoplasm of unspecified kidney and renal pelvis; E27.40 Unspecified adrenocortical insufficiency; T38.3X5A Adverse effect of insulin and oral hypoglycemic [antidiabetic] drugs, initial encounter; I25.10 Atherosclerotic heart disease of native coronary artery without angina pectoris; D63.0 Anemia in neoplastic disease; I10 Essential (primary) hypertension; E78.5 Hyperlipidemia, unspecified; Z66 Do not resuscitate; Z79.4 Long term (current) use of insulin; Z86.16 Personal history of COVID-19; Z20.822 Contact with and (suspected) exposure to COVID-19
CPT/HCPCS: 36415; 36430; 36591; 71045; 76604; 80048; 80053; 82330; 82533; 82550; 82553; 82962; 84484; 85014; 85018; 85025; 86850; 86900; 86901; 87635; 87797; 93005; 93010; 96365; 99284; C9803; P9016; J1642; J1650; J1815; J1956; J2060; J2405; J2765

== ENCOUNTER 2020-12-15 12:40 | Emergency (ER) | payer MEDICARE, OTHER, SELFPAY ==
[2020-12-11 19:06] VITALS: BMI 25.0
[2020-12-15 13:16] VITALS: BP 121/74; PULSE 101; RESP 20; TEMP 36.7; O2SAT 99
--- NOTE | 2020-12-15 15:10 | DI.RAD.S_ITS ---
PROCEDURE: XR CHEST 2V INDICATIONS: shortness of breath, sent for pleural effusion TECHNIQUE: 2 views of the chest were acquired. COMPARISON: [facility], CR, XR CHEST 1V, 11/30/2020, 13:54. Outside Film, CT, CT CHEST WITHOUT CONTRAST, 10/05/2020, 10:14. [facility], CT, CT CHEST ABD PEL W CON, 11/30/2020, 4:44. [facility], CR, XR CHEST 1V, 12/11/2020, 18:11. [facility], US, US CHEST, 12/12/2020, 14:53. [facility], CR, XR CHEST 1V, 12/12/2020, 15:26. FINDINGS: Surgical changes and devices: There is a Port-A-Cath on the left with the tip projecting to the area of SVC. Lungs and pleura: There is a small to moderate right pleural effusion, unchanged from the last exam. A right perihilar density is present, which may be loculated effusion in the minor fissure, focal consolidation or atelectasis. Compared to the last exam, there is minimal change. No pneumothorax. Mediastinum: Mediastinal contours are normal. Heart size is normal. Bones and chest wall: No suspicious bony abnormalities. Soft tissues appear unremarkable. IMPRESSION: Stable small to moderate right pleural effusion. Dictated by: Chhaya Erickson M.D. on 12/15/2020 at 16:04 Approved by: Chhaya Erickson M.D. on 12/15/2020 at 16:17
--- NOTE | 2020-12-15 15:41 | ED.RECABL ---
HPI - Recheck/Abnormal Lab/Rx General Chief Complaint: Recheck/Abnormal Lab/Rx Stated Complaint: TAKE FLUID OFF LUNGS Time Seen by Provider: 12/15/20 12:48 Source: patient Mode of arrival: Wheelchair Limitations: no limitations History of Present Illness HPI narrative: This is a 70-year-old male who was sent by his reimbursement manager who contacted me this morning for shortness of breath and no pleural effusion secondary to Mets to the liver and kidney. Patient currently on chemotherapy. He has type 2 diabetes and is on insulin as well as coronary artery disease. Patient is set up to have a pleural dex catheter placed on Monday. During my discussion with the patient he states he is not having any shortness of breath, chest pain, lightheadedness or passing out. He denies any other GI or urinary symptoms currently. He would like to return home at this time. His reimbursement manager and I discussed with had the impression that the patient had had increasing shortness of breath and likely need a thoracentesis to bridge him until his PleurX catheter was placed. Patient defers at this time. His chest x-ray does appear significantly improved from most recent visit to the emergency department. He was recently drained on his last hospital stay here in [facility] about a week ago. Related Data Home Medications Medication Instructions Recorded Confirmed brimonidine 1 drp OPHTHALMIC (EYE) DAILY 10/05/20 12/11/20 divalproex 500 mg PO DAILY 10/05/20 12/11/20 doxazosin 4 mg PO DAILY 10/05/20 12/11/20 famotidine 40 mg PO BEDTIME 10/05/20 12/11/20 finasteride 5 mg PO DAILY 10/05/20 12/11/20 olopatadine 1 drp OPHTHALMIC (EYE) DAILY 10/05/20 12/11/20 pregabalin [Lyrica] 150 mg PO BID 10/05/20 12/11/20 travoprost [Travatan Z] 1 drp EYE-BOTH DAILY 10/05/20 12/11/20 atorvastatin 40 mg PO DAILY 11/07/20 12/11/20 Previous Rx's Medication Instructions Recorded ondansetron 4 mg PO TID-QID PRN #10 tab 10/06/20 pantoprazole [Protonix] 40 mg PO DAILY #30 tab 10/06/20 metoclopramide HCl [Reglan] 10 mg PO Q6H PRN #10 tab 11/05/20 baclofen 5 mg PO TID PRN #10 tab 11/08/20 prednisone 20 mg PO DAILY #30 tab 12/03/20 insulin glargine [Lantus Solostar 10 unit SUBCUT BID #15 ml 12/13/20 U-100 Insulin] Allergies Allergy/AdvReac Type Severity Reaction Status Date / Time aspirin Allergy Unknown Verified 12/05/20 01:36 brompheniramine Allergy Unknown Verified 12/05/20 01:36 codeine Allergy Unknown Verified 12/05/20 01:36 diphenhydramine Allergy Unknown Verified 12/05/20 01:36 guaifenesin Allergy Unknown Verified 12/05/20 01:36 hydrocodone Allergy Unknown Verified 12/05/20 01:36 hydroxyzine Allergy Unknown Verified 12/05/20 01:36 ibuprofen Allergy Unknown Verified 12/05/20 01:36 meperidine Allergy Unknown Verified 12/05/20 01:36 morphine Allergy Unknown Verified 12/05/20 01:36 nystatin Allergy Unknown Verified 12/05/20 01:36 promethazine Allergy Unknown Verified 12/05/20 01:36 propoxyphene Allergy Unknown Verified 12/05/20 01:36 tuberculin, purified protein Allergy Unknown Verified 12/05/20 01:36 deriva egg Allergy Verified 12/05/20 01:36 amoxicillin [From Augmentin] AdvReac Unknown Vomiting Verified 12/05/20 01:36 metformin AdvReac Unknown Diarrhea Verified 12/05/20 01:36 clavulanic acid AdvReac Vomiting Verified 12/05/20 01:36 [From Augmentin] Review of Systems Review of Systems ROS Unobtainable: All systems reviewed & are unremarkable except as noted in HPI and below Patient History Medical History Coronary artery disease Diabetes Hyperlipidemia Malignant neoplasm metastatic to pancreas Post-traumatic stress disorder, chronic Surgical History History of cholecystectomy (01/31/17) Family History Mother Diabetes mellitus Father Dementia Social History household members: family and children Smoking Status: Never smoker alcohol intake: never substance use type: does not use Smoking Status: Never smoker alcohol intake frequency: holidays/special occasions only Substance Use Type: does not use Exam Narrative Exam Narrative: GENERAL: Alert and oriented x three male in mild distress. HEENT: Head normocephalic, atraumatic, EOMI, pupils reactive, face symmetric, moist mucous membranes NECK: Supple, full range of motion CARDIOVASCULAR: Regular rate and rhythm without murmurs, rubs or gallops. RESPIRATORY: Breath sounds mildly decreased on the right base, no tachypnea accessory muscle use, no wheezes rales or rhonchi. Patient speaks in full sentences. ABDOMEN: Soft, nontender. Normoactive bowel sounds all 4 quadrants. No guarding or rebound, rigidity, no mass : No CVA tenderness EXTREMITIES: Normal range of motion. Neurovascularly intact NEUROLOGICAL: Cranial nerves II through XII grossly intact. Moving all extremities SKIN: Warm, dry, no petechiae, no rashes or lesions. Initial Vital Signs Initial Vital Signs: Vital Signs Temperature 98.0 F 12/15/20 13:16 Pulse Rate 101 H 12/15/20 13:16 Respiratory Rate 20 12/15/20 13:16 Blood Pressure 121/74 12/15/20 13:16 Pulse Oximetry 99 12/15/20 13:16 Course Orders Ordered: ED Orders 12/15/20 15:10 Consult to Respiratory Therapy Evaluate & Treat XR chest 2V Stat EKG-12 Lead Stat 12/15/20 15:55 Complete Blood Count AUTO DIFF Stat Comprehensive Metabolic Panel Stat Lipase Stat Partial Thromboplastin Time Stat Prothrombin Time INR Stat Troponin & CK Cardiac Panel Stat Vital Signs Vital signs: Vital Signs - 8 hr 12/15/20 13:16 12/15/20 17:16 Temperature 98.0 F Pulse Rate 101 H 92 H Respiratory Rate 20 Blood Pressure 121/74 125/72 Pulse Oximetry 99 100 MDM - Recheck/Abnormal Lab/Rx Lab Data Attestation: I reviewed the patient's lab results. Result diagrams: 12/15/20 15:55 12/15/20 15:55 Labs: Lab Results 12/15/20 12/15/20 12/15/20 Range/Units 15:55 15:55 15:55 WBC 4.0 L Cancelled (4.5-11.0) X10^3/uL RBC 3.38 L Cancelled (4.5-5.9) X10^6/uL Hgb 10.6 L Cancelled (13.5-17.5) g/dL Hct 31.2 L Cancelled (41-53) % MCV 92.3 Cancelled (80-100) fL MCH 31.2 Cancelled (26-34) PG MCHC 33.8 Cancelled (30-36) % RDW 17.1 H Cancelled (11.6-14.8) % Plt Count 205 Cancelled (150-400) X10^3/uL Neut % (Auto) Not Reportable Cancelled Lymph % (Auto) Not Reportable Cancelled [place] % (Auto) Not Reportable Cancelled Eos % (Auto) Not Reportable Cancelled Baso % (Auto) Not Reportable Cancelled Neut # (Auto) Cancelled Lymph # (Auto) Not Reportable Cancelled [place] # (Auto) Not Reportable Cancelled Eos # (Auto) Cancelled Baso # (Auto) Not Reportable Cancelled Total Counted 100 Seg Neutrophils % 78.0 H (38-70) % Lymphocytes % (Manual) 16.0 L (25-45) % Monocytes % (Manual) 6.0 (2-11) % Neutrophils # (Manual) 3120 (3220-8347) /uL RBC Morphology Not Reportable Anisocytosis 1+ H PT (10.1-12.7) SECONDS INR (0.9-1.3) APTT (26.4-36.2) SECONDS Sodium 129 L (137-145) mmol/L Potassium 4.1 (3.4-5.1) mmol/L Chloride 100 (98-107) mmol/L Carbon Dioxide 25 (22-32) mmol/L BUN 7 L (9-20) mg/dL Creatinine 0.57 L (0.66-1.25) mg/dL Estimated GFR > 60.0 (>60) mL/min BUN/Creatinine Ratio 12.3 (6-22) Glucose 314 H D (80-110) mg/dL Calcium 8.1 L (8.4-10.2) mg/dL Total Bilirubin 1.1 (0.2-1.3) mg/dL AST 49 (17-59) IU/L ALT 71 H (<50) IU/L Alkaline Phosphatase 356 H D (38-126) U/L Total Creatine Kinase (55-170) U/L CK-MB (CK-2) CK-MB (CK-2) Rel Index Troponin I (0.01-0.034) ng/mL Total Protein 5.3 L (6.3-8.2) g/dL Albumin 2.7 L (3.5-5.0) g/dL Globulin 2.6 (1.7-4.1) g/dL Albumin/Globulin Ratio 1.0 (1.0-2.8) Lipase 36 (23-300) U/L 12/15/20 12/15/20 Range/Units 15:55 15:55 WBC (4.5-11.0) X10^3/uL RBC (4.5-5.9) X10^6/uL Hgb (13.5-17.5) g/dL Hct (41-53) % MCV (80-100) fL MCH (26-34) PG MCHC (30-36) % RDW (11.6-14.8) % Plt Count (150-400) X10^3/uL Neut % (Auto) Lymph % (Auto) [place] % (Auto) Eos % (Auto) Baso % (Auto) Neut # (Auto) Lymph # (Auto) [place] # (Auto) Eos # (Auto) Baso # (Auto) Total Counted Seg Neutrophils % (38-70) % Lymphocytes % (Manual) (25-45) % Monocytes % (Manual) (2-11) % Neutrophils # (Manual) (9882-6507) /uL RBC Morphology Anisocytosis PT 15.7 H (10.1-12.7) SECONDS INR 1.4 H (0.9-1.3) APTT 31 (26.4-36.2) SECONDS Sodium Cancelled (137-145) mmol/L Potassium Cancelled (3.4-5.1) mmol/L Chloride Cancelled (98-107) mmol/L Carbon Dioxide Cancelled (22-32) mmol/L BUN Cancelled (9-20) mg/dL Creatinine Cancelled (0.66-1.25) mg/dL Estimated GFR Cancelled (>60) mL/min BUN/Creatinine Ratio Cancelled (6-22) Glucose Cancelled (80-110) mg/dL Calcium Cancelled (8.4-10.2) mg/dL Total Bilirubin (0.2-1.3) mg/dL AST (17-59) IU/L ALT (<50) IU/L Alkaline Phosphatase (38-126) U/L Total Creatine Kinase 45 L (55-170) U/L CK-MB (CK-2) TNP CK-MB (CK-2) Rel Index TNP Troponin I < 0.012 (0.01-0.034) ng/mL Total Protein (6.3-8.2) g/dL Albumin (3.5-5.0) g/dL Globulin (1.7-4.1) g/dL Albumin/Globulin Ratio (1.0-2.8) Lipase (23-300) U/L Imaging Data Chest x-ray: My Impression: right pleural effusion appears improved from prior on 12/12/20. Radiologist's Impression: [address] [id number] ReportSigned Patient: Neelam Vail DMR#: [id number]: [id number]:[id number]/Sex: 70 / MDate of Service: 12/15/20Loc: EDAccession Number: [id number] Procedure: XR chest 2V Ordering Provider: Yelena Blue D.O. PROCEDURE: XR CHEST 2V INDICATIONS: shortness of breath, sent for pleural effusion TECHNIQUE: 2 views of the chest were acquired. COMPARISON: [facility], CR, XR CHEST 1V, 11/30/2020, 13:54. Outside Film, CT, CT CHEST WITHOUT CONTRAST, 10/05/2020, 10:14. [facility], CT, CT CHEST ABD PEL W CON, 11/30/2020, 4:44. [facility], CR, XR CHEST 1V, 12/11/2020, 18:11. [facility], US, US CHEST, 12/12/2020, 14:53. [facility], CR, XR CHEST 1V, 12/12/2020, 15:26. FINDINGS: Surgical changes and devices: There is a Port-A-Cath on the left with the tip projecting to the area of SVC. Lungs and pleura: There is a small to moderate right pleural effusion, unchanged from the last exam. A right perihilar density is present, which may be loculated effusion in the minor fissure, focal consolidation or atelectasis. Compared to the last exam, there is minimal change. No pneumothorax. Mediastinum: Mediastinal contours are normal. Heart size is normal. Bones and chest wall: No suspicious bony abnormalities. Soft tissues appear unremarkable. IMPRESSION: Stable small to moderate right pleural effusion. Dictated by: Chhaya Erickson M.D. on 12/15/2020 at 16:04 Approved by: Chhaya Erickson M.D. on 12/15/2020 at 16:17 ECG Data Attestation: I personally reviewed and interpreted this ECG as follows: Interpretation: Sinus rhythm rate of 94 P are 134 QRS 84 and QTC 445. No acute ST elevation depression noted. MDM Narrative Medical decision making narrative: Patient is here for possible thoracentesis. His chest x-ray actually appears improved in comparison and based on my clinical examination and chest x-ray findings today patient would likely be a difficult thoracentesis. Patient states that he is asymptomatic and does not feel that he needs one at this time he set up for PleurX catheter on Monday. He would like to leave and is clear he does not wish to have a thoracentesis right now. Patient labs do show I worsening hyponatremia. Patient has follow-up tomorrow for chemotherapy and will be seen by his physician then. Discharge Plan Departure Patient Disposition: Home Clinical Impression: Hyponatremia, Pleural effusion Activity Restrictions/Additional Instructions: Your labs today show a hyponatremia or low sodium. This can be related to your disease and sometimes to medications and should be rechecked in the next week. Your chest xray today does not show enough fluid to be clearly successfully tapped/have a thoracentesis. As discussed if you have any worsneing symptoms please feel free to return. Please return for fevers, new chest pain, shortness of breath, lightheadedness or passing out, new weakness, difficulty with movement, altered mental status or confusion or other new or concerning symptoms. Prescriptions: No Action pantoprazole [Protonix] 40 mg tablet,delayed release (DR/EC) 40 mg PO DAILY Qty: 30 RF: 0 ondansetron 4 mg tablet,disintegrating 4 mg PO TID-QID PRN (Reason: nausea and vomiting) Qty: 10 RF: 0 atorvastatin 40 mg tablet 40 mg PO DAILY RF: 0 baclofen 10 mg Tablet 5 mg PO TID PRN (Reason: Hiccups) Qty: 10 RF: 0 prednisone 20 mg tablet 20 mg PO DAILY Qty: 30 RF: 0 Lantus Solostar U-100 Insulin 100 unit/mL (3 mL) insulin pen 10 unit SUBCUT BID Qty: 15 RF: 0 famotidine 40 mg Tablet 40 mg PO BEDTIME RF: 0 travoprost [Travatan Z] 0.004 % drops 1 drp EYE-BOTH DAILY RF: 0 olopatadine 0.1 % Drops 1 drp OPHTHALMIC (EYE) DAILY RF: 0 divalproex 500 mg Tablet Extended Release 24 Hr 500 mg PO DAILY RF: 0 brimonidine 0.2 % drops 1 drp ophthalmic (eye) DAILY RF: 0 doxazosin 4 mg tablet 4 mg PO DAILY RF: 0 finasteride 5 mg tablet 5 mg PO DAILY RF: 0 pregabalin [Lyrica] 150 mg Capsule 150 mg PO BID RF: 0 metoclopramide HCl [Reglan] 10 mg tablet 10 mg PO Q6H PRN (Reason: nausea and vomiting) Qty: 10 RF: 0 Referrals: Vianca Cox MD [Primary Care Provider] -
[2020-12-15 16:06] LABS: Add Manual Diff / Slide Review YES; Hematocrit 31.2 % (41-53); Hemoglobin 10.6 g/dL (13.5-17.5); Mean Corpuscular HGB Conc 33.8 % (30-36); Mean Corpuscular Hemoglobin 31.2 PG (26-34); Mean Corpuscular Volume 92.3 fL (80-100); Platelet Count 205 X10^3/uL (150-400); Red Blood Cell Count 3.38 X10^6/uL (4.5-5.9); Red Cell Distribution Width 17.1 % (11.6-14.8)
[2020-12-15 16:11] LABS: INR 1.4 (0.9-1.3); Prothrombin Time 15.7 SECONDS (10.1-12.7)
[2020-12-15 16:14] LABS: PTT Partial Thromboplastin Tim 31 SECONDS (26.4-36.2)
[2020-12-15 16:16] LABS: Alanine Aminotransferase 71 IU/L (<50); Albumin 2.7 g/dL (3.5-5.0); Alkaline Phosphatase 356 U/L (38-126); Aspartate Aminotransferase 49 IU/L (17-59); BUN Creatinine Ratio 12.3 (6-22); Bilirubin Total 1.1 mg/dL (0.2-1.3); Blood Urea Nitrogen 7 mg/dL (9-20); Calcium 8.1 mg/dL (8.4-10.2); Carbon Dioxide 25 mmol/L (22-32); Chloride 100 mmol/L (98-107); Estimated Glomerular Filt Rate > 60.0 mL/min (>60); Globulin 2.6 g/dL (1.7-4.1); Glucose 314 mg/dL (80-110); HEMOLYSIS < 15 (0-50); Lipase 36 U/L (23-300); Potassium 4.1 mmol/L (3.4-5.1); Sodium 129 mmol/L (137-145); Total Protein 5.3 g/dL (6.3-8.2)
[2020-12-15 16:17] LABS: Creatine Kinase 45 U/L (55-170)
[2020-12-15 16:27] LABS: Anisocytosis 1+; Neutrophils Absolute Manual 3120 /uL (3000-5900); Total Cells Counted 100
[2020-12-15 16:28] LABS: Troponin I < 0.012 ng/mL (0.01-0.034)
[2020-12-15 17:16] VITALS: BP 125/72; PULSE 92; O2SAT 100
== END 2020-12-15 17:18 | disposition home or self-care (01) ==
PROVIDERS: Emergency Provider Emergency Medicine; PCP Internal Medicine
DX: E87.1 Hypo-osmolality and hyponatremia (principal); J90 Pleural effusion, not elsewhere classified
CPT/HCPCS: 36415; 71046; 80053; 82550; 83690; 84484; 85007; 85025; 85610; 85730; 93005; 93010; 99284; J1642

== ENCOUNTER 2020-12-24 01:10 | Emergency (ER) | payer MEDICARE, OTHER, SELFPAY ==
[2020-12-11 19:06] VITALS: BMI 25.0
[2020-12-24] VITALS (10 sets, daily range): BP systolic 119–141; BP diastolic 58–83; PULSE 80–129; RESP 16–22; TEMP 36.6; O2SAT 98–100
--- NOTE | 2020-12-24 01:26 | DI.RAD.S_ITS ---
PROCEDURE: XR CHEST 1V INDICATIONS: Post pleurx catheter Monday. TECHNIQUE: One view of the chest was acquired. COMPARISON: [facility], CR, XR CHEST 1V, 12/12/2020, 15:26. FINDINGS: Surgical changes and devices: Small right-sided chest tube/pleural drain. Left chest wall Port-A-Cath is stable. Lungs and pleura: Small right-sided pleural fluid collection. Focal opacity in the right midlung slightly increased in size compared to December 12, 2020. . Mediastinum: Mediastinal contours appear normal. Heart size is normal. Bones and chest wall: No suspicious bony lesions. Overlying soft tissues appear unremarkable. IMPRESSION: Focal right midlung opacity slightly increased in size which could represent progression of atelectasis or pneumonia. Dictated by: Akila Ortiz MD, PhD on 12/24/2020 at 9:05 Approved by: Akila Ortiz MD, PhD on 12/24/2020 at 9:07
--- NOTE | 2020-12-24 01:26 | DI.CT.S_ITS ---
PROCEDURE: CT ABDOMEN PELVIS W CON INDICATIONS: vomiting post chemo TECHNIQUE: After the administration of oral and intravenous contrast, 5 mm thick sections acquired from the diaphragms to the symphysis. 5 mm thick coronal and sagittal reformats were performed. For radiation dose reduction, the following was used: automated exposure control, adjustment of mA and/or kV according to patient size. COMPARISON: [facility], CT, CT ANGIO CHEST PE PROTOCOL, 12/05/2020, 3:48. [facility], CT, CT ABDOMEN PELVIS W CON, 11/07/2020, 18:32. FINDINGS: ABDOMEN: Lung bases: Small right pleural effusion with adjacent atelectasis. Scattered subsegmental atelectasis and/or scarring. No focal consolidation. Heart: No significant findings. Liver: There multiple hepatic metastases redemonstrated. Some demonstrate decrease in size for example lesion on image 14/2 measuring 1.1 x 1.7 cm, previously 2.3 x 1.7 cm. Additional lesion in the right lobe image 19/2 measuring 1.9 x 2.0 cm previously 2.3 by 1.7 cm. Diffuse hepatic steatosis is present. Gallbladder: Surgically absent Bile ducts: Normal. Pancreas: Pancreatic atrophy. There is pancreatic mass measuring approximately 2.6 x 1.8 cm, grossly unchanged. Spleen: Normal. Adrenals: Normal. Kidneys and Ureters: Normal. Stomach and duodenum: Small hiatal hernia. There is distal gastric/proximal duodenum wall thickening however this appears grossly unchanged since the prior study and could be related to decompressed state. Bowel: No evidence of bowel obstruction. The appendix appears normal. Rectum unremarkable. Other: No free fluid or air. Abdominal nodes: Normal. Aorta and IVC: Normal in size. Ventral wall: Tiny fat containing periumbilical fat containing hernia. PELVIS: Bladder: Normal. Inguinal region: Small fat containing right inguinal hernia. Pelvic nodes: Normal. Bones: Spondylytic changes and facet arthropathy. No vertebral body compression fracture. IMPRESSION: Overall, no interval change in pancreatic mass although some of the hepatic lesions appear slightly decreased in size since 12/05/20. No evidence of bowel obstruction. Small right pleural effusion and adjacent atelectasis. Additional chronic/incidental findings as above. Findings concordant with preliminary study interpretation. In Dictated by: Wilver Smith M.D. on 12/24/2020 at 8:03 Approved by: Wilver Smith M.D. on 12/24/2020 at 8:24
--- NOTE | 2020-12-24 01:28 | ED.ABDPAIN ---
HPI - Abdominal Pain General Chief Complaint: Nausea/Vomiting/Diarrhea Stated Complaint: Chemo symptoms Time Seen by Provider: 12/24/20 01:26 Source: patient and old records reviewed Limitations: no limitations History of Present Illness HPI narrative: This is a pleasant 70-year-old male who comes in with complaint of nausea and vomiting. Patient states he had chemo for his pancreatic metastatic cancer to the this evening at 5:00 p.m. on 12/23 and has since had nausea and vomiting and he has not been able to keep down any fluids. Patient denies any fevers. Denies any chest pain or pressure. He does have some abdominal discomfort and describes feeling like a rock. Patient denies any diarrhea or constipation. He denies any new urinary symptoms. He denies any swelling in his extremities. Patient did have a PleurX catheter placed on Monday which he states was very successful. He is not having any shortness of breath. Patient states that he does have many allergies. He has tried Zofran at home without improvement. Related Data Home Medications Medication Instructions Recorded Confirmed brimonidine 1 drp OPHTHALMIC (EYE) DAILY 10/05/20 12/11/20 divalproex 500 mg PO DAILY 10/05/20 12/11/20 doxazosin 4 mg PO DAILY 10/05/20 12/11/20 famotidine 40 mg PO BEDTIME 10/05/20 12/11/20 finasteride 5 mg PO DAILY 10/05/20 12/11/20 olopatadine 1 drp OPHTHALMIC (EYE) DAILY 10/05/20 12/11/20 pregabalin [Lyrica] 150 mg PO BID 10/05/20 12/11/20 travoprost [Travatan Z] 1 drp EYE-BOTH DAILY 10/05/20 12/11/20 atorvastatin 40 mg PO DAILY 11/07/20 12/11/20 Previous Rx's Medication Instructions Recorded ondansetron 4 mg PO TID-QID PRN #10 tab 10/06/20 pantoprazole [Protonix] 40 mg PO DAILY #30 tab 10/06/20 metoclopramide HCl [Reglan] 10 mg PO Q6H PRN #10 tab 11/05/20 baclofen 5 mg PO TID PRN #10 tab 11/08/20 prednisone 20 mg PO DAILY #30 tab 12/03/20 insulin glargine [Lantus Solostar 10 unit SUBCUT BID #15 ml 12/13/20 U-100 Insulin] lorazepam [Ativan] 0.5 mg PO QID #10 tab 12/24/20 Allergies Allergy/AdvReac Type Severity Reaction Status Date / Time aspirin Allergy Unknown Verified 12/05/20 01:36 brompheniramine Allergy Unknown Verified 12/05/20 01:36 codeine Allergy Unknown Verified 12/05/20 01:36 diphenhydramine Allergy Unknown Verified 12/05/20 01:36 guaifenesin Allergy Unknown Verified 12/05/20 01:36 hydrocodone Allergy Unknown Verified 12/05/20 01:36 hydroxyzine Allergy Unknown Verified 12/05/20 01:36 ibuprofen Allergy Unknown Verified 12/05/20 01:36 meperidine Allergy Unknown Verified 12/05/20 01:36 morphine Allergy Unknown Verified 12/05/20 01:36 nystatin Allergy Unknown Verified 12/05/20 01:36 promethazine Allergy Unknown Verified 12/05/20 01:36 propoxyphene Allergy Unknown Verified 12/05/20 01:36 tuberculin, purified protein Allergy Unknown Verified 12/05/20 01:36 deriva egg Allergy Verified 12/05/20 01:36 amoxicillin [From Augmentin] AdvReac Unknown Vomiting Verified 12/05/20 01:36 metformin AdvReac Unknown Diarrhea Verified 12/05/20 01:36 clavulanic acid AdvReac Vomiting Verified 12/05/20 01:36 [From Augmentin] Review of Systems Review of Systems ROS Unobtainable: All systems reviewed & are unremarkable except as noted in HPI and below Patient History Medical History Coronary artery disease Diabetes Hyperlipidemia Malignant neoplasm metastatic to pancreas Post-traumatic stress disorder, chronic Surgical History History of cholecystectomy (01/31/17) Family History Mother Diabetes mellitus Father Dementia Social History household members: family and children Smoking Status: Never smoker alcohol intake: never substance use type: does not use Smoking Status: Never smoker alcohol intake frequency: holidays/special occasions only Substance Use Type: does not use Exam Narrative Exam Narrative: GENERAL: Alert and oriented x three, well-nourished male in mild distress. HEENT: Head normocephalic, atraumatic, EOMI, pupils reactive, face symmetric, moist mucous membranes NECK: Supple, full range of motion CARDIOVASCULAR: Regular rate and rhythm without murmurs, rubs or gallops. RESPIRATORY: Breath sounds equal bilaterally, no wheezes rales or rhonchi. ABDOMEN: Soft, nontender. Normoactive bowel sounds all 4 quadrants. No guarding or rebound, rigidity, no mass. Patient has occasional dry heaves. : No CVA tenderness EXTREMITIES: Normal range of motion, no clubbing or edema. Neurovascularly intact NEUROLOGICAL: Cranial nerves II through XII grossly intact. Moving all extremities SKIN: Warm, dry, no petechiae, no rashes or lesions. Initial Vital Signs Initial Vital Signs: Vital Signs Temperature 97.9 F 12/24/20 01:10 Pulse Rate 85 12/24/20 01:10 Respiratory Rate 22 12/24/20 01:10 Blood Pressure 129/83 12/24/20 01:10 Pulse Oximetry 100 12/24/20 01:10 Course Orders Ordered: ED Orders 12/24/20 01:26 CT abdomen pelvis w con Stat XR chest 1V Stat 12/24/20 01:55 Complete Blood Count AUTO DIFF Stat Comprehensive Metabolic Panel Stat Lipase Stat 12/24/20 02:17 Blood Culture Stat Discontinued Medications Sodium Chloride (Normal Saline 0.9%) 1,000 mls @ 1,000 mls/hr IV BOLUS ONE Stop: 12/24/20 02:25 Last Infusion: 12/24/20 03:34 Dose: 0 mls/hr Documented by: Admin: 12/24/20 01:42 Dose: 1,000 mls/hr Documented by: DAPHNEY Sodium Chloride (Normal Saline 0.9%) 1,000 mls @ 1,000 mls/hr IV BOLUS ONE Stop: 12/24/20 04:41 Last Infusion: 12/24/20 05:53 Dose: 0 mls/hr Documented by: Admin: 12/24/20 04:38 Dose: 1,000 mls/hr Documented by: DAPHNEY Insulin Human Regular (Insulin Regular 100 Unit/Ml 3 Ml Vial) 5 unit IV NOW ONE Stop: 12/24/20 03:33 Last Admin: 12/24/20 03:39 Dose: 5 unit Documented by: DAPHNEY Cosigned by: VIVIENNE Lorazepam (Lorazepam 2 Mg/Ml Inj) 0.5 mg IV NOW ONE Stop: 12/24/20 01:29 Last Admin: 12/24/20 01:43 Dose: 0.5 mg Documented by: DAPHNEY Lorazepam (Lorazepam 2 Mg/Ml Inj) 0.5 mg IV NOW ONE Stop: 12/24/20 04:13 Last Admin: 12/24/20 04:24 Dose: 0.5 mg Documented by: DAPHNEY Lorazepam (Lorazepam 0.5 Mg Tablet) 1 mg PO NOW ONE Stop: 12/24/20 05:22 Last Admin: 12/24/20 05:29 Dose: 1 mg Documented by: DAPHNEY Ondansetron HCl (Ondansetron 4 Mg/2 Ml Inj) 4 mg IV NOW ONE Stop: 12/24/20 01:27 Last Admin: 12/24/20 01:42 Dose: 4 mg Documented by: DAPHNEY Reevaluation(s) Reevaluation #1: Patient is feeling much more comfortable at this time is no longer actively vomiting Time: 02:07 Reevaluation #2: Patient was having some nausea and burping, initially deferred additional medication and then began vomiting and agreeable to second dose. Time: 04:30 Reevaluation #3: 2nd dose of Ativan improve patient's symptoms again. Patient's glucose has not significantly improved although only give him a small amount of insulin. He has had 2 L of fluid. Patient is requesting to return home he states he has multiple appointments today with home health care and various medical teams. He is alert appropriate able to make that decision at this time. He was encouraged to return if worsening symptoms. He was given 1 oral Ativan dose of for home as well as a prescription to see if this would be more helpful than the Zofran. Patient states he will return if he is not continuing to improve today. Vital Signs Vital signs: Vital Signs - 8 hr 12/24/20 01:10 12/24/20 01:19 12/24/20 01:20 Temperature 97.9 F Pulse Rate 85 129 H 128 H Respiratory Rate 22 Blood Pressure 129/83 125/58 L Pulse Oximetry 100 99 99 12/24/20 01:30 12/24/20 02:37 12/24/20 04:26 Temperature Pulse Rate 125 H 80 103 H Respiratory Rate 16 Blood Pressure 119/78 Pulse Oximetry 100 98 99 12/24/20 04:27 12/24/20 04:30 12/24/20 05:00 Temperature Pulse Rate 102 H 100 H 100 H Respiratory Rate Blood Pressure 137/65 128/67 132/63 Pulse Oximetry 98 98 98 12/24/20 05:30 Temperature Pulse Rate 96 H Respiratory Rate Blood Pressure 141/66 H Pulse Oximetry 98 MDM - Abdominal Pain Lab Data Attestation: I reviewed the patient's lab results. Result diagrams: 12/24/20 01:55 12/24/20 01:55 Labs: Lab Results 12/24/20 12/24/20 Range/Units 01:55 01:55 WBC 4.4 L (4.5-11.0) X10^3/uL RBC 3.04 L (4.5-5.9) X10^6/uL Hgb 9.2 L (13.5-17.5) g/dL Hct 28.2 L (41-53) % MCV 92.8 (80-100) fL MCH 30.4 (26-34) PG MCHC 32.7 (30-36) % RDW 17.4 H (11.6-14.8) % Plt Count 130 L (150-400) X10^3/uL Neut % (Auto) 88.2 H (50-75) % Lymph % (Auto) 4.4 L (25-40) % [place] % (Auto) 7.3 (3-14) % Eos % (Auto) 0.0 L (2-4) % Baso % (Auto) 0.1 (0-2) % Neut # (Auto) 3900 (3110-9214) /uL Lymph # (Auto) 200 L (3104-1305) /uL [place] # (Auto) 300 (0-900) /uL Eos # (Auto) 0 (0-450) /uL Baso # (Auto) 0 (0-100) /uL Sodium 127 L (137-145) mmol/L Potassium 4.0 (3.4-5.1) mmol/L Chloride 96 L (98-107) mmol/L Carbon Dioxide 24 (22-32) mmol/L BUN 14 (9-20) mg/dL Creatinine 0.82 (0.66-1.25) mg/dL Estimated GFR > 60.0 (>60) mL/min BUN/Creatinine Ratio 17.1 (6-22) Glucose 419 H D (80-110) mg/dL Calcium 7.8 L (8.4-10.2) mg/dL Total Bilirubin 1.2 (0.2-1.3) mg/dL AST 62 H (17-59) IU/L ALT 42 (<50) IU/L Alkaline Phosphatase 321 H (38-126) U/L Total Protein 5.0 L (6.3-8.2) g/dL Albumin 2.5 L (3.5-5.0) g/dL Globulin 2.5 (1.7-4.1) g/dL Albumin/Globulin Ratio 1.0 (1.0-2.8) Lipase 15 L D (23-300) U/L Point of care testing: Point of Care Testing Glucose POC [address] scan - abdomen/pelvis: Radiologist's Impression: Pancreatic mass and likely hepatic metastases similar to 11/07/2020. No bowel obstruction. Small right pleural effusion other into the findings as above. Chest x-ray: Radiologist's Impression: The right full vision is no longer present. Probable small amount of fluid in the pleural fissure. No definite pneumothorax at this time. There is a linear opacification lateral in the right although I suspect pulmonary vascular markings extending beyond this suggesting it may represent skin fold relating to the underlying scapula. Vascular access port overlies the left hemothorax. [facility] Narrative Medical decision making narrative: This is a 70 a year old male who comes in with nausea and vomiting several hours and persistent after receiving chemotherapy earlier this evening. Patient appears hyperglycemia but does not appear to be DKA. His bicarb is before. He is hyponatremic at 127, anion gap is 7. Glucose is 419 with a CO2 24. Patient has a chronically elevated alkaline phosphatase. Nausea and vomiting is likely secondary to his chemotherapy with negative chest x-ray and CT with no acute changes or signs of obstruction. Patient improved with Ativan but then had recurrence. This was repeated. He felt much improved. He would like to return home we reviewed that he is hyperglycemic. He did receive 5 units of insulin which may little to no change. Patient is aware but would like to still return. We discussed we could try Ativan orally see if this helps with his nausea and vomiting and he needs to return if he continues to be unable to tolerate oral fluids or food. Patient was offered further observation but politely defers. Discharge Plan Departure Patient Disposition: Home Clinical Impression: Hyperglycemia Nausea and vomiting Qualifiers: Vomiting type: unspecified Vomiting Intractability: unspecified Qualified Code(s): R11.2 - Nausea with vomiting, unspecified Instructions: DI for Vomiting -- Adult Activity Restrictions/Additional Instructions: Follow up for recheck today. If you continue to have vomiting and cannot tolerate orals you will need to return. Your glucose is quite high today. Make sure to check your sugars and use your insulin as prescribed. You may try Ativan 1 tablet every 6 hours as needed for nausea or vomiting. You may try Zofran 20 minutes prior to this in addition to the Ativan. Prescription to [facility]ivan sent to [facility] in [place]. May continue home medications as prescribed. Please return at any time if you are having fevers, persistent nausea and vomiting, signs of dehydration, decreased urine output, new chest pain, shortness of breath, black or bloody stools or other new or concerning symptoms. Prescriptions: New lorazepam [Ativan] 0.5 mg tablet 0.5 mg PO QID Qty: 10 RF: 0 No Action pantoprazole [Protonix] 40 mg tablet,delayed release (DR/EC) 40 mg PO DAILY Qty: 30 RF: 0 ondansetron 4 mg tablet,disintegrating 4 mg PO TID-QID PRN (Reason: nausea and vomiting) Qty: 10 RF: 0 atorvastatin 40 mg tablet 40 mg PO DAILY RF: 0 baclofen 10 mg Tablet 5 mg PO TID PRN (Reason: Hiccups) Qty: 10 RF: 0 prednisone 20 mg tablet 20 mg PO DAILY Qty: 30 RF: 0 Lantus Solostar U-100 Insulin 100 unit/mL (3 mL) insulin pen 10 unit SUBCUT BID Qty: 15 RF: 0 famotidine 40 mg Tablet 40 mg PO BEDTIME RF: 0 travoprost [Travatan Z] 0.004 % drops 1 drp EYE-BOTH DAILY RF: 0 olopatadine 0.1 % Drops 1 drp OPHTHALMIC (EYE) DAILY RF: 0 divalproex 500 mg Tablet Extended Release 24 Hr 500 mg PO DAILY RF: 0 brimonidine 0.2 % drops 1 drp ophthalmic (eye) DAILY RF: 0 doxazosin 4 mg tablet 4 mg PO DAILY RF: 0 finasteride 5 mg tablet 5 mg PO DAILY RF: 0 pregabalin [Lyrica] 150 mg Capsule 150 mg PO BID RF: 0 metoclopramide HCl [Reglan] 10 mg tablet 10 mg PO Q6H PRN (Reason: nausea and vomiting) Qty: 10 RF: 0 Referrals: Vianca Cox MD [Primary Care Provider] -
[2020-12-24] MEDS: ONDANSETRON 4 MG/2 ML INJ IV (01:42)
[2020-12-24] MEDS: SODIUM CHLORIDE 0.9% 1,000 ML 1000 ML IV ×2 (01:42→04:38)
[2020-12-24] MEDS: LORazepam 2 MG/ML INJ 0.5 MG IV ×2 (01:43→04:24)
[2020-12-24] MEDS: LIDOCAINE 2% INJ MDV 20 ML (02:02)
[2020-12-24 02:13] LABS: Add Manual Diff / Slide Review NO; Basophils Absolute Auto 0 /uL (0-100); Basophils Percent Auto 0.1 % (0-2); Eosinophils Absolute Auto 0 /uL (0-450); Hematocrit 28.2 % (41-53); Hemoglobin 9.2 g/dL (13.5-17.5); Lymphocytes Absolute Auto 200 /uL (1100-4500); Lymphocytes Percent Auto 4.4 % (25-40); Mean Corpuscular HGB Conc 32.7 % (30-36); Mean Corpuscular Hemoglobin 30.4 PG (26-34); Mean Corpuscular Volume 92.8 fL (80-100); Monocytes Absolute Auto 300 /uL (0-900); Monocytes Percent Auto 7.3 % (3-14); Neutrophils Absolute Auto 3900 /uL (1500-7000); Neutrophils Percent Auto 88.2 % (50-75); Platelet Count 130 X10^3/uL (150-400); Red Blood Cell Count 3.04 X10^6/uL (4.5-5.9); Red Cell Distribution Width 17.4 % (11.6-14.8); White Blood Cell Count 4.4 X10^3/uL (4.5-11.0)
[2020-12-24 02:16] LABS: Alanine Aminotransferase 42 IU/L (<50); Albumin 2.5 g/dL (3.5-5.0); Alkaline Phosphatase 321 U/L (38-126); Aspartate Aminotransferase 62 IU/L (17-59); BUN Creatinine Ratio 17.1 (6-22); Bilirubin Total 1.2 mg/dL (0.2-1.3); Blood Urea Nitrogen 14 mg/dL (9-20); Calcium 7.8 mg/dL (8.4-10.2); Carbon Dioxide 24 mmol/L (22-32); Chloride 96 mmol/L (98-107); Estimated Glomerular Filt Rate > 60.0 mL/min (>60); Globulin 2.5 g/dL (1.7-4.1); Glucose 419 mg/dL (80-110); HEMOLYSIS < 15 (0-50); Lipase 15 U/L (23-300); Sodium 127 mmol/L (137-145)
--- NOTE | 2020-12-24 02:38 | PC.NURSE ---
Venus SINGLETARY accessed his left chest port per protocol.
[2020-12-24] MEDS: INSULIN REGULAR 100 UNIT/ML 3 ML VIAL IV (03:39)
[2020-12-24] MEDS: LORazepam 0.5 MG TABLET 1 MG PO (05:29)
== END 2020-12-24 05:40 | disposition home or self-care (01) ==
PROVIDERS: Emergency Provider Emergency Medicine; PCP Internal Medicine
DX: E11.65 Type 2 diabetes mellitus with hyperglycemia (principal); R11.2 Nausea with vomiting, unspecified; C78.89 Secondary malignant neoplasm of other digestive organs; R10.9 Unspecified abdominal pain
CPT/HCPCS: 36415; 71045; 74177; 80053; 82962; 83690; 85025; 87040; 96361; 96374; 96375; 96376; 99284; 99285; J1642; J2060; J2405; Q9967

== ENCOUNTER 2020-12-28 20:22 | Emergency (ER) | payer MEDICARE, OTHER, SELFPAY ==
[2020-12-11 19:06] VITALS: BMI 25.0
[2020-12-28] VITALS (8 sets, daily range): BP systolic 90–162; BP diastolic 55–106; PULSE 93–109; RESP 16–22; TEMP 36.8; O2SAT 99–100; BMI 23.7
--- NOTE | 2020-12-28 21:35 | DI.RAD.S_ITS ---
PROCEDURE: XR CHEST 1V INDICATIONS: syncope TECHNIQUE: One view of the chest was acquired. COMPARISON: [facility], CR, XR CHEST 1V, 12/24/2020, 2:01. FINDINGS: Surgical changes and devices: Left chest wall Port-A-Cath is stable. Small right-sided pleural drain is stable in position. Lungs and pleura: Focal opacity in the right midlung is stable. Small right-sided pleural fluid collection stable. Mediastinum: Mediastinal contours appear normal. Heart size is normal. Bones and chest wall: No suspicious bony lesions. Overlying soft tissues appear unremarkable. IMPRESSION: Stable examination compared to December 24, 2020 with no change in focal right midlung opacity and small right-sided pleural effusion. Dictated by: Akila Ortiz MD, PhD on 12/28/2020 at 21:55 Approved by: Akila Ortiz MD, PhD on 12/28/2020 at 21:56
[2020-12-28] MEDS: SODIUM CHLORIDE 0.9% 1,000 ML 1000 ML IV (22:02)
[2020-12-28] MEDS: ONDANSETRON 4 MG/2 ML INJ IV (22:02)
[2020-12-28 22:07] LABS: Hemoglobin 7.7 g/dL (13.5-17.5); Mean Corpuscular HGB Conc 33.4 % (30-36); Mean Corpuscular Hemoglobin 30.1 PG (26-34); Mean Corpuscular Volume 90.1 fL (80-100); Platelet Count 146 X10^3/uL (150-400); Red Blood Cell Count 2.56 X10^6/uL (4.5-5.9); Red Cell Distribution Width 17.6 % (11.6-14.8)
[2020-12-28 22:10] LABS: Add Manual Diff / Slide Review YES; INR 1.6 (0.9-1.3); Prothrombin Time 18.1 SECONDS (10.1-12.7)
[2020-12-28 22:12] LABS: PTT Partial Thromboplastin Tim 31 SECONDS (26.4-36.2); White Blood Cell Count 1.4 X10^3/uL (4.5-11.0)
[2020-12-28 22:14] LABS: Alanine Aminotransferase 24 IU/L (<50); Albumin 2.5 g/dL (3.5-5.0); Alkaline Phosphatase 207 U/L (38-126); Aspartate Aminotransferase 32 IU/L (17-59); BUN Creatinine Ratio 6.2 (6-22); Bilirubin Total 0.8 mg/dL (0.2-1.3); Blood Urea Nitrogen 5 mg/dL (9-20); Carbon Dioxide 31 mmol/L (22-32); Chloride 97 mmol/L (98-107); Creatine Kinase 58 U/L (55-170); Estimated Glomerular Filt Rate > 60.0 mL/min (>60); Globulin 2.6 g/dL (1.7-4.1); Glucose 70 mg/dL (80-110); HEMOLYSIS < 15 (0-50); Potassium 2.9 mmol/L (3.4-5.1); Sodium 131 mmol/L (137-145); Total Protein 5.1 g/dL (6.3-8.2)
[2020-12-28 22:15] LABS: Lactate (Lactic Acid) 0.9 mmol/L (0.7-2.1)
[2020-12-28 22:18] LABS: Lipase < 10 U/L (23-300)
[2020-12-28 22:26] LABS: Troponin I < 0.012 ng/mL (0.01-0.034)
[2020-12-28 22:36] LABS: Neutrophils Absolute Manual 1288 /uL (3000-5900); Total Cells Counted 50
[2020-12-28 22:37] LABS: Anisocytosis 1+
--- NOTE | 2020-12-28 22:55 | ED_ITS ---
HPI - Syncope General Chief Complaint: Syncope Stated Complaint: CHEMO PT PAIN Time Seen by Provider: 12/28/20 21:35 Source: patient Mode of arrival: Ambulatory History of Present Illness HPI narrative: Patient is a 70-year-old male currently being treated for pancreatic metastatic cancer. He had chemotherapy on 12/23/2020. He was seen in the ED for nausea and vomiting he received IV fluids and discharged at that time. Today he said it just hit him really hard and he threw up multiple times today. He was sitting on the toilet when then he stood up passed out and hit his head. Brief loss of consciousness. He felt a little dizzy and lightheaded. Initial blood pressure quite low with a systolic in the 90s. He denies any other pain. He is not on any anticoagulation. No other injuries. MD complaint: loss of consciousness Prodromal symptoms: lightheaded Related Data Home Medications Medication Instructions Recorded Confirmed brimonidine 1 drp OPHTHALMIC (EYE) DAILY 10/05/20 12/11/20 divalproex 500 mg PO DAILY 10/05/20 12/11/20 doxazosin 4 mg PO DAILY 10/05/20 12/11/20 famotidine 40 mg PO BEDTIME 10/05/20 12/11/20 finasteride 5 mg PO DAILY 10/05/20 12/11/20 olopatadine 1 drp OPHTHALMIC (EYE) DAILY 10/05/20 12/11/20 pregabalin [Lyrica] 150 mg PO BID 10/05/20 12/11/20 travoprost [Travatan Z] 1 drp EYE-BOTH DAILY 10/05/20 12/11/20 atorvastatin 40 mg PO DAILY 11/07/20 12/11/20 Previous Rx's Medication Instructions Recorded ondansetron 4 mg PO TID-QID PRN #10 tab 10/06/20 pantoprazole [Protonix] 40 mg PO DAILY #30 tab 10/06/20 metoclopramide HCl [Reglan] 10 mg PO Q6H PRN #10 tab 11/05/20 baclofen 5 mg PO TID PRN #10 tab 11/08/20 prednisone 20 mg PO DAILY #30 tab 12/03/20 insulin glargine [Lantus Solostar 10 unit SUBCUT BID #15 ml 05/16/21 U-100 Insulin] lorazepam [Ativan] 0.5 mg PO QID #10 tab 12/24/20 ondansetron 4 mg PO Q8H PRN #20 tab 12/28/20 Allergies Allergy/AdvReac Type Severity Reaction Status Date / Time aspirin Allergy Unknown Verified 12/05/20 01:36 brompheniramine Allergy Unknown Verified 12/05/20 01:36 codeine Allergy Unknown Verified 12/05/20 01:36 diphenhydramine Allergy Unknown Verified 12/05/20 01:36 guaifenesin Allergy Unknown Verified 12/05/20 01:36 hydrocodone Allergy Unknown Verified 12/05/20 01:36 hydroxyzine Allergy Unknown Verified 12/05/20 01:36 ibuprofen Allergy Unknown Verified 12/05/20 01:36 meperidine Allergy Unknown Verified 12/05/20 01:36 morphine Allergy Unknown Verified 12/05/20 01:36 nystatin Allergy Unknown Verified 12/05/20 01:36 promethazine Allergy Unknown Verified 12/05/20 01:36 propoxyphene Allergy Unknown Verified 12/05/20 01:36 tuberculin, purified protein Allergy Unknown Verified 12/05/20 01:36 deriva egg Allergy Verified 12/05/20 01:36 amoxicillin [From Augmentin] AdvReac Unknown Vomiting Verified 12/05/20 01:36 metformin AdvReac Unknown Diarrhea Verified 12/05/20 01:36 clavulanic acid AdvReac Vomiting Verified 12/05/20 01:36 [From Augmentin] Review of Systems Review of Systems ROS Unobtainable: All systems reviewed & are unremarkable except as noted in HPI and below ENT Ears, Nose, Mouth, and Throat: Denies change in voice, Denies vertigo, Denies dizziness, Denies neck pain and Denies sore throat Cardiovascular Cardiovascular: Denies chest pain, Reports syncope, Denies irregular heart r hythm, Reports lightheadedness, Denies palpitations, Denies dyspnea, Denies dyspnea on exertion and Denies orthopnea Respiratory Respiratory: Denies cough, Denies dyspnea, Denies dyspnea on exertion and Denies wheezing Gastrointestinal Gastrointestinal: Reports nausea and Reports vomiting Musculoskeletal Musculoskeletal: Denies back pain, Denies myalgias and Denies neck pain Integumentary/Breasts Skin/Breast: Denies pruritus, Denies erythema, Denies rash and Denies wounds Neurologic Neurologic: Reports as per HPI, Denies confusion, Denies vertigo, Denies dizziness and Reports syncope Psychiatric Psychiatric: Denies confusion Endocrine Endocrine: Denies palpitations Allergic/Immunologic Allergic/Immunologic: Denies wheezing Patient History Medical History Coronary artery disease Diabetes Hyperlipidemia Malignant neoplasm metastatic to pancreas Post-traumatic stress disorder, chronic Surgical History History of cholecystectomy (01/31/17) Family History Mother Diabetes mellitus Father Dementia Social History household members: family and children Smoking Status: Never smoker alcohol intake: never substance use type: does not use Smoking Status: Never smoker alcohol intake frequency: holidays/special occasions only Substance Use Type: does not use Exam Initial Vital Signs Initial Vital Signs: Vital Signs Pulse Rate 104 H 12/28/20 21:07 Respiratory Rate 20 12/28/20 21:07 Blood Pressure 162/106 H 12/28/20 21:07 Pulse Oximetry 99 12/28/20 21:07 GENERAL: Well-appearing, well-nourished and in no acute distress. HEENT: Head small abrasion on forehead no crepitations,EOMI, pupils reactive, face symmetric, moist mucous membranes CARDIOVASCULAR: Regular rate and rhythm without murmurs, rubs or gallops. RESPIRATORY: Breath sounds equal bilaterally, no wheezes rales or rhonchi. ABDOMEN: Soft, nontender. Normoactive bowel sounds all 4 quadrants. No guarding or rebound. EXTREMITIES: Normal range of motion, no clubbing or edema. Neurovascularly intact NEUROLOGICAL: Alert and oriented x4.Normal gait and speech. Collection Manager strength equal bilaterally SKIN: Warm, dry, no laceration, no petechiae, no rashes or lesions. Scores NIH Stroke Scale Level of Conciousness: Alert, keenly responsive Ask month/age: Answers both questions correctly. Open/close eyes, close hand: Performs both tasks correctly Best gaze horizontal: Normal Visual cunningham: No visual loss Facial palsy: Normal symetrical movement Left arm drift: No drift for full 10 sec Right arm drift: No drift for full 10 sec Left leg drift: No drift for full 5 sec Right leg drift: No drift for full 5 sec Limb ataxia: Absent Sensory on face/arms/legs: Normal, no sensory loss Best language: No aphasia, normal Dysarthria: Normal Extinction or inattention: No abnormality Total NIH Stroke scale score: 0 Course Orders Ordered: Discontinued Medications Sodium Chloride (Normal Saline 0.9%) 1,000 mls @ 1,000 mls/hr IV CONT SERGE Last Infusion: 12/28/20 23:27 Dose: 0 mls/hr Documented by: Admin: 12/28/20 22:02 Dose: 1,000 mls/hr Documented by: JEFFREY Ondansetron HCl (Ondansetron 4 Mg/2 Ml Inj) 4 mg IV NOW ONE Stop: 12/28/20 22:01 Last Admin: 12/28/20 22:02 Dose: 4 mg Documented by: JEFFREY Ondansetron HCl (Ondansetron 4 Mg Odt Prepack) 1 bottle MISC SEEINSTR ONE Stop: 12/28/20 23:47 Last Admin: 12/28/20 23:50 Dose: 1 bottle Documented by: JEFFREY Potassium Chloride (Potassium Chloride 20 Meq Tab) 40 meq PO NOW ONE Stop: 12/28/20 23:03 Last Admin: 12/28/20 23:28 Dose: 40 meq Documented by: JEFFREY Vital Signs Vital signs: Vital Signs - 8 hr 12/28/20 21:07 12/28/20 21:22 12/28/20 21:31 Temperature 98.2 F Pulse Rate 104 H 109 H 107 H Respiratory Rate 20 18 20 Blood Pressure 162/106 H 90/57 L 106/56 L Pulse Oximetry 99 100 99 12/28/20 22:00 12/28/20 22:30 12/28/20 22:57 Temperature Pulse Rate 101 H 93 H 94 H Respiratory Rate 22 16 Blood Pressure 103/55 L 115/55 L Pulse Oximetry 100 100 99 12/28/20 23:00 12/28/20 23:15 Temperature Pulse Rate 96 H 94 H Respiratory Rate 18 Blood Pressure 126/58 L Pulse Oximetry 100 100 MDM - Syncope Lab Data Attestation: I reviewed the patient's lab results. Result diagrams: 12/28/20 21:54 12/28/20 21:54 Labs: Lab Results 12/28/20 12/28/20 12/28/20 Range/Units 21:54 21:54 21:54 WBC 1.4 L* (4.5-11.0) X10^3/uL RBC 2.56 L (4.5-5.9) X10^6/uL Hgb 7.7 L (13.5-17.5) g/dL Hct 23.0 L (41-53) % MCV 90.1 (80-100) fL MCH 30.1 (26-34) PG MCHC 33.4 (30-36) % RDW 17.6 H (11.6-14.8) % Plt Count 146 L (150-400) X10^3/uL Neut % (Auto) Not Reportable Lymph % (Auto) Not Reportable Christian % (Auto) Not Reportable Eos % (Auto) Not Reportable Baso % (Auto) Not Reportable Lymph # (Auto) Not Reportable Christian # (Auto) Not Reportable Baso # (Auto) Not Reportable Total Counted 50 Seg Neutrophils % 92.0 H (38-70) % Lymphocytes % (Manual) 6.0 L (25-45) % Eosinophils % (Manual) 2.0 (2-4) % Neutrophils # (Manual) 1288 L (1622-3314) /uL RBC Morphology See below Anisocytosis 1+ H PT 18.1 H (10.1-12.7) SECONDS INR 1.6 H (0.9-1.3) APTT 31 (26.4-36.2) SECONDS Sodium 131 L (137-145) mmol/L Potassium 2.9 L (3.4-5.1) mmol/L Chloride 97 L (98-107) mmol/L Carbon Dioxide 31 (22-32) mmol/L BUN 5 L (9-20) mg/dL Creatinine 0.81 (0.66-1.25) mg/dL Estimated GFR > 60.0 (>60) mL/min BUN/Creatinine Ratio 6.2 (6-22) Glucose 70 L D (80-110) mg/dL Lactate (0.7-2.1) mmol/L Calcium 8.0 L (8.4-10.2) mg/dL Total Bilirubin 0.8 (0.2-1.3) mg/dL AST 32 (17-59) IU/L ALT 24 (<50) IU/L Alkaline Phosphatase 207 H (38-126) U/L Total Creatine Kinase 58 (55-170) U/L CK-MB (CK-2) TNP CK-MB (CK-2) Rel Index TNP Troponin I < 0.012 (0.01-0.034) ng/mL Total Protein 5.1 L (6.3-8.2) g/dL Albumin 2.5 L (3.5-5.0) g/dL Globulin 2.6 (1.7-4.1) g/dL Albumin/Globulin Ratio 1.0 (1.0-2.8) Lipase < 10 L (23-300) U/L SARS-CoV-2 (PCR) (Negative) 12/28/20 12/28/20 Range/Units 21:54 22:05 WBC (4.5-11.0) X10^3/uL RBC (4.5-5.9) X10^6/uL Hgb (13.5-17.5) g/dL Hct (41-53) % MCV (80-100) fL MCH (26-34) PG MCHC (30-36) % RDW (11.6-14.8) % Plt Count (150-400) X10^3/uL Neut % (Auto) Lymph % (Auto) Christian % (Auto) Eos % (Auto) Baso % (Auto) Lymph # (Auto) Christian # (Auto) Baso # (Auto) Total Counted Seg Neutrophils % (38-70) % Lymphocytes % (Manual) (25-45) % Eosinophils % (Manual) (2-4) % Neutrophils # (Manual) (9742-2281) /uL RBC Morphology Anisocytosis PT (10.1-12.7) SECONDS INR (0.9-1.3) APTT (26.4-36.2) SECONDS Sodium (137-145) mmol/L Potassium (3.4-5.1) mmol/L Chloride (98-107) mmol/L Carbon Dioxide (22-32) mmol/L BUN (9-20) mg/dL Creatinine (0.66-1.25) mg/dL Estimated GFR (>60) mL/min BUN/Creatinine Ratio (6-22) Glucose (80-110) mg/dL Lactate 0.9 (0.7-2.1) mmol/L Calcium (8.4-10.2) mg/dL Total Bilirubin (0.2-1.3) mg/dL AST (17-59) IU/L ALT (<50) IU/L Alkaline Phosphatase (38-126) U/L Total Creatine Kinase (55-170) U/L CK-MB (CK-2) CK-MB (CK-2) Rel Index Troponin I (0.01-0.034) ng/mL Total Protein (6.3-8.2) g/dL Albumin (3.5-5.0) g/dL Globulin (1.7-4.1) g/dL Albumin/Globulin Ratio (1.0-2.8) Lipase (23-300) U/L SARS-CoV-2 (PCR) Negative (Negative) ECG Data Attestation: I personally reviewed and interpreted this ECG as follows: Prior ECG tracings: available for review Interpretation: Normal sinus rhythm rate 96 p.r. interval 146 QRS 96 QTC [address] changes or T-wave inversions similar to previous EKG MDM Narrative Medical decision making narrative: Patient is a very pleasant male his blood pressure improved with IV fluids he is given potassium replacement which is likely low from vomiting. He has been in to the ED a few times with nausea vomiting related chemo. He is does tolerating fluids he feels significantly better any of like to go. Discharge Plan Departure Patient Disposition: Home Clinical Impression: Acute hypokalemia, Acute dehydration Instructions: DI for Syncope in Adults (Fainting) Activity Restrictions/Additional Instructions: *You have been diagnosed with increased dehydration, low potassium, maintain *What to do: Increase fluid intake as tolerated myc recommend Gatorade or Gatorade like substance her potassium was low. He may need her potassium to be rechecked this week as well. *Continue to take medications as directed Zofran 4 mg every 8 hours if needed for nausea vomiting sent to [facility] *Follow up with your primary care provider in 2-3 days *Return to ER if you should have dizziness lightheadedness inability to tolerate fluids or any new, worsening or concerning symptoms Prescriptions: New ondansetron 4 mg tablet,disintegrating 4 mg PO Q8H PRN (Reason: nausea and vomiting) Qty: 20 RF: 0 No Action pantoprazole [Protonix] 40 mg tablet,delayed release (DR/EC) 40 mg PO DAILY Qty: 30 RF: 0 ondansetron 4 mg tablet,disintegrating 4 mg PO TID-QID PRN (Reason: nausea and vomiting) Qty: 10 RF: 0 atorvastatin 40 mg tablet 40 mg PO DAILY RF: 0 baclofen 10 mg Tablet 5 mg PO TID PRN (Reason: Hiccups) Qty: 10 RF: 0 prednisone 20 mg tablet 20 mg PO DAILY Qty: 30 RF: 0 Lantus Solostar U-100 Insulin 100 unit/mL (3 mL) insulin pen 10 unit SUBCUT BID Qty: 15 RF: 0 lorazepam [Ativan] 0.5 mg tablet 0.5 mg PO QID Qty: 10 RF: 0 famotidine 40 mg Tablet 40 mg PO BEDTIME RF: 0 travoprost [Travatan Z] 0.004 % drops 1 drp EYE-BOTH DAILY RF: 0 olopatadine 0.1 % Drops 1 drp OPHTHALMIC (EYE) DAILY RF: 0 divalproex 500 mg Tablet Extended Release 24 Hr 500 mg PO DAILY RF: 0 brimonidine 0.2 % drops 1 drp ophthalmic (eye) DAILY RF: 0 doxazosin 4 mg tablet 4 mg PO DAILY RF: 0 finasteride 5 mg tablet 5 mg PO DAILY RF: 0 pregabalin [Lyrica] 150 mg Capsule 150 mg PO BID RF: 0 metoclopramide HCl [Reglan] 10 mg tablet 10 mg PO Q6H PRN (Reason: nausea and vomiting) Qty: 10 RF: 0 Referrals: Vianca Cox MD [Primary Care Provider] -
[2020-12-28 23:11] LABS: COVID19 - ADMIT (NP swab/PCR) Negative (Negative)
[2020-12-28] MEDS: POTASSIUM CHLORIDE 20 MEQ TAB 40 MEQ PO (23:28)
[2020-12-28] MEDS: ONDANSETRON 4 MG ODT PREPACK 1 BOTTLE MISC (23:50)
== END 2020-12-29 00:43 | disposition home or self-care (01) ==
PROVIDERS: Emergency Provider Emergency Medicine; PCP Internal Medicine
DX: E87.6 Hypokalemia (principal); E86.0 Dehydration; R55 Syncope and collapse; Z20.822 Contact with and (suspected) exposure to COVID-19
CPT/HCPCS: 36415; 71045; 80053; 82550; 83605; 83690; 84484; 85007; 85025; 85610; 85730; 87635; 93005; 96361; 96374; 99284; C9803; J1642; J2405

== ENCOUNTER 2021-01-05 04:03 | Emergency (ER) | payer MEDICARE, OTHER, SELFPAY ==
[2020-12-11 19:06] VITALS: BMI 25.0
--- NOTE | 2021-01-05 | DI.RAD.S_ITS ---
PROCEDURE: XR ABDOMEN 1V INDICATIONS: vomiting, known metastatic pancreatic cancer TECHNIQUE: One view of the abdomen acquired. COMPARISON: [facility], CR, XR CHEST 2V, 12/15/2020, 15:27. FINDINGS: Surgical changes and devices: None. Bowel: Bowel gas pattern is normal. Soft tissues: No suspicious abdominal calcifications. Visualized solid organ contours appear normal in size. Pulmonary hyperexpansion bilaterally, better seen on the right than the left. Bones: No suspicious bony lesions. IMPRESSION: Nonspecific bowel gas pattern. No free air found. Pulmonary hyperexpansion. Dictated by: Den Weller M.D. on 01/05/2021 at 8:57 Approved by: Den Weller M.D. on 01/05/2021 at 8:58
--- NOTE | 2021-01-05 04:15 | DI.RAD.S_ITS ---
PROCEDURE: XR CHEST 1V INDICATIONS: vomiting, known metastatic pancreatic cancer TECHNIQUE: One view of the chest was acquired. COMPARISON: [facility], CT, CT ANGIO CHEST PE PROTOCOL, 12/05/2020, 3:48. [facility], CR, XR CHEST 2V, 12/15/2020, 15:27. [facility], CT, CT CHEST ABD PEL W CON, 11/30/2020, 4:44. [facility], CR, XR CHEST 1V, 12/01/2020, 18:46. [facility], CR, XR CHEST 1V, 12/28/2020, 21:40. [facility], CR, XR CHEST 1V, 12/24/2020, 2:01. FINDINGS: Surgical changes and devices: None. Lungs and pleura: Lungs are hyperexpanded, and there is pleural thickening inferiorly on the right. A band of what appears to be rib slowly resolving atelectasis or infiltration is seen at the right mid chest near the minor fissure.. No pleural effusions or pneumothorax. Mediastinum: Mediastinal contours appear normal. Heart size is normal. Bones and chest wall: No suspicious bony lesions. Overlying soft tissues appear unremarkable. IMPRESSION: Pulmonary hyperexpansion, presumed prior longstanding smoking history. Pleural scarring at the right lung base. Improving minor fissure region focal radiodensity that may reflect resolving atelectasis or some response to therapy subsequent to 12/05/[address] scanning identifying a possible mass in this area. Dictated by: Den Weller M.D. on 01/05/2021 at 8:58 Approved by: Den Weller M.D. on 01/05/2021 at 9:01
--- NOTE | 2021-01-05 04:15 | ED.NAVMDI ---
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 Patient is continuing to receive chemo. He has type 2 diabetes on insulin, CAD and possible adrenal insufficiency. Patient states that he had nausea and vomiting on Monday, 3 days ago. Yesterday he was doing well until about 115 in the morning today Monday morning. Patient states he has been able to keep down any fluids. He denies any fevers but has felt chilled. He does state that he has had some cough. He denies any shortness of breath or chest pain. He denies any abdominal pain. He states he has been having normal bowel movements which have been soft. He denies any melena hematochezia. He denies any new urinary symptoms. Patient states he needs to return home today to have his PleurX catheter drained by home health. On recent visits lorazepam has been the most helpful for his recurrent emesis. Related Data Home Medications Medication Instructions Recorded Confirmed brimonidine 1 drp OPHTHALMIC (EYE) DAILY 10/05/20 12/11/20 divalproex 500 mg PO DAILY 10/05/20 12/11/20 doxazosin 4 mg PO DAILY 10/05/20 12/11/20 famotidine 40 mg PO BEDTIME 10/05/20 12/11/20 finasteride 5 mg PO DAILY 10/05/20 12/11/20 olopatadine 1 drp OPHTHALMIC (EYE) DAILY 10/05/20 12/11/20 pregabalin [Lyrica] 150 mg PO BID 10/05/20 12/11/20 travoprost [Travatan Z] 1 drp EYE-BOTH DAILY 10/05/20 12/11/20 atorvastatin 40 mg PO DAILY 11/07/20 12/11/20 Previous Rx's Medication Instructions Recorded ondansetron 4 mg PO TID-QID PRN #10 tab 10/06/20 pantoprazole [Protonix] 40 mg PO DAILY #30 tab 10/06/20 metoclopramide HCl [Reglan] 10 mg PO Q6H PRN #10 tab 11/05/20 baclofen 5 mg PO TID PRN #10 tab 11/08/20 prednisone 20 mg PO DAILY #30 tab 12/03/20 insulin glargine [Lantus Solostar 10 unit SUBCUT BID #15 ml 12/13/20 U-100 Insulin] lorazepam [Ativan] 0.5 mg PO QID #10 tab 12/24/20 ondansetron 4 mg PO Q8H PRN #20 tab 12/28/20 Allergies Allergy/AdvReac Type Severity Reaction Status Date / Time aspirin Allergy Unknown Verified 12/05/20 01:36 brompheniramine Allergy Unknown Verified 12/05/20 01:36 codeine Allergy Unknown Verified 12/05/20 01:36 diphenhydramine Allergy Unknown Verified 12/05/20 01:36 guaifenesin Allergy Unknown Verified 12/05/20 01:36 hydrocodone Allergy Unknown Verified 12/05/20 01:36 hydroxyzine Allergy Unknown Verified 12/05/20 01:36 ibuprofen Allergy Unknown Verified 12/05/20 01:36 meperidine Allergy Unknown Verified 12/05/20 01:36 morphine Allergy Unknown Verified 12/05/20 01:36 nystatin Allergy Unknown Verified 12/05/20 01:36 promethazine Allergy Unknown Verified 12/05/20 01:36 propoxyphene Allergy Unknown Verified 12/05/20 01:36 tuberculin, purified protein Allergy Unknown Verified 12/05/20 01:36 deriva egg Allergy Verified 12/05/20 01:36 amoxicillin [From Augmentin] AdvReac Unknown Vomiting Verified 12/05/20 01:36 metformin AdvReac Unknown Diarrhea Verified 12/05/20 01:36 clavulanic acid AdvReac Vomiting Verified 12/05/20 01:36 [From Augmentin] Review of Systems Review of Systems ROS Unobtainable: All systems reviewed & are unremarkable except as noted in HPI and below Patient History Medical History Coronary artery disease Diabetes Hyperlipidemia Malignant neoplasm metastatic to pancreas Post-traumatic stress disorder, chronic Surgical History History of cholecystectomy (01/31/17) Family History Mother Diabetes mellitus Father Dementia Social History household members: family and children Smoking Status: Never smoker alcohol intake: never substance use type: does not use Smoking Status: Never smoker alcohol intake frequency: holidays/special occasions only Substance Use Type: does not use Exam Initial Vital Signs Initial Vital Signs: Vital Signs Temperature 99.7 F H 01/05/21 04:17 Pulse Rate 97 H 01/05/21 04:17 Respiratory Rate 18 01/05/21 04:17 Blood Pressure 112/61 01/05/21 04:17 Pulse Oximetry 96 01/05/21 04:17 GENERAL: Alert and oriented x three, appearing male in [id number] distress. HEENT: Head normocephalic, atraumatic, EOMI, pupils reactive, face symmetric, moist mucous membranes NECK: Supple, full range of motion CARDIOVASCULAR: Regular rate and rhythm without murmurs, rubs or gallops. RESPIRATORY: Breath sounds equal bilaterally, no wheezes rales or rhonchi. ABDOMEN: Soft, nontender. Normoactive bowel sounds all 4 quadrants. No guarding or rebound, rigidity, no mass, nondistended. : No CVA tenderness EXTREMITIES: Normal range of motion, no clubbing or edema. Neurovascularly intact NEUROLOGICAL: Cranial nerves II through XII grossly intact. Moving all extremities SKIN: Warm, dry, no petechiae, no rashes or lesions. Scores GCS T[place]ana coma scale eye opening: Spontaneous [place] coma scale verbal response: Orientated [place]ana coma scale motor response: Obey commands [place]ana coma scale total score: 15 Course Orders Ordered: Discontinued Medications Sodium Chloride (Normal Saline 0.9%) 1,000 mls @ 1,000 mls/hr IV BOLUS ONE Stop: 01/05/21 05:14 Last Infusion: 01/05/21 05:35 Dose: 0 mls/hr Documented by: Admin: 01/05/21 04:25 Dose: 1,000 mls/hr Documented by: DAYNE Lorazepam (Lorazepam 2 Mg/Ml Inj) 0.5 mg IV Q2HR PRN PRN Reason: vomiting Last Admin: 06/08/21 06:14 Dose: 0.5 mg Documented by: NORMAN Ondansetron HCl (Ondansetron 4 Mg/2 Ml Inj) 4 mg IV NOW ONE Stop: 01/05/21 04:16 Last Admin: 01/05/21 04:25 Dose: 4 mg Documented by: DAYNE Pantoprazole Sodium (Pantoprazole 40 Mg Vial) 40 mg IV NOW ONE Stop: 01/05/21 04:22 Last Admin: 01/05/21 04:26 Dose: 40 mg Documented by: DAYNE Reevaluation(s) Reevaluation #1: Patient has not had any active emesis but is still nauseated. Given dose of ativan as this has been quite helpful in the past and patient had some improvement afterwards. Time: 06:15 Vital Signs Vital signs: Vital Signs - 8 hr 01/05/21 04:17 01/05/21 06:19 Temperature 99.7 F H Pulse Rate 97 H 75 Respiratory Rate 18 18 Blood Pressure 112/61 110/64 Pulse Oximetry 96 98 MDM - Nausea/Vomiting/Diarrhea Lab Data Attestation: I reviewed the patient's lab results. Result diagrams: 01/05/21 04:27 01/05/21 04:27 Labs: Lab Results 01/05/21 01/05/21 01/05/21 Range/Units 04:27 04:27 04:27 WBC (4.5-11.0) X10^3/uL RBC (4.5-5.9) X10^6/uL Hgb (13.5-17.5) g/dL Hct (41-53) % MCV (80-100) fL MCH (26-34) PG MCHC (30-36) % RDW (11.6-14.8) % Plt Count (150-400) X10^3/uL Neut % (Auto) Lymph % (Auto) Dickens % (Auto) Eos % (Auto) Baso % (Auto) Lymph # (Auto) Dickens # (Auto) Baso # (Auto) Total Counted Seg Neutrophils % (38-70) % Band Neutrophils % (3-7) % Lymphocytes % (Manual) (25-45) % Monocytes % (Manual) (2-11) % Neutrophils # (Manual) (6219-0595) /uL Nucleated RBCs ( - 0) #/Diff RBC Morphology Sodium (137-145) mmol/L Potassium (3.4-5.1) mmol/L Chloride (98-107) mmol/L Carbon Dioxide (22-32) mmol/L BUN (9-20) mg/dL Creatinine (0.66-1.25) mg/dL Estimated GFR (>60) mL/min BUN/Creatinine Ratio (6-22) Glucose (80-110) mg/dL Lactate 2.0 (0.7-2.1) mmol/L Calcium (8.4-10.2) mg/dL Total Bilirubin (0.2-1.3) mg/dL AST (17-59) IU/L ALT (<50) IU/L Alkaline Phosphatase (38-126) U/L Total Creatine Kinase (55-170) U/L CK-MB (CK-2) CK-MB (CK-2) Rel Index Troponin I (0.01-0.034) ng/mL Total Protein (6.3-8.2) g/dL Albumin (3.5-5.0) g/dL Globulin (1.7-4.1) g/dL Albumin/Globulin Ratio (1.0-2.8) Lipase 19 L D (23-300) U/L Blood Type B Positive Antibody Screen Negative 01/05/21 01/05/21 01/05/21 Range/Units 04:27 04:27 04:27 WBC 7.8 (4.5-11.0) X10^3/uL RBC 2.92 L (4.5-5.9) X10^6/uL Hgb 9.1 L (13.5-17.5) g/dL Hct 27.2 L (41-53) % MCV 93.3 D (80-100) fL MCH 31.1 (26-34) PG MCHC 33.3 (30-36) % RDW 19.8 H (11.6-14.8) % Plt Count 314 (150-400) X10^3/uL Neut % (Auto) Not Reportable Lymph % (Auto) Not Reportable Dickens % (Auto) Not Reportable Eos % (Auto) Not Reportable Baso % (Auto) Not Reportable Lymph # (Auto) Not Reportable Dickens # (Auto) Not Reportable Baso # (Auto) Not Reportable Total Counted 100 Seg Neutrophils % 67.0 (38-70) % Band Neutrophils % 12.0 H (3-7) % Lymphocytes % (Manual) 10.0 L (25-45) % Monocytes % (Manual) 11.0 (2-11) % Neutrophils # (Manual) 6162 H (1500-6274) /uL Nucleated RBCs 1 H ( - 0) #/Diff RBC Morphology Normal morphology Sodium 127 L (137-145) mmol/L Potassium 3.6 (3.4-5.1) mmol/L Chloride 93 L (98-107) mmol/L Carbon Dioxide 31 (22-32) mmol/L BUN 12 (9-20) mg/dL Creatinine 0.75 (0.66-1.25) mg/dL Estimated GFR > 60.0 (>60) mL/min BUN/Creatinine Ratio 16.0 (6-22) Glucose 70 L (80-110) mg/dL Lactate (0.7-2.1) mmol/L Calcium 7.2 L (8.4-10.2) mg/dL Total Bilirubin 0.8 (0.2-1.3) mg/dL AST 65 H (17-59) IU/L ALT 29 (<50) IU/L Alkaline Phosphatase 333 H D (38-126) U/L Total Creatine Kinase 95 (55-170) U/L CK-MB (CK-2) TNP CK-MB (CK-2) Rel Index TNP Troponin I < 0.012 (0.01-0.034) ng/mL Total Protein 4.6 L (6.3-8.2) g/dL Albumin 2.1 L (3.5-5.0) g/dL Globulin 2.5 (1.7-4.1) g/dL Albumin/Globulin Ratio 0.8 L (1.0-2.8) Lipase (23-300) U/L Blood Type Antibody Screen Point of Care Testing Glucose POC 68 Urine Dip Bedside Urine Glucose Negative Bedside Urine Bilirubin - Negative Bedside Urine Ketone - Negative Urine Specific [place] 1.005 Bedside Urine Occult Blood - Negative Bedside Urine pH 7 Bedside Urine Protein - Negative Bedside Urine Urobilinogen - Negative Bedside Urine Nitrite - Negative Bedside Urine Leukocytes - Negative Esterase Imaging Data Chest x-ray: Radiologist's Impression: Suspect improvement of the pleural fluid minor fissure on the right. New airspace disease versus atelectasis right lower lobe. Pleural drainage catheter right base. Abdominal x-ray: Radiologist's Impression: Bowel demonstrates a nonobstructive pattern. Pleural parenchymal disease right lower lobe with pleural catheter. ECG Data Attestation: I personally reviewed and interpreted this ECG as follows: Prior ECG tracings: available for review Interpretation: Sinus tachycardia with a rate of 104 GA interval 146, QRS 88 QTC 486. Nonspecific change which appears similar to prior EKG from 12/28/20 MDM Narrative Medical decision making narrative: This is a 70 year old male with recurrent episodes of nausea and vomiting patient. Denies any pain but states he could not stop vomiting this morning. His labs are surprisingly improved from 12/28 with white count of 7.8 up from 1.4. Hemoglobin 9.9 and his prior hemoglobin on the was 7.7 patient trans typically in the 9 range. Platelets are 314 today. Patient's sodium was 127 was 131 on the and has had a sort of slowly trending down words of over the past month from 08/29 5 with intermittent 127-131 in fact 127 today. Patient's potassium is 3.6 a chloride of 93. BUN is 12 with normal renal function. Glucose 70. Patient's AST and alk-phos are elevated but at typical levels recently. Troponin is negative. Patient had improvement after Ativan. Discharged home with return precautions. Discharge Plan Departure Patient Disposition: Home Clinical Impression: Hyponatremia, Vomiting Instructions: DI for Hyponatremia Activity Restrictions/Additional Instructions: Follow up with your physician or ask your home health care to have your sodium level rechecked in the next 1-2 days. Today your sodium level is 127. Your other labs appear to be otherwise at baseline. Please return at any time for fevers, new chest pain or shortness of breath, recurrent persistent vomiting, inability to tolerate oral liquids or foods, abdominal pain, persistent diarrhea, black or bloody stools or other new or concerning symptoms. Prescriptions: No Action pantoprazole [Protonix] 40 mg tablet,delayed release (DR/EC) 40 mg PO DAILY Qty: 30 RF: 0 ondansetron 4 mg tablet,disintegrating 4 mg PO TID-QID PRN (Reason: nausea and vomiting) Qty: 10 RF: 0 atorvastatin 40 mg tablet 40 mg PO DAILY RF: 0 baclofen 10 mg Tablet 5 mg PO TID PRN (Reason: Hiccups) Qty: 10 RF: 0 prednisone 20 mg tablet 20 mg PO DAILY Qty: 30 RF: 0 Lantus Solostar U-100 Insulin 100 unit/mL (3 mL) insulin pen 10 unit SUBCUT BID Qty: 15 RF: 0 lorazepam [Ativan] 0.5 mg tablet 0.5 mg PO QID Qty: 10 RF: 0 ondansetron 4 mg tablet,disintegrating 4 mg PO Q8H PRN (Reason: nausea and vomiting) Qty: 20 RF: 0 famotidine 40 mg Tablet 40 mg PO BEDTIME RF: 0 travoprost [Travatan Z] 0.004 % drops 1 drp EYE-BOTH DAILY RF: 0 olopatadine 0.1 % Drops 1 drp OPHTHALMIC (EYE) DAILY RF: 0 divalproex 500 mg Tablet Extended Release 24 Hr 500 mg PO DAILY RF: 0 brimonidine 0.2 % drops 1 drp ophthalmic (eye) DAILY RF: 0 doxazosin 4 mg tablet 4 mg PO DAILY RF: 0 finasteride 5 mg tablet 5 mg PO DAILY RF: 0 pregabalin [Lyrica] 150 mg Capsule 150 mg PO BID RF: 0 metoclopramide HCl [Reglan] 10 mg tablet 10 mg PO Q6H PRN (Reason: nausea and vomiting) Qty: 10 RF: 0 Referrals: Vianca Cox MD [Primary Care Provider] -
[2021-01-05 04:17] VITALS: BP 112/61; PULSE 97; RESP 18; TEMP 37.6; O2SAT 96; BMI 23.5
[2021-01-05] MEDS: ONDANSETRON 4 MG/2 ML INJ IV (04:25)
[2021-01-05] MEDS: SODIUM CHLORIDE 0.9% 1,000 ML 1000 ML IV (04:25)
[2021-01-05] MEDS: PANTOPRAZOLE 40 MG VIAL IV (04:26)
[2021-01-05 04:42] LABS: Hematocrit 27.2 % (41-53); Hemoglobin 9.1 g/dL (13.5-17.5); Mean Corpuscular HGB Conc 33.3 % (30-36); Mean Corpuscular Hemoglobin 31.1 PG (26-34); Mean Corpuscular Volume 93.3 fL (80-100); Platelet Count 314 X10^3/uL (150-400); Red Blood Cell Count 2.92 X10^6/uL (4.5-5.9); Red Cell Distribution Width 19.8 % (11.6-14.8); White Blood Cell Count 7.8 X10^3/uL (4.5-11.0)
[2021-01-05 04:43] LABS: Add Manual Diff / Slide Review YES
[2021-01-05 04:52] LABS: Lipase 19 U/L (23-300)
[2021-01-05 04:54] LABS: Alanine Aminotransferase 29 IU/L (<50); Albumin 2.1 g/dL (3.5-5.0); Albumin Globulin Ratio 0.8 (1.0-2.8); Alkaline Phosphatase 333 U/L (38-126); Aspartate Aminotransferase 65 IU/L (17-59); Bilirubin Total 0.8 mg/dL (0.2-1.3); Blood Urea Nitrogen 12 mg/dL (9-20); Calcium 7.2 mg/dL (8.4-10.2); Carbon Dioxide 31 mmol/L (22-32); Chloride 93 mmol/L (98-107); Creatine Kinase 95 U/L (55-170); Estimated Glomerular Filt Rate > 60.0 mL/min (>60); Globulin 2.5 g/dL (1.7-4.1); Glucose 70 mg/dL (80-110); HEMOLYSIS < 15 (0-50); Potassium 3.6 mmol/L (3.4-5.1); Sodium 127 mmol/L (137-145); Total Protein 4.6 g/dL (6.3-8.2)
[2021-01-05 05:05] LABS: Troponin I < 0.012 ng/mL (0.01-0.034)
[2021-01-05 05:29] LABS: Neutrophils Absolute Manual 6162 /uL (3000-5900); Total Cells Counted 100
[2021-01-05 05:30] LABS: Nucleated Red Blood Cells 1 #/Diff; RBC Morphology Normal Morphology
[2021-01-05] MEDS: LORazepam 2 MG/ML INJ 0.5 MG IV (06:14)
[2021-01-05 06:19] VITALS: BP 110/64; PULSE 75; RESP 18; O2SAT 98
[2021-01-05 09:34] VITALS: BP 108/58; PULSE 95; RESP 16; O2SAT 95
== END 2021-01-05 09:54 | disposition home or self-care (01) ==
PROVIDERS: Emergency Provider Emergency Medicine; PCP Internal Medicine
DX: E87.1 Hypo-osmolality and hyponatremia (principal); R11.2 Nausea with vomiting, unspecified; R05 Cough
CPT/HCPCS: 36415; 71045; 74018; 80053; 81003; 82550; 83605; 83690; 84484; 85007; 85025; 86850; 86900; 86901; 93005; 96361; 96374; 96375; 99284; C9113; J1642; J2060; J2405

== ENCOUNTER 2021-01-07 21:28 | Observation (INO) | payer MEDICARE, OTHER, SELFPAY ==
[2020-12-11 19:06] VITALS: BMI 25.0
[2021-01-07 21:30] VITALS: BP 111/61; PULSE 108; RESP 18; TEMP 38; O2SAT 100; BMI 23.6
--- NOTE | 2021-01-07 21:46 | ED_ITS ---
HPI - Nausea/Vomiting/Diarrhea General Chief complaint: Nausea/Vomiting/Diarrhea Stated complaint: chemo is kicking his butt Time Seen by Provider: 01/07/21 21:35 Source: patient Mode of arrival: Wheelchair Limitations: no limitations History of Present Illness HPI Narrative: Patient is a 70-year-old male. Has a known history of metastatic pancreatic cancer. Is under treatment by Oncology and receiving chemotherapy. Gets chemotherapy infusions every Monday. Had chemotherapy yesterday as scheduled. States that this morning he woke up vomiting and has vomited all day today. He also stated that he had chills today. No recorded fevers. Has abdominal tenderness around the time of his a vomiting but then this improves. No urinary symptoms. No change in bowel habits. He is scheduled to have his right chest effusion drained tomorrow by home health. He has a catheter in place for this. Related Data Home Medications Medication Instructions Recorded Confirmed brimonidine 1 drp OPHTHALMIC (EYE) DAILY 10/05/20 12/11/20 divalproex 500 mg PO DAILY 10/05/20 12/11/20 doxazosin 4 mg PO DAILY 10/05/20 12/11/20 famotidine 40 mg PO BEDTIME 10/05/20 12/11/20 finasteride 5 mg PO DAILY 10/05/20 12/11/20 olopatadine 1 drp OPHTHALMIC (EYE) DAILY 10/05/20 12/11/20 pregabalin [Lyrica] 150 mg PO BID 10/05/20 12/11/20 travoprost [Travatan Z] 1 drp EYE-BOTH DAILY 10/05/20 12/11/20 atorvastatin 40 mg PO DAILY 11/07/20 12/11/20 Previous Rx's Medication Instructions Recorded ondansetron 4 mg PO TID-QID PRN #10 tab 10/06/20 pantoprazole [Protonix] 40 mg PO DAILY #30 tab 10/06/20 metoclopramide HCl [Reglan] 10 mg PO Q6H PRN #10 tab 11/05/20 baclofen 5 mg PO TID PRN #10 tab 11/08/20 prednisone 20 mg PO DAILY #30 tab 12/03/20 insulin glargine [Lantus Solostar 10 unit SUBCUT BID #15 ml 12/13/20 U-100 Insulin] lorazepam [Ativan] 0.5 mg PO QID #10 tab 12/24/20 ondansetron 4 mg PO Q8H PRN #20 tab 12/28/20 Allergies Allergy/AdvReac Type Severity Reaction Status Date / Time aspirin Allergy Unknown Verified 12/05/20 01:36 brompheniramine Allergy Unknown Verified 12/05/20 01:36 codeine Allergy Unknown Verified 12/05/20 01:36 diphenhydramine Allergy Unknown Verified 12/05/20 01:36 guaifenesin Allergy Unknown Verified 12/05/20 01:36 hydrocodone Allergy Unknown Verified 12/05/20 01:36 hydroxyzine Allergy Unknown Verified 12/05/20 01:36 ibuprofen Allergy Unknown Verified 12/05/20 01:36 meperidine Allergy Unknown Verified 12/05/20 01:36 morphine Allergy Unknown Verified 12/05/20 01:36 nystatin Allergy Unknown Verified 12/05/20 01:36 promethazine Allergy Unknown Verified 12/05/20 01:36 propoxyphene Allergy Unknown Verified 12/05/20 01:36 tuberculin, purified protein Allergy Unknown Verified 12/05/20 01:36 deriva egg Allergy Verified 12/05/20 01:36 amoxicillin [From Augmentin] AdvReac Unknown Vomiting Verified 12/05/20 01:36 metformin AdvReac Unknown Diarrhea Verified 12/05/20 01:36 clavulanic acid AdvReac Vomiting Verified 12/05/20 01:36 [From Augmentin] Review of Systems Constitutional Constitutional: Reports chills and Denies fever(s) ENT Ears, Nose, Mouth, and Throat: Denies sore throat Cardiovascular Cardiovascular: Denies chest pain and Denies dyspnea Respiratory Respiratory: Denies dyspnea Gastrointestinal Gastrointestinal: Reports abdominal pain, Denies change in bowel habits, Reports nausea and Reports vomiting Genitourinary Genitourinary: Denies dysuria Genitourinary: Denies dysuria Musculoskeletal Comments: Fatigue Integumentary/Breasts Skin/Breast: Denies rash Neurologic Neurologic: Reports system reviewed and no additional complaints, except as documented Endocrine Endocrine: Reports system reviewed and no additional complaints, except as documented Hematologic/Lymphatic On Anticoagulants: No Allergic/Immunologic Allergic/Immunologic: Reports system reviewed and no additional complaints, except as documented Patient History Medical History Coronary artery disease Diabetes Hyperlipidemia Malignant neoplasm metastatic to pancreas Post-traumatic stress disorder, chronic Surgical History History of cholecystectomy (01/31/17) Family History Mother Diabetes mellitus Father Dementia Social History household members: family and children Smoking Status: Never smoker alcohol intake: never substance use type: does not use Smoking Status: Never smoker alcohol intake frequency: holidays/special occasions only Substance Use Type: does not use Exam Initial Vital Signs Initial Vital Signs: Vital Signs Temperature 100.4 F H 01/07/21 21:30 Pulse Rate 108 H 01/07/21 21:30 Respiratory Rate 18 01/07/21 21:30 Blood Pressure 111/61 01/07/21 21:30 Pulse Oximetry 100 01/07/21 21:30 Const General: cooperative Limitations: mental status not altered HENMT Head: normal to inspection and normocephalic Resp Effort & Inspection: normal respiratory effort Auscultation: clear to auscultation bilaterally Cardio Rate: tachycardic Rhythm: regular rhythm GI Inspection: non-distended Palpation: soft and No tender Back/Spine/Pelvis Back: normal to inspection Skin Other: Patient does have pressure ulcers to his upper buttocks that does not appear to be infected. No drainage. No surrounding erythema. Neuro General: patient alert, patient awake and patient oriented x3 Cognition: normal cognition Speech: speech normal Extrem General: normal to inspection, capillary refill normal and No edema Psych Appearance: grossly normal and well kempt Scores GCS [place] coma scale eye opening: Spontaneous [place] coma scale verbal response: Orientated [place] coma scale motor response: Obey commands [place] coma scale total score: 15 Course Orders Ordered: ED Orders 01/07/21 21:44 XR chest 1V Stat 01/07/21 21:55 Complete Blood Count AUTO DIFF Stat Comprehensive Metabolic Panel Stat Lactate (Lactic Acid) Stat Lipase Stat Procalcitonin Stat 01/07/21 22:05 Blood Culture Stat 01/07/21 22:10 COVID19 - ADMIT (COMPENSATION COORDINATOR swab/PCR) Stat 01/07/21 22:35 Urinalysis and Microscopic Stat Urine Culture Stat Acetaminophen (Acetaminophen 325 Mg Tablet) 650 mg PO Q6HR PRN PRN Reason: Fever/Mild Pain (1-3) Atorvastatin Calcium (Atorvastatin 20 Mg Tablet) 40 mg PO DAILY [facility] Baclofen (Baclofen 10 Mg Tablet) 5 mg PO TID PRN PRN Reason: Hiccups Dextrose (Dextrose 50 % In Water 25 Gm/50 Ml Syringe) 25 gm IV PRN PRN PRN Reason: Hypoglycemia Doxazosin Mesylate (Doxazosin 4 Mg Tablet) 4 mg PO DAILY [facility] Enoxaparin Sodium (Enoxaparin 40 Mg/0.4 Ml Syringe) 40 mg SUBCUT DAILY [facility] Finasteride (Finasteride 5 Mg Tablet) 5 mg PO DAILY [facility] Sodium Chloride (Normal Saline 0.9%) 1,000 mls @ 150 mls/hr IV CONT SERGE Last Admin: 01/07/21 22:02 Dose: 150 mls/hr Documented by: PASHA Sodium Chloride (Normal Saline 0.9%) 1,000 mls @ 100 mls/hr IV CONT [facility] POTASSIUM CHLORIDE IN WATER (Potassium Cl 10 Meq/100 Ml Sole) 10 meq in 100 mls @ 100 mls/hr IV Q1H SERGE Stop: 01/08/21 03:44 Insulin Glargine (Insulin Glargine 100 Unit/Ml 3ml Pen) 10 unit SUBCUT BID [facility] Insulin Human Lispro (Insulin Lispro 100 Unit/Ml 3ml Vial) 0 unit SUBCUT ACHS SERGE; Protocol Lorazepam (Lorazepam 0.5 Mg Tablet) 0.5 mg PO QID [facility] Naloxone HCl (Naloxone 0.4 Mg/Ml Vial) 0.2 mg IV Q2MIN PRN PRN Reason: Opiate Reversal Non-Formulary Medication (Divalproex) 500 mg PO DAILY [facility] Non-Formulary Medication (Famotidine) 40 mg PO BEDTIME [facility] Ondansetron HCl (Ondansetron 4 Mg/2 Ml Inj) 4 mg IV Q6HR PRN PRN Reason: Nausea And Vomiting Pantoprazole Sodium (Pantoprazole Dr 40 Mg Tablet) 40 mg PO DAILY [facility] Potassium Chloride (Potassium Chloride 20 Meq Tab) 40 meq PO NOW ONE Stop: 01/07/21 23:41 Pregabalin (Pregabalin 75 Mg Capsule) 150 mg PO BID [facility] Sennosides (Sennosides 8.6 Mg Tablet) 17.2 mg PO BEDTIME SERGE Discontinued Medications Cefepime HCl 2 gm/ Sodium (Chloride) 100 mls @ 200 mls/hr IV NOW ONE Stop: 01/07/21 21:43 Last Infusion: 01/07/21 23:13 Dose: 0 mls/hr Documented by: Admin: 01/07/21 22:34 Dose: 200 mls/hr Documented by: ALIYAH Ondansetron HCl (Ondansetron 4 Mg/2 Ml Inj) 4 mg IV NOW ONE Stop: 01/07/21 21:43 Last Admin: 01/07/21 22:02 Dose: 4 mg Documented by: PASHA Ondansetron HCl (Ondansetron 4 Mg/2 Ml Inj) 4 mg IV NOW ONE Stop: 01/07/21 22:25 Last Admin: 01/07/21 22:29 Dose: 4 mg Documented by: ALIYAH Pantoprazole Sodium (Pantoprazole 40 Mg Vial) 40 mg IV NOW ONE Stop: 01/07/21 22:25 Last Admin: 01/07/21 22:29 Dose: 40 mg Documented by: ALIYAH Vital Signs Vital signs: Vital Signs - 8 hr 01/07/21 21:30 Temperature 100.4 F H Pulse Rate 108 H Respiratory Rate 18 Blood Pressure 111/61 Pulse Oximetry 100 MDM - Nausea/Vomiting/Diarrhea Lab Data Attestation: I reviewed the patient's lab results. Result diagrams: 01/07/21 21:55 01/07/21 21:55 Labs: Lab Results 01/07/21 01/07/21 01/07/21 Range/Units 21:55 21:55 21:55 WBC 5.2 (4.5-11.0) X10^3/uL RBC 2.82 L (4.5-5.9) X10^6/uL Hgb 8.8 L (13.5-17.5) g/dL Hct 26.8 L (41-53) % MCV 95.2 (80-100) fL MCH 31.1 (26-34) PG MCHC 32.7 (30-36) % RDW 20.0 H (11.6-14.8) % Plt Count 281 (150-400) X10^3/uL Neut % (Auto) 87.0 H (50-75) % Lymph % (Auto) 7.7 L (25-40) % Treasure % (Auto) 4.6 (3-14) % Eos % (Auto) 0.0 L (2-4) % Baso % (Auto) 0.7 (0-2) % Neut # (Auto) 4500 (6573-3961) /uL Lymph # (Auto) 400 L (7264-3824) /uL Treasure # (Auto) 200 (0-900) /uL Eos # (Auto) 0 (0-450) /uL Baso # (Auto) 0 (0-100) /uL Sodium 131 L (137-145) mmol/L Potassium 3.3 L (3.4-5.1) mmol/L Chloride 97 L (98-107) mmol/L Carbon Dioxide 32 (22-32) mmol/L BUN 12 (9-20) mg/dL Creatinine 0.69 (0.66-1.25) mg/dL Estimated GFR > 60.0 (>60) mL/min BUN/Creatinine Ratio 17.4 (6-22) Glucose 186 H D (80-110) mg/dL Lactate 2.4 H (0.7-2.1) mmol/L Calcium 7.4 L (8.4-10.2) mg/dL Total Bilirubin 0.8 (0.2-1.3) mg/dL AST 74 H (17-59) IU/L ALT 35 (<50) IU/L Alkaline Phosphatase 434 H (38-126) U/L Total Protein 4.7 L (6.3-8.2) g/dL Albumin 2.1 L (3.5-5.0) g/dL Globulin 2.6 (1.7-4.1) g/dL Albumin/Globulin Ratio 0.8 L (1.0-2.8) Lipase (23-300) U/L Procalcitonin (<0.5) ng/mL Urine Color Urine Appearance Urine pH (4.5-8.0) Ur Specific [place] (1.000-1.035) Urine Protein (Negative) Urine Glucose (UA) (Negative) g/dL Urine Ketones (NEGATIVE) Urine Occult Blood (Negative) Urine Nitrate (Negative) Urine Bilirubin (NEGATIVE) Urine Urobilinogen (0.2) E.U./dL Ur Leukocyte Esterase (NEGATIVE) Urine RBC (0-5/HPF) Urine WBC (0-5/HPF) Ur Squamous Epith Cells (0-5/HPF) Urine Bacteria (None) Hyaline Casts (None) Granular Casts (None) Ur Culture Indicated? SARS-CoV-2 (PCR) (Negative) 01/07/21 01/07/21 01/07/21 Range/Units 21:55 22:10 22:35 WBC (4.5-11.0) X10^3/uL RBC (4.5-5.9) X10^6/uL Hgb (13.5-17.5) g/dL Hct (41-53) % MCV (80-100) fL MCH (26-34) PG MCHC (30-36) % RDW (11.6-14.8) % Plt Count (150-400) X10^3/uL Neut % (Auto) (50-75) % Lymph % (Auto) (25-40) % Treasure % (Auto) (3-14) % Eos % (Auto) (2-4) % Baso % (Auto) (0-2) % Neut # (Auto) (1246-4037) /uL Lymph # (Auto) (3641-0590) /uL Treasure # (Auto) (0-900) /uL Eos # (Auto) (0-450) /uL Baso # (Auto) (0-100) /uL Sodium (137-145) mmol/L Potassium (3.4-5.1) mmol/L Chloride (98-107) mmol/L Carbon Dioxide (22-32) mmol/L BUN (9-20) mg/dL Creatinine (0.66-1.25) mg/dL Estimated GFR (>60) mL/min BUN/Creatinine Ratio (6-22) Glucose (80-110) mg/dL Lactate (0.7-2.1) mmol/L Calcium (8.4-10.2) mg/dL Total Bilirubin (0.2-1.3) mg/dL AST (17-59) IU/L ALT (<50) IU/L Alkaline Phosphatase (38-126) U/L Total Protein (6.3-8.2) g/dL Albumin (3.5-5.0) g/dL Globulin (1.7-4.1) g/dL Albumin/Globulin Ratio (1.0-2.8) Lipase 12 L (23-300) U/L Procalcitonin 0.28 (<0.5) ng/mL Urine Color Yellow Urine Appearance Clear Urine pH 7.0 (4.5-8.0) Ur Specific [place] 1.015 (1.000-1.035) Urine Protein 1+ H (Negative) Urine Glucose (UA) Trace H (Negative) g/dL Urine Ketones Negative (NEGATIVE) Urine Occult Blood Trace-lysed (Negative) Urine Nitrate Negative (Negative) Urine Bilirubin Negative (NEGATIVE) Urine Urobilinogen 2.0 H (0.2) E.U./dL Ur Leukocyte Esterase Negative (NEGATIVE) Urine RBC 1-5/hpf (0-5/HPF) Urine WBC 0-1/hpf (0-5/HPF) Ur Squamous Epith Cells 0-1 /hpf (0-5/HPF) Urine Bacteria Occasional (0-1) (None) Hyaline Casts 0-1/lpf (None) Granular Casts 0-1/lpf (None) Ur Culture Indicated? Culture not indicate SARS-CoV-2 (PCR) Negative (Negative) Imaging Data Chest x-ray: Radiologist's Impression: [address] [id number] ReportSigned Patient: Neelam Vail [facility]#: [id number]: 1Acct:[id number]/Sex: 70 / MDate of Service: 01/07/21Loc: EDAccession Number: [id number] Procedure: XR chest 1V Ordering Provider: Imtiaz Marie D.O. PROCEDURE: XR CHEST 1V INDICATIONS: eval for Pneumonia TECHNIQUE: One view of the chest was acquired. COMPARISON: [facility], CT, CT ABDOMEN PELVIS W CON, 12/24/2020, 1:37. [facility], CR, XR CHEST 1V, 01/05/2021, 4:31. FINDINGS: Surgical changes and devices: Tunneled left port device is unchanged in positioning. Right lower chest drainage catheter remains in place with the distal tip projecting medially. This is similar in positioning compared to CT evaluation. Lungs and pleura: Persistent right pleural effusion which appears slightly smaller in size. Persistent patchy right mid lung zone airspace opacity. Patchy right basilar opacities may represent compressive atelectasis. No new airspace disease identified on the right. On the left, there is persistent left medial lower lung patchy airspace opacities. No new airspace disease on the left. No pneumothorax seen. Mediastinum: Mediastinal contours appear stable. Heart size is normal. Bones and chest wall: No suspicious bony lesions. Overlying soft tissues appear unremarkable. IMPRESSION: 1. Stable positioning of support equipment as described above. 2. Persistent but smaller size of right pleural effusion. 3. Relatively stable appearance of patchy ill-defined airspace opacities of the right mid and lower lung zones and left medial lower lung zone. Findings may represent atelectasis and/or concurrent airspace disease. No new consolidations identified. Dictated by: Luc James M.D. on 01/07/2021 at 21:56 Approved by: Luc James M.D. on 01/07/2021 at 22:03 MDM Narrative Medical decision making narrative: Patient was tachycardic and febrile upon arrival. Was not hypotensive. Lactate only slightly elevated. Blood cultures were obtained. Urine culture is obtained. Unsure the exact etiology of the patient's symptoms. He does have bacteria in his urine however no other signs of an infection. This was cultured. His chest x-ray does not show any definitive signs of pneumonia and his physical exam was not consistent with pneumonia. He does have a pressure ulcer on his upper buttocks but this does not appear to be infected. There is no other signs of a skin infection. His abdomen is soft. Given his history of pancreatic cancer and the fact that he is on chemotherapy he was given antibiotics. Was also given several doses of nausea medication. Will hold on the 30 cc/kilogram of fluids because he was not hypotensive and because of his right-sided pleural effusion. Given his history and his presentation I do feel that he needs admitted for continued observation and treatment in antibiotics. Discussed case with COMPENSATION COORDINATOR walking the night Hospital provider who will admit. Discussed the admission with the patient and he expressed understanding and agreement. Discharge Plan Departure Patient Disposition: Admitted As Inpatient Clinical Impression: Vomiting, Pancreatic cancer, Sepsis Admit Date/Time: 01/07/21 23:06 Admit Provider: Vero Smith
[2021-01-07] MEDS: SODIUM CHLORIDE 0.9% 1,000 ML 150 ML IV (22:02)
[2021-01-07] MEDS: ONDANSETRON 4 MG/2 ML INJ IV ×2 (22:02→22:29)
[2021-01-07 22:03] LABS: Add Manual Diff / Slide Review NO; Basophils Absolute Auto 0 /uL (0-100); Basophils Percent Auto 0.7 % (0-2); Eosinophils Absolute Auto 0 /uL (0-450); Hematocrit 26.8 % (41-53); Hemoglobin 8.8 g/dL (13.5-17.5); Lymphocytes Absolute Auto 400 /uL (1100-4500); Lymphocytes Percent Auto 7.7 % (25-40); Mean Corpuscular HGB Conc 32.7 % (30-36); Mean Corpuscular Hemoglobin 31.1 PG (26-34); Mean Corpuscular Volume 95.2 fL (80-100); Monocytes Absolute Auto 200 /uL (0-900); Monocytes Percent Auto 4.6 % (3-14); Neutrophils Absolute Auto 4500 /uL (1500-7000); Platelet Count 281 X10^3/uL (150-400); Red Blood Cell Count 2.82 X10^6/uL (4.5-5.9); White Blood Cell Count 5.2 X10^3/uL (4.5-11.0)
[2021-01-07 22:10] LABS: Lactate (Lactic Acid) 2.4 mmol/L (0.7-2.1)
[2021-01-07 22:11] LABS: Alanine Aminotransferase 35 IU/L (<50); Albumin 2.1 g/dL (3.5-5.0); Albumin Globulin Ratio 0.8 (1.0-2.8); Alkaline Phosphatase 434 U/L (38-126); Aspartate Aminotransferase 74 IU/L (17-59); BUN Creatinine Ratio 17.4 (6-22); Bilirubin Total 0.8 mg/dL (0.2-1.3); Blood Urea Nitrogen 12 mg/dL (9-20); Calcium 7.4 mg/dL (8.4-10.2); Carbon Dioxide 32 mmol/L (22-32); Chloride 97 mmol/L (98-107); Estimated Glomerular Filt Rate > 60.0 mL/min (>60); Globulin 2.6 g/dL (1.7-4.1); Glucose 186 mg/dL (80-110); HEMOLYSIS < 15 (0-50); Lipase 12 U/L (23-300); Potassium 3.3 mmol/L (3.4-5.1); Sodium 131 mmol/L (137-145); Total Protein 4.7 g/dL (6.3-8.2)
[2021-01-07 22:28] LABS: Procalcitonin 0.28 ng/mL (<0.5)
[2021-01-07] MEDS: PANTOPRAZOLE 40 MG VIAL IV (22:29)
[2021-01-07] MEDS: CEFEPIME 2 GM in SODIUM CHLORIDE 0.9% 100 ML 200 ML IV (22:34)
[2021-01-07 22:45] LABS: Appearance Urine UA CLEAR; Bilirubin Urine UA NEGATIVE (NEGATIVE); Color Urine UA YELLOW; Glucose Urine UA TRACE g/dL (Negative); Ketones Urine UA NEGATIVE (NEGATIVE); Leukocyte Esterase Urine UA NEGATIVE (NEGATIVE); Nitrite Urine UA NEGATIVE (Negative); Occult Blood Urine UA TRACE-LYSED (Negative); Protein Urine UA 1+ (Negative); Specific Gravity Urine UA 1.015 (1.000-1.035)
[2021-01-07 22:54] LABS: Bacteria Urine Occasional (0-1); Granular Casts Urine 0-1/LPF; Hyaline Casts Urine 0-1/LPF; RBC Urine 1-5/HPF (0-5/HPF); Squamous Epithelial Cell Urine 0-1 /HPF (0-5/HPF); WBC Urine 0-1/HPF (0-5/HPF)
[2021-01-07 23:14] LABS: COVID19 - ADMIT (NP swab/PCR) Negative (Negative)
[2021-01-07 23:52] VITALS: BMI 23.2
[2021-01-07 23:55] LABS: Reflexed Lactate in 2 Hours Y
[2021-01-08 00:05] VITALS: BP 108/62; PULSE 94; RESP 17; TEMP 37.1; O2SAT 96
[2021-01-08] MEDS: POTASSIUM CHLORIDE IN WATER 10 MEQ/100 ML PIGGYBACK 100 MEQ IV ×4 (00:21→03:39)
[2021-01-08] MEDS: ONDANSETRON 4 MG/2 ML INJ IV ×2 (00:21→07:30)
[2021-01-08] MEDS: LORazepam 0.5 MG TABLET PO ×4 (00:39→17:10)
[2021-01-08] MEDS: POTASSIUM CHLORIDE 20 MEQ TAB 40 MEQ PO (00:39)
--- NOTE | 2021-01-08 02:16 | P.HP_ITS ---
History of Present Illness History of Present Illness Date Patient Seen: 01/08/21 Time Patient Seen: 23:00 Chief complaint: chemo is kicking his butt Narrative: Anthony Vail is a 70-year-old man with a past medical history of newly diagnosed pancreatic cancer with metastases to the liver and kidney, insulin dependent diabetes, CAD, hyperlipidemia, PTSD, and COVID-19 is on his fifth cycle of chemotherapy. He underwent chemotherapy infusion 1 day ago and prese nts to the ED stating chemo is kicking it. Stated he woke up at 5 am, felt like he had a fever and went back to sleep. He woke up with sweats and chills and decided he needed to be seen. He presented with a fever of 100. He states he continues to have hiccups, but this has improved since his last admission in mid-November, and continues to have chronic pressure ulcers on his back side. Patient has had a persistent right-sided pleural effusion. He has since had a PleurX device placed and was due today for a PleurX drain by home health. Currently the patient is afebrile, blood pressure 108/62, heart rate 94, respiratory rate 17, oxygen saturation 96% on room air, he weighs 79.4 kg with a BMI of 23.2. WBC is 5.2, RBC 2.82, hemoglobin 8.8, hematocrit 26.8, platelet count 281, neutrophils 4500, sodium is 131, potassium 3.3, chloride 97, bicarb 32, renal values are within normal limits, glucose is 186, lactate on admission was 2.4, and is now 2.0. Calcium is 7.4 corrected is 8.9, bilirubin 0.8, AST 74, ALT 35, alk-phos 434, albumin 2.1, lipase 12, urine is negative for UTI, COVID-19 PCR is negative. Patient History Medical History Coronary artery disease Diabetes Hyperlipidemia Malignant neoplasm metastatic to pancreas Post-traumatic stress disorder, chronic Surgical History History of cholecystectomy (01/31/17) Family & Social History Family History Mother Diabetes mellitus Father Dementia Social History: household members family,children Prior Living Arrangements House Safety & Behavioral: Feels Safe in Current Yes Environment Been Physically Hurt or No Threatened By a Person Suicidal Ideation Description None Suicide Plan Description No Plan Tobacco & Substance use: Smoking Status Never smoker alcohol intake never alcohol intake frequency holiday/special occasion Substance Use Type does not use Meds Home Medications and Allergies Home Medications Medication Instructions Recorded Confirmed Type brimonidine 1 drp OPHTHALMIC (EYE) DAILY 10/05/20 12/11/20 History divalproex 500 mg PO DAILY 10/05/20 12/11/20 History doxazosin 4 mg PO DAILY 10/05/20 12/11/20 History famotidine 40 mg PO BEDTIME 10/05/20 12/11/20 History finasteride 5 mg PO DAILY 10/05/20 12/11/20 History olopatadine 1 drp OPHTHALMIC (EYE) DAILY 10/05/20 12/11/20 History pregabalin [Lyrica] 150 mg PO BID 10/05/20 12/11/20 History travoprost [Travatan Z] 1 drp EYE-BOTH DAILY 10/05/20 12/11/20 History ondansetron 4 mg PO TID-QID PRN #10 tab 10/06/20 12/11/20 Rx pantoprazole [Protonix] 40 mg PO DAILY #30 tab 10/06/20 12/11/20 Rx metoclopramide HCl [Reglan] 10 mg PO Q6H PRN #10 tab 11/05/20 12/11/20 Rx atorvastatin 40 mg PO DAILY 11/07/20 12/11/20 History baclofen 5 mg PO TID PRN #10 tab 11/08/20 12/11/20 Rx prednisone 20 mg PO DAILY #30 tab 12/03/20 12/11/20 Rx insulin glargine [Lantus Solostar 10 unit SUBCUT BID #15 ml 12/13/20 Rx U-100 Insulin] lorazepam [Ativan] 0.5 mg PO QID #10 tab 12/24/20 Rx ondansetron 4 mg PO Q8H PRN #20 tab 12/28/20 Rx Allergies Allergy/AdvReac Type Severity Reaction Status Date / Time aspirin Allergy Unknown Verified 12/05/20 01:36 brompheniramine Allergy Unknown Verified 12/05/20 01:36 codeine Allergy Unknown Verified 12/05/20 01:36 diphenhydramine Allergy Unknown Verified 12/05/20 01:36 guaifenesin Allergy Unknown Verified 12/05/20 01:36 hydrocodone Allergy Unknown Verified 12/05/20 01:36 hydroxyzine Allergy Unknown Verified 12/05/20 01:36 ibuprofen Allergy Unknown Verified 12/05/20 01:36 meperidine Allergy Unknown Verified 12/05/20 01:36 morphine Allergy Unknown Verified 12/05/20 01:36 nystatin Allergy Unknown Verified 12/05/20 01:36 promethazine Allergy Unknown Verified 12/05/20 01:36 propoxyphene Allergy Unknown Verified 12/05/20 01:36 tuberculin, purified protein Allergy Unknown Verified 12/05/20 01:36 deriva egg Allergy Verified 12/05/20 01:36 amoxicillin [From Augmentin] AdvReac Unknown Vomiting Verified 12/05/20 01:36 metformin AdvReac Unknown Diarrhea Verified 12/05/20 01:36 clavulanic acid AdvReac Vomiting Verified 12/05/20 01:36 [From Augmentin] Review of Systems Review of Systems Narrative: He denies difficulty swallowing, sore throat, shortness of breath, chest pain, abdominal pain, dysurea, diarrhea or constipation, peripheral neuropathy. Exam Vital Signs (past 8 hours): - 01/07/21 21:30 01/08/21 00:05 Temperature 100.4 F H 98.8 F Pulse Rate 108 H 94 H Respiratory Rate 18 17 Blood Pressure 111/61 108/62 Pulse Oximetry 100 96 Oxygen Delivery Method Room Air Oxygen Flow Rate 0 Narrative Exam Narrative: Gen: Alert, oriented, well-developed 70 y.o. -Americanmale, somewhat cachexic appearing HEENT: normocephalic, atraumatic, conjunctiva clear, sclera non-icteric, oral mucosa pink and moist Neck: supple, full ROM, no JVD, trachea is midline Resp: Lungs CTA, non-labored breathing Chest: PleurX drain tube is on the posterior right side and does not appear to be infected at its exit site. There is a mild bulge distal to it. CV: RRR, no murmur or rubs Abd: soft, non-tender, normoactive BTs Skin: no lesions or rashes, dry and intact Neuro: Alert and oriented X 4 w/no focal deficits. Speech clear and coherent. Extremities: moves all 4 extremities, is ambulatory, negative Jaime?s sign Psyche: normal mood and affect. Objective Labs Result Diagrams: 01/07/21 21:55 01/07/21 21:55 Labs: Laboratory Results - last 24 hr 01/07/21 01/07/21 01/07/21 21:55 21:55 21:55 WBC 5.2 RBC 2.82 L Hgb 8.8 L Hct 26.8 L MCV 95.2 MCH 31.1 MCHC 32.7 RDW 20.0 H Plt Count 281 Neut % (Auto) 87.0 H Lymph % (Auto) 7.[address] [place] % (Auto) 4.6 Eos % (Auto) 0.0 L Baso % (Auto) 0.7 Neut # (Auto) 4500 Lymph # (Auto) [address] [place] # (Auto) 200 Eos # (Auto) 0 Baso # (Auto) 0 Sodium 131 L Potassium 3.3 L Chloride 97 L Carbon Dioxide 32 BUN 12 Creatinine 0.69 Estimated GFR > 60.0 BUN/Creatinine Ratio 17.4 Glucose 186 H D Lactate 2.4 H Calcium 7.4 L Total Bilirubin 0.8 AST 74 H ALT 35 Alkaline Phosphatase 434 H Total Protein 4.7 L Albumin 2.1 L Globulin 2.6 Albumin/Globulin Ratio 0.8 L Lipase Procalcitonin Urine Color Urine Appearance Urine pH Ur Specific [place] Urine Protein Urine Glucose (UA) Urine Ketones Urine Occult Blood Urine Nitrate Urine Bilirubin Urine Urobilinogen Ur Leukocyte Esterase Urine RBC Urine WBC Ur Squamous Epith Cells Urine Bacteria Hyaline Casts Granular Casts Ur Culture Indicated? SARS-CoV-2 (PCR) 01/07/21 01/07/21 01/07/21 21:55 22:10 22:35 WBC RBC Hgb Hct MCV MCH MCHC RDW Plt Count Neut % (Auto) Lymph % (Auto) [place] % (Auto) Eos % (Auto) Baso % (Auto) Neut # (Auto) Lymph # (Auto) [place] # (Auto) Eos # (Auto) Baso # (Auto) Sodium Potassium Chloride Carbon Dioxide BUN Creatinine Estimated GFR BUN/Creatinine Ratio Glucose Lactate Calcium Total Bilirubin AST ALT Alkaline Phosphatase Total Protein Albumin Globulin Albumin/Globulin Ratio Lipase 12 L Procalcitonin 0.28 Urine Color Yellow Urine Appearance Clear Urine pH 7.0 Ur Specific [place] 1.015 Urine Protein 1+ H Urine Glucose (UA) Trace H Urine Ketones Negative Urine Occult Blood Trace-lysed Urine Nitrate Negative Urine Bilirubin Negative Urine Urobilinogen 2.0 H Ur Leukocyte Esterase Negative Urine RBC 1-5/hpf Urine WBC 0-1/hpf Ur Squamous Epith Cells 0-1 /hpf Urine Bacteria Occasional (0-1) Hyaline Casts 0-1/lpf Granular Casts 0-1/lpf Ur Culture Indicated? Culture not indicate SARS-CoV-2 (PCR) Negative 01/08/21 00:30 WBC RBC Hgb Hct MCV MCH MCHC RDW Plt Count Neut % (Auto) Lymph % (Auto) [place] % (Auto) Eos % (Auto) Baso % (Auto) Neut # (Auto) Lymph # (Auto) [place] # (Auto) Eos # (Auto) Baso # (Auto) Sodium Potassium Chloride Carbon Dioxide BUN Creatinine Estimated GFR BUN/Creatinine Ratio Glucose Lactate 2.0 Calcium Total Bilirubin AST ALT Alkaline Phosphatase Total Protein Albumin Globulin Albumin/Globulin Ratio Lipase Procalcitonin Urine Color Urine Appearance Urine pH Ur Specific [place] Urine Protein Urine Glucose (UA) Urine Ketones Urine Occult Blood Urine Nitrate Urine Bilirubin Urine Urobilinogen Ur Leukocyte Esterase Urine RBC Urine WBC Ur Squamous Epith Cells Urine Bacteria Hyaline Casts Granular Casts Ur Culture Indicated? SARS-CoV-2 (PCR) Assessment & Plan Assessment & Plan narrative: Neelam Vail is a 70-year-old male currently undergoing chemotherapy for pancreatic cancer will be admitted to the inpatient service for management of post chemotherapy fever and metabolic derangements of hypokalemia and hyponatremia. 1. Post chemotherapy fever of unknown origin -no source of infection has been found with a negative x-ray and UA and procalcitonin is negative -blood culture is pending -control fever with Tylenol 2. Hyponatremia with a sodium of 131, likely chronic, present on admission -he will receive IV normal saline at 150 mL/hour. 3. Hypokalemia with a potassium level of 3.3, acute, present on admission -he has been ordered for 4 100 mEq KCL riders and 40 mEq oral potassium Diabetes type 2, chronic and hypoglycemic on admission -he normally takes glargine 10 units b.i.d. and this will be continued with low- dose correctional scale Persistent hiccups associated with pancreatic cancer, present on admission -he takes Ativan 0.5 mg q.i.d. and has discontinued baclofen VTE prophylaxis: Wells risk score: 1.0 Enoxaparin 40 mg subQ daily Consults: none Patient is admitted under inpatient status with expected length of stay greater than 2 midnights due to severity of presenting symptoms, risk of adverse event, and complexity of treatment plan. FEN: IV NS at 150 ml/hour, carb controlled diet BMP and magnesium in the am. Dispo: probable discharge to home Code Status: DNR/DNI as discussed with patient COVID-19 COVID-19 status: Negative Scores Wells' Criteria for PE Clinical signs and symptoms of DVT: No PE is #1 Dx or equally likely: No Heart rate > 100: No Immobilization at least 3 days or surg in previous 4 weeks: No History of PE or DVT: No Hemoptysis: No Malignancy w/Treatment within 6 months or palliative: Yes Wells' PE Score total: 1 Quality VTE Deep Vein Thrombosis/Pulmonary Embolism Present on Admission: No MIPS - Admit I confirm the patient?s Advance Care Plan is present, Code status is documented, Surrogate decision maker is in patient?s record [If Yes, STOP here]: Yes
--- NOTE | 2021-01-08 05:20 | PC.ADMIT ---
Pt arrived to floor in no acute cardiovascular or respiratory distress. Alert and oriented, respirations equal unlabored bilateral, endorses weakness in all extremities. Patient unable to accurately recall medications and is unsure if he will be able to obtain a list. This RN attempted to jog patient's memory using a prior medication list but patient is still not confident in ability to accurately confirm or deny medications. Patient reports to this RN that he is due for a drain using his PLEURX drain in the AM of 01/08, and would normally do so in an outpatient setting. Provider aware of this. [address] [place] [address] Admission Note: The patient,Neelam Vail,70 y/o, was given written information regarding hospital policies, unit procedures and contact persons. Patient's smoking status: Never smoker. Vital Signs - 8 hr 01/07/21 21:30 01/08/21 00:05 Temperature 100.4 F H 98.8 F Pulse Rate 108 H 94 H Respiratory Rate 18 17 Blood Pressure 111/61 108/62 Pulse Oximetry 100 96
[2021-01-08 06:10] LABS: BUN Creatinine Ratio 17.5 (6-22); Blood Urea Nitrogen 10 mg/dL (9-20); Calcium 7.2 mg/dL (8.4-10.2); Carbon Dioxide 31 mmol/L (22-32); Chloride 100 mmol/L (98-107); Estimated Glomerular Filt Rate > 60.0 mL/min (>60); Glucose 97 mg/dL (80-110); HEMOLYSIS < 15 (0-50); Magnesium 1.8 mg/dL (1.6-2.3); Potassium 4.4 mmol/L (3.4-5.1); Sodium 131 mmol/L (137-145)
[2021-01-08 06:22] LABS: Hematocrit 23.4 % (41-53); Hemoglobin 7.6 g/dL (13.5-17.5)
[2021-01-08 08:00] VITALS: BP 101/58; PULSE 103; RESP 20; TEMP 37.5; O2SAT 94
[2021-01-08] MEDS: DIVALPROEX ER 250 MG TAB 500 MG PO (09:37)
[2021-01-08] MEDS: FINASTERIDE 5 MG TABLET PO (09:38)
[2021-01-08] MEDS: ENOXAPARIN 40 MG/0.4 ML SYRINGE SUBCUT (09:38)
[2021-01-08] MEDS: INSULIN GLARGINE 100 UNIT/ML 3ML PEN 10 UNIT SUBCUT (09:39)
[2021-01-08] MEDS: PANTOPRAZOLE DR 40 MG TABLET PO (09:40)
[2021-01-08] MEDS: PREGABALIN 75 MG CAPSULE 150 MG PO (09:40)
[2021-01-08] MEDS: ACETAMINOPHEN 325 MG TABLET 650 MG PO (09:42)
[2021-01-08 09:45] VITALS: O2SAT 100
[2021-01-08 10:26] VITALS: BP 101/58; PULSE 103
--- NOTE | 2021-01-08 11:44 | DIET.PN ---
Dietary Progress Note Assessment: 70y M c past medical history of newly diagnosed pancreatic cancer with metastases to the liver and kidney, insulin dependent diabetes, CAD, hyperlipidemia, PTSD who presents with fever and hiccups. Pt referred to nutrition for chemotherapy c recurrent N/V. Pt recently had drain placed for his chronic pleural effusion. Previous admission pt had difficulty eating secondary to pleural effusion with 13% unintentional weight loss in 2mo. Pt has lost an additional 4.4% body weight in 1 mo (severe). Pt has chronic pressure wounds on bottom. Pt most easily tolerates fresh fruit and gets heartburn from yogurt. HT: 182.8cm WT: 79.4kg UBW:96kg BMI:23.2 Labs:WBC 5.2, hgb 7.6 L, alk phos 434 H Nutrition Diagnosis: Severe Acute Protein Calorie Malnutrition r/t recent dx metastatic pancreatic cancer c mets and reduced appetite, chemo related N/V aeb 4.4% unintentional weight loss in 1 mo (severe) on top of 13% unintentional weight loss the two months prior, chronic pressure wounds, hospitalist reports pt as cachectic. Interventions: 1. To address PCM, recc ONS Chencho freeman banana smoothie TID in addition to meals as pt best tolerates fruit and has increased protein needs. 2. Recc pt stay on antiemetic schedule to get ahead of N/V. Diet Order:CCD EER:2400 kcal (30kcal/kg per PCM), 105g PRO (1.2g/kg per PCM) Monitoring/Evaluations: ONS tolerance, associated labs
--- NOTE | 2021-01-08 12:21 | CM.IDA ---
Initial DCP Assessment Note Patient is a 70 yo male, resident of [place]. Patient arrives to the ER last night, stated complaint chemo is kicking my butt. Patient w/known history of metastatic pancreatic cancer. Is under treatment by Oncologist Dr Oneal and receiving chemotherapy. Gets chemotherapy infusions every Monday. Patient has had a persistent right-sided pleural effusion. He has since had a PleurX device placed and has assist in draining x2 weekly by [facility]. PCP: Vianca Cox, non VA PCP listed VA PCP: Dr Angelina Lee Payer: [facility]/[employer] Completed a review of patient's chart to include prior admission notes by this DCP team and from oncology SWer. Spoke w/patient and, with patient's permission, placed call to both adult children Gertrude Taveras and son Chele today. Patient has had 6 ER visits and now 5 medical admissions=11 visits for chemo related complications since October 2020. According to conversation w/son Chele: Dtr Gertrude in [place] and son needing to head back to his home/job in [place] like two weeks ago. Chele explains to this HEAT SEALING MACHINE OPERATOR that when patient gets sick from his chemo treatments, son needs to provide full care for ADLs to include bathing, cleaning up after patient when incontinent, assist w/chores, errands and meals when patient is able to eat. Chele explains that his mom months ago and did not have hospice service. Chele states he has talked w/his father about continuing chemo vs stopping and patient wants to continue at this time; son says he and his father have understood from Oncologist that the chemo is shrinking the mass. Chele adds that once he returns to [place] patient will no longer have anyone to care for him and asks this HEAT SEALING MACHINE OPERATOR if patient qualifies for any addtl. help; patient lacks the funds for privately paid in home cgs, and yet, also cannot afford the high participation cost required for NILDA in home cgs. 1400: Dr Yan intending to DC patient this afternoon. Met w/patient, introduced role. Discussed, briefly, short term and senior living goals. Patient confirms the following: -Patient intends to return home upon DC, does not want SNF -Patient knows his son will be leaving soon, confirms he has no one to help and states I have harrison -Patient plans to continue his chemo regiment -Patient agreeable to resumption of HH services and appreciative for any assist w/ in home cg options See next note for detail re: VA benefits MONICA Castorena Discharge Planning/Care Management CM Discharge Assessment Start: 01/08/21 12:12 Freq: Status: Active Protocol: Document 01/08/21 12:13 MENG (Rec: 01/08/21 12:20 MENG [id number]) Discharge Planning Assessment Assigned Vegetable Vendor MONICA Loo DPOA/Assigned Designee Name Chele Cuello, son: [phone] [facility]: Advance Directives? Yes Advance Directives on File No History Provided By Patient,Family Member,Medical Record Prior Living Arrangements House Household Members family,children Type of transporation used prior to Relies on Others admit Independent with ADL's No: Not currently, d/t poor reaction to chemo course Is patient alert and oriented? Yes Needs Assistance With Bathing,Grooming,Meal Prep, Toileting,Managing Medications ,Home Chores / Shopping Comment Has a ramp and grab bars in home Patient/Family Preference Home with Home Health Barriers to Discharge Yes Comment Fatigued, poor reaction to recent chemo, requiring assist at home and son states my leave is up needs to return to [place] like two weeks ago Discharge Plan Home with Home Health Transportation Arrangement Family Referrals Initiated Home Health Additional Comment Resume [facility] If patient plan is home with home health Yes : Has signed face to face form been completed?
[2021-01-08] MEDS: SODIUM CHLORIDE 0.9% 1,000 ML 100 ML IV (13:00)
[2021-01-08] MEDS: INSULIN LISPRO 100 UNIT/ML 3ML VIAL SUBCUT ×2 (13:01→17:07)
--- NOTE | 2021-01-08 13:59 | P.DS_ITS ---
History of Present Illness History of Present Illness Date Patient Seen: 01/08/21 Time Patient Seen: 14:00 Chief complaint: chemo is kicking his butt Narrative: YOLETTE Fuller: Anthony Vail is a 70-year-old man with a past medical history of newly diagnosed pancreatic cancer with metastases to the liver and kidney, insulin dependent diabetes, CAD, hyperlipidemia, PTSD, and COVID-19 is on his fifth cycle of chemotherapy. He underwent chemotherapy infusion 1 day ago and presents to the ED stating chemo is kicking it. Stated he woke up at 5 am, felt like he had a fever and went back to sleep. He woke up with sweats and chil ls and decided he needed to be seen. He presented with a fever of 100. He states he continues to have hiccups, but this has improved since his last admission in mid-November, and continues to have chronic pressure ulcers on his back side. Patient has had a persistent right-sided pleural effusion. He has since had a PleurX device placed and was due today for a PleurX drain by home health. Currently the patient is afebrile, blood pressure 108/62, heart rate 94, respiratory rate 17, oxygen saturation 96% on room air, he weighs 79.4 kg with a BMI of 23.2. WBC is 5.2, RBC 2.82, hemoglobin 8.8, hematocrit 26.8, platelet count 281, neutrophils 4500, sodium is 131, potassium 3.3, chloride 97, bicarb 32, renal values are within normal limits, glucose is 186, lactate on admission was 2.4, and is now 2.0. Calcium is 7.4 corrected is 8.9, bilirubin 0.8, AST 74, ALT 35, alk-phos 434, albumin 2.1, lipase 12, urine is negative for UTI, COVID-19 PCR is negative. Discharge Providers Provider Date of admission: 01/07/21 23:06 Discharge Date: 01/08/21 Primary care physician: Vianca Cox MD Consults: 01/08/21 01:29 Consult to Dietitian, Adult Routine Comment: Reason For Exam: recent chemotherapy & recurring nausea/vomiting Discharge provider: Richard Yan DO Summary Hospital Course Discharge Diagnosis: 1. Fever in the setting of recent chemotherapy 2. Chronic hyponatremia 3. Hypokalemia 4. Type 2 diabetes 5. Metastatic pancreatic cancer undergoing chemotherapy, chronic 6. Dehydration and malaise secondary to chemotherapy. Hospital Course: Neelam Vail is a 70-year-old male currently undergoing chemotherapy for pancreatic cancer admitted with generalized malaise and fever to 100.4 in the emergency room. No infectious source was able to be found, and the patient was feeling well and wanted to go home the following day. He was slightly dehydrated and improved with IV fluids. Patient was to scheduled have his pleurex catheter drained at his home on the day of discharge, however this could not be performed as he had been admitted. Drainage was attempted prior to discharge unfortunately our hospital does not have the correct equipment for access. He was not short of breath and it is safe to attempt drainage with home health as an outpatient at this time. Given his fever and active chemotherapy, he was discharged with a course of antibiotics as a precaution (Levaquin x 5 days). Exam Vital Signs (past 8 hours): - 01/08/21 08:00 01/08/21 09:45 01/08/21 10:26 Temperature 99.5 F Pulse Rate 103 H 103 H Respiratory Rate 20 Blood Pressure 101/58 L 101/58 L Pulse Oximetry 94 100 Oxygen Delivery Method Room Air Oxygen Flow Rate 0 Narrative Exam Narrative: Gen: Alert, oriented, well-developed 70 y.o. - Americanmale, cachexic appearing and slightly fatigued but improved from previous exams. HEENT: normocephalic, atraumatic, conjunctiva clear, sclera non-icteric, oral mucosa pink and moist Neck: supple, full ROM, no JVD, trachea is midline Resp: Lungs CTA, non-labored breathing Chest: PleurX drain tube is on the posterior right side and does not appear to be infected at its exit site. Port site is without erythema, induration, or te nderness. CV: RRR, no murmur or rubs Abd: soft, non-tender, normoactive BTs Skin: no lesions or rashes, dry and intact Neuro: Alert and oriented X 4 w/no focal deficits. Speech clear and coherent. Extremities: moves all 4 extremities, is ambulatory, negative Jaime?s sign Psyche: normal mood and affect. Objective Labs Result Diagrams: 01/08/21 13:48 01/08/21 13:48 Labs: Laboratory Results - last 24 hr 01/07/21 01/07/21 01/07/21 21:55 21:55 21:55 WBC 5.2 RBC 2.82 L Hgb 8.8 L Hct 26.8 L MCV 95.2 MCH 31.1 MCHC 32.7 RDW 20.0 H Plt Count 281 Neut % (Auto) 87.0 H Lymph % (Auto) 7.7 L [place] % (Auto) 4.6 Eos % (Auto) 0.0 L Baso % (Auto) 0.7 Neut # (Auto) 4500 Lymph # (Auto) 400 L [place] # (Auto) 200 Eos # (Auto) 0 Baso # (Auto) 0 Sodium 131 L Potassium 3.3 L Chloride 97 L Carbon Dioxide 32 BUN 12 Creatinine 0.69 Estimated GFR > 60.0 BUN/Creatinine Ratio 17.4 Glucose 186 H D Lactate 2.4 H Calcium 7.4 L Magnesium Total Bilirubin 0.8 AST 74 H ALT 35 Alkaline Phosphatase 434 H Total Protein 4.7 L Albumin 2.1 L Globulin 2.6 Albumin/Globulin Ratio 0.8 L Lipase Procalcitonin Urine Color Urine Appearance Urine pH Ur Specific [place] Urine Protein Urine Glucose (UA) Urine Ketones Urine Occult Blood Urine Nitrate Urine Bilirubin Urine Urobilinogen Ur Leukocyte Esterase Urine RBC Urine WBC Ur Squamous Epith Cells Urine Bacteria Hyaline Casts Granular Casts Ur Culture Indicated? SARS-CoV-2 (PCR) 01/07/21 01/07/21 01/07/21 21:55 22:10 22:35 WBC RBC Hgb Hct MCV MCH MCHC RDW Plt Count Neut % (Auto) Lymph % (Auto) [place] % (Auto) Eos % (Auto) Baso % (Auto) Neut # (Auto) Lymph # (Auto) [place] # (Auto) Eos # (Auto) Baso # (Auto) Sodium Potassium Chloride Carbon Dioxide BUN Creatinine Estimated GFR BUN/Creatinine Ratio Glucose Lactate Calcium Magnesium Total Bilirubin AST ALT Alkaline Phosphatase Total Protein Albumin Globulin Albumin/Globulin Ratio Lipase 12 L Procalcitonin 0.28 Urine Color Yellow Urine Appearance Clear Urine pH 7.0 Ur Specific [place] 1.015 Urine Protein 1+ H Urine Glucose (UA) Trace H Urine Ketones Negative Urine Occult Blood Trace-lysed Urine Nitrate Negative Urine Bilirubin Negative Urine Urobilinogen 2.0 H Ur Leukocyte Esterase Negative Urine RBC 1-5/hpf Urine WBC 0-1/hpf Ur Squamous Epith Cells 0-1 /hpf Urine Bacteria Occasional (0-1) Hyaline Casts 0-1/lpf Granular Casts 0-1/lpf Ur Culture Indicated? Culture not indicate SARS-CoV-2 (PCR) Negative 01/08/21 01/08/21 01/08/21 00:30 05:45 05:45 WBC RBC Hgb 7.6 L Hct 23.4 L MCV MCH MCHC RDW Plt Count Neut % (Auto) Lymph % (Auto) [place] % (Auto) Eos % (Auto) Baso % (Auto) Neut # (Auto) Lymph # (Auto) [place] # (Auto) Eos # (Auto) Baso # (Auto) Sodium 131 L Potassium 4.4 Chloride 100 Carbon Dioxide 31 BUN 10 Creatinine 0.57 L Estimated GFR > 60.0 BUN/Creatinine Ratio 17.5 Glucose 97 Lactate 2.0 Calcium 7.2 L Magnesium 1.8 Total Bilirubin AST ALT Alkaline Phosphatase Total Protein Albumin Globulin Albumin/Globulin Ratio Lipase Procalcitonin Urine Color Urine Appearance Urine pH Ur Specific [place] Urine Protein Urine Glucose (UA) Urine Ketones Urine Occult Blood Urine Nitrate Urine Bilirubin Urine Urobilinogen Ur Leukocyte Esterase Urine RBC Urine WBC Ur Squamous Epith Cells Urine Bacteria Hyaline Casts Granular Casts Ur Culture Indicated? SARS-CoV-2 (PCR) [facility] Medical History Coronary artery disease Diabetes Hyperlipidemia Malignant neoplasm metastatic to pancreas Post-traumatic stress disorder, chronic Surgical History History of cholecystectomy (01/31/17) Family History Mother Diabetes mellitus Father Dementia Social History household members: family and children Smoking Status: Never smoker alcohol intake: never substance use type: does not use Discharge Plan Discharge Plan Patient Disposition: Home Provider Discharge Comment: You were admitted to the hospital with weakness and fever after chemo. No overt source of infection could be found. I have prescribed you antibiotics to take as a precaution. No fluid could be removed from your lung catheter due to not having the equipment to remove the fluid. This can be done safely with home health next week. Discharge orders & Medications Prescriptions: New levofloxacin 500 mg tablet 500 mg PO DAILY 5 Days Qty: 5 RF: 0 Continued pantoprazole [Protonix] 40 mg tablet,delayed release (DR/EC) 40 mg PO DAILY Qty: 30 RF: 0 ondansetron 4 mg tablet,disintegrating 4 mg PO TID-QID PRN (Reason: nausea and vomiting) Qty: 10 RF: 0 atorvastatin 40 mg tablet 40 mg PO DAILY RF: 0 baclofen 10 mg Tablet 5 mg PO TID PRN (Reason: Hiccups) Qty: 10 RF: 0 prednisone 20 mg tablet 20 mg PO DAILY Qty: 30 RF: 0 Lantus Solostar U-100 Insulin 100 unit/mL (3 mL) insulin pen 10 unit SUBCUT BID Qty: 15 RF: 0 lorazepam [Ativan] 0.5 mg tablet 0.5 mg PO QID Qty: 10 RF: 0 ondansetron 4 mg tablet,disintegrating 4 mg PO Q8H PRN (Reason: nausea and vomiting) Qty: 20 RF: 0 famotidine 40 mg Tablet 40 mg PO BEDTIME RF: 0 travoprost [Travatan Z] 0.004 % drops 1 drp EYE-BOTH DAILY RF: 0 olopatadine 0.1 % Drops 1 drp OPHTHALMIC (EYE) DAILY RF: 0 divalproex 500 mg Tablet Extended Release 24 Hr 500 mg PO DAILY RF: 0 brimonidine 0.2 % drops 1 drp ophthalmic (eye) DAILY RF: 0 doxazosin 4 mg tablet 4 mg PO DAILY RF: 0 finasteride 5 mg tablet 5 mg PO DAILY RF: 0 pregabalin [Lyrica] 150 mg Capsule 150 mg PO BID RF: 0 metoclopramide HCl [Reglan] 10 mg tablet 10 mg PO Q6H PRN (Reason: nausea and vomiting) Qty: 10 RF: 0 Medication counseling provided by Pharmacist: Yes Follow up/Referrals: Vianca Cox MD [Primary Care Provider] - Diet/Activity/Treatments Diet: Diet as Tolerated Activity: As tolerated Visit Report/Discharge Packet Instructions: Sepsis, DI for Sepsis -- Adult Discharge Data Primary Care Provider: Vianca Cox Attending Provider: Vero Smith VTE Deep Vein Thrombosis/Pulmonary Embolism Present on Admission: No
[2021-01-08 14:00] LABS: Add Manual Diff / Slide Review NO; Basophils Absolute Auto 0 /uL (0-100); Basophils Percent Auto 0.7 % (0-2); Eosinophils Absolute Auto 0 /uL (0-450); Eosinophils Percent Auto 0.1 % (2-4); Hematocrit 23.2 % (41-53); Hemoglobin 7.6 g/dL (13.5-17.5); Lymphocytes Absolute Auto 400 /uL (1100-4500); Lymphocytes Percent Auto 8.5 % (25-40); Mean Corpuscular HGB Conc 32.7 % (30-36); Mean Corpuscular Hemoglobin 30.9 PG (26-34); Mean Corpuscular Volume 94.4 fL (80-100); Monocytes Absolute Auto 100 /uL (0-900); Monocytes Percent Auto 2.8 % (3-14); Neutrophils Absolute Auto 4300 /uL (1500-7000); Neutrophils Percent Auto 87.9 % (50-75); Platelet Count 231 X10^3/uL (150-400); Red Blood Cell Count 2.45 X10^6/uL (4.5-5.9); Red Cell Distribution Width 19.7 % (11.6-14.8); White Blood Cell Count 4.9 X10^3/uL (4.5-11.0)
[2021-01-08 14:17] LABS: BUN Creatinine Ratio 17.2 (6-22); Blood Urea Nitrogen 10 mg/dL (9-20); Calcium 7.2 mg/dL (8.4-10.2); Carbon Dioxide 27 mmol/L (22-32); Chloride 100 mmol/L (98-107); Estimated Glomerular Filt Rate > 60.0 mL/min (>60); Glucose 166 mg/dL (80-110); HEMOLYSIS < 15 (0-50); Magnesium 1.8 mg/dL (1.6-2.3); Potassium 4.4 mmol/L (3.4-5.1); Sodium 130 mmol/L (137-145)
--- NOTE | 2021-01-08 14:17 | CM.DPNOTE ---
Update VA benefits for SNF/in home care: Spoke w/patient's assigned VA licensed clinical social worker Diane Arzolaliborio Francois#[phone] located in the [place] area. Updated Diane on patient's current admission and summarized discussion w/family and w/patient re: goals of care. Let Diane know patient will soon be without a cg when son returns to [place]. Included: Patient is a candidate for Hospice service but refuses at this time, states he plans to continue chemo. Of note- Patient is 100% service connected and would qualify for SNF stay at a [place] contracted SNF if ever needed and/or patient agreeable to this. Patient may also qualify for a new exception to the VA contracted SNF rule with a new program [facility] that deems any hardship ie needing chemo treatments near home as a way patient can get a local, non contracted SNF covered by the VA. Then discussed services available to patient for in home care? Diane explains that the [facility] program funds a set amount of weekly in home cg however there is often a long wait list for this service to begin. Patient's initial assessment and start of services can be expedited if patient qualifies for hospice and if SNF level of care is appropriate and patient wants to return home. This ASSISTANT WOMEN'S BASKETBALL COACH assisted Diane w/ to complete the initial care assessment required to get this process started. Diane will continue communication w/patient and with family. Strongly encouraged Diane to connect w/ Oncology SWer Lisa Peace-Laws; did not provide Lisa's contact, but will leave VM for Lisa today. MENG
--- NOTE | 2021-01-08 14:33 | PC.NURSE ---
Patient resting with eyes closed, breathing unlabored. Patient voiding in urinal, denies pain. Pt 94% on RA, denies SOB or increased WOB. Held Doxazosin per MD d/t hypotension. Patients PleurX drain remains CDI, MD unable to drain at this time. Sputum sent for culture. Patient given Tylenol d/t pain r/t to pressure sore on buttocks. Waffle cushion provided. Patient encouraged to turn.
--- NOTE | 2021-01-08 14:53 | CM.DPNOTE ---
DC Note According to Dr Yan, patient expected to DC this evening and patient eager to do so. PleurX drain cannot be drained at and HH RN was scheduled to drain today. Placed call to Mariam at [facility], updated on above. She could not give me a schedule update re: when an RN available to drain patient's PleurX (?) so Mariam needed to place call to Mau, nursing services manager at [facility], now awaiting f/u. Mariam may need to contact family directly if this BRUSH CUTTER has finished shift for the day. DC Summary not available at this time, patient has not been discharged yet. No resumption of service order needed d/t obs status. Attempted to reach son Chele, had to leave message requesting call back. Dr Yan plans to call son to update on discharge if it happens this afternoon/evening. Plan: DC home w/family and [facility] to drain PleurX cath, nursing availability [facility]un FAN
[2021-01-08 15:39] VITALS: BP 106/50; PULSE 97; RESP 18; TEMP 37.1; O2SAT 94
--- NOTE | 2021-01-08 19:11 | PC.NURSE ---
Evening Shift/Discharge Note- Patient discharged per MD. Son called to update and schedule pickup. Discharge instructions and education reviewed with patient and signed. IV line removed and bandage applied. Patient dressed and personal items packed up. Son call when in parking lot. Patient left via wheelchair with FRONT END LOADER OPERATOR and all personal belongings at 1755 to met son at ER enterance.
== END 2021-01-08 17:55 | disposition home or self-care (01) ==
LOC: ED 21:51 → AC 23:07
PROVIDERS: Admitting Provider Nurse Practitioner Family; Emergency Provider Emergency Medicine; PCP Internal Medicine; Referring Provider Emergency Medicine; Visit Provider Nurse Practitioner Family
DX: C25.9 Malignant neoplasm of pancreas, unspecified (principal); R11.2 Nausea with vomiting, unspecified; R53.81 Other malaise; R19.7 Diarrhea, unspecified; R50.2 Drug induced fever; E86.0 Dehydration; E87.6 Hypokalemia; E87.1 Hypo-osmolality and hyponatremia; D64.9 Anemia, unspecified; C78.7 Secondary malignant neoplasm of liver and intrahepatic bile duct; C79.00 Secondary malignant neoplasm of unspecified kidney and renal pelvis; I25.10 Atherosclerotic heart disease of native coronary artery without angina pectoris; E11.9 Type 2 diabetes mellitus without complications; E78.5 Hyperlipidemia, unspecified; Z86.16 Personal history of COVID-19; F43.10 Post-traumatic stress disorder, unspecified; Z79.4 Long term (current) use of insulin; Z20.822 Contact with and (suspected) exposure to COVID-19
CPT/HCPCS: 36415; 71045; 80048; 80053; 81001; 82962; 83605; 83690; 83735; 84145; 85014; 85018; 85025; 86850; 86900; 86901; 87040; 87070; 87077; 87086; 87205; 87635; 94762; 96361; 96365; 96366; 96367; 96372; 96375; 96376; 99284; C9803; G0378; C9113; J0692; J1650; J1815; J2405

== ENCOUNTER 2021-01-17 18:57 | Emergency (ER) | payer MEDICARE, OTHER, SELFPAY ==
[2021-01-17 19:02] VITALS: BP 100/55; PULSE 106; RESP 23; TEMP 36.4; O2SAT 100; BMI 24.1
--- NOTE | 2021-01-17 19:37 | ED.NAVMDI ---
HPI - Nausea/Vomiting/Diarrhea General Chief complaint: Nausea/Vomiting/Diarrhea Stated complaint: chemo side effects Time Seen by Provider: 01/17/21 19:31 Source: patient Mode of arrival: Family Vehicle Limitations: no limitations History of Present Illness HPI Narrative: Patient is a 70-year-old male. Undergoing of chemotherapy have. He gets chemo every Monday. He is in the emergency department frequently with vomiting after chemo. Last week he was fever and tachycardia 1 night in the hospital discharged home on 5 days of Levaquin. The week prior he had some slight hyponatremia. Today he says he started vomiting at 2:00 a.m.. He actually is complaining of hickups and sore on his bottom. He does not want anything for pain. I have asked if they plan on cutting back his chemo or changing it he thinks they might talk about that this week. MD complaint: nausea and vomiting Description of Diarrhea: none Related Data Home Medications Medication Instructions Recorded Confirmed brimonidine 1 drp OPHTHALMIC (EYE) DAILY 10/05/20 12/11/20 divalproex 500 mg PO DAILY 10/05/20 12/11/20 doxazosin 4 mg PO DAILY 10/05/20 12/11/20 famotidine 40 mg PO BEDTIME 10/05/20 12/11/20 finasteride 5 mg PO DAILY 10/05/20 12/11/20 olopatadine 1 drp OPHTHALMIC (EYE) DAILY 10/05/20 12/11/20 pregabalin [Lyrica] 150 mg PO BID 10/05/20 12/11/20 travoprost [Travatan Z] 1 drp EYE-BOTH DAILY 10/05/20 12/11/20 atorvastatin 40 mg PO DAILY 11/07/20 12/11/20 Previous Rx's Medication Instructions Recorded ondansetron 4 mg PO TID-QID PRN #10 tab 10/06/20 pantoprazole [Protonix] 40 mg PO DAILY #30 tab 10/06/20 metoclopramide HCl [Reglan] 10 mg PO Q6H PRN #10 tab 11/05/20 baclofen 5 mg PO TID PRN #10 tab 11/08/20 prednisone 20 mg PO DAILY #30 tab 12/03/20 Lantus Solostar U-100 Insulin 10 unit SUBCUT BID #15 ml 12/13/20 lorazepam [Ativan] 0.5 mg PO QID #10 tab 12/24/20 ondansetron 4 mg PO Q8H PRN #20 tab 12/28/20 Allergies Allergy/AdvReac Type Severity Reaction Status Date / Time aspirin Allergy Unknown Verified 01/17/21 19:02 brompheniramine Allergy Unknown Verified 01/17/21 19:02 codeine Allergy Unknown Verified 01/17/21 19:02 diphenhydramine Allergy Unknown Verified 01/17/21 19:02 guaifenesin Allergy Unknown Verified 01/17/21 19:02 hydrocodone Allergy Unknown Verified 01/17/21 19:02 hydroxyzine Allergy Unknown Verified 01/17/21 19:02 ibuprofen Allergy Unknown Verified 01/17/21 19:02 meperidine Allergy Unknown Verified 01/17/21 19:02 morphine Allergy Unknown Verified 01/17/21 19:02 nystatin Allergy Unknown Verified 01/17/21 19:02 promethazine Allergy Unknown Verified 01/17/21 19:02 propoxyphene Allergy Unknown Verified 01/17/21 19:02 tuberculin, purified protein Allergy Unknown Verified 01/17/21 19:02 deriva egg Allergy Verified 01/17/21 19:02 amoxicillin [From Augmentin] AdvReac Unknown Vomiting Verified 01/17/21 19:02 metformin AdvReac Unknown Diarrhea Verified 01/17/21 19:02 clavulanic acid AdvReac Vomiting Verified 01/17/21 19:02 [From Augmentin] Review of Systems Review of Systems Narrative: GENERAL: Denies chills, fatigue, malaise, fever, sweats, travel HEENT: Denies sinus pain, ear pain, sore throat, difficulty swallowing, neck pain RESPIRATORY: Denies dyspnea, cough, wheezing, hemoptysis, sputum. CARDIOVASCULAR: Denies chest pain, palpitations, orthopnea, edema GASTROINTESTINAL: See HPI : Denies dysuria, frequency, incontinence, hematuria, urinary retention, flank pain. MUSCULOSKELETAL: Denies weakness, joint pain, or bony pain SKIN: No rash, no erythema, no pruritus NEUROLOGIC: Denies weakness, dizziness, headache, numbness, change in speech, confusion PSYCHIATRIC: No concerning psychosocial issues. 12 point review of systems is negative except for those stated above and HPI Patient History Medical History Coronary artery disease Diabetes Hyperlipidemia Malignant neoplasm metastatic to pancreas Post-traumatic stress disorder, chronic Surgical History History of cholecystectomy (01/31/17) Family History Mother Diabetes mellitus Father Dementia Social History household members: family and children Smoking Status: Never smoker alcohol intake: never substance use type: does not use Smoking Status: Never smoker alcohol intake frequency: holidays/special occasions only Substance Use Type: does not use Exam Initial Vital Signs Initial Vital Signs: Vital Signs Temperature 97.5 F L 01/17/21 19:02 Pulse Rate 106 H 01/17/21 19:02 Respiratory Rate 23 01/17/21 19:02 Blood Pressure 100/55 L 01/17/21 19:02 Pulse Oximetry 100 01/17/21 19:02 GENERAL: Chronically ill 70-year-old male and in [no acute] distress. HEENT: Head atraumatic,EOMI, pupils reactive, face symmetric, [moist] mucous membranes CARDIOVASCULAR: Regular rate and rhythm without murmurs, rubs or gallops. RESPIRATORY: Breath sounds equal bilaterally, no wheezes rales or rhonchi. ABDOMEN: Soft, nontender. Normoactive bowel sounds all 4 quadrants. No guarding or rebound. EXTREMITIES: Normal range of motion, no clubbing or edema. Neurovascularly intact NEUROLOGICAL: Alert and oriented x4.Normal gait and speech. SKIN: Warm, dry, no laceration, no petechiae, no rashes or lesions. Course Orders Ordered: ED Orders 01/17/21 19:45 Complete Blood Count AUTO DIFF Stat Comprehensive Metabolic Panel Stat Lipase Stat Discontinued Medications Heparin Sodium (Porcine) (Heparin 500 Unit/5 Ml Port Flush) 500 unit IV PRN PRN PRN Reason: Flush Last Admin: 01/17/21 21:44 Dose: 500 unit Documented by: DAYNE Sodium Chloride (Normal Saline 0.9%) 1,000 mls @ 1,000 mls/hr IV BOLUS ONE Stop: 01/17/21 20:38 Last Infusion: 01/17/21 21:18 Dose: 0 mls/hr Documented by: Admin: 01/17/21 19:52 Dose: 1,000 mls/hr Documented by: [email or web address] Lidocaine HCl (Lidocaine 1% (Pf)) 2 ml INJ NOW ONE Stop: 01/17/21 19:33 Last Admin: 01/17/21 19:52 Dose: 2 ml Documented by: [email or web address] Ondansetron HCl (Ondansetron 4 Mg/2 Ml Inj) 4 mg IV NOW ONE Stop: 01/17/21 19:40 Last Admin: 01/17/21 20:10 Dose: 4 mg Documented by: [email or web address] Pantoprazole Sodium (Pantoprazole 40 Mg Vial) 40 mg IV NOW ONE Stop: 01/17/21 20:17 Last Admin: 01/17/21 20:23 Dose: 40 mg Documented by: CTRMANDIE Vital Signs Vital signs: Vital Signs - 8 hr 01/17/21 21:11 01/17/21 21:30 01/17/21 21:57 Temperature 99.0 F Pulse Rate 96 H 98 H Respiratory Rate 11 L 15 Blood Pressure 125/69 Pulse Oximetry 100 100 MDM - Nausea/Vomiting/Diarrhea Lab Data Attestation: I reviewed the patient's lab results. Result diagrams: 01/17/21 19:45 01/17/21 19:45 Labs: Lab Results 01/17/21 01/17/21 Range/Units 19:45 19:45 WBC 0.3 L* (4.5-11.0) X10^3/uL RBC 2.32 L (4.5-5.9) X10^6/uL Hgb 7.0 L (13.5-17.5) g/dL Hct 21.2 L (41-53) % MCV 91.2 D (80-100) fL MCH 30.0 (26-34) PG MCHC 32.9 (30-36) % RDW 18.9 H (11.6-14.8) % Plt Count 101 L (150-400) X10^3/uL Neut % (Auto) Not Reportable Lymph % (Auto) Not Reportable [place] % (Auto) Not Reportable Eos % (Auto) Not Reportable Baso % (Auto) Not Reportable Lymph # (Auto) Not Reportable [place] # (Auto) Not Reportable Baso # (Auto) Not Reportable Sodium 132 L (137-145) mmol/L Potassium 3.4 (3.4-5.1) mmol/L Chloride 104 (98-107) mmol/L Carbon Dioxide 26 (22-32) mmol/L BUN 6 L (9-20) mg/dL Creatinine 0.42 L (0.66-1.25) mg/dL Estimated GFR > 60.0 (>60) mL/min BUN/Creatinine Ratio 14.3 (6-22) Glucose 101 (80-110) mg/dL Calcium 6.9 L (8.4-10.2) mg/dL Total Bilirubin 1.2 (0.2-1.3) mg/dL AST 139 H (17-59) IU/L ALT 109 H (<50) IU/L Alkaline Phosphatase 607 H (38-126) U/L Total Protein 4.4 L (6.3-8.2) g/dL Albumin 1.9 L (3.5-5.0) g/dL Globulin 2.5 (1.7-4.1) g/dL Albumin/Globulin Ratio 0.8 L (1.0-2.8) Lipase < 10 L (23-300) U/L Point of Care Testing Glucose POC 111 MDM Narrative Medical decision making narrative: Patient is found to be neutropenic and anemic with out fever. After Zofran and Protonix he is feeling much better. He has appointment with his Oncology this week he is requesting to go home so that he can meet his home healthcare nurse tomorrow. Bandage is placed on his bottom where there is pressure sore. He was previously given Granix for neutropenia at [facility] January 08 He also is found to be anemic previous hemoglobin 7.6. He apparently was transfused at [facility]. He denies any shortness of breath. Discharge Plan Departure Patient Disposition: Home Clinical Impression: Neutropenia, Pancreatic cancer, Anemia Instructions: Anemia Activity Restrictions/Additional Instructions: *You have been diagnosed with pancreatic cancer *What to do: You are actually found to be neutropenic in are at high risk for infection but fortunately do not have fever today. Please discuss this with her oncologist this week He also are anemic hemoglobin of 7 you may need blood transfusion he continue to not feel well *Continue to take medications as directed *Follow up with your primary care provider in 2-3 days *Return to ER if you should have increasing shortness of breath, inability to tolerate fluids, weakness or any new, worsening or concerning symptoms Prescriptions: No Action pantoprazole [Protonix] 40 mg tablet,delayed release (DR/EC) 40 mg PO DAILY Qty: 30 RF: 0 ondansetron 4 mg tablet,disintegrating 4 mg PO TID-QID PRN (Reason: nausea and vomiting) Qty: 10 RF: 0 atorvastatin 40 mg tablet 40 mg PO DAILY RF: 0 baclofen 10 mg Tablet 5 mg PO TID PRN (Reason: Hiccups) Qty: 10 RF: 0 prednisone 20 mg tablet 20 mg PO DAILY Qty: 30 RF: 0 Lantus Solostar U-100 Insulin 100 unit/mL (3 mL) insulin pen 10 unit SUBCUT BID Qty: 15 RF: 0 lorazepam [Ativan] 0.5 mg tablet 0.5 mg PO QID Qty: 10 RF: 0 ondansetron 4 mg tablet,disintegrating 4 mg PO Q8H PRN (Reason: nausea and vomiting) Qty: 20 RF: 0 famotidine 40 mg Tablet 40 mg PO BEDTIME RF: 0 travoprost [Travatan Z] 0.004 % drops 1 drp EYE-BOTH DAILY RF: 0 olopatadine 0.1 % Drops 1 drp OPHTHALMIC (EYE) DAILY RF: 0 divalproex 500 mg Tablet Extended Release 24 Hr 500 mg PO DAILY RF: 0 brimonidine 0.2 % drops 1 drp ophthalmic (eye) DAILY RF: 0 doxazosin 4 mg tablet 4 mg PO DAILY RF: 0 finasteride 5 mg tablet 5 mg PO DAILY RF: 0 pregabalin [Lyrica] 150 mg Capsule 150 mg PO BID RF: 0 metoclopramide HCl [Reglan] 10 mg tablet 10 mg PO Q6H PRN (Reason: nausea and vomiting) Qty: 10 RF: 0 Referrals: Vianca Cox MD [Primary Care Provider] -
[2021-01-17] MEDS: LIDOCAINE 1% (PF) 2 ML INJ (19:52)
[2021-01-17] MEDS: SODIUM CHLORIDE 0.9% 1,000 ML 1000 ML IV (19:52)
[2021-01-17 20:06] LABS: Hematocrit 21.2 % (41-53); Mean Corpuscular HGB Conc 32.9 % (30-36); Mean Corpuscular Volume 91.2 fL (80-100); Platelet Count 101 X10^3/uL (150-400); Red Blood Cell Count 2.32 X10^6/uL (4.5-5.9); Red Cell Distribution Width 18.9 % (11.6-14.8)
[2021-01-17 20:07] LABS: Alanine Aminotransferase 109 IU/L (<50); Albumin 1.9 g/dL (3.5-5.0); Albumin Globulin Ratio 0.8 (1.0-2.8); Alkaline Phosphatase 607 U/L (38-126); Aspartate Aminotransferase 139 IU/L (17-59); BUN Creatinine Ratio 14.3 (6-22); Bilirubin Total 1.2 mg/dL (0.2-1.3); Blood Urea Nitrogen 6 mg/dL (9-20); Calcium 6.9 mg/dL (8.4-10.2); Carbon Dioxide 26 mmol/L (22-32); Chloride 104 mmol/L (98-107); Estimated Glomerular Filt Rate > 60.0 mL/min (>60); Globulin 2.5 g/dL (1.7-4.1); Glucose 101 mg/dL (80-110); HEMOLYSIS < 15 (0-50); Potassium 3.4 mmol/L (3.4-5.1); Sodium 132 mmol/L (137-145); Total Protein 4.4 g/dL (6.3-8.2)
[2021-01-17 20:08] LABS: Add Manual Diff / Slide Review NO; White Blood Cell Count 0.3 X10^3/uL (4.5-11.0)
[2021-01-17 20:10] LABS: Lipase < 10 U/L (23-300)
[2021-01-17] MEDS: ONDANSETRON 4 MG/2 ML INJ IV (20:10)
[2021-01-17] MEDS: PANTOPRAZOLE 40 MG VIAL IV (20:23)
[2021-01-17 21:11] VITALS: PULSE 96; RESP 11; O2SAT 100
[2021-01-17 21:30] VITALS: BP 125/69; PULSE 98; RESP 15; O2SAT 100
[2021-01-17 21:57] VITALS: TEMP 37.2
== END 2021-01-17 21:58 | disposition home or self-care (01) ==
PROVIDERS: Emergency Provider Emergency Medicine; PCP Internal Medicine
DX: D70.9 Neutropenia, unspecified (principal); D64.9 Anemia, unspecified; C25.9 Malignant neoplasm of pancreas, unspecified
CPT/HCPCS: 36415; 80053; 82962; 83690; 85025; 96361; 96374; 96375; 99284; C9113; J1642; J2405